=== PATIENT | female | born 1955 | race Caucasian/White ===

== ENCOUNTER → 2017-04-07 | Outpatient (CLI) | payer OTHER ==
[2017-04-07 18:27] LABS: ALT/SGPT 41 U/L (12-78); AST/SGOT 23 U/L (15-37); BLOOD UREA NITROGEN 13 mg/dl (7-18); BUN/CREATININE RATIO 13.1 (10-20); CALCIUM 8.7 mg/dl (8.5-10.1); CARBON DIOXIDE 29 mmol/L (21-32); CHLORIDE 98 mmol/L (98-107); CREATININE 0.99 mg/dl (0.60-1.20); GLUCOSE 192 mg/dl (70-99); POTASSIUM 4.7 mmol/L (3.5-5.1); SODIUM 131 mmol/L (136-145)
[2017-04-07 18:38] LABS: ALKALINE PHOSPHATASE 171 U/L (45-117); CHOLESTEROL 176 mg/dl (0-200); CHOLESTEROL/HDL RATIO 4.3; HDL CHOLESTEROL 41 mg/dl; TRIGLYCERIDES 216 mg/dl (0-150); VERY LOW DENSITY LIPOPROT CALC 43 mg/dl
[2017-04-07 18:44] LABS: RATIO 76.9 mcg/mg (0-30.0)
[2017-04-08 06:47] LABS: ESTIMATED AVERAGE GLUCOSE 203 mg/dl; HA1C FLAG Normal (Normal)
== END | disposition home or self-care (01) ==
LOC: C.LABMFLN 12:18
PROVIDERS: ATTEND Family Medicine
DX: E11.9 Type 2 diabetes mellitus without complications (principal); I10 Essential (primary) hypertension; E78.00 Pure hypercholesterolemia, unspecified; E55.9 Vitamin D deficiency, unspecified

== ENCOUNTER → 2017-06-03 | Outpatient (CLI) | payer OTHER ==
[2017-06-03 13:34] LABS: HEMATOCRIT 38.3 % (37-47); MEAN CELL VOLUME 82.9 fL (80-100); MEAN CORPUSCULAR HEMOGLOBIN 27.1 pg (25-34); MEAN CORPUSCULAR HGB CONC 32.6 g/dl (32-36); PLATELET COUNT 139 K/uL (130-400); RED BLOOD COUNT 4.62 M/uL (4.2-5.4)
== END | disposition home or self-care (01) ==
LOC: C.LABMFLN 09:42
PROVIDERS: ATTEND Orthopaedic Surgery
DX: S32.12 Zone II fracture of sacrum (principal); Z98.890 Other specified postprocedural states; F20.0 Paranoid schizophrenia; Z72.0 Tobacco use; X58.XXXD Exposure to other specified factors, subsequent encounter

== ENCOUNTER → 2017-07-08 | Outpatient (CLI) | payer OTHER ==
[2017-07-08 18:24] LABS: BLOOD UREA NITROGEN 12 mg/dl (7-18); BUN/CREATININE RATIO 14.2 (10-20); CALCIUM 8.9 mg/dl (8.5-10.1); CARBON DIOXIDE 27 mmol/L (21-32); CHLORIDE 104 mmol/L (98-107); CREATININE 0.84 mg/dl (0.60-1.20); GLUCOSE 89 mg/dl (70-99); POTASSIUM 4.2 mmol/L (3.5-5.1); SODIUM 136 mmol/L (136-145)
[2017-07-09 06:36] LABS: ESTIMATED AVERAGE GLUCOSE 180 mg/dl; HA1C FLAG Normal (Normal)
== END | disposition home or self-care (01) ==
LOC: C.LABMFLN 10:59
PROVIDERS: ATTEND Family Medicine
DX: E11.40 Type 2 diabetes mellitus with diabetic neuropathy, unspecified (principal)

== ENCOUNTER → 2017-10-09 | Outpatient (CLI) | payer OTHER ==
[2017-10-09 18:43] LABS: INFLUENZA A PCR Neg for Influ A (NEG); INFLUENZA B PCR Neg for Influ B (NEG)
== END | disposition home or self-care (01) ==
LOC: C.LABMFLN 17:53
PROVIDERS: ATTEND Family Medicine
DX: R68.89 Other general symptoms and signs (principal); R30.0 Dysuria

== ENCOUNTER 2018-12-07 22:40 | Inpatient (IN) ==
[2018-12-07] MEDS ORDERED: methylPREDNISolone 125 MG/2 ML VIAL IV STA (23:41)
[2018-12-07] MEDS ORDERED: ALBUT/IPRATROP 3MG/0.5MG NEB 3 ML VIAL NEB STA (23:41)
[2018-12-08 00:15] LABS: Basophils # (auto) 0.01 K/uL (0-0.2); Basophils % (auto) 0.1 %; Eosinophils # (auto) 0.04 K/uL (0-0.5); Eosinophils % (auto) 0.6 %; Hematocrit (blood only) 21.8 % (37-47); Hemoglobin 7.7 g/dL (12.0-16.0); Immature Granulocytes # (auto) 0.01 K/uL (0.00-0.02); Immature Granulocytes % (auto) 0.1 %; Lymphocytes # (auto) 1.15 K/uL (1.2-3.4); Mean Corpuscular Hgb Conc 35.3 g/dL (32-36); Mean Corpuscular Volume 86.9 fL (80-100); Mean Platelet Volume 7.9 fL (7.4-10.4); Monocytes % (auto) 10.4 %; Neutrophils # (auto) 4.85 K/uL (1.4-6.5); Neutrophils % (auto) 71.8 %; Platelet Count 132 K/uL (130-400); RDW Coefficient of Variation 15.5 % (11.5-14.5); Red Blood Count 2.51 M/uL (4.2-5.4); White Blood Count 6.76 K/uL (4.8-10.8)
[2018-12-08 00:17] LABS: Appearance Urine Cloudy (Clear); Bacteria Urine Automated 2+ (Negative); Bilirubin Urine Negative (Negative); Blood Urine Trace (Negative); Color Urine Yellow; Glucose Urine UA Negative (Negative); Ketones Urine Negative (Negative); Leukocyte Esterase Urine 3+ (Negative); Nitrite Urine Positive (Negative); Protein Urine 3+ (Negative); RBC Urine Automated 0-4 /hpf (0-4); Specific Gravity Urine 1.012 (1.000-1.030); Urobilinogen Urine Negative (Negative); WBC Urine Automated >30 /hpf (0-5); pH Urine 6.5 (4.5-7.5)
[2018-12-08 00:41] LABS: Alanine Aminotransferase 21 U/L (12-78); Albumin Level 2.4 gm/dl (3.4-5.0); Aspartate Aminotransferase 37 U/L (15-37); BUN Creatinine Ratio 17.8 (10-20); Blood Urea Nitrogen 35 mg/dl (7-18); Calcium 7.5 mg/dl (8.5-10.1); Carbon Dioxide 24 mmol/L (21-32); Chloride 95 mmol/L (98-107); Creatinine Clr Calc Pharmacy 28.9 ml/min; Est GFR (African American) 30.6; Est GFR (Non-African American) 26.4; Glucose 68 mg/dl (70-99); Magnesium 1.8 mg/dl (1.8-2.4); Potassium 4.3 mmol/L (3.5-5.1); RBC Morphology Unremarkable; Sodium 125 mmol/L (136-145)
[2018-12-08 00:46] LABS: Albumin Globulin Ratio 0.6 (0.9-2); Alkaline Phosphatase 177 U/L (45-117); Bilirubin,Total 0.5 mg/dl (0.2-1); Creatine Kinase 92 U/L (26-192); Globulin 3.9 gm/dl (2.5-4.0); Total Protein 6.3 gm/dl (6.4-8.2); Troponin I < 0.015 ng/ml (0-0.045)
[2018-12-08] MEDS ORDERED: SODIUM CHLORIDE 0.9% 1000ML 500 ML IV ONE (00:48)
[2018-12-08] MEDS ORDERED: cefTRIAXone SODIUM 1,000 MG/50 ML BAG IV STA (00:48)
[2018-12-08] MEDS ORDERED: LORazepam 1 MG/2 ML VIAL IV STA ×3 (01:10→02:59)
--- NOTE | 2018-12-08 01:37 | Emergency Department Note ---
History of Present Illness General Chief complaint: Hypoglycemia Stated complaint: hypoglycemia History of Present Illness This 63-year-old presents to the ER complaining of seizure-like activity Location: Generalized Quality: Shaking Severity: Moderate Duration: 10 minutes Timing: Just prior to arrival Context: half-way was concerned and sent the patient in Modifying factors: better with nothing; worse with nothing I spoke to the nurse at the care home who states the patient had a possible seizure/shaking episode for about 10 minutes and EMS was summoned. Patient is currently at the care home for rehab for a right hip fracture. She was transferred there from [place]. Patient has a history of COPD, diabetes and behavioral health. Patient complains of abdominal pain, back pain and cough. Patient is unsure what happened tonight. EMS arrived and blood sugar was 50 and patient was found on the ground. They gave her dextrose. Repeat blood sugar was improved. Patient has no history of seizures. Home Medications Home Medications Medication Instructions Recorded Confirmed Type acetaminophen 650 mg PO Q6H PRN MDD 3GM/24HR 12/08/18 12/08/18 History acetaminophen 650 mg PO Q6H PRN MDD 3GM/24HR 12/08/18 12/08/18 History albuterol sulfate 2 puff INHALATION Q4 PRN 12/08/18 12/08/18 History amlodipine 10 mg PO DAILY 12/08/18 12/08/18 History aripiprazole [Abilify] 15 mg PO DAILY 12/08/18 12/08/18 History ascorbic acid (vitamin C) [Vitamin 500 mg PO DAILY 12/08/18 12/08/18 History C] aspirin 81 mg PO DAILY 12/08/18 12/08/18 History atorvastatin [Lipitor] 40 mg PO HS 12/08/18 12/08/18 History bupropion HCl 100 mg PO DAILY 12/08/18 12/08/18 History citalopram [Celexa] 40 mg PO DAILY 12/08/18 12/08/18 History diphenhydramine HCl 25 mg PO Q6H PRN 12/08/18 12/08/18 History fluticasone furoate-vilanterol 1 inh INHALATION DAILY 12/08/18 12/08/18 History [Breo Ellipta] furosemide 40 mg PO BID 12/08/18 12/08/18 History hydralazine 25 mg PO BID 12/08/18 12/08/18 History insulin glargine [Lantus U-100 10 unit SUBCUT BID 12/08/18 12/08/18 History Insulin] insulin lispro [Humalog U-100 1 sliding scale dose SUBCUT 12/08/18 12/08/18 History Insulin] USEASDIRECTD insulin lispro [Humalog U-100 3 unit SUBCUT AC 12/08/18 12/08/18 History Insulin] ipratropium-albuterol [Combivent 1 puff INHALATION QID 12/08/18 12/08/18 History Respimat] liraglutide [Victoza 2-Gary] 1.2 mg SUBCUT DAILY 12/08/18 12/08/18 History melatonin 3 mg PO HS 12/08/18 12/08/18 History metoprolol tartrate 50 mg PO BID 12/08/18 12/08/18 History nicotine [Nicoderm CQ] 1 patch TRANSDERMAL DAILY 12/08/18 12/08/18 History oxycodone 5 mg PO Q8 PRN 12/08/18 12/08/18 History ranitidine HCl 75 mg PO DAILY 12/08/18 12/08/18 History Allergies Allergy/AdvReac Type Severity Reaction Status Date / Time metformin Allergy Unknown Verified 12/08/18 02:11 Past Med/Surg History Medical History COPD (chronic obstructive pulmonary disease) Diabetes Social History Feels Safe at Home: Yes Smoking Status: Unknown if ever smoked Review of Systems All systems reviewed & are unremarkable except as noted in HPI & below Physical Exam Vital Signs Vital Signs - 24 hr 12/07/18 22:49 12/08/18 00:14 12/08/18 01:07 Temperature 36.5 C Temperature Source Oral Sepsis Recent Fever Within 48 Hours No Sepsis New/Unexplained Change in Mental Status No Sepsis Action Taken by Nursing No Action Required Pulse Rate 94 H 78 Pulse Rate [Right Foot] 78 76 Pulse Rhythm Regular Pulse Rhythm [Right Foot] Regular Regular Pulse Strength Normal Pulse Strength [Right Foot] Normal Normal Respiratory Rate 18 20 18 Respiratory Effort / Characteristics Non-Labored Non-Labored Non-Labored Respiratory Depth Normal Normal Normal Respiratory Pattern Regular Regular Regular Blood Pressure 158/81 H Blood Pressure [Right Arm] 116/83 125/86 Blood Pressure Mean 106 Blood Pressure Mean [Right Arm] 94 99 Blood Pressure Position Lying Blood Pressure Position [Right Arm] Lying Lying Pulse Oximetry 98 100 93 Oxygen Delivery Method Room Air Nebulizer Room Air Oxygen Flow Rate 7 VITALS: Vitals are noted on the nurse's note and reviewed by myself. Vital signs stable. GENERAL: White female answering questions appropriately, in no acute distress, nondiaphoretic, well-developed well-nourished. SKIN: Multiple scabs throughout the patient's arms and back that are healing, the rest of the skin was without rashes, erythema, edema, or bruising. There is no tenting of the skin. Capillary reflex less than 2 seconds. HEAD: Normocephalic atraumatic. EARS: External auditory canals clear, tympanic membranes pearly woods without erythema or effusion bilaterally. EYES: Pupils equal round and reactive to light and accommodation. Conjunctivae without injection, sclerae without icterus. Extraocular movements intact. NOSE: Patent, turbinates without inflammation or discharge. No sinus tenderness. MOUTH: Mucous membranes moist. Pharynx without erythema or exudate. Uvula midline. Airway patent. Tongue does not deviate. NECK: Supple without nuchal rigidity. No lymphadenopathy. No thyromegaly. Cervical spine is nontender. No JVD. HEART: Regular rate and rhythm LUNGS: Diffuse inspiratory and expiratory wheezes, without rales or rhonchi. No retractions or accessory muscle use. ABDOMEN: Positive bowel sounds x 4. Normal tympanic percussion. Soft, tender to palpation lower abdomen, without masses or organomegaly. Aviles sign negative. No guarding or rebound tenderness. No CVA tenderness MUSCULOSKELETAL: No muscle atrophy, erythema, or edema noted. Lumbar tenderness with bruising present. No thoracic tenderness. NEURO: Patient was alert and oriented to person place and time. Normal sensation to light and sharp touch. No focal neurological deficits. Course Administered Medications Discontinued Medications Albuterol (Duoneb) 3 ml NEB NOW STA Stop: 12/07/18 23:42 Last Admin: 12/08/18 00:12 Dose: 3 ml Documented by: [id number] Diphenhydramine HCl (Benadryl) 25 mg IV NOW STA Stop: 12/08/18 01:40 Last Admin: 12/08/18 01:44 Dose: 25 mg Documented by: [id number] Haloperidol Lactate (Haldol) 5 mg IM NOW STA Stop: 12/08/18 01:40 Last Admin: 12/08/18 01:44 Dose: 5 mg Documented by: [id number] Haloperidol Lactate (Haldol) 5 mg IM NOW STA Stop: 12/08/18 03:00 Last Admin: 12/08/18 03:13 Dose: 5 mg Documented by: [id number] Sodium Chloride (Nss 1000ml) 500 mls @ 999 mls/hr IV .Q31M ONE Stop: 12/08/18 01:18 Last Admin: 12/08/18 01:30 Dose: 999 mls/hr Documented by: [id number] Ceftriaxone Sodium (Rocephin) 1,000 mg in 50 mls @ 100 mls/hr IV NOW STA Stop: 12/08/18 01:17 Last Infusion: 12/08/18 02:06 Dose: 0 mls/hr Documented by: [id number] Admin: 12/08/18 01:27 Dose: 100 mls/hr Documented by: [id number] Lorazepam (Ativan) 1 mg in 2 mls @ 2 mls/min IV NOW STA Stop: 12/08/18 01:11 Last Admin: 12/08/18 01:30 Dose: 2 mls/min Documented by: [id number] Lorazepam (Ativan) 1 mg in 2 mls @ 2 mls/min IV NOW STA Stop: 12/08/18 01:38 Last Admin: 12/08/18 01:44 Dose: 2 mls/min Documented by: [id number] Lorazepam (Ativan) 1 mg in 2 mls @ 2 mls/min IV NOW STA Stop: 12/08/18 03:00 Last Admin: 12/08/18 03:13 Dose: 2 mls/min Documented by: [id number] Methylprednisolone (Solumedrol) 125 mg IV NOW STA Stop: 12/07/18 23:42 Last Admin: 12/08/18 00:12 Dose: 125 mg Documented by: [id number] Medical Decision Making Medical Records Attestation: I reviewed the patient's medical records. Home Medications Current Medication List: was personally reviewed by me Laboratory Data Attestation: I reviewed the patient's lab results. Result diagrams: 12/08/18 00:03 12/08/18 00:03 Lab Results 12/07/18 12/07/18 12/08/18 Range/Units 22:45 23:37 00:02 WBC (4.8-10.8) K/uL RBC (4.2-5.4) M/uL Hgb (12.0-16.0) g/dL Hct (37-47) % MCV (80-100) fL MCH (25-34) pg MCHC (32-36) g/dL RDW Std Deviation (36.4-46.3) fL RDW Coeff of David (11.5-14.5) % Plt Count (130-400) K/uL MPV (7.4-10.4) fL Immature Gran % (Auto) % Neut % (Auto) % Lymph % (Auto) % [place] % (Auto) % Eos % (Auto) % Baso % (Auto) % Immature Gran # (Auto) (0.00-0.02) K/uL Neut # (Auto) (1.4-6.5) K/uL Lymph # (Auto) (1.2-3.4) K/uL [place] # (Auto) (0.11-0.59) K/uL Eos # (Auto) (0-0.5) K/uL Baso # (Auto) (0-0.2) K/uL RBC Morphology Sodium (136-145) mmol/L Potassium (3.5-5.1) mmol/L Chloride (98-107) mmol/L Carbon Dioxide (21-32) mmol/L Anion Gap (3-11) BUN (7-18) mg/dl Creatinine (0.6-1.2) mg/dl Est Cr Clr Drug Dosing ml/min Est GFR ( Amer) Est GFR (Non-Af Amer) BUN/Creatinine Ratio (10-20) Glucose (70-99) mg/dl POC Glucose 159 H 90 (70-99) Calcium (8.5-10.1) mg/dl Magnesium (1.8-2.4) mg/dl Total Bilirubin (0.2-1) mg/dl AST (15-37) U/L ALT (12-78) U/L Alkaline Phosphatase (45-117) U/L Total Creatine Kinase (26-192) U/L Troponin I (0-0.045) ng/ml Total Protein (6.4-8.2) gm/dl Albumin (3.4-5.0) gm/dl Globulin (2.5-4.0) gm/dl Albumin/Globulin Ratio (0.9-2) Lipase (73-393) U/L Urine Color Yellow Urine Appearance Cloudy H (Clear) Urine pH 6.5 (4.5-7.5) Ur Specific [place] 1.012 (1.000-1.030) Urine Protein 3+ H (Negative) Urine Glucose (UA) Negative (Negative) Urine Ketones Negative (Negative) Urine Blood Trace H (Negative) Urine Nitrite Positive H (Negative) Urine Bilirubin Negative (Negative) Urine Urobilinogen Negative (Negative) Ur Leukocyte Esterase 3+ H (Negative) Urine WBC (Auto) >30 H (0-5) /hpf Urine RBC (Auto) 0-4 (0-4) /hpf U Hyaline Cast (Auto) 1-5 (0-5) /lpf U Epithel Cells (Auto) 5-10 H (0-5) /lpf Urine Bacteria (Auto) 2+ H (Negative) Blood Type Antibody Screen 12/08/18 12/08/18 12/08/18 Range/Units 00:03 00:03 01:03 WBC 6.76 (4.8-10.8) K/uL RBC 2.51 L (4.2-5.4) M/uL Hgb 7.7 L (12.0-16.0) g/dL Hct 21.8 L (37-47) % MCV 86.9 (80-100) fL MCH 30.7 (25-34) pg MCHC 35.3 (32-36) g/dL RDW Std Deviation 49.0 H (36.4-46.3) fL RDW Coeff of David 15.5 H (11.5-14.5) % Plt Count 132 (130-400) K/uL MPV 7.9 (7.4-10.4) fL Immature Gran % (Auto) 0.1 % Neut % (Auto) 71.8 % Lymph % (Auto) 17.0 % [place] % (Auto) 10.4 % Eos % (Auto) 0.6 % Baso % (Auto) 0.1 % Immature Gran # (Auto) 0.01 (0.00-0.02) K/uL Neut # (Auto) 4.85 (1.4-6.5) K/uL Lymph # (Auto) 1.15 L (1.2-3.4) K/uL [place] # (Auto) 0.70 H (0.11-0.59) K/uL Eos # (Auto) 0.04 (0-0.5) K/uL Baso # (Auto) 0.01 (0-0.2) K/uL RBC Morphology Unremarkable Sodium 125 L (136-145) mmol/L Potassium 4.3 (3.5-5.1) mmol/L Chloride 95 L (98-107) mmol/L Carbon Dioxide 24 (21-32) mmol/L Anion Gap 6.0 (3-11) BUN 35 H (7-18) mg/dl Creatinine 1.98 H (0.6-1.2) mg/dl Est Cr Clr Drug Dosing 28.9 ml/min Est GFR ( Amer) 30.6 Est GFR (Non-Af Amer) 26.4 BUN/Creatinine Ratio 17.8 (10-20) Glucose 68 L (70-99) mg/dl POC Glucose (70-99) Calcium 7.5 L (8.5-10.1) mg/dl Magnesium 1.8 (1.8-2.4) mg/dl Total Bilirubin 0.5 (0.2-1) mg/dl AST 37 (15-37) U/L ALT 21 (12-78) U/L Alkaline Phosphatase 177 H (45-117) U/L Total Creatine Kinase 92 (26-192) U/L Troponin I < 0.015 (0-0.045) ng/ml Total Protein 6.3 L (6.4-8.2) gm/dl Albumin 2.4 L (3.4-5.0) gm/dl Globulin 3.9 (2.5-4.0) gm/dl Albumin/Globulin Ratio 0.6 L (0.9-2) Lipase 90 (73-393) U/L Urine Color Urine Appearance (Clear) Urine pH (4.5-7.5) Ur Specific [place] (1.000-1.030) Urine Protein (Negative) Urine Glucose (UA) (Negative) Urine Ketones (Negative) Urine Blood (Negative) Urine Nitrite (Negative) Urine Bilirubin (Negative) Urine Urobilinogen (Negative) Ur Leukocyte Esterase (Negative) Urine WBC (Auto) (0-5) /hpf Urine RBC (Auto) (0-4) /hpf U Hyaline Cast (Auto) (0-5) /lpf U Epithel Cells (Auto) (0-5) /lpf Urine Bacteria (Auto) (Negative) Blood Type A Positive Antibody Screen NEGATIVE Imaging Data Attestation: I personally reviewed and interpreted this imaging study as follows: Blood Pressure Blood Pressure Findings: Normal blood pressure MDM Narrative Prior records/ancillary studies reviewed. Patient placed in seizure precautions immediately upon arrival. Nursing notes reviewed. Additional history obtained from EMS The patient's history was concerning for a possible seizure. Differential diagnosis: Etiologies such as infection, hypoglycemia, electrolyte abnormalities, cardiac sources, intracerebral event, trauma, toxicologic, neurologic, as well as others were entertained. Physical examination: As above. No signs of trauma. ER treatment provided: IV fluids, nebulizer, Solu-Medrol, Ativan, Haldol, Benadryl as patient is coming in for combative Rocephin for UTI I spoke to the nurse at the care home and reviewed the records I obtained the records from [facility] and did review them. Patient was transferred to the care home on 11/11 for a right hip fracture for rehab. On reassessment the patient felt better. Diagnostics interpretation by me: ECG: Normal sinus, poor baseline, no acute ST-T wave changes. Impression normal sinus rhythm interpreted by myself I think arrhythmia is unlikely. EKG shows normal sinus rhythm with no interval abnormalities such as QT prolongation or WPW. There are no findings to suggest Brugada syndrome. Cardiac monitoring in the emergency department reveals no tachycardic or bradycardic dysrhythmia. Hypertrophic cardiomyopathy was considered but there are no clear historical elements pointing toward this. EKG is not suggestive. The QRS voltage is not extremely large and there are no suggestive Q waves. The labs revealed urine concerning for infection sent for culture. Anemia, stable per chart review Elevated creatinine, stable per chart review. Imaging studies: CT HEAD: Negative Radiologist: Bashir Dickinsno MD CT C SPINE: Negative Radiologist: Bashir Dickinson MD CT L SPINE: No acute findings, hardware intact Radiologist: Bashir Dickinson, CT ABDOMEN & PELVIS Without Contrast: No acute findings Radiologist: Bashir Dickinson MD CT CHEST Without Contrast: Enlarged left lobe of the thyroid. Emphysema. Multiple chronic bilateral rib fractures. No acute findings. Radiologist: Bashir Dickinson MD Consultation: A consultation was placed with the hospitalist. The case was discussed and [facility] were reviewed. Patient will be admitted to their service. Exam and history seem consistent with UTI, combative behavior, chronic anemia with COPD exacerbation. Medicine was consulted. Patient will be evaluated for admission. Patient was becoming more combative and was giving sedating medications for her safety and staff safety. The pt informed about the findings as listed above. Case reviewed with my attending The chart was completed utilizing [employer] voice recognition software. Grammatical errors, random word insertions, pronoun errors, and incomplete sentences are an occassional consequence of this system due to software limitations, ambient noise, and hardware issues. Any formal questions or concerns about the content, text, or information contained within the body of this dictation should be directly addressed to the physician cashier assistant for clarification. Impression & Plan Acute UTI, Combative behavior, COPD exacerbation, Anemia Discharge Plan Visit Data Chief Complaint: Hypoglycemia Stated Complaint: hypoglycemia ED Provider: William [facility] ED Midlevel Provider: Monse Johnson Discharge Problem: Acute UTI, Hypoglycemia, Seizure, Anemia, COPD exacerbation, Combative behavior Patient Disposition: Being Evaluated by Hospitalist Condition: Fair Forms Stand Alone Forms: My [facility] Prescriptions Prescriptions: No Action atorvastatin [Lipitor] 40 mg Tablet 40 mg PO HS RF: 0 citalopram [Celexa] 40 mg Tablet 40 mg PO DAILY RF: 0 melatonin 3 mg Tablet 3 mg PO HS RF: 0 bupropion HCl 100 mg Tablet Sustained-Release 12 Hr 100 mg PO DAILY RF: 0 ranitidine HCl 75 mg Tablet 75 mg PO DAILY RF: 0 nicotine [Nicoderm CQ] 21 mg/24 hr Patch 24 Hour 1 patch TRANSDERMAL DAILY RF: 0 furosemide 40 mg Tablet 40 mg PO BID RF: 0 ascorbic acid (vitamin C) [Vitamin C] 500 mg Tablet 500 mg PO DAILY RF: 0 Victoza 2-Gary 0.6 mg/0.1 mL (18 mg/3 mL) pen injector 1.2 mg subcut DAILY RF: 0 acetaminophen 325 mg Tablet 650 mg PO Q6H MDD 3GM/24HR PRN (Reason: MILD PAIN 1-3) RF: 0 acetaminophen 325 mg Tablet 650 mg PO Q6H MDD 3GM/24HR PRN (Reason: TEMP>101) RF: 0 Lantus U-100 Insulin 100 unit/mL Solution 10 unit SUBCUT BID RF: 0 hydralazine 25 mg Tablet 25 mg PO BID RF: 0 diphenhydramine HCl 25 mg Tablet 25 mg PO Q6H PRN (Reason: SEASONAL ALLERGIES) RF: 0 metoprolol tartrate 50 mg Tablet 50 mg PO BID RF: 0 insulin lispro [Humalog U-100 Insulin] 100 unit/mL Solution 3 unit SUBCUT AC RF: 0 Combivent Respimat 20-100 mcg/actuation mist 1 puff inhalation QID RF: 0 oxycodone 5 mg Capsule 5 mg PO Q8 PRN (Reason: PAIN LEVEL 4-10) RF: 0 insulin lispro [Humalog U-100 Insulin] 100 unit/mL Solution 1 sliding scale dose SUBCUT USEASDIRECTD RF: 0 albuterol sulfate 90 mcg/actuation Hfa Aerosol Inhaler 2 puff INHALATION Q4 PRN (Reason: Shortness Of Breath Or Wheezing) RF: 0 aspirin 81 mg Tablet,Delayed Release (Dr/Ec) 81 mg PO DAILY RF: 0 amlodipine 10 mg Tablet 10 mg PO DAILY RF: 0 aripiprazole [Abilify] 15 mg Tablet 15 mg PO DAILY RF: 0 Breo Ellipta 100-25 mcg/dose Blister With Device 1 inh INHALATION DAILY RF: 0 Referrals Referrals: Jaki Owen [Primary Care Provider] -
[2018-12-08] MEDS ORDERED: DiphenhydrAMINE HCL 50 MG/ML VIAL IV STA (01:39)
[2018-12-08] MEDS ORDERED: HALOPERIDOL LACTATE 5 MG/ML 1 ML VIAL IM STA ×2 (01:39→02:59)
[2018-12-08] MEDS ORDERED: D5W AND NSS 1,000 ML IV SCH ×2 (03:00)
[2018-12-08] MEDS ORDERED: ONDANSETRON INJ 2 MG/ML 2 ML VIAL IV PRN (04:04)
[2018-12-08] MEDS ORDERED: NITROGLYCERIN SL 0.4 MG/TAB TAB SL PRN (04:04)
[2018-12-08] MEDS ORDERED: ALBUTEROL HFA 8 GM INHALER INH PRN (04:04)
[2018-12-08] MEDS ORDERED: LORazepam 1 MG/2 ML VIAL IV PRN (04:04)
[2018-12-08 05:04] LABS: Calcium 7.1 mg/dl (8.5-10.1); Creatinine Clr Calc Pharmacy 29.6 ml/min; Est GFR (African American) 31.6; Est GFR (Non-African American) 27.2; Potassium 4.8 mmol/L (3.5-5.1)
--- NOTE | 2018-12-08 05:26 | History and Physical Report ---
DATE OF ADMISSION: 12/08/2018 CHIEF COMPLAINT: Questionable seizures, hypoglycemia, agitation. HISTORY OF PRESENT ILLNESS: This is a 63-year-old female with past medical history significant for diabetic neuropathy, type 2 diabetes, chronic hypercapnic respiratory failure, hyponatremia, history of metabolic acidosis, COPD, obesity hypoventilation syndrome, obstructive sleep apnea, acute systolic congestive heart failure, diastolic heart failure, recent echo showed EF of 60%, hypertension, history of dysphagia, history of chronic kidney disease stage IV, history of MIKEY, history of UTI, history of close compression fracture of thoracic vertebrae, restless legs syndrome, history of delirium, history of anemia of chronic kidney disease, history of herpes simplex 1 infection, history of paranoid schizophrenia, history of schizoaffective disorder, drug abuse, anxiety, depression, ambulatory dysfunction, frequent falls, was recently in [facility] in October for fall and right hip fracture status post surgery. During that time she developed MIKEY and also had UTI, treated with antibiotics and seen by Nephrology and she did okay and she was discharged to [facility] and she was brought in here today of questionable seizures. As per the [facility] nurses she was doing okay, but until morning when she seemed to be confused but later in the day she seemed to have seizure-like episode. EMS was called and they checked her blood sugar, it was 50, dextrose was given and brought into the ER. In the ER, she seemed agitated and thrashing her extremities, trying to pick something in the air. Her labs showed a sodium of 125. Hemoglobin 7.7, which was the same as when discharged from the [facility]. Her kidney function is stable and had creatinine of 1.9. Urine seemed to be again infected. All the imaging studies were unremarkable. The patient given IV Ativan and Haldol and currently drowsy but still occasionally moves her extremities. Hemodynamics are stable, saturating okay on 2 liters. Could not get any other history as patient is currently sedated. ALLERGIES: METFORMIN. PAST MEDICAL HISTORY: As mentioned above. PAST SURGICAL HISTORY: Colonoscopy, resection of the vulvar lesion, EGDs, hysteroscopy with biopsy, and polypectomy and I and D of lumbosacral spine, laser iridectomy, lumbar spine fusion, cholecystectomy, tonsillectomy, adenoidectomy, right ankle surgery, right hip surgery. MEDICATIONS: The patient is on nicotine 121 mg patch daily, Lasix 40 mg p.o. b.i.d., oxycodone 5 mg p.o. q. 6 hours p.r.n., Lantus 10 units b.i.d., Victoza 1.2 mg in the skin daily, Tylenol 650 mg q. 6 hours p.r.n., albuterol 2 puffs by mouth q. 4 hours p.r.n., amlodipine 10 mg p.o. daily, Abilify 15 mg p.o. daily, aspirin 81 mg p.o. daily, Lipitor 40 mg p.o. at bedtime, Wellbutrin-SR 100 mg p.o. daily, Celexa 40 mg p.o. daily, Benadryl 25 mg p.o. q. 6 hours p.r.n., Colace 100 mg p.o. b.i.d., Breo Ellipta 100/25 mcg 1 puff daily, hydralazine 25 mg p.o. b.i.d., NovoLog Flexpen t.i.d., Combivent 1 puff 4 times daily, melatonin 3 mg p.o. at bedtime, Lopressor 150 mg p.o. b.i.d., Zantac 75 mg p.o. daily, vitamin C 500 mg p.o. daily. FAMILY HISTORY: Significant for father had emphysema. Mother has emphysema. SOCIAL HISTORY: Single, currently at [facility]. Smoked 1 pack a day for 43 years, quit on 11/04/2018 and currently on nicotine patch. No alcohol use. No drug use. Formerly used marijuana regularly, cocaine sporadically. REVIEW OF SYMPTOMS: Currently unobtainable. PHYSICAL EXAMINATION: GENERAL: The patient is currently drowsy. HEENT: No pallor, no icterus. Pupils equal, round, reactive to light. NECK: No neck masses, no carotid bruits. CARDIOVASCULAR: S1, S2 heard, regular rate and rhythm, no murmur, no gallop. RESPIRATORY SYSTEM: Normal AP diameter. No accessory muscle use. No wheezing, no crackles. ABDOMEN: Soft, bowel sounds present. No distention. CENTRAL NERVOUS SYSTEM: Drowsy, but moves all extremities. EXTREMITIES: Bilateral lower extremities trace pedal edema present. LABORATORY DATA: WBC 6.7, hemoglobin 7.7, hematocrit 21.8, platelets 132. Sodium 125, potassium 4.3, chloride 95, bicarb 24, BUN 35, creatinine 1.98, serum glucose 68, calcium 7.5, magnesium 1.8, total bilirubin 0.5, AST 37, ALT 21, alkaline phosphatase 177, total creatine kinase 92. Troponin I less than 0.015. Lipase 90. Urinalysis positive for nitrite and leukocyte esterase. Chest CT, CT of the abdomen and pelvis, lumbar spine CT, head CT, cervical spine CT, official readings are pending. Chest x-ray show mild congestion. ASSESSMENT AND PLAN: This is a 63-year-old female who presents with questionable seizures, agitation, hypoglycemia. 1. Possible seizures. The patient seemed to [facility], could not get a clear information. The patient was found to be hypoglycemic on the field, was given dextrose. In the ER, she was agitated. The patient has history of schizoaffective disorder, schizophrenia and also she is having urinary tract infection and she received Haldol and Ativan in the ER and currently sedated, occasionally she moves her extremities. We will keep her on one-on-one. All the imaging studies are unofficially reported as unremarkable. She has some leukocytosis and urinary tract infection, so Rocephin given in the ER we will put the patient on IV cefepime. Because of hypoglycemia, we will place her on D5 normal saline at 75 mL per hour. She also has hyponatremia, could also be causing her altered mental status. She will receive gentle fluids as above. Follow the labs closely. Monitor in the tele floor.Will also Get EEG and Neurology evaluation. 2. Hyponatremia. Sodium of 125. The patient is on Celexa and bupropion. Possible SIADH. But also recently Lasix dose was increased at [facility]. We will give gentle fluids and follow the labs closely. Consult nephrology. Check urine osmolality, urine sodium and serum osmolality. We will correct the sodium very slowly. 3. Hypoglycemia, started D5 normal saline. We will follow the blood sugars. 4. Urinary tract infection. Started on cefepime as above. We will follow the culture. 5. Schizoaffective disorder and paranoid schizophrenia. Continue Celexa, bupropion and also the patient has depression and anxiety. Continue Abilify. We will consult psych for further recommendations. 6. History of diabetes.Had hypoglycemia episode., so we will continue Lantus at half dose.Hold home NovoLog, Victoza and start on insulin sliding scale and closely monitor the blood sugars.Glycemic pharmacy consult. 7. Hypertension. Continue amlodipine, hydralazine, Lopressor, and diuretics and monitor the blood pressure. 8. Chronic kidney disease stage IV, creatinine of 1.98, seems to be baseline. We will follow the labs. Nephrology is consulted. Continue same dose of diuretics Lasix 40 b.i.d. for now. 9. History of chronic obstructive pulmonary disease. Continue Breo Ellipta, Combivent inhalers. 10. History of sleep apnea. CPAP at bedtime. 11. History of congestive heart failure, mostly diastolic. Recent echo showed EF was normal 60%, on Lasix 40 b.i.d. getting gentle fluids. Monitor for volume overload. 12. Recent right hip fracture. Currently at rehabilitation. Plan to PT/OT when stable and plan to discharge back to rehab when stable. 13. Acute blood loss anemia. AOCD, from chronic kidney disease stage IV. Recently at [facility] received 2 units post op hip surgery. Hemoglobin 7.7 cm same as when discharged from [facility]. We will closely monitor. 14. History of tobacco abuse, currently on nicotine patch. 15. Ambulatory dysfunction, frequent falls. PT and OT, rehabilitation placement. 16. Deep venous thrombosis prophylaxis, sequential compression devices for now. 17. Disposition: Close monitoring in the tele floor. Level 1 full code. Social Service to help with discharge planning.Patient coming from [facility]. [facility]
[2018-12-08] MEDS ORDERED: CEFEPIME CONSULT ACTIVE PRN (06:12)
--- NOTE | 2018-12-08 06:17 | CT Scan Report ---
CT head/brain wo con CT DOSE: HISTORY: Trauma. Mental status change. fall TECHNIQUE: Multiaxial CT images of the head were performed without the use of intravenous contrast. A dose lowering technique was utilized adhering to the principles of ALARA. Comparison: None. Findings: The paranasal sinuses and mastoid air cells are clear. The calvarium and skull base are int act. The ventricles and sulci are within normal limits. There is no mass, hematoma, midline shift, or acute infarct. Impression: No acute intracranial abnormality. The above report was generated using voice recognition software. It may contain grammatical, syntax or spelling errors. Electronically signed by: Raulito Saucedo M.D. 12/08/2018 6:16 AM
--- NOTE | 2018-12-08 06:19 | CT Scan Report ---
CT cervical spine wo con CT DOSE: HISTORY: Trauma. Pain. fall TECHNIQUE: Multiaxial CT images of the cervical spine were performed and reformatted in the sagittal and coronal plane without the use of contrast. A dose lowering technique was utilized adhering to th e principles of ALARA. COMPARISON: None. FINDINGS: No fractures. No subluxation. Prevertebral soft tissues and the C1-C2 interval are intact. No pneumothorax. IMPRESSION: No fractures within the cervical spine. Minimal degenerative disc change. The above report was generated using voice recognition software. It may contain grammatical, syntax or spelling errors. Electronically signed by: Raulito Saucedo M.D. 12/08/2018 6:17 AM
--- NOTE | 2018-12-08 06:34 | XRay Report ---
XR chest 1V portable HISTORY: 63 years-old Female Chest Pain acute atypical chest pain COMPARISON: Chest CT of same day TECHNIQUE: Portable AP view of the chest FINDINGS: Cardiac silhouette is upper limits of normal in size. Emphysema with areas of interstitial coarsening which are likely chronic. There is no pneumothorax, pleural effusion or overt pulmonary edema. Multi ple healed remote bilateral rib fractures. Degenerative changes of the shoulders and spine. Calcifica tion of the thoracic aortic arch. IMPRESSION: Emphysema without acute process. The above report was generated using voice recognition software. It may contain grammatical, syntax o r spelling errors. Electronically signed by: Samson Hodges M.D. 12/08/2018 6:33 AM
[2018-12-08] MEDS: CEFEPIME 2,000 MG in SYRINGE 7.5 ML IV SCH (06:36)
[2018-12-08 06:37] LABS: Hematocrit (blood only) 21.1 % (37-47); Hemoglobin 7.5 g/dL (12.0-16.0); Mean Corpuscular Hgb Conc 35.5 g/dL (32-36); Mean Corpuscular Volume 86.5 fL (80-100); Mean Platelet Volume 8.5 fL (7.4-10.4); Platelet Count 125 K/uL (130-400); RDW Coefficient of Variation 15.3 % (11.5-14.5); RDW Standard Deviation 48.7 fL (36.4-46.3); Red Blood Count 2.44 M/uL (4.2-5.4); White Blood Count 3.39 K/uL (4.8-10.8)
--- NOTE | 2018-12-08 06:43 | CT Scan Report ---
CT abd pelvis wo con CT DOSE: HISTORY: Mental status change. Nausea. pain TECHNIQUE: Multiaxial CT images of the abdomen and pelvis were performed without contrast. A dose lo wering technique was utilized adhering to the principles of ALARA. COMPARISON STUDY: None. FINDINGS: Lung bases demonstrate emphysematous and nonspecific interstitial change. Overall configura tion of liver spleen and pancreas are unremarkable. Prior cholecystectomy. Considerable motion artifact throughout. Nonobstructive bowel pattern. Bladder is midline. Findings of mild chronic sigmoid diverticulosis. Postoperative change to the lumbar spine and right hip. Surrounding the right hip demonstrate change. This includes musculature as well as subcutaneous fat laterally. This may simply be postoperative al though that history is not provided. IMPRESSION: 1. Considerable motion artifact highly compromising image quality. 2. Basilar emphysematous and nonspecific interstitial change. 3. Prior cholecystectomy and lumbar/sacral laminectomy/fusion. 4. Mild chronic sigmoid diverticulosis. 5. Edematous change surrounding the right hip post right hip pinning and femoral gerry placement. Corre lation with the patient's surgical history is indicated. This may be simply postoperative if the surg todd was recent. It is more significant if the patient has had distant prior surgery. The above report was generated using voice recognition software. It may contain grammatical, syntax or spelling errors. Electronically signed by: Raulito Saucedo M.D. 12/08/2018 6:42 AM
[2018-12-08 06:47] LABS: Lymphocytes # (auto) 0.31 K/uL (1.2-3.4); Lymphocytes % (auto) 9.1 %; Monocytes # (auto) 0.06 K/uL (0.11-0.59); Monocytes % (auto) 1.8 %; Neutrophils # (auto) 3.02 K/uL (1.4-6.5); Neutrophils % (auto) 89.1 %; RBC Morphology Unremarkable
[2018-12-08 06:57] LABS: BUN Creatinine Ratio 17.8 (10-20); Calcium 7.8 mg/dl (8.5-10.1); Creatinine Clr Calc Pharmacy 28.6 ml/min; Est GFR (African American) 31.2; Est GFR (Non-African American) 26.9; Magnesium 1.9 mg/dl (1.8-2.4); Potassium 4.7 mmol/L (3.5-5.1)
--- NOTE | 2018-12-08 07:20 | CT Scan Report ---
CT chest wo con CLINICAL HISTORY: 63 years-old Female presenting with pain/sob. TECHNIQUE: Multidetector CT imaging of the chest was performed without the use of intravenous contras t. IV contrast: None. One or more dose lowering techniques were used consistent with the principles o f ALARA (as low as reasonably achievable), including automatic exposure control, mA or kV adjustment to individual patient size, and/or use of iterative reconstruction. COMPARISON: None. CT DOSE (mGy.cm): The estimated cumulative dose is 2095.76 mGy.cm. FINDINGS: University L[employer] topogram: Extensive lumbosacral fusion hardware. Intramedullary nail in the right femur. Surgic al clips also noted in the abdomen.. Soft tissues: Multinodular appearance of the thyroid with a relatively enlarged left lobe comparison to the right. Few prominent precarinal lymph nodes, nonspecific. Evaluation of the lizy limited in th e absence of intravenous contrast. Atherosclerosis of the aorta. Mild multichamber enlargement of the heart. Coronary artery calcification. No pericardial or pleural effusion. Upper abdomen normal. Lungs and airways: No pneumothorax. Central airways patent. Pulmonary arteries are not significantly enlarged relative to adjacent bronchi. Extensive centrilobular and paraseptal emphysema with an upper lobe predominance. There are also prominent bulla at the lung bases. Minimal dependent changes likel y atelectasis. Solid 7 mm nodule in the central left upper lobe (series 14 image 125). Respiratory mo tion artifact degrades evaluation of the lung parenchyma limiting evaluation for pulmonary nodules. Musculoskeletal: Degenerative changes of the spine. Multiple bilateral old rib fractures, several of which are nonunited or have significant residual deformity. Severe compression fracture with focal ky phosis of T7. IMPRESSION: 1. Emphysema. No acute intrathoracic pathology. 2. Solid 7 mm left upper lobe nodule. Follow-up per Nisha Society 2017 recommendations below. 3. Severe compression fracture of T7, age indeterminate. Correlate with point tenderness. 4. Mild cardiomegaly. Summary of Fleischner Society 2017 Recommendations (H Partha et al. Guidelines for management of i ncidental pulmonary nodules detected on CT images: From the Fleischner Society 2017. Radiology 2017; 284: 228-243.) SOLID NODULES Single nodule; size < 6 mm * Low risk patients: No routine follow-up * High risk patients: Optional CT at 12 months Single nodule; size 6-8 mm * Low risk patients: CT at 6-12 months, then consider CT at 18-24 months * High risk patients: CT at 6-12 months, then at 18-24 months Single nodule; size > 8 mm * Either low or high risk patients: Considered CT at 3 months, PET/CT, or tissue sampling Multiple nodules; size < 6 mm * Low risk patients: No routine follow up * High risk patients: Optional CT at 12 months Multiple nodules; size 6-8 mm * Low risk patients: CT at 3-6 months, then consider CT at 18-24 months * High risk patients: CT at 3-6 months, then at 18-24 months Multiple nodules; size > 8 mm * Low risk patients: CT at 3-6 months, then consider at 18-24 months * High risk patients: CT at 3-6 months, then at 18-24 months SUBSOLID NODULES Single ground-glass nodule * Nodule size < 6 mm: No routine follow-up * Nodule size > or = 6 mm: CT at 6-12 months to confirm persistence, then CT every 2 years until 5 y ears Single part-solid nodule * Nodule size < 6 mm: No routine follow-up * Nodules size > or = 6 mm: CT at 3-6 months to confirm persistence. If unchanged and solid componen t remains < 6 mm, annual CT should be performed for 5 years Multiple nodules * Nodule size < 6 mm: CT at 3-6 months. If stable, consider CT at 2 and 4 years. * Nodules size > or = 6 mm: CT at 3-6 months. Subsequent management based on the most suspicious nod ule(s) NOTE: 1) These guidelines apply to incidental nodules. These guidelines do NOT apply to patients younger th an 35 years, immunocompromised patients, or patients with cancer. 2) Risk categories: * Low risk patients: Minimal or absent history of smoking and/or other known risk factors * High risk patients: History of smoking, exposure to other carcinogens, emphysema, fibrosis, upper lobe location, family history of lung cancer, etc. 3) If a nodule up to 8 mm is partly solid or is ground glass, further follow-up is required after 24 months to exclude possible slow growing adenocarcinoma. Electronically signed by: oJrge Shah M.D. 12/08/2018 7:18 AM
[2018-12-08] MEDS ORDERED: GLUCOSE 40% GEL 15 GM TUBE PO PRN (07:30)
[2018-12-08] MEDS ORDERED: GLUCAGON FOR INJ 1 MG VIAL IM PRN (07:30)
[2018-12-08] MEDS ORDERED: DEXTROSE 50% 50 ML SYRINGE IV PRN (07:30)
[2018-12-08] MEDS ORDERED: GLUCOSE 10 TABS/TUBE PO PRN (07:30)
[2018-12-08] MEDS ORDERED: CARBOHYDRATES FOR HYPOGLYCEMIA PO PRN (07:30)
--- NOTE | 2018-12-08 07:35 | CT Scan Report ---
CT lumbar spine wo con CLINICAL HISTORY: 63 years-old Female presenting with fall, bruising, foaming at mouth, hypoglycemia. TECHNIQUE: Multidetector CT of the lumbar spine was performed without the use of intravenous contrast . IV contrast: None. One or more dose lowering techniques were used consistent with the principles of ALARA (as low as reasonably achievable), including automatic exposure control, mA or kV adjustment t o individual patient size, and/or use of iterative reconstruction. COMPARISON: None. CT DOSE (mGy.cm): The estimated cumulative dose is 2095.76. FINDINGS: Intramural Director topogram: Lumbosacral fusion hardware. Surgical clips project over the abdomen. Intramedullary nail in the right femur. Posterior bilateral transpedicular screw and gerry fixation of L2 to S1 with bridging screws across the sacroiliac joints. The L4 level is bridged and without transpedicular screws. Interbody spacers note d at L4-5. Laminectomy defect at L4. No hardware breakage. No acute fracture or subluxation. Vertebral body height loss of L4 likely on a chronic basis. Disc osteophyte complex at this level eff aces the ventral spinal canal though there is adequate decompression. Remaining vertebral bodies main tain normal height and alignment. Underlying osteopenia noted. Intervertebral disc height loss at L3- 4 with the remaining levels grossly preserved. Disc bulges suggested at L1-2. Osseous neural foramina l narrowing suggested on the right at every level though greatest at L3-4 and on the left at every le niranjan though greatest at L2-3. Paraspinal soft tissues grossly normal. Surgical clips noted in the abdo men. IMPRESSION: 1. Posterior lumbar fusion of L2-S1 with bridging sacroiliac screws and L4 laminectomy. No hardware breakage. 2. Osteopenia significantly limits evaluation for acute osseous injury. Additionally image quality i s further degraded by orthopedic hardware. Allowing for this, no acute fracture or subluxation. 3. Vertebral body height loss of L4 likely on a chronic basis. 4. Multilevel neural foraminal narrowing. 5. Disc bulge suggested at L1-2, consistent with adjacent level degenerative change. Electronically signed by: Jorge Shah M.D. 12/08/2018 7:34 AM
[2018-12-08] MEDS ORDERED: HALOPERIDOL LACTATE 5 MG/ML 1 ML VIAL IM PRN (08:16)
[2018-12-08] MEDS: ARIPiprazole 15 MG TAB PO SCH (08:36)
[2018-12-08] MEDS: BREO ELLIPTA: ORDER AWAITING ACTION SCH ×3 (08:36→23:26)
[2018-12-08] MEDS: METOPROLOL TARTRATE 50 MG TAB PO SCH ×2 (08:37→20:42)
[2018-12-08] MEDS: IPRATROPIUM BROMIDE/ALBUTEROL respimat INH INH SCH ×4 (08:37→20:42)
[2018-12-08] MEDS: BuPROPion SR 100 MG TABCR PO SCH (08:37)
[2018-12-08] MEDS: ASPIRIN 81 MG ECTAB PO SCH (08:37)
[2018-12-08] MEDS: AMLODIPINE BESYLATE 5 MG TAB PO SCH (08:37)
[2018-12-08] MEDS: CITALOPRAM 40 MG TAB PO SCH (08:37)
[2018-12-08] MEDS: INSULIN GLARGINE SOLOSTAR 100 UNITS/ML 3 ML PEN SQ SCH ×2 (08:39→20:43)
[2018-12-08] MEDS: INSULIN ASPART 100 UNITS/ML 3 ML PEN SC SCH ×3 (08:44→18:06)
[2018-12-08] MEDS: NICOTINE 21 MG/24 HR TDSY TD SCH (08:47)
--- NOTE | 2018-12-08 08:58 | Hospitalist Progress Note ---
Date of Service December 08, 2018 Assessment & Plan (1) Metabolic encephalopathy: from Possible UTI -ff up cultures empiric Cefepime from Hyponatremia - IV fluids Nephro consulted from Hypoglycemia - likely from poor oral intake, with Lantus BID ISS monitor r/o Seizure - EEG Neurology consulted Polypharmacy History of Schizoaffective Disorder - Psych consulted CHF Diastolic Type - patient hypovolemic hold Lasix DM 2 - management as above HTN - continue usual meds CKD 4 - at baseline monibtor COPD - not in exacerbation ABHINAV DVT prophylaxis SCDs Disposition resident of [facility] Subjective ff up for possible seizure, UTI seen sleeping, not in distress was given Ativan earlier due to severe agitation patient was confused, thrashing as per staff no recurrence of seizures noted so far Review of Systems Review of Systems: Unobtainable due to cognitive status Physical Exam Physical Exam: General- sleeping, not in distress Head- atraumatic Face- excoriations noted Eyes- anicteric ENT- dry oral mucosa Neck- supple, no JVD, no adenopathy, no thyromegaly; carotids +2/2, no bruits appreciated Lungs- clear to auscultation bilaterally, no rales/wheezes Heart- normal rate, regular rhythm; no murmur, no gallop, no rub appreciated Abdomen- normal bowel sounds, nondistended, soft, nontender, no masses or hepatosplenomegaly Extremities- no pretibial edema, no calf tenderness; peripheral pulses intact right hip: surgical wounds healing well Neuro- sleeping, cannot do full assessment Skin- warm & dry Results & Data Vital Signs (Past 12 Hours) Vital Signs Temp Pulse Pulse Pulse Resp BP BP 12/08/18 06:57 36.8 C 99 H 17 143/73 H 12/08/18 04:28 88 18 12/08/18 04:04 12/08/18 03:48 36.5 C 83 16 129/69 12/08/18 03:38 80 18 114/82 12/08/18 02:00 86 18 156/89 H 12/08/18 01:07 76 18 125/86 12/08/18 00:14 78 78 20 116/83 12/07/18 22:49 36.5 C 94 H 18 158/81 H Pulse Ox Pulse Ox 12/08/18 06:57 98 12/08/18 04:28 98 12/08/18 04:04 97 12/08/18 03:48 98 12/08/18 03:38 99 12/08/18 02:00 99 12/08/18 01:07 93 12/08/18 00:14 100 12/07/18 22:49 98 Laboratory Results Laboratory Results - last 24 hr 12/07/18 12/07/18 12/08/18 22:45 23:37 00:02 WBC RBC Hgb Hct MCV MCH MCHC RDW Std Deviation RDW Coeff of David Plt Count MPV Immature Gran % (Auto) Neut % (Auto) Lymph % (Auto) [place] % (Auto) Eos % (Auto) Baso % (Auto) Immature Gran # (Auto) Neut # (Auto) Lymph # (Auto) [place] # (Auto) Eos # (Auto) Baso # (Auto) RBC Morphology Sodium Potassium Chloride Carbon Dioxide Anion Gap BUN Creatinine Est Cr Clr Drug Dosing Est GFR ( Amer) Est GFR (Non-Af Amer) BUN/Creatinine Ratio Glucose POC Glucose 159 H 90 Osmolality Calcium Magnesium Total Bilirubin AST ALT Alkaline Phosphatase Total Creatine Kinase Troponin I Total Protein Albumin Globulin Albumin/Globulin Ratio Lipase Specimen Hemolysis Urine Color Yellow Urine Appearance Cloudy H Urine pH 6.5 Ur Specific [place] 1.012 Urine Protein 3+ H Urine Glucose (UA) Negative Urine Ketones Negative Urine Blood Trace H Urine Nitrite Positive H Urine Bilirubin Negative Urine Urobilinogen Negative Ur Leukocyte Esterase 3+ H Urine WBC (Auto) >30 H Urine RBC (Auto) 0-4 U Hyaline Cast (Auto) 1-5 U Epithel Cells (Auto) 5-10 H Urine Bacteria (Auto) 2+ H Nasal Screen MRSA (PCR) Blood Type Antibody Screen 12/08/18 12/08/18 12/08/18 00:03 00:03 01:03 WBC 6.76 RBC 2.51 L Hgb 7.7 L Hct 21.8 L MCV 86.9 MCH 30.7 MCHC 35.3 RDW Std Deviation 49.0 H RDW Coeff of David 15.5 H Plt Count 132 MPV 7.9 Immature Gran % (Auto) 0.1 Neut % (Auto) 71.8 Lymph % (Auto) 17.0 [place] % (Auto) 10.4 Eos % (Auto) 0.6 Baso % (Auto) 0.1 Immature Gran # (Auto) 0.01 Neut # (Auto) 4.85 Lymph # (Auto) 1.15 L [place] # (Auto) 0.70 H Eos # (Auto) 0.04 Baso # (Auto) 0.01 RBC Morphology Unremarkable Sodium 125 L Potassium 4.3 Chloride 95 L Carbon Dioxide 24 Anion Gap 6.0 BUN 35 H Creatinine 1.98 H Est Cr Clr Drug Dosing 28.9 Est GFR ( Amer) 30.6 Est GFR (Non-Af Amer) 26.4 BUN/Creatinine Ratio 17.8 Glucose 68 L POC Glucose Osmolality Calcium 7.5 L Magnesium 1.8 Total Bilirubin 0.5 AST 37 ALT 21 Alkaline Phosphatase 177 H Total Creatine Kinase 92 Troponin I < 0.015 Total Protein 6.3 L Albumin 2.4 L Globulin 3.9 Albumin/Globulin Ratio 0.6 L Lipase 90 Specimen Hemolysis Urine Color Urine Appearance Urine pH Ur Specific [place] Urine Protein Urine Glucose (UA) Urine Ketones Urine Blood Urine Nitrite Urine Bilirubin Urine Urobilinogen Ur Leukocyte Esterase Urine WBC (Auto) Urine RBC (Auto) U Hyaline Cast (Auto) U Epithel Cells (Auto) Urine Bacteria (Auto) Nasal Screen MRSA (PCR) Blood Type A Positive Antibody Screen NEGATIVE 12/08/18 12/08/18 12/08/18 04:12 05:50 05:53 WBC RBC Hgb Hct MCV MCH MCHC RDW Std Deviation RDW Coeff of David Plt Count MPV Immature Gran % (Auto) Neut % (Auto) Lymph % (Auto) [place] % (Auto) Eos % (Auto) Baso % (Auto) Immature Gran # (Auto) Neut # (Auto) Lymph # (Auto) [place] # (Auto) Eos # (Auto) Baso # (Auto) RBC Morphology Sodium 125 L Potassium 4.8 Chloride 97 L Carbon Dioxide 20 L Anion Gap 8.0 BUN 35 H Creatinine 1.93 H Est Cr Clr Drug Dosing 29.6 Est GFR ( Amer) 31.6 Est GFR (Non-Af Amer) 27.2 BUN/Creatinine Ratio 18.0 Glucose 125 H POC Glucose Osmolality 272 L Calcium 7.1 L Magnesium Total Bilirubin AST ALT Alkaline Phosphatase Total Creatine Kinase Troponin I Total Protein Albumin Globulin Albumin/Globulin Ratio Lipase Specimen Hemolysis Urine Color Urine Appearance Urine pH Ur Specific [place] Urine Protein Urine Glucose (UA) Urine Ketones Urine Blood Urine Nitrite Urine Bilirubin Urine Urobilinogen Ur Leukocyte Esterase Urine WBC (Auto) Urine RBC (Auto) U Hyaline Cast (Auto) U Epithel Cells (Auto) Urine Bacteria (Auto) Nasal Screen MRSA (PCR) Negative Blood Type Antibody Screen 12/08/18 12/08/18 12/08/18 05:53 05:53 07:44 WBC 3.39 L RBC 2.44 L Hgb 7.5 L Hct 21.1 L MCV 86.5 MCH 30.7 MCHC 35.5 RDW Std Deviation 48.7 H RDW Coeff of David 15.3 H Plt Count 125 L MPV 8.5 Immature Gran % (Auto) 0.0 Neut % (Auto) 89.1 Lymph % (Auto) 9.1 [place] % (Auto) 1.8 Eos % (Auto) 0.0 Baso % (Auto) 0.0 Immature Gran # (Auto) 0.00 Neut # (Auto) 3.02 Lymph # (Auto) 0.31 L [place] # (Auto) 0.06 L Eos # (Auto) 0.00 Baso # (Auto) 0.00 RBC Morphology Unremarkable Sodium 127 L Potassium 4.7 Chloride 97 L Carbon Dioxide 21 Anion Gap 10.0 BUN 35 H Creatinine 1.95 H Est Cr Clr Drug Dosing 28.6 Est GFR ( Amer) 31.2 Est GFR (Non-Af Amer) 26.9 BUN/Creatinine Ratio 17.8 Glucose 144 H POC Glucose 188 H Osmolality Calcium 7.8 L Magnesium 1.9 Total Bilirubin AST ALT Alkaline Phosphatase Total Creatine Kinase Troponin I Total Protein Albumin Globulin Albumin/Globulin Ratio Lipase Specimen Hemolysis Urine Color Urine Appearance Urine pH Ur Specific [place] Urine Protein Urine Glucose (UA) Urine Ketones Urine Blood Urine Nitrite Urine Bilirubin Urine Urobilinogen Ur Leukocyte Esterase Urine WBC (Auto) Urine RBC (Auto) U Hyaline Cast (Auto) U Epithel Cells (Auto) Urine Bacteria (Auto) Nasal Screen MRSA (PCR) Blood Type Antibody Screen
[2018-12-08] MEDS ORDERED: FUROSEMIDE 40 MG TAB PO SCH (09:00)
[2018-12-08] MEDS: FUROSEMIDE 20 MG in SYRINGE 0 ML IV SCH ×2 (10:00→16:40)
[2018-12-08 10:38] LABS: BUN Creatinine Ratio 18.6 (10-20); Creatinine Clr Calc Pharmacy 28.7 ml/min; Est GFR (African American) 31.4; Est GFR (Non-African American) 27.1; Potassium 5.1 mmol/L (3.5-5.1)
--- NOTE | 2018-12-08 10:46 | Nephrology Consultation ---
Date of Consultation December 08, 2018 Assessment & Plan (1) Hyponatremia with decreased serum osmolality: Patient with hypo-osmolar hyponatremia likely due to hypervolemia. Serum osmolality was 272. Physical exam consistent with volume overload. Given advanced CKD this is likely hypervolemic hyponatremia. Recommendations: Stop D5 water. Use D50 boluses as needed for hypoglycemia. If maintenance fluids desired, would use a lower rate of Ringer's lactate Patient is n.p.o. at the moment but if she starts eating would recommend a fluid restriction of 1200 mL daily. Restart IV Lasix 20 mg twice daily Monitor sodium daily. (2) Anemia: Due to CKD and chronic inflammation. Will check iron levels today. Patient might require iron and PSA (3) CKD stage 4 due to type 2 diabetes mellitus: Patient with the proteinuric CKD due to diabetes. Creatinine is 1.9 today which is close to her baseline. Renally dose medications for current GFR and avoid nephrotoxins unless lifesaving. She will need renal follow-up on discharge. History of Present Illness Reason for Consultation: hyponatremia Requesting Physician: Kim Rocha MD Attending Physician: Jeremy Garcias MD History of Present Illness This is a 63-year-old female with past medical history of type 2 diabetes for over 25 years, CKD stage III-IV with proteinuria, bipolar disorder, COPD, and hypertension who was admitted on 12/07/2018 with altered mental status. She was found to have a sodium of 125. We have been asked to evaluate her for etiology and management of hyponatremia. She has CKD stage III-IV with baseline creatinine of 2. She has had multiple episodes of acute kidney injury recently. She was hospitalized at [facility] on 11/04 with a hip fracture status post femoral nail and discharged to rehab. She was noted to be confused at rehab and blood sugar was 50. She was treated with D50 and continued on a D5 drip. Sodium this morning is 127. Patient unable to give history this morning due to sedation with benzodiazepine. She is on a one-to-one sitter and intermittent aggressive. Allergies Allergy/AdvReac Type Severity Reaction Status Date / Time metformin Allergy Unknown Verified 12/08/18 02:11 Home Medications Home Medications Medication Instructions Recorded Confirmed Type acetaminophen 650 mg PO Q6H PRN MDD 3GM/24HR 12/08/18 12/08/18 History acetaminophen 650 mg PO Q6H PRN MDD 3GM/24HR 12/08/18 12/08/18 History albuterol sulfate 2 puff INHALATION Q4 PRN 12/08/18 12/08/18 History amlodipine 10 mg PO DAILY 12/08/18 12/08/18 History aripiprazole [Abilify] 15 mg PO DAILY 12/08/18 12/08/18 History ascorbic acid (vitamin C) [Vitamin 500 mg PO DAILY 12/08/18 12/08/18 History C] aspirin 81 mg PO DAILY 12/08/18 12/08/18 History atorvastatin [Lipitor] 40 mg PO HS 12/08/18 12/08/18 History bupropion HCl 100 mg PO DAILY 12/08/18 12/08/18 History citalopram [Celexa] 40 mg PO DAILY 12/08/18 12/08/18 History diphenhydramine HCl 25 mg PO Q6H PRN 12/08/18 12/08/18 History fluticasone furoate-vilanterol 1 inh INHALATION DAILY 12/08/18 12/08/18 History [Breo Ellipta] furosemide 40 mg PO BID 12/08/18 12/08/18 History hydralazine 25 mg PO BID 12/08/18 12/08/18 History insulin glargine [Lantus U-100 10 unit SUBCUT BID 12/08/18 12/08/18 History Insulin] insulin lispro [Humalog U-100 1 sliding scale dose SUBCUT 12/08/18 12/08/18 History Insulin] USEASDIRECTD insulin lispro [Humalog U-100 3 unit SUBCUT AC 12/08/18 12/08/18 History Insulin] ipratropium-albuterol [Combivent 1 puff INHALATION QID 12/08/18 12/08/18 History Respimat] liraglutide [Victoza 2-[place]] 1.2 mg SUBCUT DAILY 12/08/18 12/08/18 History melatonin 3 mg PO HS 12/08/18 12/08/18 History metoprolol tartrate 50 mg PO BID 12/08/18 12/08/18 History nicotine [Nicoderm CQ] 1 patch TRANSDERMAL DAILY 12/08/18 12/08/18 History oxycodone 5 mg PO Q8 PRN 12/08/18 12/08/18 History ranitidine HCl 75 mg PO DAILY 12/08/18 12/08/18 History Patient History Medical History COPD (chronic obstructive pulmonary disease) Diabetes Social History Communication Ability: Unable Beliefs That Will Affect Care: None Current Living Situation: Intermediate Current Living Situation Comment: Per records has been at [facility] since 11/11/18 for rehab s/p hip fx. Feels Safe at Home: Yes Smoking Status: Former smoker Tobacco Type: cigarettes Smoking End Date: Nicoderm patch ordered. Tobacco Cessation Education Requested by Patient: No Review of Systems Review of Systems: Unobtainable due to cognitive status Physical Exam Physical Exam: General exam: Patient is sedated, appears comfortable, no acute distress HEENT: Pupils are equal and reactive to light Neck: No JVD, neck is supple trachea is midline Respiratory system: Clear breath sounds bilaterally. Gastrointestinal: Abdomen is soft, non distended, non tender, bowel sounds are present CVS: Regular rate and rhythm. No murmurs, rubs or gallops Musculoskeletal: No joint or muscle tenderness Extremities: Non tender, 1+ edema, peripheral pulses are present Neuro: Sleeping, unable to assess Skin: Bruises on the abdomen and upper limbs Results & Data Vital Signs (Past 12 Hours) Vital Signs Temp Pulse Pulse Pulse Resp BP BP 12/08/18 06:57 36.8 C 99 H 17 143/73 H 12/08/18 04:28 88 18 12/08/18 04:04 12/08/18 03:48 36.5 C 83 16 129/69 12/08/18 03:38 80 18 114/82 12/08/18 02:00 86 18 156/89 H 12/08/18 01:07 76 18 125/86 12/08/18 00:14 78 78 20 116/83 12/07/18 22:49 36.5 C 94 H 18 158/81 H Pulse Ox Pulse Ox 12/08/18 06:57 98 12/08/18 04:28 98 12/08/18 04:04 97 12/08/18 03:48 98 12/08/18 03:38 99 12/08/18 02:00 99 04/24/19 01:07 93 12/08/18 00:14 100 12/07/18 22:49 98 Laboratory Results Laboratory Results - last 24 hr 12/07/18 12/07/18 12/08/18 22:45 23:37 00:02 WBC RBC Hgb Hct MCV MCH MCHC RDW Std Deviation RDW Coeff of David Plt Count MPV Immature Gran % (Auto) Neut % (Auto) Lymph % (Auto) [place] % (Auto) Eos % (Auto) Baso % (Auto) Immature Gran # (Auto) Neut # (Auto) Lymph # (Auto) [place] # (Auto) Eos # (Auto) Baso # (Auto) RBC Morphology Sodium Potassium Chloride Carbon Dioxide Anion Gap BUN Creatinine Est Cr Clr Drug Dosing Est GFR ( Amer) Est GFR (Non-Af Amer) BUN/Creatinine Ratio Glucose POC Glucose 159 H 90 Osmolality Calcium Magnesium Total Bilirubin AST ALT Alkaline Phosphatase Total Creatine Kinase Troponin I Total Protein Albumin Globulin Albumin/Globulin Ratio Lipase Specimen Hemolysis Urine Color Yellow Urine Appearance Cloudy H Urine pH 6.5 Ur Specific [place] 1.012 Urine Protein 3+ H Urine Glucose (UA) Negative Urine Ketones Negative Urine Blood Trace H Urine Nitrite Positive H Urine Bilirubin Negative Urine Urobilinogen Negative Ur Leukocyte Esterase 3+ H Urine WBC (Auto) >30 H Urine RBC (Auto) 0-4 U Hyaline Cast (Auto) 1-5 U Epithel Cells (Auto) 5-10 H Urine Bacteria (Auto) 2+ H Nasal Screen MRSA (PCR) Blood Type Antibody Screen 12/08/18 12/08/18 12/08/18 00:03 00:03 01:03 WBC 6.76 RBC 2.51 L Hgb 7.7 L Hct 21.8 L MCV 86.9 MCH 30.7 MCHC 35.3 RDW Std Deviation 49.0 H RDW Coeff of David 15.5 H Plt Count 132 MPV 7.9 Immature Gran % (Auto) 0.1 Neut % (Auto) 71.8 Lymph % (Auto) 17.0 [place] % (Auto) 10.4 Eos % (Auto) 0.6 Baso % (Auto) 0.1 Immature Gran # (Auto) 0.01 Neut # (Auto) 4.85 Lymph # (Auto) 1.15 L [place] # (Auto) 0.70 H Eos # (Auto) 0.04 Baso # (Auto) 0.01 RBC Morphology Unremarkable Sodium 125 L Potassium 4.3 Chloride 95 L Carbon Dioxide 24 Anion Gap 6.0 BUN 35 H Creatinine 1.98 H Est Cr Clr Drug Dosing 28.9 Est GFR ( Amer) 30.6 Est GFR (Non-Af Amer) 26.4 BUN/Creatinine Ratio 17.8 Glucose 68 L POC Glucose Osmolality Calcium 7.5 L Magnesium 1.8 Total Bilirubin 0.5 AST 37 ALT 21 Alkaline Phosphatase 177 H Total Creatine Kinase 92 Troponin I < 0.015 Total Protein 6.3 L Albumin 2.4 L Globulin 3.9 Albumin/Globulin Ratio 0.6 L Lipase 90 Specimen Hemolysis Urine Color Urine Appearance Urine pH Ur Specific [place] Urine Protein Urine Glucose (UA) Urine Ketones Urine Blood Urine Nitrite Urine Bilirubin Urine Urobilinogen Ur Leukocyte Esterase Urine WBC (Auto) Urine RBC (Auto) U Hyaline Cast (Auto) U Epithel Cells (Auto) Urine Bacteria (Auto) Nasal Screen MRSA (PCR) Blood Type A Positive Antibody Screen NEGATIVE 12/08/18 12/08/18 12/08/18 04:12 05:50 05:53 WBC RBC Hgb Hct MCV MCH MCHC RDW Std Deviation RDW Coeff of David Plt Count MPV Immature Gran % (Auto) Neut % (Auto) Lymph % (Auto) [place] % (Auto) Eos % (Auto) Baso % (Auto) Immature Gran # (Auto) Neut # (Auto) Lymph # (Auto) [place] # (Auto) Eos # (Auto) Baso # (Auto) RBC Morphology Sodium 125 L Potassium 4.8 Chloride 97 L Carbon Dioxide 20 L Anion Gap 8.0 BUN 35 H Creatinine 1.93 H Est Cr Clr Drug Dosing 29.6 Est GFR ( Amer) 31.6 Est GFR (Non-Af Amer) 27.2 BUN/Creatinine Ratio 18.0 Glucose 125 H POC Glucose Osmolality 272 L Calcium 7.1 L Magnesium Total Bilirubin AST ALT Alkaline Phosphatase Total Creatine Kinase Troponin I Total Protein Albumin Globulin Albumin/Globulin Ratio Lipase Specimen Hemolysis Urine Color Urine Appearance Urine pH Ur Specific [place] Urine Protein Urine Glucose (UA) Urine Ketones Urine Blood Urine Nitrite Urine Bilirubin Urine Urobilinogen Ur Leukocyte Esterase Urine WBC (Auto) Urine RBC (Auto) U Hyaline Cast (Auto) U Epithel Cells (Auto) Urine Bacteria (Auto) Nasal Screen MRSA (PCR) Negative Blood Type Antibody Screen 12/08/18 12/08/18 12/08/18 05:53 05:53 07:44 WBC 3.39 L RBC 2.44 L Hgb 7.5 L Hct 21.1 L MCV 86.5 MCH 30.7 MCHC 35.5 RDW Std Deviation 48.7 H RDW Coeff of David 15.3 H Plt Count 125 L MPV 8.5 Immature Gran % (Auto) 0.0 Neut % (Auto) 89.1 Lymph % (Auto) 9.1 [place] % (Auto) 1.8 Eos % (Auto) 0.0 Baso % (Auto) 0.0 Immature Gran # (Auto) 0.00 Neut # (Auto) 3.02 Lymph # (Auto) 0.31 L [place] # (Auto) 0.06 L Eos # (Auto) 0.00 Baso # (Auto) 0.00 RBC Morphology Unremarkable Sodium 127 L Potassium 4.7 Chloride 97 L Carbon Dioxide 21 Anion Gap 10.0 BUN 35 H Creatinine 1.95 H Est Cr Clr Drug Dosing 28.6 Est GFR ( Amer) 31.2 Est GFR (Non-Af Amer) 26.9 BUN/Creatinine Ratio 17.8 Glucose 144 H POC Glucose 188 H Osmolality Calcium 7.8 L Magnesium 1.9 Total Bilirubin AST ALT Alkaline Phosphatase Total Creatine Kinase Troponin I Total Protein Albumin Globulin Albumin/Globulin Ratio Lipase Specimen Hemolysis Urine Color Urine Appearance Urine pH Ur Specific [place] Urine Protein Urine Glucose (UA) Urine Ketones Urine Blood Urine Nitrite Urine Bilirubin Urine Urobilinogen Ur Leukocyte Esterase Urine WBC (Auto) Urine RBC (Auto) U Hyaline Cast (Auto) U Epithel Cells (Auto) Urine Bacteria (Auto) Nasal Screen MRSA (PCR) Blood Type Antibody Screen 12/08/18 10:12 WBC RBC Hgb Hct MCV MCH MCHC RDW Std Deviation RDW Coeff of David Plt Count MPV Immature Gran % (Auto) Neut % (Auto) Lymph % (Auto) [place] % (Auto) Eos % (Auto) Baso % (Auto) Immature Gran # (Auto) Neut # (Auto) Lymph # (Auto) [place] # (Auto) Eos # (Auto) Baso # (Auto) RBC Morphology Sodium 128 L Potassium 5.1 Chloride 99 Carbon Dioxide 21 Anion Gap 8.0 BUN 36 H Creatinine 1.94 H Est Cr Clr Drug Dosing 28.7 Est GFR ( Amer) 31.4 Est GFR (Non-Af Amer) 27.1 BUN/Creatinine Ratio 18.6 Glucose 162 H POC Glucose Osmolality Calcium 8.0 L Magnesium Total Bilirubin AST ALT Alkaline Phosphatase Total Creatine Kinase Troponin I Total Protein Albumin Globulin Albumin/Globulin Ratio Lipase Specimen Hemolysis Urine Color Urine Appearance Urine pH Ur Specific [place] Urine Protein Urine Glucose (UA) Urine Ketones Urine Blood Urine Nitrite Urine Bilirubin Urine Urobilinogen Ur Leukocyte Esterase Urine WBC (Auto) Urine RBC (Auto) U Hyaline Cast (Auto) U Epithel Cells (Auto) Urine Bacteria (Auto) Nasal Screen MRSA (PCR) Blood Type Antibody Screen
[2018-12-08 11:24] LABS: Iron 34 mcg/dl (35-150); Transferrin 158 mg/dl (200-360); Transferrin Percent Saturation 15 % (15-50)
[2018-12-08] MEDS: LACTOBACILLUS ACIDOPHILUS (FLORANEX) TAB PO SCH ×2 (11:42→16:41)
[2018-12-08 14:05] LABS: Influenza A virus by PCR Neg for Influ A (Neg); Influenza B virus by PCR Neg for Influ B (Neg)
--- NOTE | 2018-12-08 14:26 | Neurology Consultation ---
Date of Consultation December 08, 2018 Assessment & Plan (1) Seizure: 1. EEG -preliminary - global slowing-no seizure focus 2. blood glucose at event 50 likely combination of metabolic issues 3. sodium 125 at admission -chronic hyponatremia 132 and lower 4. UTI - treat to culture 5. psychiatry for medication management 6. MRI if patient can tolerate and cooperate 7. will not treat for seizure at this time if another event will reevaluate for treatment no follow up needed with neurology unless further issues occur. will sign off for now Supervising Physician Co-Signing Physician Notes I have seen and discussed above patient with Dr Munir Garcia, neurology I have reviewed the above note, discussed the case with Malinda Skinner PA-C, reviewed the admitting history and physical, imaging studies and laboratory data concerning Mrs. Saavedra is a 63-year-old woman with multiple vascular risk factors, endocrine issues stage IV renal disease, chronic hyponatremia and an underlying psychiatric disorder on multiple medications She presents with a urinary tract infection, hyponatremia which may be stable, and with an event that may or may not have been a seizure that is associated with a normal EEG at this time Her exam is neurologically very limited she is lethargic periodically agitated and apparently received some Ativan this morning which may have yet to clear her system particular in light of her stage IV renal disease there are no focal signs but again examination is less than reliable all I can stated that there is no head or eye deviation, no obvious hemiparesis and no seizure activity seen clinically At this point I am going to the mixed delirium/encephalopathy of multifactorial causation I am disinclined to empirically start her on anticonvulsants in this setting unless of course we see unequivocal evidence for a clinical seizure or subsequent electroencephalographic studies which show clear-cut potentially epileptogenic activity. We will check back tomorrow, attempt to reassess her clinically, hopefully be able to perform a more reasonable neurologic examination and will see how she is done over the next 24 hours Munir Garcia MD History of Present Illness Reason for Consultation: seizure ? Requesting Physician: Jereym Garcias MD Attending Physician: Jeremy Garcias MD History of Present Illness Jaymie is a 63 year old female with PMH- diabetic neuropathy, DM2, chronic hypercapnic respiratory failure, hyponatremia, metabolic acidosis, COPD, obesity hypoventilation syndrome, ABHINAV-on bi pap, acute systolic congestive heart failure, diastolic heart failure, recent echo showed EF of 60%, HTN, dysphagia, CKD IV, and MIKEY, compression fracture of thoracic vertebrae, RLS, delirium, anemia of chronic disease,herpes simplex 1 infection, paranoid schizophrenia, schizoaffective disorder, drug abuse, anxiety, depression, ambulatory dysfunction, frequent falls, was recently in [facility] in October fall and right hip fracture status post surgery. During that time she developed MIKEY and also had UTI, treated with antibiotics and seen by Nephrology and she did okay and she was discharged to [facility]. She was brought to ED for possible seizures. [facility] nurses state she was doing ok but until morning when she seemed to be confused but later in the day she seemed to have seizure-like episode. EMS was called and they checked her blood sugar, it was 50 dextrose was given. In the ER, she seemed agitated and thrashing her extremities, trying to pick something in the air. She had a sodium of 125. Hemoglobin 7.7, which was the same as when discharged from the [facility]. Her kidney function is stable and had creatinine of 1.9. Urine evaluated. Ativan and haldol was given saturating okay on 2 liters. Currently s he is sleeping but awakes with voice command. denies CP, SOB, abdominal pain, one sided weakness, numbness tingling, N, V. She is currently NPO. Allergies Allergy/AdvReac Type Severity Reaction Status Date / Time metformin Allergy Unknown Verified 12/08/18 02:11 Home Medications Home Medications Medication Instructions Recorded Confirmed Type acetaminophen 650 mg PO Q6H PRN MDD 3GM/24HR 12/08/18 12/08/18 History acetaminophen 650 mg PO Q6H PRN MDD 3GM/24HR 12/08/18 12/08/18 History albuterol sulfate 2 puff INHALATION Q4 PRN 12/08/18 12/08/18 History amlodipine 10 mg PO DAILY 12/08/18 12/08/18 History aripiprazole [Abilify] 15 mg PO DAILY 12/08/18 12/08/18 History ascorbic acid (vitamin C) [Vitamin 500 mg PO DAILY 12/08/18 12/08/18 History C] aspirin 81 mg PO DAILY 12/08/18 12/08/18 History atorvastatin [Lipitor] 40 mg PO HS 12/08/18 12/08/18 History bupropion HCl 100 mg PO DAILY 12/08/18 12/08/18 History citalopram [Celexa] 40 mg PO DAILY 12/08/18 12/08/18 History diphenhydramine HCl 25 mg PO Q6H PRN 12/08/18 12/08/18 History fluticasone furoate-vilanterol 1 inh INHALATION DAILY 12/08/18 12/08/18 History [Breo Ellipta] furosemide 40 mg PO BID 12/08/18 12/08/18 History hydralazine 25 mg PO BID 12/08/18 12/08/18 History insulin glargine [Lantus U-100 10 unit SUBCUT BID 12/08/18 12/08/18 History Insulin] insulin lispro [Humalog U-100 1 sliding scale dose SUBCUT 12/08/18 12/08/18 History Insulin] USEASDIRECTD insulin lispro [Humalog U-100 3 unit SUBCUT AC 12/08/18 12/08/18 History Insulin] ipratropium-albuterol [Combivent 1 puff INHALATION QID 12/08/18 12/08/18 History Respimat] liraglutide [Victoza 2-Gary] 1.2 mg SUBCUT DAILY 12/08/18 12/08/18 History melatonin 3 mg PO HS 12/08/18 12/08/18 History metoprolol tartrate 50 mg PO BID 12/08/18 12/08/18 History nicotine [Nicoderm CQ] 1 patch TRANSDERMAL DAILY 12/08/18 12/08/18 History oxycodone 5 mg PO Q8 PRN 12/08/18 12/08/18 History ranitidine HCl 75 mg PO DAILY 12/08/18 12/08/18 History Patient History Medical History COPD (chronic obstructive pulmonary disease) Diabetes Social History Communication Ability: Unable Beliefs That Will Affect Care: None Current Living Situation: [facility] Current Living Situation Comment: Per records has been at [facility] since 11/11/18 for rehab s/p hip fx. Feels Safe at Home: Yes Smoking Status: Former smoker Tobacco Type: cigarettes Smoking End Date: Nicoderm patch ordered. Tobacco Cessation Education Requested by Patient: No Physical Exam Physical Exam: Physical Exam: Constitutional: over appearance nourished, ill appearing Ears, Nose, Mouth and Throat: mucous membranes moist, no injection and skin normal, eyes normal Cardiovascular: normal S-1 and S-2 and regular rate and rhythm Respiratory: course breath sounds Musculoskeletal: moving all ext spontaneously Skin: no stigmata of neurocutaneous disease noted and normal and intact Eyes: opens eye briefly, EOM NEUROLOGIC EXAMINATION: Mental status: Alert and interactive Oriented to person Speech fluent with no evidence of aphasia Cranial Nerves facial symmetry Reflexes: Deep tendon reflexes were symmetrical and graded 2/5. Sensory: moves with stimulation Coordination: no cooperative with exam Gait/Stance: Posture lying in bed Motor: Strength: squeezes bilaterally with hand but becomes combative with further exam, quiets quickly and returns to sleep Results & Data Vital Signs (Past 12 Hours) Vital Signs Temp Pulse Pulse Pulse Resp BP BP 12/08/18 12:01 37.3 C 93 H 21 132/67 12/08/18 06:57 36.8 C 99 H 17 12/08/18 04:28 88 18 12/08/18 04:04 12/08/18 03:48 36.5 C 83 16 12/08/18 03:38 80 18 114/82 BP Pulse Ox Pulse Ox 12/08/18 12:01 95 12/08/18 06:57 143/73 H 98 12/08/18 04:28 98 12/08/18 04:04 97 12/08/18 03:48 129/69 98 12/08/18 03:38 99 Laboratory Results Abnormal lab results 12/07/18 12/08/18 12/08/18 Range/Units 22:45 00:02 00:03 WBC (4.8-10.8) K/uL RBC 2.51 L (4.2-5.4) M/uL Hgb 7.7 L (12.0-16.0) g/dL Hct 21.8 L (37-47) % RDW Std Deviation 49.0 H (36.4-46.3) fL RDW Coeff of David 15.5 H (11.5-14.5) % Plt Count (130-400) K/uL Lymph # (Auto) 1.15 L (1.2-3.4) K/uL Randolph # (Auto) 0.70 H (0.11-0.59) K/uL Sodium (136-145) mmol/L Chloride (98-107) mmol/L Carbon Dioxide (21-32) mmol/L BUN (7-18) mg/dl Creatinine (0.6-1.2) mg/dl Glucose (70-99) mg/dl POC Glucose 159 H (70-99) Osmolality (280-300) mOsm/kg Calcium (8.5-10.1) mg/dl Iron (35-150) mcg/dl Transferrin (200-360) mg/dl Alkaline Phosphatase (45-117) U/L Total Protein (6.4-8.2) gm/dl Albumin (3.4-5.0) gm/dl Albumin/Globulin Ratio (0.9-2) Urine Appearance Cloudy H (Clear) Urine Protein 3+ H (Negative) Urine Blood Trace H (Negative) Urine Nitrite Positive H (Negative) Ur Leukocyte Esterase 3+ H (Negative) Urine WBC (Auto) >30 H (0-5) /hpf U Epithel Cells (Auto) 5-10 H (0-5) /lpf Urine Bacteria (Auto) 2+ H (Negative) 12/08/18 12/08/18 12/08/18 Range/Units 00:03 04:12 05:53 WBC (4.8-10.8) K/uL RBC (4.2-5.4) M/uL Hgb (12.0-16.0) g/dL Hct (37-47) % RDW Std Deviation (36.4-46.3) fL RDW Coeff of David (11.5-14.5) % Plt Count (130-400) K/uL Lymph # (Auto) (1.2-3.4) K/uL Randolph # (Auto) (0.11-0.59) K/uL Sodium 125 L 125 L (136-145) mmol/L Chloride 95 L 97 L (98-107) mmol/L Carbon Dioxide 20 L (21-32) mmol/L BUN 35 H 35 H (7-18) mg/dl Creatinine 1.98 H 1.93 H (0.6-1.2) mg/dl Glucose 68 L 125 H (70-99) mg/dl POC Glucose (70-99) Osmolality 272 L (280-300) mOsm/kg Calcium 7.5 L 7.1 L (8.5-10.1) mg/dl Iron (35-150) mcg/dl Transferrin (200-360) mg/dl Alkaline Phosphatase 177 H (45-117) U/L Total Protein 6.3 L (6.4-8.2) gm/dl Albumin 2.4 L (3.4-5.0) gm/dl Albumin/Globulin Ratio 0.6 L (0.9-2) Urine Appearance (Clear) Urine Protein (Negative) Urine Blood (Negative) Urine Nitrite (Negative) Ur Leukocyte Esterase (Negative) Urine WBC (Auto) (0-5) /hpf U Epithel Cells (Auto) (0-5) /lpf Urine Bacteria (Auto) (Negative) 12/08/18 12/08/18 12/08/18 Range/Units 05:53 05:53 07:44 WBC 3.39 L (4.8-10.8) K/uL RBC 2.44 L (4.2-5.4) M/uL Hgb 7.5 L (12.0-16.0) g/dL Hct 21.1 L (37-47) % RDW Std Deviation 48.7 H (36.4-46.3) fL RDW Coeff of David 15.3 H (11.5-14.5) % Plt Count 125 L (130-400) K/uL Lymph # (Auto) 0.31 L (1.2-3.4) K/uL Randolph # (Auto) 0.06 L (0.11-0.59) K/uL Sodium 127 L (136-145) mmol/L Chloride 97 L (98-107) mmol/L Carbon Dioxide (21-32) mmol/L BUN 35 H (7-18) mg/dl Creatinine 1.95 H (0.6-1.2) mg/dl Glucose 144 H (70-99) mg/dl POC Glucose 188 H (70-99) Osmolality (280-300) mOsm/kg Calcium 7.8 L (8.5-10.1) mg/dl Iron (35-150) mcg/dl Transferrin (200-360) mg/dl Alkaline Phosphatase (45-117) U/L Total Protein (6.4-8.2) gm/dl Albumin (3.4-5.0) gm/dl Albumin/Globulin Ratio (0.9-2) Urine Appearance (Clear) Urine Protein (Negative) Urine Blood (Negative) Urine Nitrite (Negative) Ur Leukocyte Esterase (Negative) Urine WBC (Auto) (0-5) /hpf U Epithel Cells (Auto) (0-5) /lpf Urine Bacteria (Auto) (Negative) 12/08/18 12/08/18 12/08/18 Range/Units 10:12 10:12 11:55 WBC (4.8-10.8) K/uL RBC (4.2-5.4) M/uL Hgb (12.0-16.0) g/dL Hct (37-47) % RDW Std Deviation (36.4-46.3) fL RDW Coeff of David (11.5-14.5) % Plt Count (130-400) K/uL Lymph # (Auto) (1.2-3.4) K/uL Randolph # (Auto) (0.11-0.59) K/uL Sodium 128 L (136-145) mmol/L Chloride (98-107) mmol/L Carbon Dioxide (21-32) mmol/L BUN 36 H (7-18) mg/dl Creatinine 1.94 H (0.6-1.2) mg/dl Glucose 162 H (70-99) mg/dl POC Glucose 175 H (70-99) Osmolality (280-300) mOsm/kg Calcium 8.0 L (8.5-10.1) mg/dl Iron 34 L (35-150) mcg/dl Transferrin 158 L (200-360) mg/dl Alkaline Phosphatase (45-117) U/L Total Protein (6.4-8.2) gm/dl Albumin (3.4-5.0) gm/dl Albumin/Globulin Ratio (0.9-2) Urine Appearance (Clear) Urine Protein (Negative) Urine Blood (Negative) Urine Nitrite (Negative) Ur Leukocyte Esterase (Negative) Urine WBC (Auto) (0-5) /hpf U Epithel Cells (Auto) (0-5) /lpf Urine Bacteria (Auto) (Negative) Diagnostic Findings CT c spine-No fractures within the cervical spine. Minimal degenerative disc change. CXR- Emphysema without acute process. CT head- No acute intracranial abnormality. CT L spine - Posterior lumbar fusion of L2-S1 with bridging sacroiliac screws and L4 laminectomy. No hardware breakage. Osteopenia significantly limits evaluation for acute osseous injury. Additionally image quality is further degraded by orthopedic hardware. Allowing for this, no acute fracture or subluxation. Vertebral body height loss of L4 likely on a chronic basis. Multilevel neural foraminal narrowing. Disc bulge suggested at L1-2, consistent with adjacent level degenerative change. CT abd/pelvis- Considerable motion artifact highly compromising image quality. Basilar emphysematous and nonspecific interstitial change. Prior cholecystectomy and lumbar/sacral laminectomy/fusion. Mild chronic sigmoid diverticulosis. Edematous change surrounding the right hip post right hip pinning and femoral gerry placement. Correlation with the patient's surgical history is indicated. This may be simply postoperative if the surgery was recent. It is more significant if the patient has had distant prior surgery. CT chest- Emphysema. No acute intrathoracic pathology. Solid 7 mm left upper lobe nodule. Follow-up per [employer] 2017 recommendations below. Severe compression fracture of T7, age indeterminate. Correlate with point tenderness. Mild cardiomegaly.
--- NOTE | 2018-12-08 15:16 | Procedure Note ---
EEG Procedure Note Date of Service December 08, 2018 Start / End Times Start Time: 0800 End Time: 0830 Referring Physician Munir Garcia MD History Seizure-like event in setting of metabolic abnormalities, hypoglycemia and urinary tract infection Home Medication List Home Medications Medication Instructions Recorded Confirmed Type acetaminophen 650 mg PO Q6H PRN MDD 3GM/24HR 12/08/18 12/08/18 History acetaminophen 650 mg PO Q6H PRN MDD 3GM/24HR 12/08/18 12/08/18 History albuterol sulfate 2 puff INHALATION Q4 PRN 12/08/18 12/08/18 History amlodipine 10 mg PO DAILY 12/08/18 12/08/18 History aripiprazole [Abilify] 15 mg PO DAILY 12/08/18 12/08/18 History ascorbic acid (vitamin C) [Vitamin 500 mg PO DAILY 12/08/18 12/08/18 History C] aspirin 81 mg PO DAILY 12/08/18 12/08/18 History atorvastatin [Lipitor] 40 mg PO HS 12/08/18 12/08/18 History bupropion HCl 100 mg PO DAILY 12/08/18 12/08/18 History citalopram [Celexa] 40 mg PO DAILY 12/08/18 12/08/18 History diphenhydramine HCl 25 mg PO Q6H PRN 12/08/18 12/08/18 History fluticasone furoate-vilanterol 1 inh INHALATION DAILY 12/08/18 12/08/18 History [Breo Ellipta] furosemide 40 mg PO BID 12/08/18 12/08/18 History hydralazine 25 mg PO BID 12/08/18 12/08/18 History insulin glargine [Lantus U-100 10 unit SUBCUT BID 12/08/18 12/08/18 History Insulin] insulin lispro [Humalog U-100 1 sliding scale dose SUBCUT 12/08/18 12/08/18 History Insulin] USEASDIRECTD insulin lispro [Humalog U-100 3 unit SUBCUT AC 12/08/18 12/08/18 History Insulin] ipratropium-albuterol [Combivent 1 puff INHALATION QID 12/08/18 12/08/18 History Respimat] liraglutide [Victoza 2-Gary] 1.2 mg SUBCUT DAILY 12/08/18 12/08/18 History melatonin 3 mg PO HS 12/08/18 12/08/18 History metoprolol tartrate 50 mg PO BID 12/08/18 12/08/18 History nicotine [Nicoderm CQ] 1 patch TRANSDERMAL DAILY 12/08/18 12/08/18 History oxycodone 5 mg PO Q8 PRN 12/08/18 12/08/18 History ranitidine HCl 75 mg PO DAILY 12/08/18 12/08/18 History Inpatient Medication List Albuterol (Combivent Respimat) 1 puffs INH QID LUIS MIGUEL Stop: 01/07/19 08:59 Last Admin: 12/08/18 12:30 Dose: Not Given Documented by: [id number] Admin: 12/08/18 08:37 Dose: Not Given Documented by: [id number] Amlodipine Besylate (Norvasc) 10 mg PO DAILY [facility] Stop: 01/07/19 08:59 Last Admin: 12/08/18 08:37 Dose: Not Given Documented by: [id number] Aripiprazole (Abilify) 15 mg PO DAILY [facility] Stop: 01/07/19 08:59 Last Admin: 12/08/18 08:36 Dose: Not Given Documented by: [id number] Aspirin (Ecotrin Ectab) 81 mg PO DAILY [facility] Stop: 01/07/19 08:59 Last Admin: 12/08/18 08:37 Dose: Not Given Documented by: [id number] Bupropion HCl (Wellbutrin-Sr) 100 mg PO DAILY [facility] Stop: 01/07/19 08:59 Last Admin: 12/08/18 08:37 Dose: Not Given Documented by: [id number] Citalopram Hydrobromide (Celexa) 40 mg PO DAILY [facility] Stop: 01/07/19 08:59 Last Admin: 12/08/18 08:37 Dose: Not Given Documented by: [id number] Hydralazine HCl (Apresoline) 25 mg PO BID [facility] Stop: 01/07/19 08:59 Last Admin: 12/08/18 08:37 Dose: Not Given Documented by: [id number] Dextrose/Sodium Chloride (D5w And Nss) 1,000 mls @ 75 mls/hr IV .[id number] [facility]IS MIGUEL Stop: 01/07/19 02:59 Last Infusion: 12/08/18 08:49 Dose: 0 mls/hr Documented by: [id number] Admin: 12/08/18 04:33 Dose: 75 mls/hr Documented by: [id number] Lorazepam (Ativan) 1 mg in 2 mls @ 0.5 mls/min IV Q2H PRN PRN Reason: Breakthrough Seizures Stop: 01/07/19 04:03 Last Admin: 12/08/18 07:46 Dose: 0.5 mls/min Documented by: [id number] Cefepime HCl 2,000 mg/ Syringe 20 mls @ 5.5 mls/min IV Q24H [facility]; Protocol Stop: 12/18/18 06:59 Last Admin: 12/08/18 06:36 Dose: 5.5 mls/min Documented by: [id number] Furosemide 20 mg/ Syringe 2 mls @ 4 mls/min IV BIDM [facility] Stop: 01/07/19 09:29 Last Admin: 12/08/18 10:00 Dose: 4 mls/min Documented by: [id number] Insulin Aspart (Novolog Flexpen) 0 units SC Q6 [facility] Stop: 01/07/19 07:29 Last Admin: 12/08/18 12:30 Dose: Not Given Documented by: [id number] Cosigned by: [id number] Admin: 12/08/18 08:44 Dose: Not Given Documented by: [id number] Cosigned by: [id number] Insulin Glargine (Lantus Solostar Pen) 5 units SQ BID [facility] Stop: 01/07/19 08:59 Last Admin: 12/08/18 08:39 Dose: 5 units Documented by: [id number] Cosigned by: [id number] Lactobacillus Acidophilus (Floranex) 4 tab PO TIDM [facility] Stop: 01/07/19 11:59 Last Admin: 12/08/18 11:42 Dose: Not Given Documented by: [id number] Metoprolol Tartrate (Lopressor) 50 mg PO BID [facility] Stop: 01/07/19 08:59 Last Admin: 12/08/18 08:37 Dose: Not Given Documented by: [id number] Miscellaneous (Order Awaiting Action) 1 ea N/A QS [facility] Stop: 01/07/19 07:59 Last Admin: 12/08/18 08:36 Dose: Not Given Documented by: [id number] Nicotine (Nicoderm Cq) 21 mg TD DAILY [facility] MIGUEL Stop: 01/07/19 08:59 Last Admin: 12/08/18 08:47 Dose: 21 mg Documented by: [id number] Ranitidine HCl (Zantac) 75 mg PO DAILY [facility] MIGUEL Stop: 01/07/19 08:59 Last Admin: 12/08/18 08:38 Dose: Not Given Documented by: [id number] Discontinued Medications Albuterol (Duoneb) 3 ml NEB NOW STA Stop: 12/07/18 23:42 Last Admin: 12/08/18 00:12 Dose: 3 ml Documented by: [id number] Diphenhydramine HCl (Benadryl) 25 mg IV NOW STA Stop: 12/08/18 01:40 Last Admin: 12/08/18 01:44 Dose: 25 mg Documented by: [id number] Haloperidol Lactate (Haldol) 5 mg IM NOW STA Stop: 12/08/18 01:40 Last Admin: 12/08/18 01:44 Dose: 5 mg Documented by: [id number] Haloperidol Lactate (Haldol) 5 mg IM NOW STA Stop: 12/08/18 03:00 Last Admin: 12/08/18 03:13 Dose: 5 mg Documented by: [id number] Sodium Chloride (Nss 1000ml) 500 mls @ 999 mls/hr IV .Q31M ONE Stop: 12/08/18 01:18 Last Infusion: 12/08/18 04:26 Dose: 0 mls/hr Documented by: [id number] Admin: 12/08/18 01:30 Dose: 999 mls/hr Documented by: [id number] Ceftriaxone Sodium (Rocephin) 1,000 mg in 50 mls @ 100 mls/hr IV NOW STA Stop: 12/08/18 01:17 Last Infusion: 12/08/18 02:06 Dose: 0 mls/hr Documented by: [id number] Admin: 12/08/18 01:27 Dose: 100 mls/hr Documented by: [id number] Lorazepam (Ativan) 1 mg in 2 mls @ 2 mls/min IV NOW STA Stop: 12/08/18 01:11 Last Admin: 12/08/18 01:30 Dose: 2 mls/min Documented by: [id number] Lorazepam (Ativan) 1 mg in 2 mls @ 2 mls/min IV NOW STA Stop: 12/08/18 01:38 Last Admin: 12/08/18 01:44 Dose: 2 mls/min Documented by: [id number] Dextrose/Sodium Chloride (D5w And Nss) 1,000 mls @ 75 mls/hr IV .[id number] [facility] MIGUEL Stop: 01/07/19 02:59 Last Admin: 12/08/18 04:26 Dose: Not Given Documented by: [id number] Lorazepam (Ativan) 1 mg in 2 mls @ 2 mls/min IV NOW STA Stop: 12/08/18 03:00 Last Admin: 12/08/18 03:13 Dose: 2 mls/min Documented by: [id number] Methylprednisolone (Solumedrol) 125 mg IV NOW STA Stop: 12/07/18 23:42 Last Admin: 12/08/18 00:12 Dose: 125 mg Documented by: [id number] Description This is a 21 electrode EEG with a single channel dedicated to limited EKG. The electrodes were placed in accordance with the International 10-20 system. This EEG was done as a bedside on patient who was somewhat drowsy than awake and a lot of head movement artifact was present. Video analysis of patient behavior was obtained. Photic stimulation was not performed. Fully developed stage of light sleep are not obtained. During what appears to be clinical wakefulness there is evidence for low amplitude background rhythm in the alpha range of up to 10-11 Hz maximum frequency and 20 V of maximal amplitude. This is maximum posterior head regions bilaterally symmetrical. Polymorphic mid frequency moderate voltage theta activity seen over the central regions in a symmetrical fashion. Beta activity is present bifrontally but is difficult at times to distinguish between it and muscle movement artifact. Episodically there is a buildup of slow wave activity without any focality and without any associated sharp waves spikes or spike and slow slow wave activity No time is a clear evidence for potentially epileptogenic activity of a focal or generalized type Interpretation This is an essentially normal EEG during wakefulness and what appears to be episodic drowsiness without evidence for focal or generalized encephalopathy without evidence for potentially epileptogenic activity Clinical Correlation This is essentially normal EEG during wakefulness and drowsiness. There is no evidence for potentially epileptogenic activity or a focal generalized encephalopathy Munir Garcia MD
--- NOTE | 2018-12-08 15:19 | Communication Note ---
Date of Service: December 08, 2018 received consult to evaluate patient's mental health and medications. Unfortunately the patient is not able to participate in conversation (sedated vs. unwilling) and so will proceed to clarify psych meds and treatment and attempt to see her again tomorrow.
[2018-12-08 16:24] LABS: BUN Creatinine Ratio 18.1 (10-20); Calcium 7.8 mg/dl (8.5-10.1); Creatinine Clr Calc Pharmacy 28.9 ml/min; Est GFR (African American) 31.6; Est GFR (Non-African American) 27.2; Potassium 4.6 mmol/L (3.5-5.1)
[2018-12-08] MEDS: ATORVASTATIN 40 MG TAB PO SCH (20:42)
[2018-12-08 23:13] LABS: BUN Creatinine Ratio 19.5 (10-20); Calcium 8.2 mg/dl (8.5-10.1); Est GFR (African American) 31.8; Est GFR (Non-African American) 27.4; Potassium 4.2 mmol/L (3.5-5.1)
[2018-12-09] MEDS: INSULIN ASPART 100 UNITS/ML 3 ML PEN SC SCH ×4 (00:37→17:19)
[2018-12-09] MEDS: BREO ELLIPTA: ORDER AWAITING ACTION SCH ×2 (08:23→20:16)
[2018-12-09] MEDS ORDERED: EPOETIN ALFA 20,000 UNITS/ML VIAL SQ SCH (08:30)
[2018-12-09] MEDS: CEFEPIME 2,000 MG in SYRINGE 7.5 ML IV SCH (08:43)
[2018-12-09] MEDS: FUROSEMIDE 20 MG in SYRINGE 0 ML IV SCH ×2 (08:43→15:49)
[2018-12-09] MEDS: ARIPiprazole 15 MG TAB PO SCH (08:59)
[2018-12-09] MEDS: CITALOPRAM 40 MG TAB PO SCH (09:00)
[2018-12-09] MEDS: AMLODIPINE BESYLATE 5 MG TAB PO SCH (09:00)
[2018-12-09] MEDS: ASPIRIN 81 MG ECTAB PO SCH (09:01)
[2018-12-09] MEDS: LACTOBACILLUS ACIDOPHILUS (FLORANEX) TAB PO SCH ×3 (09:01→15:48)
[2018-12-09] MEDS: METOPROLOL TARTRATE 50 MG TAB PO SCH ×2 (09:01→20:55)
[2018-12-09] MEDS: BuPROPion SR 100 MG TABCR PO SCH (09:01)
[2018-12-09] MEDS: IPRATROPIUM BROMIDE/ALBUTEROL respimat INH INH SCH (09:05)
[2018-12-09] MEDS: OXYCODONE HCL IR 5 MG TAB (IMMEDIATE RELEASE) PO PRN ×2 (09:14→21:05)
[2018-12-09] MEDS: INSULIN GLARGINE SOLOSTAR 100 UNITS/ML 3 ML PEN SQ SCH ×2 (09:24→20:55)
[2018-12-09] MEDS: NICOTINE 21 MG/24 HR TDSY TD SCH (09:25)
--- NOTE | 2018-12-09 10:07 | Nephrology Progress Note ---
Date of Service December 09, 2018 Assessment & Plan (1) Hyponatremia with decreased serum osmolality: Patient with hypo-osmolar hyponatremia likely due to hypervolemia. Serum osmolality was 272. Physical exam consistent with volume overload. Given advanced CKD this is likely hypervolemic hyponatremia. Sodium is improving at 133 this morning. Recommendations: Patient can be allowed to eat now that she is more awake. Liberalize salt in her diet Continue fluid restriction of 1200 mL daily. Continue IV Lasix 20 mg twice daily Monitor sodium daily. (2) Anemia: Due to CKD and chronic inflammation. She has transferrin saturation of 15%. We will give Venofer 300 mg today and Epogen 20,000 units subcu once (3) CKD stage 4 due to type 2 diabetes mellitus: Patient with the proteinuric CKD due to diabetes. Creatinine is 1.9 today which is close to her baseline. Renally dose medications for current GFR and avoid nephrotoxins unless lifesaving. She will need renal follow-up on discharge. Subjective Patient seen in follow-up for CKD complicated by hyponatremia and altered mental status. She received Ativan yesterday and intermittently drowsy this morning. She is more awake and able to give history. She feels better denying any shortness of breath or pain. She reports to be hungry and wants to eat breakfast. Sodium is improving at 133 today. Review of Systems Review of Systems: All systems reviewed & are unremarkable except as noted in HPI & below Physical Exam Physical Exam: General exam: Appears comfortable, no acute distress HEENT: Pupils are equal and reactive to light Neck: No JVD, neck is supple trachea is midline Respiratory system: Clear breath sounds bilaterally. Gastrointestinal: Abdomen is soft, non distended, non tender, bowel sounds are present CVS: Regular rate and rhythm. No murmurs, rubs or gallops Musculoskeletal: No joint or muscle tenderness Extremities: Non tender, no edema, peripheral pulses are present Neuro: Oriented, no tremors, no focal neurological deficits Skin: No rashes, Results & Data Vital Signs (Past 12 Hours) Vital Signs Temp Pulse Pulse Resp BP Pulse Ox 12/09/18 07:38 81 12/09/18 06:57 36.0 C L 83 16 139/73 91 12/09/18 04:00 36.3 C L 80 18 158/56 H 98 12/09/18 01:02 76 18 96 12/09/18 00:51 81 12/08/18 22:46 36.9 C 79 18 140/69 100 12/08/18 22:11 85 14 98 Laboratory Results Laboratory Results - last 24 hr 12/08/18 12/08/18 12/08/18 10:12 10:12 11:55 Sodium 128 L Potassium 5.1 Chloride 99 Carbon Dioxide 21 Anion Gap 8.0 BUN 36 H Creatinine 1.94 H Est Cr Clr Drug Dosing 28.7 Est GFR ( Amer) 31.4 Est GFR (Non-Af Amer) 27.1 BUN/Creatinine Ratio 18.6 Glucose 162 H POC Glucose 175 H Calcium 8.0 L Iron 34 L Transferrin 158 L Transferrin % Sat 15 Urine Osmolality Ur Random Sodium Influenza Type A (PCR) Influenza Type B (PCR) 12/08/18 12/08/18 12/08/18 13:13 15:31 17:30 Sodium 130 L Potassium 4.6 Chloride 101 Carbon Dioxide 20 L Anion Gap 9.0 BUN 35 H Creatinine 1.93 H Est Cr Clr Drug Dosing 28.9 Est GFR ( Amer) 31.6 Est GFR (Non-Af Amer) 27.2 BUN/Creatinine Ratio 18.1 Glucose 113 H POC Glucose 115 H Calcium 7.8 L Iron Transferrin Transferrin % Sat Urine Osmolality Ur Random Sodium Influenza Type A (PCR) Neg for Influ A Influenza Type B (PCR) Neg for Influ B 12/08/18 12/08/18 12/08/18 18:51 18:51 22:18 Sodium 133 L Potassium 4.2 Chloride 103 Carbon Dioxide 23 Anion Gap 8.0 BUN 38 H Creatinine 1.92 H Est Cr Clr Drug Dosing 29.0 Est GFR ( Amer) 31.8 Est GFR (Non-Af Amer) 27.4 BUN/Creatinine Ratio 19.5 Glucose 87 POC Glucose Calcium 8.2 L Iron Transferrin Transferrin % Sat Urine Osmolality 209 L Ur Random Sodium 55 Influenza Type A (PCR) Influenza Type B (PCR) 12/08/18 12/09/18 23:49 06:05 Sodium Potassium Chloride Carbon Dioxide Anion Gap BUN Creatinine Est Cr Clr Drug Dosing Est GFR ( Amer) Est GFR (Non-Af Amer) BUN/Creatinine Ratio Glucose POC Glucose 92 92 Calcium Iron Transferrin Transferrin % Sat Urine Osmolality Ur Random Sodium Influenza Type A (PCR) Influenza Type B (PCR)
--- NOTE | 2018-12-09 10:28 | Hospitalist Progress Note ---
Date of Service delayed entry date of service noted below December 09, 2018 Assessment & Plan (1) Metabolic encephalopathy: from Possible UTI - afebrile - mental status improving -ff up cultures empiric Cefepime from Hyponatremia - secondary to Hypervolemia - Na improved to 136 - lasix 20mg IV BID Nephro consulted from Hypoglycemia - likely from poor oral intake, with Lantus BID ISS monitor r/o Seizure - EEG Neurology consulted Polypharmacy History of Schizoaffective Disorder - Psych consulted awaiting recommendations CHF Diastolic Type - patient hypervolemic Lasix 20mg IV BID DM 2 - management as above HTN - continue usual meds CKD 4 - at baseline monitor COPD - (+) possible mild exacerbation - nebs ABHINAV DVT prophylaxis SCDs Disposition resident of [facility] Subjective ff up for encephalopathy seen resting in bed comfortable awake, oriented to place , cannot remember where she lives, events leading to admission states she feels ok overall denies abdominal pain, nausea, dysuria denies chest pain, dyspnea, palpitations reports (+) dry cough no other symptoms Review of Systems Review of Systems: All systems reviewed & are unremarkable except as noted in HPI & below Physical Exam Physical Exam: General- oriented x 2, not in distress, speaks in sentences with no effort or accessory muscle use Face- (+) excoriations Eyes- anicteric Neck- no JVD Lungs- clear breath sounds bilaterally, no rales/wheezes Heart- normal rate, regular rhythm; no murmurs Abdomen- normal bowel sounds, nondistended, soft, nontender Extremities- trace pretibial edema, no calf tenderness Neuro- alert, oriented x 1; no gross focal neurologic deficits Skin- warm & dry Results & Data Vital Signs (Past 12 Hours) Vital Signs Temp Pulse Pulse Resp BP Pulse Ox 12/09/18 07:38 81 12/09/18 06:57 36.0 C L 83 16 139/73 91 12/09/18 04:00 36.3 C L 80 18 158/56 H 98 12/09/18 01:02 76 18 96 12/09/18 00:51 81 12/08/18 22:46 36.9 C 79 18 140/69 100
[2018-12-09] MEDS ORDERED: IRON SUCROSE 300 MG in SODIUM CHLORIDE 0.9% 250 ML IV SCH (10:45)
[2018-12-09] MEDS ORDERED: XOPENEX/ATROVENT 1.25mg/0.5MG NEB COMBO NEB SCH (11:00)
[2018-12-09 11:39] LABS: BUN Creatinine Ratio 18.5 (10-20); Calcium 8.2 mg/dl (8.5-10.1); Creatinine Clr Calc Pharmacy 28.5 ml/min; Est GFR (African American) 31.8; Est GFR (Non-African American) 27.4; Potassium 3.7 mmol/L (3.5-5.1)
[2018-12-09 11:40] LABS: Basophils # (auto) 0.01 K/uL (0-0.2); Basophils % (auto) 0.1 %; Eosinophils # (auto) 0.02 K/uL (0-0.5); Eosinophils % (auto) 0.3 %; Hematocrit (blood only) 22.4 % (37-47); Hemoglobin 7.8 g/dL (12.0-16.0); Immature Granulocytes # (auto) 0.01 K/uL (0.00-0.02); Immature Granulocytes % (auto) 0.1 %; Lymphocytes # (auto) 1.14 K/uL (1.2-3.4); Lymphocytes % (auto) 15.7 %; Mean Corpuscular Hgb Conc 34.8 g/dL (32-36); Mean Corpuscular Volume 88.2 fL (80-100); Mean Platelet Volume 8.5 fL (7.4-10.4); Monocytes # (auto) 0.65 K/uL (0.11-0.59); Neutrophils # (auto) 5.41 K/uL (1.4-6.5); Neutrophils % (auto) 74.8 %; Platelet Count 149 K/uL (130-400); RDW Coefficient of Variation 15.9 % (11.5-14.5); RDW Standard Deviation 51.6 fL (36.4-46.3); Red Blood Count 2.54 M/uL (4.2-5.4); White Blood Count 7.24 K/uL (4.8-10.8)
[2018-12-09] MEDS: IPRATROPIUM BROMIDE NEB SOLN 0.02% 2.5 ML VIAL INH SCH ×3 (11:45→18:51)
[2018-12-09] MEDS: LEVALBUTEROL 1.25MG/0.5ML NEB INH SCH ×3 (11:45→18:52)
--- NOTE | 2018-12-09 11:45 | XRay Report ---
XR chest 1V portable CLINICAL HISTORY: Shortness of breath COMPARISON STUDY: 12/08/2018 FINDINGS: The heart remains enlarged. There are multiple old rib fractures. There is diffuse intersti tial thickening, similar to the preceding study. Multiple bulla are visualized.[ IMPRESSION: 1. Bullous emphysema 2. Interstitial thickening similar to the prior study 3. Mild cardiomegaly Electronically signed by: Delonte Clark M.D. 12/09/2018 11:43 AM
[2018-12-09 12:02] LABS: RBC Morphology Unremarkable
--- NOTE | 2018-12-09 12:20 | Psychiatric Consultation ---
Date of Consultation December 09, 2018 Impression / Recommendations Impression Brief consult with the patient who is reporting no psychiatric problems at present, and we are told that she is possibly back to baseline. Her medications are appropriate and I recommend continuing them. AMS likely from encephalopathy in the setting of UTI and other medical conditions which are now being treated. Neurology is consulted and they have no acute intervention as symptoms were likely multifactorial. She is on Wellbutrin which can precipitate seizures especially on initiation and dosage changes. If further seizure like activity would consider changing agents. Risk Factors Assessment Male: No : Yes Do You Have Access To A Gun?: No Health Problems: Yes Mental Health Diagnoses: Yes Substance Use Disorders: No Protective Factors Assessment : No Responsible for Young Children: No Employed: No CPT Code 58146 Psych History Identifying Data [address] [facility], admitted medically with AMS, hyponatremia, hypoglycemia, possible seizures and UTI. We are consulted to evaluate agitation and schizoaffective disorder. Chief Complaint "OK". History of Present Illness The patient is a 63 yo with multiple chronic medical conditions listed below, who presented to the ED after having what looked to be seizure like activity while at [facility]. In the ED she was found to be hyponatremic, hypoglycemic and with UTI and was admitted medically. We were consulted as she was agitated at some point and has schizoaffective disorder. We attempted to see her yesterday, but she was not able to participate in a conversation so our liaison nurse spoke with [facility] to obtain accurate psych medication list. Today the patient is more responsive. Although she falls to sleep readily she is easily aroused. She agrees that she has schizoaffective disorder and has been on 3 meds including Abilify. She says that her mood has been "pretty good" in recent weeks and denies aud/vis hallucinations. She denies SI/HI. She indicates that she is feeling better since being admitted to the hospital, but is having significant pain in her legs today. She is currently being given a blood transfusion. Beyond this she has no complaints, likes her psych meds and feels that she is getting good care at [facility]. Social service notes reviewed. They have spoken with a textile designs sales representative from [facility] who confirms that her current behavior sounds like baseline for this patient. Past Psychiatric History Current Psychiatric Diagnosis: Schizoaffective disorder Do You Have Access To A Gun?: No Allergies Allergy/AdvReac Type Severity Reaction Status Date / Time metformin Allergy Unknown Verified 12/08/18 02:11 Home Medications Home Medications Medication Instructions Recorded Confirmed Type acetaminophen 650 mg PO Q6H PRN MDD 3GM/24HR 12/08/18 12/08/18 History acetaminophen 650 mg PO Q6H PRN MDD 3GM/24HR 12/08/18 12/08/18 History albuterol sulfate 2 puff INHALATION Q4 PRN 12/08/18 12/08/18 History amlodipine 10 mg PO DAILY 12/08/18 12/08/18 History aripiprazole [Abilify] 15 mg PO DAILY 12/08/18 12/08/18 History ascorbic acid (vitamin C) [Vitamin 500 mg PO DAILY 12/08/18 12/08/18 History C] aspirin 81 mg PO DAILY 12/08/18 12/08/18 History atorvastatin [Lipitor] 40 mg PO HS 12/08/18 12/08/18 History bupropion HCl 100 mg PO DAILY 12/08/18 12/08/18 History citalopram [Celexa] 40 mg PO DAILY 12/08/18 12/08/18 History diphenhydramine HCl 25 mg PO Q6H PRN 12/08/18 12/08/18 History fluticasone furoate-vilanterol 1 inh INHALATION DAILY 12/08/18 12/08/18 History [Breo Ellipta] furosemide 40 mg PO BID 12/08/18 12/08/18 History hydralazine 25 mg PO BID 12/08/18 12/08/18 History insulin glargine [Lantus U-100 10 unit SUBCUT BID 12/08/18 12/08/18 History Insulin] insulin lispro [Humalog U-100 1 sliding scale dose SUBCUT 12/08/18 12/08/18 History Insulin] USEASDIRECTD insulin lispro [Humalog U-100 3 unit SUBCUT AC 12/08/18 12/08/18 History Insulin] ipratropium-albuterol [Combivent 1 puff INHALATION QID 12/08/18 12/08/18 History Respimat] liraglutide [Victoza 2-Gary] 1.2 mg SUBCUT DAILY 12/08/18 12/08/18 History melatonin 3 mg PO HS 12/08/18 12/08/18 History metoprolol tartrate 50 mg PO BID 12/08/18 12/08/18 History nicotine [Nicoderm CQ] 1 patch TRANSDERMAL DAILY 12/08/18 12/08/18 History oxycodone 5 mg PO Q8 PRN 12/08/18 12/08/18 History ranitidine HCl 75 mg PO DAILY 12/08/18 12/08/18 History Personal History Living Arrangements: Long-Term Beliefs That Will Affect Care: None Patient History Medical History COPD (chronic obstructive pulmonary disease) Diabetes Social History Communication Ability: Unable Beliefs That Will Affect Care: None marital status: Single Current Living Situation: Long-Term Current Living Situation Comment: Per records has been at [facility] since 11/11/18 for rehab s/p hip fx. Feels Safe at Home: Yes Smoking Status: Former smoker Tobacco Type: cigarettes Smoking End Date: Nicoderm patch ordered. Tobacco Cessation Education Requested by Patient: No Physical Exam Psychiatric: Orientation: cooperative Apperance: + disheveled (malodorous) Eye Contact: + poor eye contact painful repositioning Speech: normal rate/rhythm/volume of speech Affect: + flat affect (tired) Mood: no depressed mood and no anxious mood "pretty good" Thought Process: goal directed thought process Thought Content: reality based without delusions Suicidal Thoughts: denies suicidal thoughts Homicidal Thoughts: denies homicidal thoughts Hallucinations: no auditory hallucinations and no visual hallucinations Cognition: attention grossly intact and language grossly intact Estimated Intelligence: consistent with education level Insight: + limited insight Judgement: + limited judgement Vital Signs (Past 24 Hours): Last Vital Signs Temp 36.8 C 12/09/18 11:53 Pulse 71 12/09/18 11:53 Resp 20 12/09/18 11:53 BP 126/70 12/09/18 11:53 Pulse Ox 97 12/09/18 11:53 Results & Data Medications Administered Amlodipine Besylate (Norvasc) 10 mg PO DAILY LUIS MIGUEL Stop: 01/07/19 08:59 Last Admin: 12/09/18 09:00 Dose: 10 mg Documented by: [id number] Admin: 12/08/18 08:37 Dose: Not Given Documented by: [id number] Aripiprazole (Abilify) 15 mg PO DAILY LUIS MIGUEL Stop: 01/07/19 08:59 Last Admin: 12/09/18 08:59 Dose: 15 mg Documented by: [id number] Admin: 12/08/18 08:36 Dose: Not Given Documented by: [id number] Aspirin (Ecotrin Ectab) 81 mg PO DAILY LUIS MIGUEL Stop: 01/07/19 08:59 Last Admin: 12/09/18 09:01 Dose: 81 mg Documented by: [id number] Admin: 12/08/18 08:37 Dose: Not Given Documented by: [id number] Atorvastatin Calcium (Lipitor) 40 mg PO HS LUIS MIGUEL Stop: 01/07/19 20:59 Last Admin: 12/08/18 20:42 Dose: Not Given Documented by: [id number] Bupropion HCl (Wellbutrin-Sr) 100 mg PO DAILY LUIS MIGUEL Stop: 01/07/19 08:59 Last Admin: 12/09/18 09:01 Dose: 100 mg Documented by: [id number] Admin: 12/08/18 08:37 Dose: Not Given Documented by: [id number] Citalopram Hydrobromide (Celexa) 40 mg PO DAILY LUIS MIGUEL Stop: 01/07/19 08:59 Last Admin: 12/09/18 09:00 Dose: 40 mg Documented by: [id number] Admin: 12/08/18 08:37 Dose: Not Given Documented by: [id number] Hydralazine HCl (Apresoline) 25 mg PO BID LUIS MIGUEL Stop: 01/07/19 08:59 Last Admin: 12/09/18 09:01 Dose: 25 mg Documented by: [id number] Admin: 12/08/18 20:42 Dose: Not Given Documented by: [id number] Admin: 12/08/18 08:37 Dose: Not Given Documented by: [id number] Dextrose/Sodium Chloride (D5w And Nss) 1,000 mls @ 75 mls/hr IV .[id number] LUIS MIGUEL Stop: 01/07/19 02:59 Last Infusion: 12/08/18 08:49 Dose: 0 mls/hr Documented by: [id number] Admin: 12/08/18 04:33 Dose: 75 mls/hr Documented by: [id number] Lorazepam (Ativan) 1 mg in 2 mls @ 0.5 mls/min IV Q2H PRN PRN Reason: Breakthrough Seizures Stop: 01/07/19 04:03 Last Admin: 12/08/18 07:46 Dose: 0.5 mls/min Documented by: [id number] Cefepime HCl 2,000 mg/ Syringe 20 mls @ 5.5 mls/min IV Q24H [facility]; Protocol Stop: 12/18/18 06:59 Last Admin: 12/09/18 08:43 Dose: 5.5 mls/min Documented by: [id number] Admin: 12/08/18 06:36 Dose: 5.5 mls/min Documented by: [id number] Furosemide 20 mg/ Syringe 2 mls @ 4 mls/min IV BIDM LUIS MIGUEL Stop: 01/07/19 09:29 Last Admin: 12/09/18 08:43 Dose: 4 mls/min Documented by: [id number] Admin: 12/08/18 16:40 Dose: 4 mls/min Documented by: [id number] Admin: 12/08/18 10:00 Dose: 4 mls/min Documented by: [id number] Iron Sucrose 300 mg/ Sodium (Chloride) 265 mls @ 177 mls/hr IV TODAY [facility] Stop: 12/09/18 12:15 Last Admin: 12/09/18 10:47 Dose: 177 mls/hr Documented by: [id number] Insulin Aspart (Novolog Flexpen) 0 units SC Q6 LUIS MIGUEL Stop: 01/07/19 07:29 Last Admin: 12/09/18 06:09 Dose: Not Given Documented by: [id number] Cosigned by: [id number] Admin: 12/09/18 00:37 Dose: Not Given Documented by: [id number] Cosigned by: [id number] Admin: 12/08/18 18:06 Dose: Not Given Documented by: [id number] Cosigned by: [id number] Admin: 12/08/18 12:30 Dose: Not Given Documented by: [id number] Cosigned by: [id number] Admin: 12/08/18 08:44 Dose: Not Given Documented by: [id number] Cosigned by: [id number] Insulin Glargine (Lantus Solostar Pen) 5 units SQ BID [facility] Stop: 01/07/19 08:59 Last Admin: 12/09/18 09:24 Dose: 5 units Documented by: [id number] Cosigned by: [id number] Admin: 12/08/18 20:43 Dose: 5 units Documented by: [id number] Cosigned by: [id number] Admin: 12/08/18 08:39 Dose: 5 units Documented by: [id number] Cosigned by: [id number] Ipratropium Mina (Atrovent 0.02% 0.5mg/2.5ml) 0.5 mg INH Q6R [facility] Stop: 01/08/19 10:44 Last Admin: 12/09/18 11:45 Dose: 0.5 mg Documented by: [id number] Lactobacillus Acidophilus (Floranex) 4 tab PO TIDM [facility] Stop: 01/07/19 11:59 Last Admin: 12/09/18 09:01 Dose: 4 tab Documented by: [id number] Admin: 12/08/18 16:41 Dose: Not Given Documented by: [id number] Admin: 12/08/18 11:42 Dose: Not Given Documented by: [id number] Levalbuterol HCl (Xopenex 1.25mg/0.5ml Neb) 1.25 mg INH Q6R [facility] Stop: 01/08/19 10:44 Last Admin: 12/09/18 11:45 Dose: 1.25 mg Documented by: [id number] Metoprolol Tartrate (Lopressor) 50 mg PO BID [facility] Stop: 01/07/19 08:59 Last Admin: 12/09/18 09:01 Dose: 50 mg Documented by: [id number] Admin: 12/08/18 20:42 Dose: Not Given Documented by: [id number] Admin: 12/08/18 08:37 Dose: Not Given Documented by: [id number] Miscellaneous (Remove Nicoderm Patch) 1 ea N/A HS [facility] Stop: 01/07/19 20:59 Last Admin: 12/08/18 20:49 Dose: 1 ea Documented by: [id number] Miscellaneous (Order Awaiting Action) 1 ea N/A QS [facility] Stop: 01/07/19 07:59 Last Admin: 12/09/18 08:23 Dose: Not Given Documented by: [id number] Admin: 12/08/18 23:26 Dose: Not Given Documented by: [id number] Admin: 12/08/18 16:40 Dose: Not Given Documented by: [id number] Admin: 12/08/18 08:36 Dose: Not Given Documented by: [id number] Nicotine (Nicoderm Cq) 21 mg TD DAILY [facility] Stop: 01/07/19 08:59 Last Admin: 12/09/18 09:25 Dose: 21 mg Documented by: [id number] Admin: 12/08/18 08:47 Dose: 21 mg Documented by: [id number] Oxycodone HCl (Roxicodone Immediate Rel) 5 mg PO Q8 PRN PRN Reason: PAIN LEVEL 4-10 Last Admin: 12/09/18 09:14 Dose: 5 mg Documented by: [id number] Ranitidine HCl (Zantac) 75 mg PO DAILY [facility] Stop: 01/07/19 08:59 Last Admin: 12/09/18 09:05 Dose: 75 mg Documented by: [id number] Admin: 12/08/18 08:38 Dose: Not Given Documented by: [id number]
[2018-12-09] MEDS: ACETAMINOPHEN 325 MG TAB PO PRN (13:58)
--- NOTE | 2018-12-09 14:22 | Neurology Progress Note ---
Date of Service December 09, 2018 Assessment & Plan (1) Seizure: 1. EEG -normal -no seizure focus 2. blood glucose at event 50 likely combination of metabolic issues 3. sodium 125 at admission -chronic hyponatremia 132 and lower 4. UTI - treat to culture 5. psychiatry for medication management 6. MRI if patient can tolerate and cooperate 7. will not treat for seizure at this time if another event will reevaluate for treatment 8. patient is back to baseline 9. PT/OT for any discharge needs no follow up needed with neurology unless further issues occur. will sign off for now Supervising Physician Co-Signing Physician Notes I have seen and discussed above patient with Dr Munir Garcia, neurology No seen Zoë is today reviewed the above note, examined the patient and agree with issues much different than yesterday when she was encephalopathic, relatively sedated but then easily agitated with any stimulus. She apparently had some confusion and then a seizure-like episode while at [facility] studies here have shown no evidence for potentially epileptogenic activity or abnormal imaging of the brain and she was slightly hypoglycemic when the civil litigation attorney arrived at [facility], had a sodium 125 which for her may be chronic and has evidence that suggests possible urinary tract infection versus colonization. At this point I remain reluctant to initiate treatment with anticonvulsants as the description of the seizure-like activity is vague and could simply reflect an emerging delirium due to hypoglycemia or any 1 of a number of other toxic/metabolic issues which in her case are multiple. Neurology is going to sign off the case at this time but would be happy to reassess her should she have breakthrough seizure-like activity at which point we will probably do a prolonged 72-hour monitoring study and might consider placing her on some Keppra but her stage IV renal disease would clearly limit the dose of this agent to I believe the maximum of 500 mg twice a day For now however hopefully this will remain in academic point and no further seizure-like activity will occur Munir Cronin Jaymie is a 63 year old female with PMH- diabetic neuropathy, DM2, chronic hypercapnic respiratory failure, hyponatremia, metabolic acidosis, COPD, obesity hypoventilation syndrome, ABHINAV-on bi pap, acute systolic congestive heart failure, diastolic heart failure, recent echo showed EF of 60%, HTN, dysphagia, CKD IV, and MIKEY, compression fracture of thoracic vertebrae, RLS, delirium, anemia of chronic disease,herpes simplex 1 infection, paranoid schizophrenia, schizoaffective disorder, drug abuse, anxiety, depression, ambulatory dysfunction, frequent falls, was recently in [facility] in October fall and right hip fracture status post surgery. During that time she developed MIKEY and also had UTI, treated with antibiotics and seen by Nephrology and she did okay and she was discharged to [facility]. She was brought to ED for possible seizures. [facility] nurses state she was doing ok but until morning when she seemed to be confused but later in the day she seemed to have seizure-like episode. EMS was called and they checked her blood sugar, it was 50 dextrose was given. In the ER, she seemed agitated and thrashing her extremities, trying to pick something in the air. She had a sodium of 125. Hemoglobin 7.7, which was the same as when discharged from the [facility]. Her kidney function is stable and had creatinine of 1.9. Urine evaluated. Ativan and haldol was given saturating okay on 2 liters. Today she is awake an alert answering questions and following commands. denies CP, SOB, abdominal pain, one sided weakness, numbness tingling, N, V. 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 patellar/plantar flex ext 5/5 bilaterally no pronator drift finger to nose no bipass neuro: knows she is in hospital but can't remember name, November, knows where she lives, knows she recently fell and had hip fracture Results & Data Vital Signs (Past 12 Hours) Vital Signs Temp Pulse Pulse Pulse Resp BP Pulse Ox 12/09/18 11:53 36.8 C 71 20 126/70 97 12/09/18 11:46 73 22 94 12/09/18 07:38 81 12/09/18 06:57 36.0 C L 83 16 139/73 91 12/09/18 04:00 36.3 C L 80 18 158/56 H 98 Laboratory Results Abnormal lab results 12/08/18 12/08/18 12/08/18 Range/Units 15:31 17:30 18:51 RBC (4.2-5.4) M/uL Hgb (12.0-16.0) g/dL Hct (37-47) % RDW Std Deviation (36.4-46.3) fL RDW Coeff of David (11.5-14.5) % Lymph # (Auto) (1.2-3.4) K/uL Green # (Auto) (0.11-0.59) K/uL Sodium 130 L (136-145) mmol/L Carbon Dioxide 20 L (21-32) mmol/L BUN 35 H (7-18) mg/dl Creatinine 1.93 H (0.6-1.2) mg/dl Glucose 113 H (70-99) mg/dl POC Glucose 115 H (70-99) Calcium 7.8 L (8.5-10.1) mg/dl Urine Osmolality 209 L (500-800) mOsm/kg 12/08/18 12/09/18 12/09/18 Range/Units 22:18 10:28 10:28 RBC 2.54 L (4.2-5.4) M/uL Hgb 7.8 L (12.0-16.0) g/dL Hct 22.4 L (37-47) % RDW Std Deviation 51.6 H (36.4-46.3) fL RDW Coeff of David 15.9 H (11.5-14.5) % Lymph # (Auto) 1.14 L (1.2-3.4) K/uL Green # (Auto) 0.65 H (0.11-0.59) K/uL Sodium 133 L (136-145) mmol/L Carbon Dioxide (21-32) mmol/L BUN 38 H 36 H (7-18) mg/dl Creatinine 1.92 H 1.92 H (0.6-1.2) mg/dl Glucose 123 H (70-99) mg/dl POC Glucose (70-99) Calcium 8.2 L 8.2 L (8.5-10.1) mg/dl Urine Osmolality (500-800) mOsm/kg 12/09/18 Range/Units 11:43 RBC (4.2-5.4) M/uL Hgb (12.0-16.0) g/dL Hct (37-47) % RDW Std Deviation (36.4-46.3) fL RDW Coeff of David (11.5-14.5) % Lymph # (Auto) (1.2-3.4) K/uL Green # (Auto) (0.11-0.59) K/uL Sodium (136-145) mmol/L Carbon Dioxide (21-32) mmol/L BUN (7-18) mg/dl Creatinine (0.6-1.2) mg/dl Glucose (70-99) mg/dl POC Glucose 192 H (70-99) Calcium (8.5-10.1) mg/dl Urine Osmolality (500-800) mOsm/kg Diagnostic Findings CXR-Bullous emphysema Interstitial thickening similar to the prior study Mild cardiomegaly EEG-This is essentially normal EEG during wakefulness and drowsiness. There is no evidence for potentially epileptogenic activity or a focal generalized encephalopathy J
[2018-12-09 18:16] LABS: Cdiff Antigen Positive; Cdiff Toxin A+B Negative Cdiff Toxin (Negative)
[2018-12-09] MEDS: ATORVASTATIN 40 MG TAB PO SCH (20:54)
[2018-12-10] MEDS: BREO ELLIPTA: ORDER AWAITING ACTION SCH ×3 (00:36→15:09)
[2018-12-10] MEDS: INSULIN ASPART 100 UNITS/ML 3 ML PEN SC SCH ×4 (00:50→17:47)
[2018-12-10] MEDS: LEVALBUTEROL 1.25MG/0.5ML NEB INH SCH ×4 (01:44→19:18)
[2018-12-10] MEDS: IPRATROPIUM BROMIDE NEB SOLN 0.02% 2.5 ML VIAL INH SCH ×4 (01:44→19:18)
[2018-12-10 06:04] LABS: BUN Creatinine Ratio 20.2 (10-20); Calcium 8.1 mg/dl (8.5-10.1); Est GFR (African American) 28.7; Est GFR (Non-African American) 24.7; Potassium 4.4 mmol/L (3.5-5.1)
[2018-12-10] MEDS: LACTOBACILLUS ACIDOPHILUS (FLORANEX) TAB PO SCH ×3 (07:55→20:25)
[2018-12-10] MEDS: AMLODIPINE BESYLATE 5 MG TAB PO SCH (08:00)
[2018-12-10] MEDS: BuPROPion SR 100 MG TABCR PO SCH (08:00)
[2018-12-10] MEDS: ASPIRIN 81 MG ECTAB PO SCH (08:00)
[2018-12-10] MEDS: ARIPiprazole 15 MG TAB PO SCH (08:00)
[2018-12-10] MEDS: CITALOPRAM 40 MG TAB PO SCH (08:00)
[2018-12-10] MEDS: INSULIN GLARGINE SOLOSTAR 100 UNITS/ML 3 ML PEN SQ SCH ×2 (08:01→20:28)
[2018-12-10] MEDS: METOPROLOL TARTRATE 50 MG TAB PO SCH ×2 (08:03→20:27)
[2018-12-10] MEDS: CEFEPIME 2,000 MG in SYRINGE 7.5 ML IV SCH (09:24)
[2018-12-10] MEDS: FUROSEMIDE 20 MG in SYRINGE 0 ML IV SCH (09:24)
--- NOTE | 2018-12-10 09:41 | Nephrology Progress Note ---
Date of Service December 10, 2018 Assessment & Plan (1) Hyponatremia with decreased serum osmolality: Patient with hypo-osmolar hyponatremia likely due to hypervolemia. Serum osmolality was 272. Physical exam consistent with volume overload. Given advanced CKD this is likely hypervolemic hyponatremia. Sodium is improving at 136 this morning. Recommendations: Liberalize salt in her diet Increase fluid restriction to 1500 mL daily. Continue IV Lasix 20 mg twice daily Monitor sodium daily. (2) Anemia: Due to CKD and chronic inflammation. She has transferrin saturation of 15%. She received Venofer 300 mg and Epogen 20,000 units subcu once. H emoglobin of 7.8 today. (3) CKD stage 4 due to type 2 diabetes mellitus: Patient with proteinuric CKD due to diabetes. Creatinine is 2 today which is close to her baseline. Renally dose medications for current GFR and avoid nephrotoxins unless lifesaving. She will need renal follow-up on discharge. Subjective Patient seen in follow-up for hyponatremia and CKD. Altered mental status has resolved. Patient is complaining of weakness and intermittent sleepy. No vomiting. She is eating well. She continues to scratch herself and has multiple bleeding sites on the hands Review of Systems Review of Systems: All systems reviewed & are unremarkable except as noted in HPI & below Physical Exam Physical Exam: General exam: Appears comfortable, no acute distress HEENT: Pupils are equal and reactive to light Neck: No JVD, neck is supple trachea is midline Respiratory system: Wheezing bilaterally. Gastrointestinal: Abdomen is soft, non distended, non tender, bowel sounds are present CVS: Regular rate and rhythm. No murmurs, rubs or gallops Musculoskeletal: No joint or muscle tenderness Extremities: Non tender, no edema, peripheral pulses are present Neuro: Oriented, intermittently drowsy, no tremors, no focal neurological deficits Skin: Scratch areas, bleeding area around the left cubital fossa, multiple scabs on the upper chest Results & Data Vital Signs (Past 12 Hours) Vital Signs Temp Pulse Pulse Pulse Resp BP Pulse Ox 12/10/18 07:17 37.1 C 77 19 162/72 H 97 12/10/18 07:09 77 18 93 12/10/18 04:44 37.1 C 73 23 134/66 95 12/10/18 01:48 71 16 93 12/10/18 00:40 36.7 C 71 20 135/64 95 12/10/18 00:00 75 Laboratory Results Laboratory Results - last 24 hr 12/09/18 12/09/18 12/09/18 10:28 10:28 11:43 WBC 7.24 RBC 2.54 L Hgb 7.8 L Hct 22.4 L MCV 88.2 MCH 30.7 MCHC 34.8 RDW Std Deviation 51.6 H RDW Coeff of David 15.9 H Plt Count 149 MPV 8.5 Immature Gran % (Auto) 0.1 Neut % (Auto) 74.8 Lymph % (Auto) 15.7 Wheeler % (Auto) 9.0 Eos % (Auto) 0.3 Baso % (Auto) 0.1 Immature Gran # (Auto) 0.01 Neut # (Auto) 5.41 Lymph # (Auto) 1.14 L Wheeler # (Auto) 0.65 H Eos # (Auto) 0.02 Baso # (Auto) 0.01 RBC Morphology Unremarkable Sodium 136 Potassium 3.7 Chloride 105 Carbon Dioxide 23 Anion Gap 8.0 BUN 36 H Creatinine 1.92 H Est Cr Clr Drug Dosing 28.5 Est GFR ( Amer) 31.8 Est GFR (Non-Af Amer) 27.4 BUN/Creatinine Ratio 18.5 Glucose 123 H POC Glucose 192 H Calcium 8.2 L Stl C. diff Tox B Gene Stl C.difficile Tox A&B 12/09/18 12/09/18 12/10/18 16:05 Unknown 00:34 WBC RBC Hgb Hct MCV MCH MCHC RDW Std Deviation RDW Coeff of David Plt Count MPV Immature Gran % (Auto) Neut % (Auto) Lymph % (Auto) Wheeler % (Auto) Eos % (Auto) Baso % (Auto) Immature Gran # (Auto) Neut # (Auto) Lymph # (Auto) Wheeler # (Auto) Eos # (Auto) Baso # (Auto) RBC Morphology Sodium Potassium Chloride Carbon Dioxide Anion Gap BUN Creatinine Est Cr Clr Drug Dosing Est GFR ( Amer) Est GFR (Non-Af Amer) BUN/Creatinine Ratio Glucose POC Glucose 132 H 97 Calcium Stl C. diff Tox B Gene Positive Cdiff Gene A Stl C.difficile Tox A&B Negative Cdiff Toxin 12/10/18 12/10/18 12/10/18 05:20 06:26 07:15 WBC RBC Hgb Hct MCV MCH MCHC RDW Std Deviation RDW Coeff of David Plt Count MPV Immature Gran % (Auto) Neut % (Auto) Lymph % (Auto) Wheeler % (Auto) Eos % (Auto) Baso % (Auto) Immature Gran # (Auto) Neut # (Auto) Lymph # (Auto) Wheeler # (Auto) Eos # (Auto) Baso # (Auto) RBC Morphology Sodium 136 Potassium 4.4 D Chloride 106 Carbon Dioxide 24 Anion Gap 6.0 BUN 42 H Creatinine 2.09 H Est Cr Clr Drug Dosing 26.0 Est GFR ( Amer) 28.7 Est GFR (Non-Af Amer) 24.7 BUN/Creatinine Ratio 20.2 H Glucose 70 POC Glucose 84 111 H Calcium 8.1 L Stl C. diff Tox B Gene Stl C.difficile Tox A&B
[2018-12-10] MEDS: NICOTINE 21 MG/24 HR TDSY TD SCH (10:40)
[2018-12-10] MEDS: cefTRIAXone SODIUM 1,000 MG in DEXTROSE 5% 50 ML IV SCH (10:56)
[2018-12-10] MEDS: FUROSEMIDE 40 MG TAB PO SCH ×2 (11:01→18:32)
[2018-12-10] MEDS: OXYCODONE HCL IR 5 MG TAB (IMMEDIATE RELEASE) PO PRN (13:36)
[2018-12-10] MEDS: RASPBERRY SYRUP 5 ML UDP PO SCH ×2 (14:33→18:33)
[2018-12-10] MEDS: VANCOMYCIN HCL 125 MG/2.5ML SOLN PO SCH ×2 (14:33→17:56)
--- NOTE | 2018-12-10 16:46 | Hospitalist Progress Note ---
Date of Service December 10, 2018 Assessment & Plan (1) Metabolic encephalopathy: from E. coli UTI - afebrile - mental status continues to improve -Urine culture: Positive for E. coli Blood cultures: Pending empiric Cefepime changed to ceftriaxone IV daily from Hyponatremia - secondary to Hypervolemia - Na improved to 136 - lasix 20mg IV BID changed to Lasix 40 mg p.o. twice daily Fluid restriction Nephro consulted from Hypoglycemia - likely from poor oral intake, with Lantus BID ISS monitor r/o Seizure - EEG unrevealing Neurology consulted, does not recommend starting antiseizure medicines at this time Polypharmacy History of Schizoaffective Disorder - Psych consulted Recommend to continue usual psych medications with close monitoring C. difficile colitis Recurrence Start vancomycin p.o. 4 times daily x10 days CHF Diastolic Type - patient hypervolemic Usual Lasix 40 mg p.o. twice daily resumed DM 2 - management as above HTN - continue usual meds CKD 4 - at baseline monitor COPD - (+) possible mild exacerbation - nebs Wheezing resolved ABHINAV DVT prophylaxis SCDs Disposition resident of [facility] Subjective Follow-up for encephalopathy Seen resting in bed, comfortable, awake and alert, oriented x2 States she feels improving overall Denies headache, dizziness, neurologic deficits Denies chest pain, no shortness of breath and cough improving Denies abdominal pain Positive diarrhea yesterday up to 5 times, loose No other symptoms Review of Systems Review of Systems: All systems reviewed & are unremarkable except as noted in HPI & below Physical Exam Physical Exam: General- oriented x 2, not in distress, speaks in sentences with no effort or accessory muscle use Eyes- anicteric Neck- no JVD Lungs- clear breath sounds bilaterally, no rales/wheezes Heart- normal rate, regular rhythm; no murmurs Abdomen- normal bowel sounds, nondistended, soft, nontender Extremities-mild lower leg edema, no calf tenderness Neuro- alert, oriented x 2; no gross focal neurologic deficits Skin- warm & dry Results & Data Vital Signs (Past 12 Hours) Vital Signs Temp Pulse Pulse Pulse Resp BP Pulse Ox 12/10/18 15:20 37.2 C 76 16 130/65 90 12/10/18 14:20 78 12/10/18 13:10 72 18 92 12/10/18 11:13 36.9 C 79 22 130/66 90 12/10/18 07:17 37.1 C 77 19 162/72 H 97 12/10/18 07:09 77 18 93 12/10/18 06:19 74 Laboratory Results Laboratory Results - last 24 hr 12/09/18 12/10/18 12/10/18 Unknown 00:34 05:20 Sodium 136 Potassium 4.4 D Chloride 106 Carbon Dioxide 24 Anion Gap 6.0 BUN 42 H Creatinine 2.09 H Est Cr Clr Drug Dosing 26.0 Est GFR ( Amer) 28.7 Est GFR (Non-Af Amer) 24.7 BUN/Creatinine Ratio 20.2 H Glucose 70 POC Glucose 97 Calcium 8.1 L Stl C. diff Tox B Gene Positive Cdiff Gene A Stl C.difficile Tox A&B Negative Cdiff Toxin 12/10/18 12/10/18 12/10/18 06:26 07:15 11:11 Sodium Potassium Chloride Carbon Dioxide Anion Gap BUN Creatinine Est Cr Clr Drug Dosing Est GFR ( Amer) Est GFR (Non-Af Amer) BUN/Creatinine Ratio Glucose POC Glucose 84 111 H 174 H Calcium Stl C. diff Tox B Gene Stl C.difficile Tox A&B 12/10/18 16:25 Sodium Potassium Chloride Carbon Dioxide Anion Gap BUN Creatinine Est Cr Clr Drug Dosing Est GFR ( Amer) Est GFR (Non-Af Amer) BUN/Creatinine Ratio Glucose POC Glucose 223 H Calcium Stl C. diff Tox B Gene Stl C.difficile Tox A&B
[2018-12-10] MEDS: ATORVASTATIN 40 MG TAB PO SCH (20:26)
[2018-12-11] MEDS: BREO ELLIPTA: ORDER AWAITING ACTION SCH ×4 (00:33→23:01)
[2018-12-11] MEDS: VANCOMYCIN HCL 125 MG/2.5ML SOLN PO SCH ×4 (00:36→18:05)
[2018-12-11] MEDS: RASPBERRY SYRUP 5 ML UDP PO SCH ×4 (00:36→18:05)
[2018-12-11] MEDS: INSULIN ASPART 100 UNITS/ML 3 ML PEN SC SCH ×5 (00:39→21:46)
[2018-12-11] MEDS: OXYCODONE HCL IR 5 MG TAB (IMMEDIATE RELEASE) PO PRN ×3 (00:45→17:12)
[2018-12-11] MEDS: LEVALBUTEROL 1.25MG/0.5ML NEB INH SCH ×4 (01:54→19:05)
[2018-12-11] MEDS: IPRATROPIUM BROMIDE NEB SOLN 0.02% 2.5 ML VIAL INH SCH ×4 (01:55→19:05)
[2018-12-11] MEDS: ACETAMINOPHEN 325 MG TAB PO PRN ×2 (03:37→14:22)
[2018-12-11 07:10] LABS: BUN Creatinine Ratio 20.2 (10-20); Calcium 7.7 mg/dl (8.5-10.1); Creatinine Clr Calc Pharmacy 28.1 ml/min; Est GFR (African American) 29.9; Est GFR (Non-African American) 25.8; Potassium 4.3 mmol/L (3.5-5.1)
[2018-12-11] MEDS: NICOTINE 21 MG/24 HR TDSY TD SCH (08:58)
[2018-12-11] MEDS: ASPIRIN 81 MG ECTAB PO SCH (08:58)
[2018-12-11] MEDS: CITALOPRAM 40 MG TAB PO SCH (08:59)
[2018-12-11] MEDS: BuPROPion SR 100 MG TABCR PO SCH (08:59)
[2018-12-11] MEDS: ARIPiprazole 15 MG TAB PO SCH (08:59)
[2018-12-11] MEDS: METOPROLOL TARTRATE 50 MG TAB PO SCH ×2 (09:00→22:06)
[2018-12-11] MEDS: AMLODIPINE BESYLATE 5 MG TAB PO SCH (09:00)
[2018-12-11] MEDS: FUROSEMIDE 40 MG TAB PO SCH ×2 (09:00→17:07)
[2018-12-11] MEDS: LACTOBACILLUS ACIDOPHILUS (FLORANEX) TAB PO SCH ×3 (09:00→17:06)
[2018-12-11] MEDS: INSULIN GLARGINE SOLOSTAR 100 UNITS/ML 3 ML PEN SQ SCH ×2 (09:04→21:45)
[2018-12-11] MEDS: cefTRIAXone SODIUM 1,000 MG in DEXTROSE 5% 50 ML IV SCH (09:12)
--- NOTE | 2018-12-11 16:11 | Hospitalist Progress Note ---
Date of Service December 11, 2018 Assessment & Plan (1) Metabolic encephalopathy: from E. coli UTI -Remains afebrile - mental status improving -Urine culture: Positive for E. coli Blood cultures: Negative empiric Cefepime changed to ceftriaxone IV daily from Hyponatremia - secondary to Hypervolemia - Na 133 - lasix 20mg IV BID changed to usual Lasix 40 mg p.o. twice daily Fluid restriction Nephro consulted from Hypoglycemia - likely from poor oral intake, with Lantus BID ISS monitor r/o Seizure - EEG unrevealing Neurology consulted, does not recommend starting antiseizure medicines at this time Polypharmacy History of Schizoaffective Disorder - Psych consulted Recommend to continue usual psych medications with close monitoring C. difficile colitis Recurrence Continue vancomycin p.o. 4 times daily x10 days CHF Diastolic Type -Patient Usual Lasix 40 mg p.o. twice daily resumed DM 2 - management as above HTN - continue usual meds CKD 4 - at baseline monitor COPD - (+) possible mild exacerbation - nebs Wheezing resolved ABHINAV DVT prophylaxis SCDs Disposition resident of [facility] Subjective Follow-up for cephalopathy Seen resting in bed, comfortable, nondistressed Oriented x2 States she feels improved compared to previous days Forgetful about some things answers most questions appropriately Denies pain No abdominal pain, nausea denies other symptoms Review of Systems Review of Systems: All systems reviewed & are unremarkable except as noted in HPI & below Physical Exam Physical Exam: General- oriented x 2, not in distress, speaks in sentences with no effort or accessory muscle use Eyes- anicteric Neck- no JVD Lungs- clear BS bilaterally, no rales wheezes Heart- normal rate, regular rhythm; no murmurs Abdomen- normal bowel sounds, nondistended, soft, nontender Extremities- no pretibial edema, no calf tenderness Neuro- alert, oriented x 2; no gross focal neurologic deficits Skin- warm & dry Results & Data Vital Signs (Past 12 Hours) Vital Signs Temp Pulse Pulse Resp BP Pulse Ox 12/11/18 16:00 80 12/11/18 15:04 37.1 C 74 20 148/73 H 91 12/11/18 14:43 22 94 12/11/18 14:42 78 20 94 12/11/18 11:39 37.2 C 75 22 139/63 94 12/11/18 09:00 94 12/11/18 08:17 36.7 C 84 22 138/67 84 L 12/11/18 08:00 83 12/11/18 07:08 81 18 94 Laboratory Results Laboratory Results - last 24 hr 12/10/18 12/10/18 12/10/18 04:50 16:25 20:10 Sodium Potassium Chloride Carbon Dioxide Anion Gap BUN Creatinine Est Cr Clr Drug Dosing Est GFR ( Amer) Est GFR (Non-Af Amer) BUN/Creatinine Ratio Glucose POC Glucose 223 H 232 H Calcium Stool Occult Bld Scrn Negative 12/11/18 12/11/18 12/11/18 00:28 05:50 05:59 Sodium 133 L Potassium 4.3 Chloride 104 Carbon Dioxide 24 Anion Gap 5.0 BUN 41 H Creatinine 2.02 H Est Cr Clr Drug Dosing 28.1 Est GFR ( Amer) 29.9 Est GFR (Non-Af Amer) 25.8 BUN/Creatinine Ratio 20.2 H Glucose 130 H POC Glucose 188 H 148 H Calcium 7.7 L Stool Occult Bld Scrn 12/11/18 11:07 Sodium Potassium Chloride Carbon Dioxide Anion Gap BUN Creatinine Est Cr Clr Drug Dosing Est GFR ( Amer) Est GFR (Non-Af Amer) BUN/Creatinine Ratio Glucose POC Glucose 228 H Calcium Stool Occult Bld Scrn
--- NOTE | 2018-12-11 16:15 | Nephrology Progress Note ---
Date of Service December 11, 2018 Assessment & Plan (1) Hyponatremia with decreased serum osmolality: Patient with hypo-osmolar hyponatremia likely due to hypervolemia. Serum osmolality was 272. Physical exam consistent with volume overload. Given advanced CKD this is likely hypervolemic hyponatremia. Sodium at 133 this morning. Recommendations: Liberalize salt in her diet Increase fluid restriction to 1500 mL daily. Continue IV Lasix 20 mg twice daily Monitor sodium daily. (2) Anemia: Due to CKD and chronic inflammation. She has transferrin saturation of 15%. She received Venofer 300 mg and Epogen 20,000 units subcu once. Hemoglobin of 7.8 yesterday. (3) CKD stage 4 due to type 2 diabetes mellitus: Patient with proteinuric CKD due to diabetes. Creatinine is 2 today which is close to her baseline. Renally dose medications for current GFR and avoid nephrotoxins unless lifesaving. She will need renal follow-up on discharge. Subjective Patient seen in f/u for CKD and hyponatremia. She feels better today. She had dreams about last night and is worried about it. Na at 133 today. No SOB, cr stable at 2. She continues to pick at herself. No vomiting or diarrhoea Review of Systems Review of Systems: All systems reviewed & are unremarkable except as noted in HPI & below Physical Exam Physical Exam: General exam: Appears comfortable, no acute distress HEENT: Pupils are equal and reactive to light Neck: No JVD, neck is supple trachea is midline Respiratory system: Clear breath sounds bilaterally. Gastrointestinal: Abdomen is soft, non distended, non tender, bowel sounds are present CVS: Regular rate and rhythm. No murmurs, rubs or gallops Musculoskeletal: No joint or muscle tenderness Extremities: Non tender, no edema, peripheral pulses are present Neuro: Oriented, no tremors, no focal neurological deficits Skin: open areas on chest and arms from scratching Results & Data Vital Signs (Past 12 Hours) Vital Signs Temp Pulse Pulse Resp BP Pulse Ox 12/11/18 16:00 80 12/11/18 15:04 37.1 C 74 20 148/73 H 91 12/11/18 14:43 22 94 12/11/18 14:42 78 20 94 12/11/18 11:39 37.2 C 75 22 139/63 94 12/11/18 09:00 94 12/11/18 08:17 36.7 C 84 22 138/67 84 L 12/11/18 08:00 83 12/11/18 07:08 81 18 94 Laboratory Results Laboratory Results - last 24 hr 12/10/18 12/10/18 12/10/18 04:50 16:25 20:10 Sodium Potassium Chloride Carbon Dioxide Anion Gap BUN Creatinine Est Cr Clr Drug Dosing Est GFR ( Amer) Est GFR (Non-Af Amer) BUN/Creatinine Ratio Glucose POC Glucose 223 H 232 H Calcium Stool Occult Bld Scrn Negative 12/11/18 12/11/18 12/11/18 00:28 05:50 05:59 Sodium 133 L Potassium 4.3 Chloride 104 Carbon Dioxide 24 Anion Gap 5.0 BUN 41 H Creatinine 2.02 H Est Cr Clr Drug Dosing 28.1 Est GFR ( Amer) 29.9 Est GFR (Non-Af Amer) 25.8 BUN/Creatinine Ratio 20.2 H Glucose 130 H POC Glucose 188 H 148 H Calcium 7.7 L Stool Occult Bld Scrn 12/11/18 11:07 Sodium Potassium Chloride Carbon Dioxide Anion Gap BUN Creatinine Est Cr Clr Drug Dosing Est GFR ( Amer) Est GFR (Non-Af Amer) BUN/Creatinine Ratio Glucose POC Glucose 228 H Calcium Stool Occult Bld Scrn
[2018-12-11 17:15] LABS: Partial Thromboplastin Ratio 0.9; Partial Thromboplastin Time 23.2 Seconds (21.0-31.0); Prothrombin Time 9.9 Seconds (9.0-12.0)
[2018-12-11] MEDS: HEPARIN SOD 5,000 UNIT/0.5 ML VIAL SQ SCH (21:47)
[2018-12-11] MEDS: ATORVASTATIN 40 MG TAB PO SCH (22:08)
[2018-12-12] MEDS: RASPBERRY SYRUP 5 ML UDP PO SCH ×4 (00:04→17:17)
[2018-12-12] MEDS: VANCOMYCIN HCL 125 MG/2.5ML SOLN PO SCH ×4 (00:04→17:17)
[2018-12-12] MEDS: IPRATROPIUM BROMIDE NEB SOLN 0.02% 2.5 ML VIAL INH SCH ×4 (02:17→20:00)
[2018-12-12] MEDS: LEVALBUTEROL 1.25MG/0.5ML NEB INH SCH ×4 (02:17→20:00)
[2018-12-12] MEDS: HEPARIN SOD 5,000 UNIT/0.5 ML VIAL SQ SCH ×4 (06:09→21:40)
[2018-12-12 07:36] LABS: BUN Creatinine Ratio 21.2 (10-20); Calcium 8.2 mg/dl (8.5-10.1); Est GFR (African American) 29.7; Est GFR (Non-African American) 25.6; Potassium 4.8 mmol/L (3.5-5.1)
[2018-12-12] MEDS: BREO ELLIPTA: ORDER AWAITING ACTION SCH ×2 (07:37→17:12)
[2018-12-12] MEDS ORDERED: XOPENEX/ATROVENT 1.25mg/0.5MG NEB COMBO NEB STA (08:17)
[2018-12-12] MEDS ORDERED: IPRATROPIUM BROMIDE NEB SOLN 0.02% 2.5 ML VIAL INH STA (08:24)
[2018-12-12] MEDS ORDERED: XOPENEX/ATROVENT 1.25mg/0.5MG NEB COMBO NEB PRN (08:25)
[2018-12-12] MEDS ORDERED: LEVALBUTEROL 1.25MG/0.5ML NEB INH STA (08:25)
[2018-12-12] MEDS ORDERED: IPRATROPIUM BROMIDE NEB SOLN 0.02% 2.5 ML VIAL INH PRN (08:30)
[2018-12-12] MEDS ORDERED: FUROSEMIDE 40 MG/4 ML VIAL IV STA (08:30)
--- NOTE | 2018-12-12 08:32 | Hospitalist Progress Note ---
Date of Service December 12, 2018 Assessment & Plan (1) Metabolic encephalopathy: from E. coli UTI -Remains afebrile - mental status improving -Urine culture: Positive for E. coli Blood cultures: Negative Continue IV ceftriaxone from Hyponatremia - secondary to Hypervolemia - Na 133 -lasix management as noted below Fluid restriction Nephro consulted from Hypoglycemia - likely from poor oral intake, with Lantus BID ISS monitor r/o Seizure - EEG unrevealing Neurology consulted, does not recommend starting antiseizure medicines at this time Polypharmacy History of Schizoaffective Disorder - Psych consulted Recommend to continue usual psych medications with close monitoring Acute hypoxic respiratory failure Likely acute on chronic diastolic congestive heart failure Positive wheezing and worsening hypoxia noted on December 12, 2018 Chest x-ray pulmonary edema Change Lasix to 40 mg IV twice daily Monitor diuresis, kidney function Solu-Medrol also added, continue nebs C. difficile colitis Recurrence Continue vancomycin p.o. 4 times daily x10 days Recent right hip surgery Surgical site appears to be healing well DM 2 - management as above HTN - continue usual meds CKD 4 - at baseline monitor COPD exacerbation From acute on chronic diastolic heart failure - (+)exacerbation - nebs, Solu-Medrol ABHINAV DVT prophylaxis Heparin Disposition resident of [facility] Evaluation management of above medical conditions Anticipate return to [facility] when medically stable Anticipate return to medical history Subjective Follow-up for hyponatremia, UTI By RN that patient is hypoxic and tachypneic Sitting up in bed, not in distress but is tachypneic States she has shortness of breath and coughing. Nonproductive Denies chest pain Denies any other pain in her body no Diarrhea, no other symptoms Review of Systems Review of Systems: All systems reviewed & are unremarkable except as noted in HPI & below Physical Exam Physical Exam: General- oriented x 2, not in distress, speaks in sentences with no effort or accessory muscle use Eyes- anicteric Neck-positive JVD Lungs-positive wheezing bilaterally, positive rales bilaterally mild at the bases Heart- normal rate, regular rhythm; no murmurs Abdomen- normal bowel sounds, nondistended, soft, nontender Extremities-mild pretibial edema, no calf tenderness Neuro- alert, oriented x 23; no gross focal neurologic deficits Skin- warm & dry Results & Data Vital Signs (Past 12 Hours) Vital Signs Temp Pulse Pulse Resp BP Pulse Ox 12/12/18 07:10 92 H 32 H 55 L 12/12/18 07:00 37.1 C 90 22 171/76 H 92 12/12/18 02:17 84 20 90 12/11/18 22:30 36.6 C 77 18 117/67 94 12/11/18 22:19 77 16 94 12/11/18 21:44 79 133/70 Laboratory Results Laboratory Results - last 24 hr 12/11/18 12/11/18 12/11/18 16:06 16:37 21:18 WBC RBC Hgb Hct MCV MCH MCHC RDW Std Deviation RDW Coeff of David Plt Count MPV Immature Gran % (Auto) Neut % (Auto) Lymph % (Auto) Hettinger % (Auto) Eos % (Auto) Baso % (Auto) Immature Gran # (Auto) Neut # (Auto) Lymph # (Auto) Hettinger # (Auto) Eos # (Auto) Baso # (Auto) RBC Morphology PT 9.9 INR 1.0 APTT 23.2 PTT Ratio 0.9 ABG pH ABG pCO2 ABG pO2 ABG HCO3 ABG O2 Saturation ABG Base Excess Rober Test Barometric Pressure Oxygen Given Sodium Potassium Chloride Carbon Dioxide Anion Gap BUN Creatinine Est Cr Clr Drug Dosing Est GFR ( Amer) Est GFR (Non-Af Amer) BUN/Creatinine Ratio Glucose POC Glucose 176 H 246 H Calcium 12/12/18 12/12/18 12/12/18 06:50 08:25 08:47 WBC 9.54 RBC 2.55 L Hgb 7.7 L Hct 22.6 L MCV 88.6 MCH 30.2 MCHC 34.1 RDW Std Deviation 50.2 H RDW Coeff of David 15.6 H Plt Count 154 MPV 8.5 Immature Gran % (Auto) 0.2 Neut % (Auto) 78.9 Lymph % (Auto) 14.2 [place]er % (Auto) 6.2 Eos % (Auto) 0.5 Baso % (Auto) 0.0 Immature Gran # (Auto) 0.02 Neut # (Auto) 7.53 H Lymph # (Auto) 1.35 Hettinger # (Auto) 0.59 Eos # (Auto) 0.05 Baso # (Auto) 0.00 RBC Morphology Unremarkable PT INR APTT PTT Ratio ABG pH 7.39 ABG pCO2 36 ABG pO2 81 ABG HCO3 21 ABG O2 Saturation 93.8 ABG Base Excess -3.4 Rober Test Pos Barometric Pressure 729.2 Oxygen Given 6 L Sodium 133 L Potassium 4.8 Chloride 105 Carbon Dioxide 23 Anion Gap 5.0 BUN 43 H Creatinine 2.03 H Est Cr Clr Drug Dosing 28.0 Est GFR ( Amer) 29.7 Est GFR (Non-Af Amer) 25.6 BUN/Creatinine Ratio 21.2 H Glucose 177 H POC Glucose Calcium 8.2 L 12/12/18 12/12/18 08:52 11:51 WBC RBC Hgb Hct MCV MCH MCHC RDW Std Deviation RDW Coeff of David Plt Count MPV Immature Gran % (Auto) Neut % (Auto) Lymph % (Auto) Hettinger % (Auto) Eos % (Auto) Baso % (Auto) Immature Gran # (Auto) Neut # (Auto) Lymph # (Auto) [place]tinger # (Auto) Eos # (Auto) Baso # (Auto) RBC Morphology PT INR APTT PTT Ratio ABG pH ABG pCO2 ABG pO2 ABG HCO3 ABG O2 Saturation ABG Base Excess Rober Test Barometric Pressure Oxygen Given Sodium Potassium Chloride Carbon Dioxide Anion Gap BUN Creatinine Est Cr Clr Drug Dosing Est GFR ( Amer) Est GFR (Non-Af Amer) BUN/Creatinine Ratio Glucose POC Glucose 228 H 239 H Calcium
[2018-12-12 08:41] LABS: HCO3 ABG 21 mmol/L (19-24); Oxygen Saturation ABG 93.8 % (90-95); PCO2 ABG 36 mmHg (35-46); PO2 ABG 81 mm/Hg (80-95); pH ABG 7.39 (7.35-7.45)
[2018-12-12 08:42] LABS: Allen Test Pos (Pos)
[2018-12-12] MEDS ORDERED: methylPREDNISolone 80 MG in SYRINGE 0 ML IV ONE (08:45)
[2018-12-12] MEDS ORDERED: FUROSEMIDE 40 MG in SYRINGE 0 ML IV SCH (08:45)
[2018-12-12] MEDS: cefTRIAXone SODIUM 1,000 MG in DEXTROSE 5% 50 ML IV SCH (08:53)
[2018-12-12] MEDS: NICOTINE 21 MG/24 HR TDSY TD SCH (08:54)
[2018-12-12] MEDS: BuPROPion SR 100 MG TABCR PO SCH (08:55)
[2018-12-12] MEDS: LACTOBACILLUS ACIDOPHILUS (FLORANEX) TAB PO SCH ×3 (08:55→17:16)
[2018-12-12] MEDS: CITALOPRAM 40 MG TAB PO SCH (08:55)
[2018-12-12] MEDS: ARIPiprazole 15 MG TAB PO SCH (08:56)
[2018-12-12] MEDS: AMLODIPINE BESYLATE 5 MG TAB PO SCH (08:56)
[2018-12-12] MEDS: ASPIRIN 81 MG ECTAB PO SCH (08:56)
[2018-12-12] MEDS: METOPROLOL TARTRATE 50 MG TAB PO SCH ×2 (08:56→21:27)
[2018-12-12] MEDS: INSULIN GLARGINE SOLOSTAR 100 UNITS/ML 3 ML PEN SQ SCH (08:56)
[2018-12-12] MEDS: INSULIN ASPART 100 UNITS/ML 3 ML PEN SC SCH ×4 (08:57→21:29)
--- NOTE | 2018-12-12 09:06 | XRay Report ---
XR chest 1V portable HISTORY: 63 years-old Female hypoxia acute shortness of breath COMPARISON: Chest radiograph and CT chest 12/08/2018 TECHNIQUE: Portable AP view of the chest FINDINGS: Cardiac silhouette is mildly enlarged, unchanged. Severe emphysema with chronic interstitial coarseni ng. There are progressive interstitial opacities noted about the mid lung distributions bilaterally. Calcifications are noted about the thoracic aortic arch. Degenerative changes of the shoulders and sp ine. Healed remote bilateral rib fractures. IMPRESSION: 1. Emphysema with chronic interstitial coarsening. 2. Progressive interstitial opacities about the mid lung distributions and left upper lobe suggest pu lmonary edema or pneumonitis. Correlate clinically. 3. Mild cardiomegaly. The above report was generated using voice recognition software. It may contain grammatical, syntax o r spelling errors. Electronically signed by: Samson Hodges M.D. 12/12/2018 9:05 AM
[2018-12-12 10:10] LABS: Eosinophils # (auto) 0.05 K/uL (0-0.5); Eosinophils % (auto) 0.5 %; Hematocrit (blood only) 22.6 % (37-47); Hemoglobin 7.7 g/dL (12.0-16.0); Immature Granulocytes # (auto) 0.02 K/uL (0.00-0.02); Immature Granulocytes % (auto) 0.2 %; Lymphocytes # (auto) 1.35 K/uL (1.2-3.4); Lymphocytes % (auto) 14.2 %; Mean Corpuscular Hgb Conc 34.1 g/dL (32-36); Mean Corpuscular Volume 88.6 fL (80-100); Mean Platelet Volume 8.5 fL (7.4-10.4); Monocytes # (auto) 0.59 K/uL (0.11-0.59); Monocytes % (auto) 6.2 %; Neutrophils # (auto) 7.53 K/uL (1.4-6.5); Neutrophils % (auto) 78.9 %; Platelet Count 154 K/uL (130-400); RDW Coefficient of Variation 15.6 % (11.5-14.5); RDW Standard Deviation 50.2 fL (36.4-46.3); Red Blood Count 2.55 M/uL (4.2-5.4); White Blood Count 9.54 K/uL (4.8-10.8)
[2018-12-12 10:54] LABS: RBC Morphology Unremarkable
[2018-12-12] MEDS: OXYCODONE HCL IR 5 MG TAB (IMMEDIATE RELEASE) PO PRN ×2 (12:45→21:24)
[2018-12-12] MEDS ORDERED: PHARMACY GLYCEMIC MGMT CONSULT PRN (17:48)
--- NOTE | 2018-12-12 19:29 | Nephrology Progress Note ---
Date of Service December 12, 2018 Assessment & Plan (1) Hyponatremia with decreased serum osmolality: Patient with hypo-osmolar hyponatremia likely due to hypervolemia. Serum osmolality was 272. Physical exam consistent with volume overload. Given advanced CKD this is likely hypervolemic hyponatremia. Sodium at 133 this morning. Recommendations: Liberalize salt in her diet Continue fluid restriction to 1500 mL daily. Continue IV Lasix 20 mg twice daily Monitor sodium daily. (2) Anemia: Due to CKD and chronic inflammation. She has transferrin saturation of 15%. She received Venofer 300 mg and Epogen 20,000 units subcu once. Hemoglobin of 7.7 today. (3) CKD stage 4 due to type 2 diabetes mellitus: Patient with proteinuric CKD due to diabetes. Creatinine is 2 today which is close to her baseline. Renally dose medications for current GFR and avoid nephrotoxins unless lifesaving. She will need renal follow-up on discharge. Subjective Patient seen in f/u for CKD and hyponatremia. She is more SOB this morning. She was eating breakfast. She conitnues to respond well to lasix and was net negative 1.4 litres. Na at 133 today. Review of Systems Review of Systems: All systems reviewed & are unremarkable except as noted in HPI & below Physical Exam Physical Exam: General exam: Mild respiratory distress HEENT: Pupils are equal and reactive to light Neck: No JVD, neck is supple trachea is midline Respiratory system: Wheezing bilaterally. Gastrointestinal: Abdomen is soft, non distended, non tender, bowel sounds are present CVS: Regular rate and rhythm. No murmurs, rubs or gallops Musculoskeletal: No joint or muscle tenderness Extremities: Non tender, no edema, peripheral pulses are present Neuro: Oriented, no tremors, no focal neurological deficits Skin: No rashes Results & Data Vital Signs (Past 12 Hours) Vital Signs Temp Pulse Pulse Resp BP Pulse Ox 12/12/18 16:00 78 12/12/18 14:38 37.0 C 78 20 153/65 H 96 12/12/18 13:40 90 26 H 72 L 12/12/18 11:42 37.3 C 79 22 156/78 H 90 12/12/18 10:45 37.2 C 82 22 164/76 H 89 L Laboratory Results Laboratory Results - last 24 hr 12/11/18 12/12/18 12/12/18 21:18 06:50 08:25 WBC RBC Hgb Hct MCV MCH MCHC RDW Std Deviation RDW Coeff of David Plt Count MPV Immature Gran % (Auto) Neut % (Auto) Lymph % (Auto) [place] % (Auto) Eos % (Auto) Baso % (Auto) Immature Gran # (Auto) Neut # (Auto) Lymph # (Auto) [place] # (Auto) Eos # (Auto) Baso # (Auto) RBC Morphology ABG pH 7.39 ABG pCO2 36 ABG pO2 81 ABG HCO3 21 ABG O2 Saturation 93.8 ABG Base Excess -3.4 Rober Test Pos Barometric Pressure 729.2 Oxygen Given 6 L Sodium 133 L Potassium 4.8 Chloride 105 Carbon Dioxide 23 Anion Gap 5.0 BUN 43 H Creatinine 2.03 H Est Cr Clr Drug Dosing 28.0 Est GFR ( Amer) 29.7 Est GFR (Non-Af Amer) 25.6 BUN/Creatinine Ratio 21.2 H Glucose 177 H POC Glucose 246 H Calcium 8.2 L 12/12/18 12/12/18 12/12/18 08:47 08:52 11:51 WBC 9.54 RBC 2.55 L Hgb 7.7 L Hct 22.6 L MCV 88.6 MCH 30.2 MCHC 34.1 RDW Std Deviation 50.2 H RDW Coeff of David 15.6 H Plt Count 154 MPV 8.5 Immature Gran % (Auto) 0.2 Neut % (Auto) 78.9 Lymph % (Auto) 14.2 [place] % (Auto) 6.2 Eos % (Auto) 0.5 Baso % (Auto) 0.0 Immature Gran # (Auto) 0.02 Neut # (Auto) 7.53 H Lymph # (Auto) 1.35 [place] # (Auto) 0.59 Eos # (Auto) 0.05 Baso # (Auto) 0.00 RBC Morphology Unremarkable ABG pH ABG pCO2 ABG pO2 ABG HCO3 ABG O2 Saturation ABG Base Excess Rober Test Barometric Pressure Oxygen Given Sodium Potassium Chloride Carbon Dioxide Anion Gap BUN Creatinine Est Cr Clr Drug Dosing Est GFR ( Amer) Est GFR (Non-Af Amer) BUN/Creatinine Ratio Glucose POC Glucose 228 H 239 H Calcium 12/12/18 12/12/18 16:24 16:25 WBC RBC Hgb Hct MCV MCH MCHC RDW Std Deviation RDW Coeff of David Plt Count MPV Immature Gran % (Auto) Neut % (Auto) Lymph % (Auto) [place] % (Auto) Eos % (Auto) Baso % (Auto) Immature Gran # (Auto) Neut # (Auto) Lymph # (Auto) [place] # (Auto) Eos # (Auto) Baso # (Auto) RBC Morphology ABG pH ABG pCO2 ABG pO2 ABG HCO3 ABG O2 Saturation ABG Base Excess Rober Test Barometric Pressure Oxygen Given Sodium Potassium Chloride Carbon Dioxide Anion Gap BUN Creatinine Est Cr Clr Drug Dosing Est GFR ( Amer) Est GFR (Non-Af Amer) BUN/Creatinine Ratio Glucose POC Glucose 385 H* 398 H* Calcium
[2018-12-12] MEDS ORDERED: INSULIN GLARGINE SOLOSTAR 100 UNITS/ML 3 ML PEN SQ ONE (19:30)
--- NOTE | 2018-12-12 20:01 | Pharmacy Report ---
Pharmacy Glycemic Short Note 2 - Date of Service December 12, 2018 - Glycemic Short BSG Results (Last 24 hours): 12/11/18 12/12/18 12/12/18 21:18 06:50 08:52 Glucose 177 H POC Glucose 246 H 228 H 12/12/18 12/12/18 12/12/18 11:51 16:24 16:25 Glucose POC Glucose 239 H 385 H* 398 H* OUTPATIENT ANTIDIABETIC REGIMEN: * Lantus 10 UNITS SQ bid * HUMALOG 3 UNITS SQ ac + ssi * Victoza 1.2mg sq daily ASSESSMENT: * Pt was ADM with hypoglycemia and seizures * Received Solumedrol 125mg IV x 1 12/07/18 * Glycemic service consulted when pt started IV steroids this evening * Ordered A1c for 12/13 AM PLAN FOR INPATIENT GLYCEMIC CONTROL: * Basal insulin * D/C Lantus 5 units sq q12h (on this dose since ADM) * Give Lantus 20 units SQ x 1 this evening, glycemic service to reeval 12/13 AM * Bolus insulin * NovoLog per scale ACHS & "added" BSGs @ 0000/0400 * Goal Range: Low 140 mg/dL - High 180 mg/dL...continue this goal range with recent hypoglycemia/seizures * "Tightened" Correction Factor: 20 mg/dL/unit * "Added" Nutritional / Prandial insulin per carb ratio of 1 unit per 8 grams CHO consumed * Please note that the plan above was derived based on current level of insulin resistance and hospital stress. These recommendations are appropriate for inpatient admission only. Plan of care upon discharge will need to be reassessed to avoid potential outpatient hypo/hyperglycemia.
[2018-12-12] MEDS: methylPREDNISolone 40 MG in SYRINGE 0 ML IV SCH (20:15)
[2018-12-12] MEDS: ACETAMINOPHEN 325 MG TAB PO PRN (20:18)
[2018-12-12] MEDS ORDERED: INSULIN HUMAN REGULAR PER UNIT 5 UNITS in SYRINGE 4.95 ML IV ONE (21:00)
[2018-12-12] MEDS: FUROSEMIDE 40 MG in SYRINGE 0 ML IV SCH (21:28)
[2018-12-12] MEDS: ATORVASTATIN 40 MG TAB PO SCH (21:28)
[2018-12-13] MEDS ORDERED: INSULIN HUMAN REGULAR PER UNIT 5 UNITS in SYRINGE 4.95 ML IV ONE ×2 (01:00→05:00)
[2018-12-13] MEDS: RASPBERRY SYRUP 5 ML UDP PO SCH ×4 (01:24→17:19)
[2018-12-13] MEDS: VANCOMYCIN HCL 125 MG/2.5ML SOLN PO SCH ×5 (01:24→17:19)
[2018-12-13] MEDS: INSULIN ASPART 100 UNITS/ML 3 ML PEN SC SCH ×6 (01:25→21:11)
[2018-12-13] MEDS: methylPREDNISolone 40 MG in SYRINGE 0 ML IV SCH ×2 (01:26→08:06)
[2018-12-13] MEDS: BREO ELLIPTA: ORDER AWAITING ACTION SCH ×3 (01:26→17:15)
[2018-12-13] MEDS: IPRATROPIUM BROMIDE NEB SOLN 0.02% 2.5 ML VIAL INH SCH ×4 (01:50→18:59)
[2018-12-13] MEDS: LEVALBUTEROL 1.25MG/0.5ML NEB INH SCH ×4 (01:50→19:00)
[2018-12-13] MEDS: HEPARIN SOD 5,000 UNIT/0.5 ML VIAL SQ SCH ×3 (06:19→21:07)
[2018-12-13 07:11] LABS: Estimated Average Glucose 91 mg/dl; Hemoglobin A1C 4.8 % (4.5-5.6)
[2018-12-13 07:27] LABS: BUN Creatinine Ratio 22.8 (10-20); Calcium 8.8 mg/dl (8.5-10.1); Creatinine Clr Calc Pharmacy 26.6 ml/min; Est GFR (African American) 27.9; Potassium 4.5 mmol/L (3.5-5.1)
--- NOTE | 2018-12-13 07:31 | XRay Report ---
XR chest 1V portable CLINICAL HISTORY: Hypoxia. COMPARISON STUDY: Chest CT December 08, 2018. Chest radiograph December 12, 2018. FINDINGS: There are numerous old bilateral rib fractures. There is no pneumothorax or pleural effusio n. There is emphysema. Interstitial thickening and bilateral opacities have slightly progressed. Card iomediastinal silhouette is stable. IMPRESSION: 1. Slight progression of interstitial thickening and bilateral opacities which may reflect pneumonia or pulmonary edema. 2. Emphysema. Electronically signed by: Jonnie Gomez M.D. 12/13/2018 7:30 AM
[2018-12-13] MEDS: FUROSEMIDE 40 MG in SYRINGE 0 ML IV SCH ×2 (08:05→17:19)
[2018-12-13] MEDS: cefTRIAXone SODIUM 1,000 MG in DEXTROSE 5% 50 ML IV SCH (08:06)
[2018-12-13] MEDS: ARIPiprazole 15 MG TAB PO SCH (08:07)
[2018-12-13] MEDS: ASPIRIN 81 MG ECTAB PO SCH (08:07)
[2018-12-13] MEDS: NICOTINE 21 MG/24 HR TDSY TD SCH (08:07)
[2018-12-13] MEDS: METOPROLOL TARTRATE 50 MG TAB PO SCH ×2 (08:08→21:07)
[2018-12-13] MEDS: BuPROPion SR 100 MG TABCR PO SCH (08:09)
[2018-12-13] MEDS: LACTOBACILLUS ACIDOPHILUS (FLORANEX) TAB PO SCH ×3 (08:09→17:19)
[2018-12-13] MEDS: CITALOPRAM 40 MG TAB PO SCH (08:09)
[2018-12-13] MEDS: AMLODIPINE BESYLATE 5 MG TAB PO SCH (08:09)
[2018-12-13] MEDS: OXYCODONE HCL IR 5 MG TAB (IMMEDIATE RELEASE) PO PRN ×2 (08:20→17:28)
--- NOTE | 2018-12-13 08:32 | Pharmacy Report ---
Pharmacy Glycemic Short Note 2 - Date of Service December 13, 2018 - Glycemic Short BSG Results (Last 24 hours): 12/12/18 12/12/18 12/12/18 08:52 11:51 16:24 Glucose POC Glucose 228 H 239 H 385 H* 12/12/18 12/12/18 12/12/18 16:25 20:14 20:15 Glucose POC Glucose 398 H* 419 H* 408 H* 12/13/18 12/13/18 12/13/18 00:42 00:44 04:36 Glucose POC Glucose 404 H* 387 H* 312 H* 12/13/18 12/13/18 04:37 06:33 Glucose 164 H POC Glucose 313 H* OUTPATIENT ANTIDIABETIC REGIMEN: * Lantus 10 UNITS SQ BID * HUMALOG 3 UNITS SQ ac + ssi * Victoza 1.2mg sq daily * A1c 4.8% on 12/13/18 ASSESSMENT: 12/13 * Jaymie received 64 units of insulin yesterday (25 of this being basal); and 5 units IV bolus x 3 overnight for BSG > 300 mg/dL * BSG significantly improved this AM (164 mg/dL) with increased basal dose on board. Will plan to split the 20 units of basal BID (which is equivalent to a stress level of 2 with patient's weight using the insulin calculator estim ates). She may eventually need more but hesitant to increase too much in light of recent hypoglycemia [employer]. In addition, will be more aggressive with prandial coverage in light of steroids on board. 12/12 * Pt was ADM with hypoglycemia and seizures * Received Solumedrol 125mg IV x 1 12/07/18 * Glycemic service consulted when pt started IV steroids this evening * Ordered A1c for 12/13 AM PLAN FOR INPATIENT GLYCEMIC CONTROL: * Basal insulin - scaled dose with max of 30 units if BSG increases above 200 mg/dL * Lantus BID per the following scale: * 10 units for BSG < 200 * 15 units for BSG 200 or above * Bolus insulin - no change * NovoLog per scale ACHS * Goal Range: Low 140 mg/dL - High 180 mg/dL...continue this goal range with recent hypoglycemia/seizures * "Tightened" Correction Factor: 20 mg/dL/unit * "Added" Nutritional / Prandial insulin per carb ratio of 1 unit per 8 grams CHO consumed Discharge Recommendations: * Patient admitted with severe hypoglycemia and seizures which was thought to be due to decreased po intake; however, A1c would indicate otherwise. Would recommend adjustment to glycemic regimen on discharge to prevent further hypoglycemia. * With the Victoza on board, patient could most likely stop her mealtime insulin. In addition, would recommend decreasing Lantus to 10 units ONCE daily. * Close f/u with outpatient provider is warranted
[2018-12-13] MEDS ORDERED: INSULIN GLARGINE SOLOSTAR 100 UNITS/ML 3 ML PEN SQ SCH (09:00)
--- NOTE | 2018-12-13 09:25 | Nephrology Progress Note ---
Date of Service December 13, 2018 Assessment & Plan (1) Hyponatremia with decreased serum osmolality: Patient with hypo-osmolar hyponatremia likely due to hypervolemia. Serum osmolality was 272. Physical exam consistent with volume overload. Given advanced CKD this is likely hypervolemic hyponatremia. Sodium stable at 133 this morning. Patient is also intermittently hyperglycemic Recommendations: Liberalize salt in her diet Continue fluid restriction to 1500 mL daily. Continue IV Lasix 20 mg twice daily Monitor sodium daily. (2) Anemia: Due to CKD and chronic inflammation. She has transferrin saturation of 15%. Will give Venofer 300 mg and Epogen 20,000 units subcu once today. Hemoglobin of 7.7 yesterday. (3) CKD stage 4 due to type 2 diabetes mellitus: Patient with proteinuric CKD due to diabetes. Creatinine is 2.1 today which is close to her baseline. Renally dose medications for current GFR and avoid nephrotoxins unless lifesaving. She will need renal follow-up on discharge. Subjective Patient seen for hyponatremia and CKD. She feels better this morning denies any shortness of breath. No vomiting or diarrhea. She is eating well. Sodium is better at 123 today. She was net -823 mL. Review of Systems Review of Systems: All systems reviewed & are unremarkable except as noted in HPI & below Physical Exam Physical Exam: General exam: Appears comfortable, no acute distress HEENT: Pupils are equal and reactive to light Neck: No JVD, neck is supple trachea is midline Respiratory system: Clear breath sounds bilaterally. Gastrointestinal: Abdomen is soft, non distended, non tender, bowel sounds are present CVS: Regular rate and rhythm. No murmurs, rubs or gallops Musculoskeletal: No joint or muscle tenderness Extremities: Non tender, no edema, peripheral pulses are present Neuro: Oriented, no tremors, no focal neurological deficits Skin: Open areas on the trunk and arms due to scratching Results & Data Vital Signs (Past 12 Hours) Vital Signs Temp Pulse Pulse Pulse Resp BP Pulse Ox 12/13/18 07:08 77 22 94 12/13/18 06:58 36.6 C 79 18 155/66 H 96 12/13/18 04:03 36.7 C 74 18 139/75 94 12/13/18 01:50 82 18 96 12/12/18 23:24 36.9 C 82 20 129/82 99 12/12/18 22:20 83 Laboratory Results Laboratory Results - last 24 hr 12/12/18 12/12/18 12/12/18 08:47 11:51 16:24 WBC 9.54 RBC 2.55 L Hgb 7.7 L Hct 22.6 L MCV 88.6 MCH 30.2 MCHC 34.1 RDW Std Deviation 50.2 H RDW Coeff of David 15.6 H Plt Count 154 MPV 8.5 Immature Gran % (Auto) 0.2 Neut % (Auto) 78.9 Lymph % (Auto) 14.2 [place] % (Auto) 6.2 Eos % (Auto) 0.5 Baso % (Auto) 0.0 Immature Gran # (Auto) 0.02 Neut # (Auto) 7.53 H Lymph # (Auto) 1.35 [place] # (Auto) 0.59 Eos # (Auto) 0.05 Baso # (Auto) 0.00 RBC Morphology Unremarkable Sodium Potassium Chloride Carbon Dioxide Anion Gap BUN Creatinine Est Cr Clr Drug Dosing Est GFR ( Amer) Est GFR (Non-Af Amer) BUN/Creatinine Ratio Glucose POC Glucose 239 H 385 H* Estimat Average Glucose Hemoglobin A1c Calcium 12/12/18 12/12/18 12/12/18 16:25 20:14 20:15 WBC RBC Hgb Hct MCV MCH MCHC RDW Std Deviation RDW Coeff of David Plt Count MPV Immature Gran % (Auto) Neut % (Auto) Lymph % (Auto) [place] % (Auto) Eos % (Auto) Baso % (Auto) Immature Gran # (Auto) Neut # (Auto) Lymph # (Auto) [place] # (Auto) Eos # (Auto) Baso # (Auto) RBC Morphology Sodium Potassium Chloride Carbon Dioxide Anion Gap BUN Creatinine Est Cr Clr Drug Dosing Est GFR ( Amer) Est GFR (Non-Af Amer) BUN/Creatinine Ratio Glucose POC Glucose 398 H* 419 H* 408 H* Estimat Average Glucose Hemoglobin A1c Calcium 12/13/18 12/13/18 12/13/18 00:42 00:44 04:36 WBC RBC Hgb Hct MCV MCH MCHC RDW Std Deviation RDW Coeff of David Plt Count MPV Immature Gran % (Auto) Neut % (Auto) Lymph % (Auto) [place] % (Auto) Eos % (Auto) Baso % (Auto) Immature Gran # (Auto) Neut # (Auto) Lymph # (Auto) [place] # (Auto) Eos # (Auto) Baso # (Auto) RBC Morphology Sodium Potassium Chloride Carbon Dioxide Anion Gap BUN Creatinine Est Cr Clr Drug Dosing Est GFR ( Amer) Est GFR (Non-Af Amer) BUN/Creatinine Ratio Glucose POC Glucose 404 H* 387 H* 312 H* Estimat Average Glucose Hemoglobin A1c Calcium 12/13/18 12/13/18 12/13/18 04:37 06:33 06:33 WBC RBC Hgb Hct MCV MCH MCHC RDW Std Deviation RDW Coeff of David Plt Count MPV Immature Gran % (Auto) Neut % (Auto) Lymph % (Auto) [place] % (Auto) Eos % (Auto) Baso % (Auto) Immature Gran # (Auto) Neut # (Auto) Lymph # (Auto) [place] # (Auto) Eos # (Auto) Baso # (Auto) RBC Morphology Sodium 133 L Potassium 4.5 Chloride 101 Carbon Dioxide 21 Anion Gap 11.0 BUN 49 H Creatinine 2.14 H Est Cr Clr Drug Dosing 26.6 Est GFR ( Amer) 27.9 Est GFR (Non-Af Amer) 24.0 BUN/Creatinine Ratio 22.8 H Glucose 164 H POC Glucose 313 H* Estimat Average Glucose 91 Hemoglobin A1c 4.8 Calcium 8.8
[2018-12-13] MEDS ORDERED: EPOETIN ALFA 20,000 UNITS/ML VIAL SQ SCH (09:30)
[2018-12-13] MEDS ORDERED: INSULIN GLARGINE SOLOSTAR 100 UNITS/ML 3 ML PEN SQ ONE (12:00)
--- NOTE | 2018-12-13 14:56 | Hospitalist Progress Note ---
Date of Service December 13, 2018 Assessment & Plan (1) Metabolic encephalopathy: Multifactorial-secondary to E. coli UTI and may be complicated by hypoglycemia, possible seizure and MIKEY on CKD Urine culture: Positive for E. coli Blood cultures: Negative Has been on IV ceftriaxone Clinically better today Continue current antibiotic for UTI Hyponatremia Secondary to Hypervolemia Sodium level is improved to 133 from 125 on admission IV Lasix for volume overload Fluid restriction Nephro consulted-appreciate input and recommendations Hypoglycemia on admission-blood sugar was not below 80 in medical records Likely from poor oral intake, with Lantus BID Pharmacy consulted for glycemic control ISS Seizure disorder Possible seizure on admission EEG unrevealing Neurology consulted, does not recommend starting antiseizure medicines at this time Polypharmacy History of Schizoaffective Disorder Psych consulted Recommend to continue usual psych medications with close monitoring Acute hypoxic respiratory failure Likely acute on chronic diastolic congestive heart failure complicated by COPD exacerbation Positive wheezing and worsening hypoxia noted on December 12, 2018 Chest x-ray pulmonary edema Change Lasix to 40 mg IV twice daily Monitor diuresis, kidney function Solu-Medrol also added, continue nebs This patient's symptoms are much better We will change Solu-Medrol to oral prednisone C. difficile colitis Recurrence Continue vancomycin p.o. 4 times daily x10 days Recent right hip surgery Surgical site appears to be healing well DM 2 - management as above HTN - continue usual meds COPD exacerbation From acute on chronic diastolic heart failure - (+)exacerbation - nebs, Solu-Medrol -We will change Solu-Medrol to oral prednisone ABHINAV DVT prophylaxis Heparin Disposition resident of [facility] Evaluation management of above medical conditions Anticipate return to [facility] when medically stable Subjective 12/13 Patient is seen and examined in medical telemetry unit She is 63-year-old female with significant complicated past medical history as mentioned in H&P was admitted with questionable seizure disorder from [facility]. Remains generally weak but denies any other significant symptoms Has been out of bed on a chair with any acute distress Review of Systems Review of Systems: All systems reviewed and are unremarkable except as noted Constitutional: + malaise and + weakness Neurologic: + generalized weakness Physical Exam Physical Exam: Sitting on a chair without any acute distress Constitutional: + ill appearing Eyes: PERRL, conjunctivae normal, anicteric sclerae ENMT: external ear and nose normal, oropharynx normal Neck: trachea midline, no thyromegaly Respiratory: normal respiratory effort Auscultation: + diminished lung sounds and + crackles (At the base) Cardiovascular: Rate/Rhythm: regular rate and regular rhythm Heart Sounds: normal S1, normal S2 and + murmur (2/6 ESM at the aortic area) Extremities: no edema Gastrointestinal (Abdomen): Inspection/Auscultation: abdomen normal to inspection and normal bowel sounds Percussion/Palpation: abdomen soft; abdomen nontender Musculoskeletal: No acute arthritis in any of the joints Neurologic: Generally weak otherwise alert , awake and oriented Results & Data Vital Signs (Past 12 Hours) Vital Signs Temp Pulse Pulse Resp BP Pulse Ox 12/13/18 14:11 76 20 94 12/13/18 11:29 36.6 C 78 18 149/66 H 94 12/13/18 07:08 77 22 94 12/13/18 06:58 36.6 C 79 18 155/66 H 96 12/13/18 04:03 36.7 C 74 18 139/75 94 Laboratory Results BMP 12/13/18 06:33 Sodium 133 L Potassium 4.5 Chloride 101 Carbon Dioxide 21 BUN 49 H Creatinine 2.14 H Glucose 164 H Calcium 8.8 Medications Administered Current Inpatient Medications Acetaminophen (Tylenol) 650 mg PO Q4H PRN PRN Reason: Pain or Fever Stop: 01/07/19 04:03 Last Admin: 12/12/18 20:18 Dose: 650 mg Documented by: Albuterol (Ventolin Hfa) 2 puffs INH Q4 PRN PRN Reason: Shortness Of Breath Or Wheezin Stop: 01/07/19 04:03 Amlodipine Besylate (Norvasc) 10 mg PO DAILY LUIS MIGUEL Stop: 01/07/19 08:59 Last Admin: 12/13/18 08:09 Dose: 10 mg Documented by: Aripiprazole (Abilify) 15 mg PO DAILY LUIS MIGUEL Stop: 01/07/19 08:59 Last Admin: 12/13/18 08:07 Dose: 15 mg Documented by: Aspirin (Ecotrin Ectab) 81 mg PO DAILY LUIS MIGUEL Stop: 01/07/19 08:59 Last Admin: 12/13/18 08:07 Dose: 81 mg Documented by: Atorvastatin Calcium (Lipitor) 40 mg PO HS [facility] Stop: 01/07/19 20:59 Last Admin: 12/12/18 21:28 Dose: 40 mg Documented by: Bupropion HCl (Wellbutrin-Sr) 100 mg PO DAILY LUIS MIGUEL Stop: 01/07/19 08:59 Last Admin: 12/13/18 08:09 Dose: 100 mg Documented by: Citalopram Hydrobromide (Celexa) 40 mg PO DAILY LUIS MIGUEL Stop: 01/07/19 08:59 Last Admin: 12/13/18 08:09 Dose: 40 mg Documented by: Dextrose (Dextrose 50%) 25 - 50 ml IV UD PRN; Protocol PRN Reason: Hypoglycemia Protocol Stop: 01/07/19 07:29 Diphenhydramine HCl (Benadryl Capsule) 25 mg PO Q6H PRN PRN Reason: SEASONAL ALLERGIES Stop: 01/07/19 04:29 Glucagon (Glucagen) 1 mg IM UD PRN; Protocol PRN Reason: Hypoglycemia Protocol Stop: 01/07/19 07:29 Glucose (Glucose 40%) 15 - 30 gm PO UD PRN; Protocol PRN Reason: Hypoglycemia Protocol Stop: 01/07/19 07:29 Glucose (Dex4 Glucose) 4 - 8 tabs PO UD PRN; Protocol PRN Reason: Hypoglycemia Protocol Stop: 01/07/19 07:29 Haloperidol Lactate (Haldol) 2.5 mg IM Q6H PRN PRN Reason: Agitation Stop: 01/07/19 08:15 Heparin Sodium (Porcine) (Heparin Sodium (Porcine)) 5,000 units SQ Q8 LUISM IGUEL Stop: 01/10/19 21:59 Last Admin: 12/13/18 12:46 Dose: 5,000 units Documented by: Hydralazine HCl (Apresoline) 25 mg PO BID LUIS MIGUEL Stop: 01/07/19 08:59 Last Admin: 12/13/18 08:08 Dose: 25 mg Documented by: Lorazepam (Ativan) 1 mg in 2 mls @ 0.5 mls/min IV Q2H PRN PRN Reason: Breakthrough Seizures Stop: 01/07/19 04:03 Last Admin: 12/08/18 07:46 Dose: 0.5 mls/min Documented by: Ceftriaxone Sodium 1,000 mg/ (Dextrose) 60 mls @ 100 mls/hr IV DAILY LUIS MIGUEL Stop: 12/20/18 08:59 Last Infusion: 12/13/18 08:46 Dose: Infused Documented by: Furosemide 40 mg/ Syringe 4 mls @ 4 mls/min IV Q12H [facility] Stop: 01/11/19 20:59 Last Admin: 12/13/18 08:05 Dose: 4 mls/min Documented by: Methylprednisolone 40 mg/ (Syringe) 0.64 mls @ 1.5 mls/min IV Q8H [facility] Stop: 01/11/19 17:59 Last Admin: 12/13/18 08:06 Dose: 1.5 mls/min Documented by: Insulin Aspart (Novolog Flexpen) 0 units SC ACHS [facility]; Protocol Stop: 01/10/19 11:29 Last Admin: 12/13/18 12:44 Dose: 10 units Documented by: Insulin Glargine (Lantus Solostar Pen) 0 units SQ BID [facility]; Protocol Stop: 01/12/19 20:59 Ipratropium [place] (Atrovent 0.02% 0.5mg/2.5ml) 0.5 mg INH Q6R [facility] Stop: 01/08/19 10:44 Last Admin: 12/13/18 14:09 Dose: 0.5 mg Documented by: Ipratropium [place] (Atrovent 0.02% 0.5mg/2.5ml) 0.5 mg INH Q4H PRN PRN Reason: SOB OR WHEEZING Stop: 01/11/19 08:29 Lactobacillus Acidophilus (Floranex) 4 tab PO TIDM [facility] Stop: 01/07/19 11:59 Last Admin: 12/13/18 12:45 Dose: 4 tab Documented by: Levalbuterol HCl (Xopenex 1.25mg/0.5ml Neb) 1.25 mg INH Q6R [facility] Stop: 01/08/19 10:44 Last Admin: 12/13/18 14:07 Dose: 1.25 mg Documented by: Levalbuterol HCl (Xopenex 1.25mg/0.5ml Neb) 1.25 mg INH Q4H PRN PRN Reason: SOB OR WHEEZING Stop: 01/11/19 08:29 Metoprolol Tartrate (Lopressor) 50 mg PO BID [facility] Stop: 01/07/19 08:59 Last Admin: 12/13/18 08:08 Dose: 50 mg Documented by: Miscellaneous (Remove Nicoderm Patch) 1 ea N/A HS [facility] Stop: 01/07/19 20:59 Last Admin: 12/12/18 21:26 Dose: 1 ea Documented by: Miscellaneous (Order Awaiting Action) 1 ea N/A QS LUIS MIGUEL Stop: 01/07/19 07:59 Last Admin: 12/13/18 08:07 Dose: Not Given Documented by: Miscellaneous (Carbohydrates For Hypoglycemia) 15 - 30 gm PO UD PRN PRN Reason: Hypoglycemia Treatment Stop: 01/07/19 07:29 Miscellaneous Information (Consult Glycemic Management Pharmacy) 1 ea N/A UD PRN PRN Reason: Consult Stop: 01/11/19 17:47 Nicotine (Nicoderm Cq) 21 mg TD DAILY LUIS MIGUEL Stop: 01/07/19 08:59 Last Admin: 12/13/18 08:07 Dose: 21 mg Documented by: Nitroglycerin (Nitrostat) 0.4 mg SL UD PRN PRN Reason: Chest Pain Stop: 01/07/19 04:03 Ondansetron HCl (Zofran) 4 mg IV Q6H PRN PRN Reason: Nausea Stop: 01/07/19 04:03 Oxycodone HCl (Roxicodone Immediate Rel) 5 mg PO Q8 PRN PRN Reason: PAIN LEVEL 4-10 Last Admin: 12/13/18 08:20 Dose: 5 mg Documented by: Ranitidine HCl (Zantac) 75 mg PO DAILY [facility] Stop: 01/07/19 08:59 Last Admin: 12/13/18 08:10 Dose: 75 mg Documented by: Raspberry (Raspberry) 5 ml PO Q6 [facility] Stop: 12/24/18 13:59 Last Admin: 12/13/18 12:44 Dose: 5 ml Documented by: Vancomycin HCl (Vancomycin Hcl) 125 mg PO Q6 [facility] Stop: 12/20/18 13:59 Last Admin: 12/13/18 13:15 Dose: 125 mg Documented by:
[2018-12-13] MEDS ORDERED: Nursing to Pharmacy Communication ONE (16:17)
[2018-12-13] MEDS: LEVALBUTEROL 1.25MG/0.5ML NEB INH PRN (18:59)
--- OUTSIDE RECORDS SUMMARY | 2018-12-13 19:18 | External Medical Summary | Continuity of Care Document ---
:1955 Author Name Kennedy Don, Provider Address Unavailable Unavailable , Care Team Providers Name Role Phone Bashir Powell [email or web address] Thanh [email or web address], [email or web address] GREG Don, BASHIR Burch Unavailable Unavailable Unavailable Unavailable Problems Low back pain (724.2) (M54.5) Hypercholesterolemia (272.0) (E78.00) Vitamin D deficiency (268.9) (E55.9) Osteopenia (733.90) (M85.80) Impetigo (684) (L01.00) Type 1 diabetes mellitus with hypoglycemia (250.81) (E10.649 ) Clostridium difficile colitis (008.45) (A04.72) Hypoglycemic unawareness associated with type 1 diabetes mellitus (250.81) (E10.649) Nausea (787.02) (R11.0) Lumbar compression fracture (805.4) (S32.000A) Diabetes mellitus type 2, uncontrolled (250.02) (E11.65) 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 ) Pneumonia (486) (J18.9) Diastolic heart failure (428.30) (I50.30) Anemia (285.9) (D64.9) Abnormal gait (781.2) (R26.9) Sign Poster's nodules (782.2) (R22.9) Diarrhea, unspecified type (787.91) (R19.7) COPD, moderate (496) (J44.9) Paranoid schizophrenia (295.30) (F20.0) Heart failure (428.9) (I50.9) Current smoker (305.1) (F17.200) Contusion, chest wall (922.1) (S20.219A) Dysuria (788.1) (R30.0) Flu-like symptoms (780.99) (R68.89) COPD exacerbation (491.21) (J44.1) Reaction, depressive, manic (296.80) (F31.9) Diabetic neuropathy (250.60) (E11.40) Muscular deconditioning (781.99) (R29.898) Need for immunization against influenza (V04.81) (Z23) Pulpitis (522.0) (K04.01) Obstructive sleep apnea (327.23) (G47.33) Anxiety (300.00) (F41.9) C. difficile diarrhea (008.45) (A04.72) Venous insufficiency (459.81) (I87.2) Sprain of ankle, left (845.00) (S93.402A) Type 2 diabetes mellitus (250.00) (E11.9) GERD without esophagitis (530.81) (K21.9) Benign essential hypertension (401.1) (I10) Nonketotic hyperglycinemia, type I (270.7) (E72.51) Visit for screening mammogram (V76.12) (Z12.31) Allergies and Adverse Reactions Clindamycin (Allergy) metFORMIN HCl TABS (Allergy) Reaction: D izziness Sulfa Drugs (Allergy) Medications Dexcom G6 Sensor; TEST BEFORE EACH MEAL - 3X/DAY Dx E10.649 Arian Powell Start: 01-Sep-2018 Quantity: 15 Refills: 3 Dexcom G6 Looping Machine Operator Device; TEST SUGARS 3 TIMES DAILY OR DIRECTED Dx E10.649 Arian Powell Start: 01-Sep-2018 Quantity: 1 Refills: 5 diazePAM 2 MG Oral Tablet; 1 EVERY MORNING. Start: 25-Aug-2018 Refills: 0 Lantus SoloStar 100 UNIT/ML Subcutaneous Solution Pen-injector; INJECT 20 UNIT Twice daily Arian Powell 5 x 3 ML Pen Refills: 5 HYDROcodone-Acetaminophen 5-325 MG Oral Tablet; 1 PO T ID as needed for pain Arian Powell Start: 25-Aug-2018 Quantity: 90 Refills: 0 Aspirin 81 MG Oral Tablet Delayed Release; TAKE 1 TABLET RACHNA LY. Refills: 0 Breo Ellipta 100-25 MCG/INH Inhalation A erosol Powder Breath Activated; INHALE 1 PUFFS Daily 28 Inhaler Pack Refills: 5 Benadryl 25 MG TABS; TAKE 1 TABLET EVERY 6 HOURS NEEDED. Refills: 0 Furosemide 40 MG Oral Tablet; Take 1 tablet daily Mana Powell Quantity: 90 Refills: 0 Melatonin 3 MG Oral Capsule; TAKE 1 CAPSULE AT BEDTIME NE EDED. Refills: 0 Tylenol 325 MG Oral Tablet; TAKE 1 TO 2 TABLETS EVERY 6 HOUR S NEEDED. Refills: 0 Vitamin C 500 MG Oral Tablet; TAKE 1 TABLET DAILY. Refills: 0 BD Pen Needle Short U/F 31G X 8 MM; Use daily Arian Powell Start: 03-Jul-2015 Quantity: 1 100 Unit Box Refills: 3 OneTouch Ultra Mini w/Device Kit; CHECK BLOOD SUGARS T WICE DAILY Arian Powell Start: 08-Jul-2017 Quantity: 1 Refills: 0 OneTouch Ultra Blue In Vitro Strip; USE DIRECTED TO CHECK BLOOD SUGAR 2 TIMES A DAY Arian Powell Start: 08-Jul-2017 Quantity: 100 Refills: 3 OneTouch UltraSoft Lancets; Used BID Dx 250.02 Arian Powell Start: 08-Jul-2017 Quantity: 100 Refills: 5 Victoza 18 MG/3ML Subcutaneous Solution Pen-injector; inject 1.8mg subcutaneously every day Arian Powell 2 x 3 ML Pen Quantity: 1 Refills: 3 raNITIdine HCl - 75 MG Oral Tablet; TAKE 1 TABLET DAILY. Arian Longo Quantity: 90 Refills: 1 Unifine Pentips 31G X 8 MM; USE DIRECTED Arian Powell Start: 20-May-2017 Quantity: 1 100 Unit Box Refills: 5 Combivent Respimat 20-100 MCG/ACT Inhala tion Aerosol Solution; INHALE 1 PUFF 4 TIMES DAILY (MAXIMUM OF 6 PUFFS IN 24 HOURS) Arian Powell Start: 17-Sep-2015 Quantity: 1 4 GM Inhaler Refills: 5 Atorvastatin Calcium 40 MG Oral Tablet; TAKE 1 TABLET AT BEDTIME. Arian Powell Start: 07-Apr-2017 Quantity: 90 Refills: 1 ARIPiprazole 15 MG Oral Tablet; TAKE 1 TABLET DAILY. Arian Powell Start: 08-Jul-2017 Refills: 0 ProAir HFA 108 (90 Base) MCG/ACT Inhalat ion Aerosol Solution; INHALE 2 PUFFS EVERY 4 HOURS NEEDED Start: 12-Oct-2018 Quantity: 1 8.5 GM Inhaler Refills: 5 Albuterol Sulfate (2.5 MG/3ML) 0.083% In halation Nebulization Solution; USE 1 UNIT DOSE IN NEBULIZER 4 TIMES DAILY Start: 9 Refills: 1 traMADol HCl - 50 MG Oral Tablet; TAKE 0.5 TABLET Every 4 ho urs PRN Refills: 0 predniSONE 20 MG Oral Tablet; TAKE 2 TABLET Daily for 5 days Refills: 0 oxyCODONE HCl - 5 MG Oral Tablet; TAKE 1 TABLET Every 4 hour s PRN Refills: 0 hydrALAZINE HCl - 25 MG Oral Tablet; TAKE 1 TABLET TWICE RACHNA LY. Refills: 0 Docusate Sodium 100 MG Oral Capsule; TAKE ONE CAPSULE 2 TIME S A DAY FOR 5 DAYS Refills: 0 Azithromycin 500 MG Oral Tablet; TAKE 1 TABLET DAILY FOR 5 D AYS 30 Tablet Bottle Refills: 0 Mupirocin 2 % External Ointment; apply BID until healed Arian Garcia Start: 31-Aug-2018 Quantity: 2 22 GM Tube Refills: 2 Vancomycin HCl - 125 MG Oral Capsule; TAKE 1 CAPSULE 4 times daily FOR 10 DAYS DALLIN Law Start: 27-Aug-2018 Quantity: 40 Refills: 0 NovoLOG FlexPen 100 UNIT/ML Subcutaneous Solution Pen-injector; inject subq per sliding scale 151-200 (4u); 201-250 (7u); 251-350 (10u); more than 351 (13u); over 401 CALL DOCTOR Arian Powell Start: 03-Jul-2015 Quantity: 1 5 x 3 ML Pen Refills: 5 Citalopram Hydrobromide 40 MG Oral Tablet; TAKE 1 TABL ET DAILY. Arian Powell Start: 29-Jun-2015 Quantity: 30 Refills: 5 buPROPion HCl ER (SR) 100 MG Oral Tablet Extended Release 12 Hour; TAKE 1 TABLET DAILY. Quantity: 30 Refills: 2 Metoprolol Tartrate 100 MG Oral Tablet; TAKE 0.5 TABLE T Twice daily DALLIN Law Start: 02-Sep-2018 Refills: 0 amLODIPine Besylate 10 MG Oral Tablet; TAKE 1 TABLET Arian Rodriguez Start: 13-Aug-2018 Quantity: 90 Refills: 0 Procedures History of Tonsillectomy Status: Complet ed History of Cholecystectomy Laparoscopic Status: Completed History of lumbar discectomy Status: Com pleted Immunizations Pneumococcal polysaccharide vaccine, 23 valent On: Hepatitis B On: 29-Jan-2015 Hepatitis B On: 27-Feb-2015 Tdap (Adacel) On: 20-Apr-2015 Influenza On: 24-Apr-2015 Hepatitis B On: 01-Aug-2015 11:33 Lot #: [id number], [employer] Influenza On: 29-May-2016 10:38 Lot #: [id number], [employer] Fluzone Quadrivalent 0.5 ML Intramuscular Suspension On: May-2017 11:33 Lot #: [id number], [employer] Pneumococcal polysaccharide vaccine, 23 valent On: 08-Jul-20 10:55 Lot #: [id number], [employer] Flublok Quadrivalent 0.5 ML Intramuscular Solution Pre filled Syringe On: 25-Aug-2018 15:11 Lot #: [id number], [employer] Family History Father Family history of hypertension (V17.49) (Z82.49) Status: Act deja Social History - Smoking Status Smoker. current status unknown Plan of Treatment Planned Observations Planned Goals not documented Results No Known Results Results not documented Encounters Appointment; Fiona Law PA-C 19-Oct-2018 13:30 Encounter Diagnosis: Problem not documented Appointment; Bashir Powell M.D. 24-Sep-2018 9:00 Encounter Diagnosis: Problem not documented Appointment; Family, Nurse 01-Sep-2018 16:15 Encounter Diagnosis: Problem not documented Appointment; Bashir Powell M.D. 31-Aug-2018 10:15 Encounter Diagnosis: Problem not documented Appointment; Bashir Powell M.D. 25-Aug-2018 13:00 Encounter Diagnosis: Problem not documented Appointment; Fiona Law PA-C 13-Aug-2018 14:30 Encounter Diagnosis: Problem not documented Appointment; Bashir Powell M.D. 06-May-2018 15:00 Encounter Diagnosis: Problem not documented Appointment; Bashir Powell M.D. 12-Feb-2018 9:45 Encounter Diagnosis: Problem not documented Appointment; Bashir Powell M.D. 25-Jan-2018 10:30 Encounter Diagnosis: Problem not documented Appointment; Bashir Powell M.D. 19-Jan-2018 8:45 Encounter Diagnosis: Problem not documented Appointment; Bashir Powell M.D. 02-Dec-2017 14:00 Encounter Diagnosis: Problem not documented Appointment; Bashir Powell M.D. 12-Nov-2017 10:00 Encounter Diagnosis: Problem not documented Appointment; Obdulio Medina M.D. 09-Oct-2017 13:00 Encounter Diagnosis: Problem not documented Appointment; Fiona Law PA-C 07-Oct-2017 9:00 Encounter Diagnosis: Problem not documented Appointment; Bashir Powell M.D. 12-Aug-2017 10:15 Encounter Diagnosis: Problem not documented Appointment; Bashir Powell M.D. 24-Jul-2017 14:00 Encounter Diagnosis: Problem not documented Appointment; Bashir Powell M.D. 08-Jul-2017 10:00 Encounter Diagnosis: Problem not documented Appointment; Bashir Powell M.D. 02-Jun-2017 10:30 Encounter Diagnosis: Problem not documented Appointment; Bashir Powell M.D. 19-May-2017 15:00 Encounter Diagnosis: Problem not documented Appointment; Bashir Powell M.D. 07-Apr-2017 11:00 Encounter Diagnosis: Problem not documented Appointment; Bashir Powell M.D. 11-Mar-2017 14:45 Encounter Diagnosis: Problem not documented Appointment; Bashir Powell M.D. 28-Jan-2017 9:30 Encounter Diagnosis: Problem not documented Appointment; Bashir Powell M.D. 14-Jan-2017 9:15 Encounter Diagnosis: Problem not documented Appointment; Fiona Law PA-C 18-Dec-2016 11:15 Encounter Diagnosis: Problem not documented
[2018-12-13] MEDS: ATORVASTATIN 40 MG TAB PO SCH (21:08)
[2018-12-13] MEDS: INSULIN GLARGINE SOLOSTAR 100 UNITS/ML 3 ML PEN SQ SCH (21:10)
[2018-12-13] MEDS ORDERED: INSULIN HUMAN REGULAR PER UNIT 8 UNITS in SYRINGE 7.92 ML IV SCH (21:45)
[2018-12-14] MEDS: INSULIN ASPART 100 UNITS/ML 3 ML PEN SC SCH ×6 (00:13→20:59)
[2018-12-14] MEDS: RASPBERRY SYRUP 5 ML UDP PO SCH ×5 (00:16→23:49)
[2018-12-14] MEDS: VANCOMYCIN HCL 125 MG/2.5ML SOLN PO SCH ×5 (00:16→23:48)
[2018-12-14] MEDS: BREO ELLIPTA: ORDER AWAITING ACTION SCH ×4 (00:16→23:50)
[2018-12-14] MEDS: IPRATROPIUM BROMIDE NEB SOLN 0.02% 2.5 ML VIAL INH SCH ×6 (01:49→23:10)
[2018-12-14] MEDS: LEVALBUTEROL 1.25MG/0.5ML NEB INH SCH ×2 (01:51→07:30)
[2018-12-14] MEDS: FUROSEMIDE 40 MG in SYRINGE 0 ML IV SCH (04:28)
[2018-12-14] MEDS: HEPARIN SOD 5,000 UNIT/0.5 ML VIAL SQ SCH ×3 (06:39→20:57)
[2018-12-14 07:05] LABS: BUN Creatinine Ratio 23.7 (10-20); Creatinine Clr Calc Pharmacy 21.2 ml/min; Est GFR (African American) 21.1; Est GFR (Non-African American) 18.2; Potassium 4.6 mmol/L (3.5-5.1)
[2018-12-14] MEDS: CITALOPRAM 40 MG TAB PO SCH (07:28)
[2018-12-14] MEDS: LACTOBACILLUS ACIDOPHILUS (FLORANEX) TAB PO SCH ×3 (07:28→16:36)
[2018-12-14] MEDS: BuPROPion SR 100 MG TABCR PO SCH (07:28)
[2018-12-14] MEDS: ARIPiprazole 15 MG TAB PO SCH (07:29)
[2018-12-14] MEDS: ASPIRIN 81 MG ECTAB PO SCH (07:29)
[2018-12-14] MEDS: METOPROLOL TARTRATE 50 MG TAB PO SCH ×2 (07:30→21:02)
[2018-12-14] MEDS: NICOTINE 21 MG/24 HR TDSY TD SCH (07:30)
[2018-12-14] MEDS: AMLODIPINE BESYLATE 5 MG TAB PO SCH (07:30)
[2018-12-14] MEDS: predniSONE 20 MG TAB PO SCH (07:30)
[2018-12-14 07:31] LABS: Hematocrit (blood only) 22.5 % (37-47); Hemoglobin 7.8 g/dL (12.0-16.0); Mean Corpuscular Hgb Conc 34.7 g/dL (32-36); Mean Corpuscular Volume 87.5 fL (80-100); Mean Platelet Volume 8.5 fL (7.4-10.4); Platelet Count 243 K/uL (130-400); RDW Coefficient of Variation 15.8 % (11.5-14.5); RDW Standard Deviation 50.4 fL (36.4-46.3); Red Blood Count 2.57 M/uL (4.2-5.4); White Blood Count 10.86 K/uL (4.8-10.8)
[2018-12-14 07:32] LABS: Basophils # (auto) 0.02 K/uL (0-0.2); Basophils % (auto) 0.2 %; Immature Granulocytes # (auto) 0.05 K/uL (0.00-0.02); Immature Granulocytes % (auto) 0.5 %; Lymphocytes # (auto) 0.97 K/uL (1.2-3.4); Lymphocytes % (auto) 8.9 %; Monocytes # (auto) 0.99 K/uL (0.11-0.59); Monocytes % (auto) 9.1 %; Neutrophils # (auto) 8.83 K/uL (1.4-6.5); Neutrophils % (auto) 81.3 %; RBC Morphology Unremarkable
[2018-12-14] MEDS: cefTRIAXone SODIUM 1,000 MG in DEXTROSE 5% 50 ML IV SCH (07:37)
[2018-12-14] MEDS: INSULIN GLARGINE SOLOSTAR 100 UNITS/ML 3 ML PEN SQ SCH ×2 (07:45→21:00)
[2018-12-14] MEDS ORDERED: NovoLIN-N (NPH) PER UNIT CHARGE SQ SCH (08:00)
[2018-12-14] MEDS: OXYCODONE HCL IR 5 MG TAB (IMMEDIATE RELEASE) PO PRN (08:16)
--- NOTE | 2018-12-14 09:07 | Pharmacy Report ---
Pharmacy Glycemic Short Note 2 - Date of Service December 14, 2018 - Glycemic Short BSG Results (Last 24 hours): 12/13/18 12/13/18 12/13/18 07:41 11:35 16:40 Glucose POC Glucose 200 H 287 H 236 H 12/13/18 12/13/18 12/14/18 20:27 20:28 00:10 Glucose POC Glucose 342 H* 336 H* 247 H 12/14/18 12/14/18 12/14/18 04:19 06:33 07:22 Glucose 176 H POC Glucose 228 H 191 H OUTPATIENT ANTIDIABETIC REGIMEN: * Lantus 10 UNITS SQ BID * HUMALOG 3 UNITS SQ ac + ssi * Victoza 1.2mg sq daily * A1c 4.8% on 12/13/18 - this is not in line with outpatient BSGs ASSESSMENT: 12/14 * Ms. Saavedra received 77 units of insulin yesterday (30 of this being basal); an extra 8 units of IV insulin was given last night for BSG > 300 mg/dL * She has been tapered from Solu-medrol 40 mg q8h (last dose in the AM) -> prednisone 40 mg qAM * I anticipated BSGs to improve as the Solu-medrol wore off last night; however, she spiked up to 342 mg/dL last night. She seems to be VERY sensitive to colt roids. * Now that she has been changed to once daily prednisone, will add once daily NPH (0.4 units/kg) to cover the prednisone * Will continue the Lantus + Novolog to cover baseline needs (but slightly more aggressive with steroids on board). I'm anticipating 20 units of basal and ~15 units with meals. 12/13 * Jaymie received 64 units of insulin yesterday (25 of this being basal); and 5 units IV bolus x 3 overnight for BSG > 300 mg/dL * BSG significantly improved this AM (164 mg/dL) with increased basal dose on board. Will plan to split the 20 units of basal BID (which is equivalent to a stress level of 2 with patient's weight using the insulin calculator estimates). She may eventually need more but hesitant to increase too much in light of recent hypoglycemia [employer]. In addition, will be more aggressive with prandial coverage in light of steroids on board. 12/12 * Pt was ADM with hypoglycemia and seizures * Received Solumedrol 125mg IV x 1 12/07/18 * Glycemic service consulted when pt started IV steroids this evening * Ordered A1c for 12/13 AM PLAN FOR INPATIENT GLYCEMIC CONTROL: * Steroid coverage * NPH 30 units qAM (0.4 units/kg) * Basal insulin - scaled dose with max of 20 units * Lantus BID per the following scale: * 5 units for BSG < 140 * 10 units for BSG 140 or above * Bolus insulin -loosen CF/CR * NovoLog per scale ACHS * Goal Range: Low 140 mg/dL - High 180 mg/dL...continue this goal range with recent hypoglycemia/seizures * "Tightened" Correction Factor: 20 mg/dL/unit * "Added" Nutritional / Prandial insulin per carb ratio of 1 unit per 8 grams CHO consumed Discharge Recommendations: * Patient admitted with severe hypoglycemia/seizures in which the hypoglycemia was thought to be due to decreased po intake. A1c would indicate otherwise; however, it is not in line with recent month's worth of BSG data from [facility]. * Based on improved po intake and BSGs from the last month (lowest was 73 mg/dL x 1), would recommend to continue same outpatient regimen on discharge, with adjustment as needed at the senior living.
--- NOTE | 2018-12-14 10:30 | Nephrology Progress Note ---
Date of Service December 14, 2018 Assessment & Plan (1) Hyponatremia with decreased serum osmolality: Patient with hypo-osmolar hyponatremia likely due to hypervolemia. Serum osmolality was 272. Physical exam consistent with volume overload. Given advanced CKD this is likely hypervolemic hyponatremia. Sodium stable at 133 this morning. Patient is also intermittently hyperglycemic Recommendations: Liberalize salt in her diet Continue fluid restriction to 1500 mL daily. Reduce Lasix to 20 mg twice daily Monitor sodium daily. Discussed with Dr. Esparza (2) Anemia: Due to CKD and chronic inflammation. She has transferrin saturation of 15%. She is getting Epogen and Venofer weekly. Hemoglobin of 7.8 today. (3) CKD stage 4 due to type 2 diabetes mellitus: Patient with proteinuric CKD due to diabetes. Creatinine is up to 2.69 today from a baseline of 2. Recent change in renal function likely hemodynamically mediated in setting of diuresis. Her shortness of breath is likely due to COPD and less likely pulmonary edema. Will reduce Lasix to 20 mg IV twice daily. Renally dose medications for current GFR and avoid nephrotoxins unless lifesaving. Subjective Patient seen in follow-up for hyponatremia and volume overload. She is complaining of shortness of breath this morning. Creatinine slightly up to 2.69 today. She was net -340 mL yesterday Review of Systems Review of Systems: All systems reviewed & are unremarkable except as noted in HPI & below Physical Exam Physical Exam: General exam: Appears comfortable, no acute distress HEENT: Pupils are equal and reactive to light Neck: No JVD, neck is supple trachea is midline Respiratory system: Wheezing bilaterally. Gastrointestinal: Abdomen is soft, non distended, non tender, bowel sounds are present CVS: Regular rate and rhythm. No murmurs, rubs or gallops Musculoskeletal: No joint or muscle tenderness Extremities: Non tender, no edema, peripheral pulses are present Neuro: Oriented, no tremors, no focal neurological deficits Skin: Open areas on the trunk and arms Results & Data Vital Signs (Past 12 Hours) Vital Signs Temp Pulse Resp BP Pulse Ox 12/14/18 07:39 86 18 97 12/14/18 07:02 36.7 C 81 18 156/86 H 94 12/14/18 04:25 36.4 C L 83 20 142/83 H 96 12/14/18 01:51 82 18 79 L 04/29/19 23:21 36.6 C 72 16 129/62 95 Laboratory Results Laboratory Results - last 24 hr 12/13/18 12/13/18 12/13/18 07:41 11:35 16:40 WBC RBC Hgb Hct MCV MCH MCHC RDW Std Deviation RDW Coeff of David Plt Count MPV Immature Gran % (Auto) Neut % (Auto) Lymph % (Auto) Fannin % (Auto) Eos % (Auto) Baso % (Auto) Immature Gran # (Auto) Neut # (Auto) Lymph # (Auto) Fannin # (Auto) Eos # (Auto) Baso # (Auto) RBC Morphology Sodium Potassium Chloride Carbon Dioxide Anion Gap BUN Creatinine Est Cr Clr Drug Dosing Est GFR ( Amer) Est GFR (Non-Af Amer) BUN/Creatinine Ratio Glucose POC Glucose 200 H 287 H 236 H Calcium 12/13/18 12/13/18 12/14/18 20:27 20:28 00:10 WBC RBC Hgb Hct MCV MCH MCHC RDW Std Deviation RDW Coeff of David Plt Count MPV Immature Gran % (Auto) Neut % (Auto) Lymph % (Auto) Fannin % (Auto) Eos % (Auto) Baso % (Auto) Immature Gran # (Auto) Neut # (Auto) Lymph # (Auto) Fannin # (Auto) Eos # (Auto) Baso # (Auto) RBC Morphology Sodium Potassium Chloride Carbon Dioxide Anion Gap BUN Creatinine Est Cr Clr Drug Dosing Est GFR ( Amer) Est GFR (Non-Af Amer) BUN/Creatinine Ratio Glucose POC Glucose 342 H* 336 H* 247 H Calcium 12/14/18 12/14/18 12/14/18 04:19 06:33 06:33 WBC 10.86 H RBC 2.57 L Hgb 7.8 L Hct 22.5 L MCV 87.5 MCH 30.4 MCHC 34.7 RDW Std Deviation 50.4 H RDW Coeff of David 15.8 H Plt Count 243 D MPV 8.5 Immature Gran % (Auto) 0.5 Neut % (Auto) 81.3 Lymph % (Auto) 8.9 Fannin % (Auto) 9.1 Eos % (Auto) 0.0 Baso % (Auto) 0.2 Immature Gran # (Auto) 0.05 H Neut # (Auto) 8.83 H Lymph # (Auto) 0.97 L Fannin # (Auto) 0.99 H Eos # (Auto) 0.00 Baso # (Auto) 0.02 RBC Morphology Unremarkable Sodium 133 L Potassium 4.6 Chloride 103 Carbon Dioxide 20 L Anion Gap 10.0 BUN 64 H Creatinine 2.69 H D Est Cr Clr Drug Dosing 21.2 Est GFR ( Amer) 21.1 Est GFR (Non-Af Amer) 18.2 BUN/Creatinine Ratio 23.7 H Glucose 176 H POC Glucose 228 H Calcium 8.0 L 12/14/18 07:22 WBC RBC Hgb Hct MCV MCH MCHC RDW Std Deviation RDW Coeff of David Plt Count MPV Immature Gran % (Auto) Neut % (Auto) Lymph % (Auto) Fannin % (Auto) Eos % (Auto) Baso % (Auto) Immature Gran # (Auto) Neut # (Auto) Lymph # (Auto) Fannin # (Auto) Eos # (Auto) Baso # (Auto) RBC Morphology Sodium Potassium Chloride Carbon Dioxide Anion Gap BUN Creatinine Est Cr Clr Drug Dosing Est GFR ( Amer) Est GFR (Non-Af Amer) BUN/Creatinine Ratio Glucose POC Glucose 191 H Calcium
[2018-12-14] MEDS: LEVALBUTEROL 1.25MG/0.5ML NEB INH PRN (11:54)
[2018-12-14] MEDS: BUDESONIDE/FORMOTEROL FUMARATE 160/4.5 60 PUFFS/INHALER INH SCH ×2 (12:42→20:58)
[2018-12-14] MEDS: LEVALBUTEROL 1.25MG/0.5ML NEB NEB SCH ×3 (15:21→23:10)
--- NOTE | 2018-12-14 16:09 | Hospitalist Progress Note ---
Date of Service December 14, 2018 Assessment & Plan (1) Metabolic encephalopathy: Multifactorial-secondary to E. coli UTI and may be complicated by hypoglycemia, possible seizure and MIKEY on CKD Urine culture: Positive for E. coli Blood cultures: Negative Has been on IV ceftriaxone Clinically better today Continue current antibiotic for UTI No more UTI symptoms Hyponatremia Secondary to Hypervolemia Sodium level is improved to 133 from 125 on admission IV Lasix for volume overload Fluid restriction Nephro consulted-appreciate input and recommendations Sodium level is 133 on 12/14 Hypoglycemia on admission-blood sugar was not below 80 in medical records Likely from poor oral intake, with Lantus BID Pharmacy consulted for glycemic control ISS Blood sugar seems to be improving Seizure disorder Possible seizure on admission EEG unrevealing Neurology consulted, does not recommend starting antiseizure medicines at this time Polypharmacy History of Schizoaffective Disorder Psych consulted Recommend to continue usual psych medications with close monitoring Acute hypoxic respiratory failure Likely acute on chronic diastolic congestive heart failure complicated by COPD exacerbation Positive wheezing and worsening hypoxia noted on December 12, 2018 Chest x-ray pulmonary edema Change Lasix to 40 mg IV twice daily Monitor diuresis, kidney function Solu-Medrol also added, continue nebs This patient's symptoms are much better We will change Solu-Medrol to oral prednisone Nebulized bronchodilators has been increased to frequency Symbicort added C. difficile colitis Recurrence Continue vancomycin p.o. 4 times daily x10 days Recent right hip surgery Surgical site appears to be healing well Will continue with physical therapy DM 2 - management as above HTN - continue usual meds COPD exacerbation From acute on chronic diastolic heart failure - (+)exacerbation - nebs, Solu-Medrol -We will change Solu-Medrol to oral prednisone ABHINAV DVT prophylaxis Heparin Disposition resident of [facility] Evaluation management of above medical conditions Anticipate return to [facility] when medically stable Not requiring to be discharged Subjective 12/13 Patient is seen and examined in medical telemetry unit She is 63-year-old female with significant complicated past medical history as mentioned in H&P was admitted with questionable seizure disorder from [facility]. Remains generally weak but denies any other significant symptoms Has been out of bed on a chair with any acute distress 12/14 Patient seen and examined in medical telemetry unit She has been complaining of a lot of right hip pain Also has wheezing and shortness of breath on minimal exertion Denies any nausea or vomiting with any fever and chills Review of Systems Review of Systems: All systems reviewed and unremarkable except as noted below Constitutional: + malaise Respiratory: + cough, + dyspnea, + dyspnea on exertion and + wheezing Musculoskeletal: + joint pain (Right hip pain on every movement) Physical Exam Constitutional: + ill appearing Eyes: PERRL, conjunctivae normal, anicteric sclerae ENMT: external ear and nose normal, oropharynx normal Neck: trachea midline, no thyromegaly Respiratory: normal respiratory effort Auscultation: + diminished lung sounds and + crackles (At the base) Cardiovascular: Rate/Rhythm: regular rate and regular rhythm Heart Sounds: normal S1, normal S2 and + murmur (2/6 ESM at the aortic area) Extremities: no edema Gastrointestinal (Abdomen): Inspection/Auscultation: abdomen normal to inspection and normal bowel sounds Percussion/Palpation: abdomen soft; abdomen nontender Musculoskeletal: Hip: + limited ROM of hip (Right hip with increasing pain) Results & Data Vital Signs (Past 12 Hours) Vital Signs Temp Pulse Resp BP BP Pulse Ox 12/14/18 15:23 77 17 95 12/14/18 14:46 36.8 C 73 22 137/75 95 12/14/18 11:57 76 22 96 12/14/18 11:52 36.4 C L 73 20 156/66 H 93 12/14/18 07:39 86 18 97 12/14/18 07:02 36.7 C 81 18 156/86 H 94 12/14/18 04:25 36.4 C L 83 20 142/83 H 96 Laboratory Results Short CBC 12/14/18 Range/Units 06:33 WBC 10.86 H (4.8-10.8) K/uL Hgb 7.8 L (12.0-16.0) g/dL Hct 22.5 L (37-47) % Plt Count 243 D (130-400) K/uL BMP 12/14/18 06:33 Sodium 133 L Potassium 4.6 Chloride 103 Carbon Dioxide 20 L BUN 64 H Creatinine 2.69 H D Glucose 176 H Calcium 8.0 L Medications Administered Current Inpatient Medications Acetaminophen (Tylenol) 650 mg PO Q4H PRN PRN Reason: Pain or Fever Stop: 01/07/19 04:03 Last Admin: 12/12/18 20:18 Dose: 650 mg Documented by: Albuterol (Ventolin Hfa) 2 puffs INH Q4 PRN PRN Reason: Shortness Of Breath Or Wheezin Stop: 01/07/19 04:03 Amlodipine Besylate (Norvasc) 10 mg PO DAILY LUIS MIGUEL Stop: 01/07/19 08:59 Last Admin: 12/14/18 07:30 Dose: 10 mg Documented by: Aripiprazole (Abilify) 15 mg PO DAILY LUIS MIGUEL Stop: 01/07/19 08:59 Last Admin: 12/14/18 07:29 Dose: 15 mg Documented by: Aspirin (Ecotrin Ectab) 81 mg PO DAILY LUIS MIGUEL Stop: 01/07/19 08:59 Last Admin: 12/14/18 07:29 Dose: 81 mg Documented by: Atorvastatin Calcium (Lipitor) 40 mg PO HS LUIS MIGUEL Stop: 01/07/19 20:59 Last Admin: 12/13/18 21:08 Dose: 40 mg Documented by: Budesonide/Formoterol Fumarate (Symbicort 160mcg/4.5mcg) 2 puffs INH BID LUIS MIGUEL Stop: 01/13/19 10:29 Last Admin: 12/14/18 12:42 Dose: 2 puffs Documented by: Bupropion HCl (Wellbutrin-Sr) 100 mg PO DAILY LUIS MIGUEL Stop: 01/07/19 08:59 Last Admin: 12/14/18 07:28 Dose: 100 mg Documented by: Citalopram Hydrobromide (Celexa) 40 mg PO DAILY LUIS MIGUEL Stop: 01/07/19 08:59 Last Admin: 12/14/18 07:28 Dose: 40 mg Documented by: Dextrose (Dextrose 50%) 25 - 50 ml IV UD PRN; Protocol PRN Reason: Hypoglycemia Protocol Stop: 01/07/19 07:29 Diphenhydramine HCl (Benadryl Capsule) 25 mg PO Q6H PRN PRN Reason: SEASONAL ALLERGIES Stop: 01/07/19 04:29 Glucagon (Glucagen) 1 mg IM UD PRN; Protocol PRN Reason: Hypoglycemia Protocol Stop: 01/07/19 07:29 Glucose (Glucose 40%) 15 - 30 gm PO UD PRN; Protocol PRN Reason: Hypoglycemia Protocol Stop: 01/07/19 07:29 Glucose (Dex4 Glucose) 4 - 8 tabs PO UD PRN; Protocol PRN Reason: Hypoglycemia Protocol Stop: 01/07/19 07:29 Haloperidol Lactate (Haldol) 2.5 mg IM Q6H PRN PRN Reason: Agitation Stop: 01/07/19 08:15 Heparin Sodium (Porcine) (Heparin Sodium (Porcine)) 5,000 units SQ Q8 LUIS MIGUEL Stop: 01/10/19 21:59 Last Admin: 12/14/18 12:40 Dose: 5,000 units Documented by: Hydralazine HCl (Apresoline) 25 mg PO BID LUIS MIGUEL Stop: 01/07/19 08:59 Last Admin: 12/14/18 07:29 Dose: 25 mg Documented by: Lorazepam (Ativan) 1 mg in 2 mls @ 0.5 mls/min IV Q2H PRN PRN Reason: Breakthrough Seizures Stop: 01/07/19 04:03 Last Admin: 12/08/18 07:46 Dose: 0.5 mls/min Documented by: Ceftriaxone Sodium 1,000 mg/ (Dextrose) 60 mls @ 100 mls/hr IV DAILY LUIS MIGUEL Stop: 12/20/18 08:59 Last Infusion: 12/14/18 08:13 Dose: Infused Documented by: Furosemide 20 mg/ Syringe 2 mls @ 4 mls/min IV BID17 LUIS MIGUEL Stop: 01/13/19 16:59 Insulin Aspart (Novolog Flexpen) 0 units SC ACHS [facility]; Protocol Stop: 01/10/19 11:29 Last Admin: 12/14/18 12:39 Dose: 5 units Documented by: Insulin Glargine (Lantus Solostar Pen) 0 units SQ BID [facility]; Protocol Stop: 01/12/19 20:59 Last Admin: 12/14/18 07:45 Dose: 10 units Documented by: Ipratropium Tell (Atrovent 0.02% 0.5mg/2.5ml) 0.5 mg INH Q4H PRN PRN Reason: SOB OR WHEEZING Stop: 01/11/19 08:29 Ipratropium Tell (Atrovent 0.02% 0.5mg/2.5ml) 0.5 mg INH Q4R LUIS MIGUEL Stop: 01/13/19 11:59 Last Admin: 12/14/18 15:22 Dose: 0.5 mg Documented by: Lactobacillus Acidophilus (Floranex) 4 tab PO TIDM [facility] Stop: 01/07/19 11:59 Last Admin: 12/14/18 12:43 Dose: 4 tab Documented by: Levalbuterol HCl (Xopenex 1.25mg/0.5ml Neb) 1.25 mg INH Q4H PRN PRN Reason: SOB OR WHEEZING Stop: 01/11/19 08:29 Last Admin: 12/14/18 11:54 Dose: 1.25 mg Documented by: Levalbuterol HCl (Xopenex 1.25mg/0.5ml Neb) 1.25 mg NEB Q4R LUIS MIGUEL Stop: 01/13/19 15:59 Last Admin: 12/14/18 15:21 Dose: 1.25 mg Documented by: Metoprolol Tartrate (Lopressor) 50 mg PO BID LUIS MIGUEL Stop: 01/07/19 08:59 Last Admin: 12/14/18 07:30 Dose: 50 mg Documented by: Miscellaneous (Remove Nicoderm Patch) 1 ea N/A HS [facility] Stop: 01/07/19 20:59 Last Admin: 12/13/18 21:07 Dose: 1 ea Documented by: Miscellaneous (Order Awaiting Action) 1 ea N/A QS [facility] Stop: 01/07/19 07:59 Last Admin: 12/14/18 15:27 Dose: Not Given Documented by: Miscellaneous (Carbohydrates For Hypoglycemia) 15 - 30 gm PO UD PRN PRN Reason: Hypoglycemia Treatment Stop: 01/07/19 07:29 Miscellaneous Information (Consult Glycemic Management Pharmacy) 1 ea N/A UD PRN PRN Reason: Consult Stop: 01/11/19 17:47 Nicotine (Nicoderm Cq) 21 mg TD DAILY LUIS MIGUEL Stop: 01/07/19 08:59 Last Admin: 12/14/18 07:30 Dose: 21 mg Documented by: Nitroglycerin (Nitrostat) 0.4 mg SL UD PRN PRN Reason: Chest Pain Stop: 01/07/19 04:03 Ondansetron HCl (Zofran) 4 mg IV Q6H PRN PRN Reason: Nausea Stop: 01/07/19 04:03 Oxycodone HCl (Roxicodone Immediate Rel) 5 mg PO Q8 PRN PRN Reason: PAIN LEVEL 4-10 Last Admin: 12/14/18 08:16 Dose: 5 mg Documented by: Prednisone (Prednisone) 40 mg PO DAILY [facility] Stop: 01/13/19 08:59 Last Admin: 12/14/18 07:30 Dose: 40 mg Documented by: Ranitidine HCl (Zantac) 75 mg PO DAILY [facility] Stop: 01/07/19 08:59 Last Admin: 12/14/18 07:29 Dose: 75 mg Documented by: Raspberry (Raspberry) 5 ml PO Q6 [facility] Stop: 12/24/18 13:59 Last Admin: 12/14/18 12:43 Dose: 5 ml Documented by: Vancomycin HCl (Vancomycin Hcl) 125 mg PO Q6 [facility] Stop: 12/20/18 13:59 Last Admin: 12/14/18 12:43 Dose: 125 mg Documented by:
[2018-12-14] MEDS: FUROSEMIDE 20 MG in SYRINGE 0 ML IV SCH (16:38)
--- NOTE | 2018-12-14 18:46 | XRay Report ---
XR hip RT min 2V CLINICAL HISTORY: S/P Surgery,Decrease ROM pain COMPARISON: None. DISCUSSION: Operative changes consistent with a right hip nailing procedure. There is a longstem intr amedullary gerry within the femur. No evidence for embolus in the lesser trochanter and a prior set int ertrochanteric fracture of the right hip. No evidence for acetabular protrusion. There is no evidence for soft tissue swelling. IMPRESSION: No acute process post right hip nailing procedure. The above report was generated using voice recognition software. It may contain grammatical, syntax or spelling errors. Electronically signed by: Raulito Saucedo M.D. 12/14/2018 6:44 PM
[2018-12-14] MEDS: ATORVASTATIN 40 MG TAB PO SCH (20:57)
[2018-12-15] MEDS: LEVALBUTEROL 1.25MG/0.5ML NEB NEB SCH ×6 (03:21→23:06)
[2018-12-15] MEDS: IPRATROPIUM BROMIDE NEB SOLN 0.02% 2.5 ML VIAL INH SCH ×6 (03:21→23:05)
[2018-12-15] MEDS: RASPBERRY SYRUP 5 ML UDP PO SCH ×3 (05:39→17:48)
[2018-12-15] MEDS: VANCOMYCIN HCL 125 MG/2.5ML SOLN PO SCH ×3 (05:39→17:48)
[2018-12-15] MEDS: HEPARIN SOD 5,000 UNIT/0.5 ML VIAL SQ SCH ×5 (05:42→21:31)
[2018-12-15] MEDS: OXYCODONE HCL IR 5 MG TAB (IMMEDIATE RELEASE) PO PRN (07:08)
[2018-12-15] MEDS: ASPIRIN 81 MG ECTAB PO SCH (07:08)
[2018-12-15] MEDS: AMLODIPINE BESYLATE 5 MG TAB PO SCH (07:08)
[2018-12-15] MEDS: CITALOPRAM 40 MG TAB PO SCH (07:09)
[2018-12-15] MEDS: predniSONE 20 MG TAB PO SCH (07:09)
[2018-12-15] MEDS: LACTOBACILLUS ACIDOPHILUS (FLORANEX) TAB PO SCH ×3 (07:09→17:48)
[2018-12-15] MEDS: BuPROPion SR 100 MG TABCR PO SCH (07:09)
[2018-12-15] MEDS: BREO ELLIPTA: ORDER AWAITING ACTION SCH ×2 (07:10→15:00)
[2018-12-15] MEDS: METOPROLOL TARTRATE 50 MG TAB PO SCH ×2 (07:10→20:34)
[2018-12-15] MEDS: NICOTINE 21 MG/24 HR TDSY TD SCH (07:10)
[2018-12-15] MEDS: ARIPiprazole 15 MG TAB PO SCH (07:10)
[2018-12-15] MEDS: BUDESONIDE/FORMOTEROL FUMARATE 160/4.5 60 PUFFS/INHALER INH SCH ×2 (07:11→20:33)
[2018-12-15] MEDS: INSULIN ASPART 100 UNITS/ML 3 ML PEN SC SCH ×5 (07:54→20:33)
[2018-12-15] MEDS: INSULIN GLARGINE SOLOSTAR 100 UNITS/ML 3 ML PEN SQ SCH ×2 (07:55→20:32)
[2018-12-15] MEDS ORDERED: NovoLIN-N (NPH) PER UNIT CHARGE SQ ONE (08:00)
[2018-12-15 08:09] LABS: BUN Creatinine Ratio 28.7 (10-20); Calcium 8.1 mg/dl (8.5-10.1); Creatinine Clr Calc Pharmacy 22.7 ml/min; Est GFR (African American) 21.8; Est GFR (Non-African American) 18.8; Potassium 4.4 mmol/L (3.5-5.1)
--- NOTE | 2018-12-15 08:21 | Pharmacy Report ---
Pharmacy Glycemic Short Note 2 - Date of Service December 15, 2018 - Glycemic Short BSG Results (Last 24 hours): 12/14/18 12/14/18 12/14/18 07:22 11:37 16:30 Glucose POC Glucose 191 H 186 H 199 H 12/14/18 12/15/18 12/15/18 20:02 00:13 07:04 Glucose 136 H POC Glucose 214 H 231 H OUTPATIENT ANTIDIABETIC REGIMEN: * Lantus 10 UNITS SQ BID * HUMALOG 3 UNITS SQ ac + ssi * Victoza 1.2mg sq daily * A1c 4.8% on 12/13/18 - this is not in line with outpatient BSGs ASSESSMENT: 12/15 * Jaymie received 78 units of insulin yesterday (20 of this as Lantus, 30 of this as NPH to cover the steroids) * BSGs were improved yesterday but still elevated so will increase NPH dose to cover more of the steroids. She received an extra 2 units of correctional with each Novolog dose so will add this to the NPH dose for today. -> patient was hypoglycemic at lunch today (50 mg/dL) so I instructed nurse to not give any Novolog with the NPH on board. Recheck at 1400 was 93 mg/dL so this indicates that BSG is not decreasing. Regardless, will remove carb ratio altogether. * Fasting BSG improved so will continue current regimen for now 12/14 * Ms. Saavedra received 77 units of insulin yesterday (30 of this being basal); an extra 8 units of IV insulin was given last night for BSG > 300 mg/dL * She has been tapered from Solu-medrol 40 mg q8h (last dose in the AM) -> prednisone 40 mg qAM * I anticipated BSGs to improve as the Solu-medrol wore off last night; however, she spiked up to 342 mg/dL last night. She seems to be VERY sensitive to steroids. * Now that she has been changed to once daily prednisone, will add once daily NPH (0.4 units/kg) to cover the prednisone * Will continue the Lantus + Novolog to cover baseline needs (but slightly more aggressive with steroids on board). I'm anticipating 20 units of basal and ~15 units with meals. 12/13 * Jaymie received 64 units of insulin yesterday (25 of this being basal); and 5 units IV bolus x 3 overnight for BSG > 300 mg/dL * BSG significantly improved this AM (164 mg/dL) with increased basal dose on board. Will plan to split the 20 units of basal BID (which is equivalent to a stress level of 2 with patient's weight using the insulin calculator estimates). She may eventually need more but hesitant to increase too much in light of recent hypoglycemia [employer]. In addition, will be more aggressive with prandial coverage in light of steroids on board. 12/12 * Pt was ADM with hypoglycemia and seizures * Received Solumedrol 125mg IV x 1 12/07/18 * Glycemic service consulted when pt started IV steroids this evening * Ordered A1c for 12/13 AM PLAN FOR INPATIENT GLYCEMIC CONTROL: * Steroid coverage - increase * NPH 38 units qAM * Basal insulin - same dose * Lantus BID per the following scale: * 5 units for BSG < 140 * 10 units for BSG 140 or above * Bolus insulin - tighten goal range slightly to allow for more coverage once above 170 mg/dL; REMOVE carb ratio with higher dose of NPH on board * NovoLog per scale ACHS * Goal Range: Low 130 mg/dL - High 170 mg/dL...d/t recent hypoglycemia/seizures [employer] * "Tightened" Correction Factor: 20 mg/dL/unit * Remove the carb ratio Discharge Recommendations: * Patient admitted with severe hypoglycemia/seizures in which the hypoglycemia was thought to be due to decreased po intake. A1c would indicate otherwise; however, it is not in line with recent month's worth of BSG data from [facility]. * Based on improved po intake and BSGs from the last month (lowest was 73 mg/dL x 1), would recommend to continue same outpatient regimen on discharge, with adjustment as needed at the shelter.
[2018-12-15] MEDS: FUROSEMIDE 20 MG in SYRINGE 0 ML IV SCH ×2 (08:24→17:48)
[2018-12-15] MEDS: cefTRIAXone SODIUM 1,000 MG in DEXTROSE 5% 50 ML IV SCH (08:24)
--- NOTE | 2018-12-15 12:02 | Hospitalist Progress Note ---
Date of Service December 15, 2018 Assessment & Plan (1) Metabolic encephalopathy: Multifactorial-secondary to E. coli UTI and may be complicated by hypoglycemia, possible seizure and MIKEY on CKD Urine culture: Positive for E. coli Blood cultures: Negative Has been on IV ceftriaxone Continue current antibiotic for UTI No more UTI symptoms Hyponatremia Secondary to Hypervolemia Sodium level is improved to 133 from 125 on admission IV Lasix for volume overload Fluid restriction Nephro consulted-appreciate input and recommendations Sodium level is 133 on 12/14 and 12/15 Hypoglycemia on admission-blood sugar was not below 80 in medical records Likely from poor oral intake, with Lantus BID Pharmacy consulted for glycemic control On ISS Blood sugar remains around 210s Seizure disorder Possible seizure on admission EEG unrevealing Neurology consulted, does not recommend starting antiseizure medicines at this time Polypharmacy History of Schizoaffective Disorder Psych consulted Recommend to continue usual psych medications with close monitoring Acute hypoxic respiratory failure Likely acute on chronic diastolic congestive heart failure complicated by COPD exacerbation Positive wheezing and worsening hypoxia noted on December 12, 2018 Chest x-ray pulmonary edema Change Lasix to 40 mg IV twice daily Monitor diuresis, kidney function Solu-Medrol also added, continue nebs This patient's symptoms are much better We will change Solu-Medrol to oral prednisone Nebulized bronchodilators has been increased to frequency Symbicort added Breathing is improved but not yet normalized C. difficile colitis Recurrence Continue vancomycin p.o. 4 times daily x10 days Diabetes controlled Recent right hip surgery Surgical site appears to be healing well Will continue with physical therapy X-ray of the hip did not show any significant findings DM 2 - management as above HTN - continue usual meds COPD exacerbation From acute on chronic diastolic heart failure - (+)exacerbation - nebs, Solu-Medrol -We will change Solu-Medrol to oral prednisone ABHINAV DVT prophylaxis Heparin Disposition resident of [facility] Evaluation management of above medical conditions Anticipate return to [facility] when medically stable Not requiring to be discharged (2) CKD stage 4 due to type 2 diabetes mellitus: Has been under care of nephrology Creatinine seems to be improving gradually Diuretics have been decreased to 20 mg IV twice daily Subjective 12/15 The patient was seen and examined in the medical telemetry unit She has been complaining of more shortness of breath today She has more wheezing noted today as well She is generally weak and lethargic Review of Systems Review of Systems: All systems reviewed and are unremarkable except as noted below Respiratory: + cough, + dyspnea, + dyspnea on exertion and + wheezing Gastrointestinal: + nausea; no vomiting Musculoskeletal: + problem reported (Generally very weak and lethargic but no acute arthritis in the joints) Neurologic: Alert, awake and oriented x3. Physical Exam Physical Exam: Sitting on a chair with moderate shortness of breath and wheezing Constitutional: + ill appearing Eyes: PERRL, conjunctivae normal, anicteric sclerae ENMT: external ear and nose normal, oropharynx normal Neck: trachea midline, no thyromegaly Respiratory: + respiratory distress, + uses accessory muscles and + tachypneic Auscultation: + diminished lung sounds and + crackles (At the base) Cardiovascular: Rate/Rhythm: regular rate and regular rhythm Heart Sounds: normal S1, normal S2 and + murmur (2/6 ESM at the aortic area) Extremities: no edema Gastrointestinal (Abdomen): Inspection/Auscultation: abdomen normal to inspection and normal bowel sounds Percussion/Palpation: abdomen soft; abdomen nontender Musculoskeletal: Hip: + limited ROM of hip (Right hip with increasing pain) Lymphatic: no cervical or axillary lymphadenopathy Results & Data Vital Signs (Past 12 Hours) Vital Signs Temp Pulse Resp BP BP Pulse Ox 12/15/18 11:35 36.5 C 73 20 158/67 H 98 12/15/18 11:06 76 18 91 12/15/18 07:01 82 16 93 12/15/18 07:00 36.7 C 83 20 169/83 H 94 12/15/18 04:00 36.7 C 84 22 162/77 H 92 12/15/18 03:21 78 20 95 Laboratory Results [facility] 12/15/18 07:04 Sodium 133 L Potassium 4.4 Chloride 104 Carbon Dioxide 21 BUN 75 H Creatinine 2.62 H Glucose 136 H Calcium 8.1 L Medications Administered Current Inpatient Medications Acetaminophen (Tylenol) 650 mg PO Q4H PRN PRN Reason: Pain or Fever Stop: 01/07/19 04:03 Last Admin: 12/12/18 20:18 Dose: 650 mg Documented by: Albuterol (Ventolin Hfa) 2 puffs INH Q4 PRN PRN Reason: Shortness Of Breath Or Wheezin Stop: 01/07/19 04:03 Amlodipine Besylate (Norvasc) 10 mg PO DAILY [facility] Stop: 01/07/19 08:59 Last Admin: 12/15/18 07:08 Dose: 10 mg Documented by: Aripiprazole (Abilify) 15 mg PO DAILY [facility] Stop: 01/07/19 08:59 Last Admin: 12/15/18 07:10 Dose: 15 mg Documented by: Aspirin (Ecotrin Ectab) 81 mg PO DAILY [facility]IG[facility] Stop: 01/07/19 08:59 Last Admin: 12/15/18 07:08 Dose: 81 mg Documented by: Atorvastatin Calcium (Lipitor) 40 mg PO HS [facility]IGU[facility] Stop: 01/07/19 20:59 Last Admin: 12/14/18 20:57 Dose: 40 mg Documented by: Budesonide/Formoterol Fumarate (Symbicort 160mcg/4.5mcg) 2 puffs INH BID [facility]IG[facility] Stop: 01/13/19 10:29 Last Admin: 12/15/18 07:11 Dose: 2 puffs Documented by: Bupropion HCl (Wellbutrin-Sr) 100 mg PO DAILY [facility] Stop: 01/07/19 08:59 Last Admin: 12/15/18 07:09 Dose: 100 mg Documented by: Citalopram Hydrobromide (Celexa) 40 mg PO DAILY [facility] Stop: 01/07/19 08:59 Last Admin: 12/15/18 07:09 Dose: 40 mg Documented by: Dextrose (Dextrose 50%) 25 - 50 ml IV UD PRN; Protocol PRN Reason: Hypoglycemia Protocol Stop: 01/07/19 07:29 Diphenhydramine HCl (Benadryl Capsule) 25 mg PO Q6H PRN PRN Reason: SEASONAL ALLERGIES Stop: 01/07/19 04:29 Glucagon (Glucagen) 1 mg IM UD PRN; Protocol PRN Reason: Hypoglycemia Protocol Stop: 01/07/19 07:29 Glucose (Glucose 40%) 15 - 30 gm PO UD PRN; Protocol PRN Reason: Hypoglycemia Protocol Stop: 01/07/19 07:29 Glucose (Dex4 Glucose) 4 - 8 tabs PO UD PRN; Protocol PRN Reason: Hypoglycemia Protocol Stop: 01/07/19 07:29 Haloperidol Lactate (Haldol) 2.5 mg IM Q6H PRN PRN Reason: Agitation Stop: 01/07/19 08:15 Heparin Sodium (Porcine) (Heparin Sodium (Porcine)) 5,000 units SQ Q8 [facility] Stop: 01/10/19 21:59 Last Admin: 12/15/18 05:57 Dose: Not Given Documented by: Hydralazine HCl (Apresoline) 25 mg PO BID [facility] Stop: 01/07/19 08:59 Last Admin: 12/15/18 07:10 Dose: 25 mg Documented by: Lorazepam (Ativan) 1 mg in 2 mls @ 0.5 mls/min IV Q2H PRN PRN Reason: Breakthrough Seizures Stop: 01/07/19 04:03 Last Admin: 12/08/18 07:46 Dose: 0.5 mls/min Documented by: Ceftriaxone Sodium 1,000 mg/ (Dextrose) 60 mls @ 100 mls/hr IV DAILY [facility] Stop: 12/20/18 08:59 Last Infusion: 12/15/18 09:19 Dose: Infused Documented by: Furosemide 20 mg/ Syringe 2 mls @ 4 mls/min IV BID17 [facility] Stop: 01/13/19 16:59 Last Admin: 12/15/18 08:24 Dose: 4 mls/min Documented by: Insulin Aspart (Novolog Flexpen) 0 units SC ACHS [facility]; Protocol Stop: 01/10/19 11:29 Last Admin: 12/15/18 07:54 Dose: 4 units Documented by: Insulin Glargine (Lantus Solostar Pen) 0 units SQ BID [facility]; Protocol Stop: 01/12/19 20:59 Last Admin: 12/15/18 07:55 Dose: 10 units Documented by: Ipratropium Lignite (Atrovent 0.02% 0.5mg/2.5ml) 0.5 mg INH Q4H PRN PRN Reason: SOB OR WHEEZING Stop: 01/11/19 08:29 Ipratropium Lignite (Atrovent 0.02% 0.5mg/2.5ml) 0.5 mg INH Q4R [facility] Stop: 01/13/19 11:59 Last Admin: 12/15/18 11:06 Dose: 0.5 mg Documented by: Lactobacillus Acidophilus (Floranex) 4 tab PO TIDM [facility] Stop: 01/07/19 11:59 Last Admin: 12/15/18 07:09 Dose: 4 tab Documented by: Levalbuterol HCl (Xopenex 1.25mg/0.5ml Neb) 1.25 mg INH Q4H PRN PRN Reason: SOB OR WHEEZING Stop: 01/11/19 08:29 Last Admin: 12/14/18 11:54 Dose: 1.25 mg Documented by: Levalbuterol HCl (Xopenex 1.25mg/0.5ml Neb) 1.25 mg NEB Q4R [facility] Stop: 01/13/19 15:59 Last Admin: 12/15/18 11:06 Dose: 1.25 mg Documented by: Metoprolol Tartrate (Lopressor) 50 mg PO BID [facility] Stop: 01/07/19 08:59 Last Admin: 12/15/18 07:10 Dose: 50 mg Documented by: Miscellaneous (Remove Nicoderm Patch) 1 ea N/A HS [facility] Stop: 01/07/19 20:59 Last Admin: 12/14/18 20:58 Dose: 1 ea Documented by: Miscellaneous (Order Awaiting Action) 1 ea N/A QS [facility] Stop: 01/07/19 07:59 Last Admin: 12/15/18 07:10 Dose: Not Given Documented by: Miscellaneous (Carbohydrates For Hypoglycemia) 15 - 30 gm PO UD PRN PRN Reason: Hypoglycemia Treatment Stop: 01/07/19 07:29 Last Admin: 12/15/18 11:52 Dose: 15 gm Documented by: Miscellaneous Information (Consult Glycemic Management Pharmacy) 1 ea N/A UD PRN PRN Reason: Consult Stop: 01/11/19 17:47 Nicotine (Nicoderm Cq) 21 mg TD DAILY [facility] Stop: 01/07/19 08:59 Last Admin: 12/15/18 07:10 Dose: 21 mg Documented by: Nitroglycerin (Nitrostat) 0.4 mg SL UD PRN PRN Reason: Chest Pain Stop: 01/07/19 04:03 Ondansetron HCl (Zofran) 4 mg IV Q6H PRN PRN Reason: Nausea Stop: 01/07/19 04:03 Oxycodone HCl (Roxicodone Immediate Rel) 5 mg PO Q8 PRN PRN Reason: PAIN LEVEL 4-10 Last Admin: 12/15/18 07:08 Dose: 5 mg Documented by: Prednisone (Prednisone) 40 mg PO DAILY [facility] Stop: 01/13/19 08:59 Last Admin: 12/15/18 07:09 Dose: 40 mg Documented by: Ranitidine HCl (Zantac) 75 mg PO DAILY [facility] Stop: 01/07/19 08:59 Last Admin: 12/15/18 07:09 Dose: 75 mg Documented by: Raspberry (Raspberry) 5 ml PO Q6 [facility] Stop: 12/24/18 13:59 Last Admin: 12/15/18 05:39 Dose: 5 ml Documented by: Vancomycin HCl (Vancomycin Hcl) 125 mg PO Q6 [facility] Stop: 12/20/18 13:59 Last Admin: 12/15/18 05:39 Dose: 125 mg Documented by:
--- NOTE | 2018-12-15 19:56 | Nephrology Progress Note ---
Date of Service December 15, 2018 Assessment & Plan (1) Hyponatremia with decreased serum osmolality: Patient with hypo-osmolar hyponatremia likely due to hypervolemia. Serum osmolality was 272. Physical exam consistent with volume overload. Given advanced CKD this is likely hypervolemic hyponatremia. Sodium stable at 133 this morning. Recommendations: Liberalize salt in her diet Continue fluid restriction to 1500 mL daily. Lasix 20 mg twice daily Monitor sodium daily. (2) Anemia: Due to CKD and chronic inflammation. She has transferrin saturation of 15%. She is getting Epogen and Venofer weekly. (3) CKD stage 4 due to type 2 diabetes mellitus: Patient with proteinuric CKD due to diabetes. Creatinine is at 2.5 today from 2.69 yesterday and a baseline of 2. Recent change in renal function likely hemodynamically mediated in setting of diuresis. Her shortness of breath is likely due to COPD and less likely pulmonary edema. Renally dose medications for current GFR and avoid nephrotoxins unless lifesaving. Subjective Seen this morning in rounds. Na is stable at 133. SOB is better today. She is sitting up in chair Review of Systems Review of Systems: All systems reviewed & are unremarkable except as noted in HPI & below Physical Exam Physical Exam: General exam: Appears comfortable, no acute distress HEENT: Pupils are equal and reactive to light Neck: No JVD, neck is supple trachea is midline Respiratory system: Clear breath sounds bilaterally. Gastrointestinal: Abdomen is soft, non distended, non tender, bowel sounds are present CVS: Regular rate and rhythm. No murmurs, rubs or gallops Musculoskeletal: No joint or muscle tenderness Extremities: Non tender, no edema, peripheral pulses are present Neuro: Oriented, no tremors, no focal neurological deficits Skin: Open areas due to scratching Results & Data Vital Signs (Past 12 Hours) Vital Signs Temp Pulse Pulse Resp BP BP Pulse Ox 12/15/18 19:30 82 20 96 12/15/18 15:47 88 L 12/15/18 15:41 82 12/15/18 15:26 36.4 C L 80 20 133/67 98 12/15/18 15:12 18 92 12/15/18 11:35 36.5 C 73 20 158/67 H 98 12/15/18 11:06 76 18 91 12/15/18 08:00 85 Laboratory Results Laboratory Results - last 24 hr 12/14/18 12/15/1812/15/19 20:02 00:13 07:04 Sodium 133 L Potassium 4.4 Chloride 104 Carbon Dioxide 21 Anion Gap 8.0 BUN 75 H Creatinine 2.62 H Est Cr Clr Drug Dosing 22.7 Est GFR ( Amer) 21.8 Est GFR (Non-Af Amer) 18.8 BUN/Creatinine Ratio 28.7 H Glucose 136 H POC Glucose 214 H 231 H Calcium 8.1 L 12/15/18 12/15/18 12/15/18 07:38 11:47 11:48 Sodium Potassium Chloride Carbon Dioxide Anion Gap BUN Creatinine Est Cr Clr Drug Dosing Est GFR ( Amer) Est GFR (Non-Af Amer) BUN/Creatinine Ratio Glucose POC Glucose 152 H 48 L* 50 L* Calcium 12/15/18 12/15/18 12/15/18 12:01 12:02 12:03 Sodium Potassium Chloride Carbon Dioxide Anion Gap BUN Creatinine Est Cr Clr Drug Dosing Est GFR ( Amer) Est GFR (Non-Af Amer) BUN/Creatinine Ratio Glucose POC Glucose 67 L* 195 H 67 L* Calcium 12/15/18 12/15/18 12/15/18 12:04 13:09 16:31 Sodium Potassium Chloride Carbon Dioxide Anion Gap BUN Creatinine Est Cr Clr Drug Dosing Est GFR ( Amer) Est GFR (Non-Af Amer) BUN/Creatinine Ratio Glucose POC Glucose 83 93 77 Calcium
[2018-12-15] MEDS: ATORVASTATIN 40 MG TAB PO SCH (20:34)
[2018-12-16] MEDS: RASPBERRY SYRUP 5 ML UDP PO SCH ×3 (00:01→12:53)
[2018-12-16] MEDS: VANCOMYCIN HCL 125 MG/2.5ML SOLN PO SCH ×3 (00:01→13:00)
[2018-12-16] MEDS: BREO ELLIPTA: ORDER AWAITING ACTION SCH ×2 (00:34→09:38)
[2018-12-16] MEDS: IPRATROPIUM BROMIDE NEB SOLN 0.02% 2.5 ML VIAL INH SCH ×4 (03:04→15:52)
[2018-12-16] MEDS: LEVALBUTEROL 1.25MG/0.5ML NEB NEB SCH ×4 (03:04→15:52)
[2018-12-16] MEDS: HEPARIN SOD 5,000 UNIT/0.5 ML VIAL SQ SCH ×2 (04:59→14:40)
[2018-12-16 07:46] LABS: BUN Creatinine Ratio 33.7 (10-20); Creatinine Clr Calc Pharmacy 23.6 ml/min; Est GFR (African American) 23.7; Est GFR (Non-African American) 20.4; Potassium 4.1 mmol/L (3.5-5.1)
--- NOTE | 2018-12-16 07:56 | Pharmacy Report ---
Pharmacy Glycemic Short Note 2 - Date of Service December 16, 2018 - Glycemic Short BSG Results (Last 24 hours): 12/15/18 12/15/18 12/15/18 07:04 07:38 11:47 Glucose 136 H POC Glucose 152 H 48 L* 12/15/18 12/15/18 12/15/18 11:48 12:01 12:02 Glucose POC Glucose 50 L* 67 L* 195 H 12/15/18 12/15/18 12/15/18 12:03 12:04 13:09 Glucose POC Glucose 67 L* 83 93 12/15/18 12/15/18 12/16/18 16:31 20:26 04:17 Glucose POC Glucose 77 162 H 176 H OUTPATIENT ANTIDIABETIC REGIMEN: * Lantus 10 UNITS SQ BID * HUMALOG 3 UNITS SQ ac + ssi * Victoza 1.2mg sq daily * A1c 4.8% on 12/13/18 - this is not in line with outpatient BSGs ASSESSMENT: 12/16 * Patient received total of 62 units of insulin yesterday, of which 20 units were Lantus and 38 units were NPH to cover steroids * Patient did become hypoglycemic at lunchtime yesterday, therefore CR was removed - BSG trended up to 162 last evening * BSG at 0400 this am trending up to 176 mg/dL at 0400, no coverage given then on recheck was 119 mg/dL 2 hours later - will continue same Lantus parameters for this morning * Patient still receiving prednisone 40 mg daily - received NPH 38 units yesterday; typically utilize 0.4 units/kg dosing for prednisone 40 mg, will use about 0.3 units/kg and then titrate up as needed * Fasting BSG this am 119 mg/dL - will continue likely same Lantus for this evening * Lunchtime BSG trending up - had wanted to wait to add CR back due to severe hypogycemia yesterday. Therefore will now add back CR at this time since trending up now for lunch 12/15 * Jaymie received 78 units of insulin yesterday (20 of this as Lantus, 30 of this as NPH to cover the steroids) * BSGs were improved yesterday but still elevated so will increase NPH dose to cover more of the steroids. She received an extra 2 units of correctional with each Novolog dose so will add this to the NPH dose for today. -> patient was hypoglycemic at lunch today (50 mg/dL) so I instructed nurse to not give any Novolog with the NPH on board. Recheck at 1400 was 93 mg/dL so this indicates that BSG is not decreasing. Regardless, will remove carb ratio altogether. * Fasting BSG improved so will continue current regimen for now 12/14 * Ms. Saavedra received 77 units of insulin yesterday (30 of this being basal); an extra 8 units of IV insulin was given last night for BSG > 300 mg/dL * She has been tapered from Solu-medrol 40 mg q8h (last dose in the AM) -> prednisone 40 mg qAM * I anticipated BSGs to improve as the Solu-medrol wore off last night; however, she spiked up to 342 mg/dL last night. She seems to be VERY sensitive to steroids. * Now that she has been changed to once daily prednisone, will add once daily NPH (0.4 units/kg) to cover the prednisone * Will continue the Lantus + Novolog to cover baseline needs (but slightly more aggressive with steroids on board). I'm anticipating 20 units of basal and ~15 units with meals. 12/13 * Jaymie received 64 units of insulin yesterday (25 of this being basal); and 5 units IV bolus x 3 overnight for BSG > 300 mg/dL * BSG significantly improved this AM (164 mg/dL) with increased basal dose on board. Will plan to split the 20 units of basal BID (which is equivalent to a stress level of 2 with patient's weight using the insulin calculator estimates). She may eventually need more but hesitant to increase too much in light of recent hypoglycemia [employer]MER. In addition, will be more aggressive with prandial coverage in light of steroids on board. 12/12 * Pt was ADM with hypoglycemia and seizures * Received Solumedrol 125mg IV x 1 12/07/18 * Glycemic service consulted when pt started IV steroids this evening * Ordered A1c for 12/13 AM PLAN FOR INPATIENT GLYCEMIC CONTROL: * Steroid coverage - decrease * NPH 20 units qAM * Basal insulin - same dose * Lantus BID per the following scale: * 5 units for BSG < 140 * 10 units for BSG 140 or above * Bolus insulin - add CR back for lunchtime * NovoLog per scale ACHS * Goal Range: Low 130 mg/dL - High 170 mg/dL...d/t recent hypoglycemia/seizures WET TRIMMER * "Tightened" Correction Factor: 20 mg/dL/unit * "Added" Nutritional / Prandial insulin per carb ratio of 1 unit per 8 grams CHO consumed Discharge Recommendations: * Patient admitted with severe hypoglycemia/seizures in which the hypoglycemia was thought to be due to decreased po intake. A1c would indicate otherwise; however, it is not in line with recent month's worth of BSG data from [facility]. * Based on improved po intake and BSGs from the last month (lowest was 73 mg/dL x 1), would recommend to continue same outpatient regimen on discharge, with adjustment as needed at the long term.
[2018-12-16] MEDS ORDERED: NovoLIN-N (NPH) PER UNIT CHARGE SQ SCH (08:00)
[2018-12-16] MEDS: METOPROLOL TARTRATE 50 MG TAB PO SCH (08:03)
[2018-12-16] MEDS: predniSONE 20 MG TAB PO SCH (08:04)
[2018-12-16] MEDS: LACTOBACILLUS ACIDOPHILUS (FLORANEX) TAB PO SCH ×2 (08:04→12:53)
[2018-12-16] MEDS: BuPROPion SR 100 MG TABCR PO SCH (08:04)
[2018-12-16] MEDS: ASPIRIN 81 MG ECTAB PO SCH (08:06)
[2018-12-16] MEDS: CITALOPRAM 40 MG TAB PO SCH (08:07)
[2018-12-16] MEDS: AMLODIPINE BESYLATE 5 MG TAB PO SCH (08:07)
[2018-12-16] MEDS: ARIPiprazole 15 MG TAB PO SCH (08:07)
[2018-12-16] MEDS: NICOTINE 21 MG/24 HR TDSY TD SCH (08:07)
[2018-12-16] MEDS: BUDESONIDE/FORMOTEROL FUMARATE 160/4.5 60 PUFFS/INHALER INH SCH (08:10)
[2018-12-16] MEDS: INSULIN GLARGINE SOLOSTAR 100 UNITS/ML 3 ML PEN SQ SCH (08:11)
[2018-12-16] MEDS: INSULIN ASPART 100 UNITS/ML 3 ML PEN SC SCH ×2 (08:12→12:55)
[2018-12-16] MEDS: FUROSEMIDE 20 MG in SYRINGE 0 ML IV SCH (08:25)
[2018-12-16] MEDS: cefTRIAXone SODIUM 1,000 MG in DEXTROSE 5% 50 ML IV SCH (08:25)
[2018-12-16 11:58] VITALS: TEMP 97.9; O2SAT 92
--- NOTE | 2018-12-16 12:15 | Nephrology Progress Note ---
Date of Service December 16, 2018 Assessment & Plan (1) Hyponatremia with decreased serum osmolality: Patient with hypo-osmolar hyponatremia likely due to hypervolemia. Serum osmolality was 272 on admission. Physical exam consistent with volume overload. Given advanced CKD this is likely hypervolemic hyponatremia. Sodium at 136 this morning. Recommendations: Liberalize salt in her diet Continue fluid restriction to 1500 mL daily. Lasix 20 mg twice daily Monitor sodium daily. (2) Anemia: Due to CKD and chronic inflammation. She has transferrin saturation of 15%. She is getting Epogen and Venofer weekly. Hb in AM (3) CKD stage 4 due to type 2 diabetes mellitus: Patient with proteinuric CKD due to diabetes. Creatinine is at 2.45 today from a baseline of 2. Recent change in renal function likely hemodynamically mediated in setting of diuresis. BUN is high due to sterroids. Her shortness of breath is likely due to COPD and less likely pulmonary edema. Renally dose medications for current GFR and avoid nephrotoxins unless lifesaving. Subjective Patient seen in f/u during rounds. She feels better. She is less SOB. She was seated in chair this morning. Leg edema has resolved. Still limited mobility due to leg pain. Na better. She is eating better. No vomiting or diarrhoea Review of Systems Review of Systems: All systems reviewed & are unremarkable except as noted in HPI & below Physical Exam Physical Exam: General exam: Appears comfortable, no acute distress HEENT: Pupils are equal and reactive to light Neck: No JVD, neck is supple trachea is midline Respiratory system: wheezing bilaterally. Gastrointestinal: Abdomen is soft, non distended, non tender, bowel sounds are present CVS: Regular rate and rhythm. No murmurs, rubs or gallops Musculoskeletal: No joint or muscle tenderness Extremities: Non tender, no edema, peripheral pulses are present Neuro: Oriented, no tremors, no focal neurological deficits Skin: No rashes Results & Data Vital Signs (Past 12 Hours) Vital Signs Temp Pulse Pulse Pulse Resp BP BP 12/16/18 11:57 36.6 C 78 20 164/68 H 12/16/18 11:41 84 18 12/16/18 07:29 67 22 12/16/18 07:27 89 12/16/18 07:21 36.3 C L 88 20 171/81 H 12/16/18 04:00 36.6 C 87 24 177/98 H 12/16/18 03:04 84 20 Pulse Ox 12/16/18 11:57 92 12/16/18 11:41 97 12/16/18 07:29 94 12/16/18 07:27 12/16/18 07:21 94 12/16/18 04:00 91 12/16/18 03:04 95 Laboratory Results Laboratory Results - last 24 hr 12/15/18 12/15/18 12/15/18 13:09 16:31 20:26 Sodium Potassium Chloride Carbon Dioxide Anion Gap BUN Creatinine Est Cr Clr Drug Dosing Est GFR ( Amer) Est GFR (Non-Af Amer) BUN/Creatinine Ratio Glucose POC Glucose 93 77 162 H Calcium 12/16/18 12/16/18 12/16/18 04:17 06:48 07:39 Sodium 136 Potassium 4.1 Chloride 106 Carbon Dioxide 22 Anion Gap 8.0 BUN 83 H Creatinine 2.45 H Est Cr Clr Drug Dosing 23.6 Est GFR ( Amer) 23.7 Est GFR (Non-Af Amer) 20.4 BUN/Creatinine Ratio 33.7 H Glucose 119 H POC Glucose 176 H 124 H Calcium 8.0 L 12/16/18 11:41 Sodium Potassium Chloride Carbon Dioxide Anion Gap BUN Creatinine Est Cr Clr Drug Dosing Est GFR ( Amer) Est GFR (Non-Af Amer) BUN/Creatinine Ratio Glucose POC Glucose 247 H Calcium
--- NOTE | 2018-12-16 14:32 | Hospitalist Progress Note ---
Date of Service December 16, 2018 Assessment & Plan (1) Metabolic encephalopathy: Multifactorial-secondary to E. coli UTI and may be complicated by hypoglycemia, possible seizure and MIKEY on CKD Urine culture: Positive for E. coli Blood cultures: Negative Has been on IV ceftriaxone Continue current antibiotic for UTI No more UTI symptoms Antibiotic course is finished Hyponatremia Secondary to Hypervolemia Sodium level is improved to 133 from 125 on admission IV Lasix for volume overload Fluid restriction Nephro consulted-appreciate input and recommendations Sodium level is 133 on 12/14 and 12/15 Sodium level has been normalized to 136 on 12/16 Hypoglycemia on admission-blood sugar was not below 80 in medical records Likely from poor oral intake, with Lantus BID Pharmacy consulted for glycemic control On ISS Blood sugar remains around 210s Seizure disorder Possible seizure on admission EEG unrevealing Neurology consulted, does not recommend starting antiseizure medicines at this time No more seizure episodes Polypharmacy History of Schizoaffective Disorder Psych consulted Recommend to continue usual psych medications with close monitoring Acute hypoxic respiratory failure Likely acute on chronic diastolic congestive heart failure complicated by COPD exacerbation Positive wheezing and worsening hypoxia noted on December 12, 2018 Chest x-ray pulmonary edema Change Lasix to 40 mg IV twice daily Monitor diuresis, kidney function Solu-Medrol also added, continue nebs This patient's symptoms are much better We will change Solu-Medrol to oral prednisone Nebulized bronchodilators has been increased to frequency Symbicort added Denies any more shortness of breath at rest C. difficile colitis Recurrence Continue vancomycin p.o. 4 times daily x10 days Diabetes controlled Recent right hip surgery Surgical site appears to be healing well Will continue with physical therapy X-ray of the hip did not show any significant findings DM 2 - management as above HTN - continue usual meds COPD exacerbation From acute on chronic diastolic heart failure - (+)exacerbation - nebs, Solu-Medrol -We will change Solu-Medrol to oral prednisone ABHINAV DVT prophylaxis Heparin Disposition resident of [facility] Evaluation management of above medical conditions Anticipate return to [facility] when medically stable She will be discharged today (2) CKD stage 4 due to type 2 diabetes mellitus: Has been under care of nephrology Creatinine seems to be improving gradually Diuretics have been decreased to 20 mg PO twice daily Subjective 12/15 The patient was seen and examined in the medical telemetry unit She has been complaining of more shortness of breath today She has more wheezing noted today as well She is generally weak and lethargic / Patient was seen and examined the medical telemetry She feels a lot better today Has been out of bed on the chair without any significant shortness of breath Review of Systems Constitutional: + malaise Respiratory: + cough, + dyspnea, + dyspnea on exertion and + wheezing Gastrointestinal: + nausea; no vomiting Musculoskeletal: + problem reported (Generally very weak and lethargic but no acute arthritis in the joints) Neurologic: + generalized weakness Physical Exam Physical Exam: No apparent distress at rest Constitutional: + ill appearing Eyes: PERRL, conjunctivae normal, anicteric sclerae ENMT: external ear and nose normal, oropharynx normal Neck: trachea midline, no thyromegaly Respiratory: + respiratory distress, + uses accessory muscles and + tachypneic Auscultation: + diminished lung sounds and + crackles (At the base) Cardiovascular: Rate/Rhythm: regular rate and regular rhythm Heart Sounds: normal S1, normal S2 and + murmur (2/6 ESM at the aortic area) Extremities: no edema Gastrointestinal (Abdomen): Inspection/Auscultation: abdomen normal to inspection and normal bowel sounds Percussion/Palpation: abdomen soft; abdomen nontender Musculoskeletal: Hip: + limited ROM of hip (Right hip with increasing pain) Lymphatic: no cervical or axillary lymphadenopathy Results & Data Vital Signs (Past 12 Hours) Vital Signs Temp Pulse Pulse Pulse Resp BP BP 12/16/18 11:57 36.6 C 78 20 164/68 H 12/16/18 11:41 84 18 12/16/18 07:29 67 22 12/16/18 07:27 89 12/16/18 07:21 36.3 C L 88 20 171/81 H 12/16/18 04:00 36.6 C 87 24 177/98 H 12/16/18 03:04 84 20 Pulse Ox 12/16/18 11:57 92 12/16/18 11:41 97 12/16/18 07:29 94 12/16/18 07:27 12/16/18 07:21 94 12/16/18 04:00 91 12/16/18 03:04 95 Laboratory Results BMP 12/16/18 06:48 Sodium 136 Potassium 4.1 Chloride 106 Carbon Dioxide 22 BUN 83 H Creatinine 2.45 H Glucose 119 H Calcium 8.0 L Medications Administered Current Inpatient Medications Acetaminophen (Tylenol) 650 mg PO Q4H PRN PRN Reason: Pain or Fever Stop: 01/07/19 04:03 Last Admin: 12/12/18 20:18 Dose: 650 mg Documented by: Albuterol (Ventolin Hfa) 2 puffs INH Q4 PRN PRN Reason: Shortness Of Breath Or Wheezin Stop: 01/07/19 04:03 Amlodipine Besylate (Norvasc) 10 mg PO DAILY LUIS MIGUEL Stop: 01/07/19 08:59 Last Admin: 12/16/18 08:07 Dose: 10 mg Documented by: Aripiprazole (Abilify) 15 mg PO DAILY LUIS MIGUEL Stop: 01/07/19 08:59 Last Admin: 12/16/18 08:07 Dose: 15 mg Documented by: Aspirin (Ecotrin Ectab) 81 mg PO DAILY [facility] Stop: 01/07/19 08:59 Last Admin: 12/16/18 08:06 Dose: 81 mg Documented by: Atorvastatin Calcium (Lipitor) 40 mg PO HS [facility] Stop: 01/07/19 20:59 Last Admin: 12/15/18 20:34 Dose: 40 mg Documented by: Budesonide/Formoterol Fumarate (Symbicort 160mcg/4.5mcg) 2 puffs INH BID [facility] Stop: 01/13/19 10:29 Last Admin: 12/16/18 08:10 Dose: 2 puffs Documented by: Bupropion HCl (Wellbutrin-Sr) 100 mg PO DAILY LUIS MIGUEL Stop: 01/07/19 08:59 Last Admin: 12/16/18 08:04 Dose: 100 mg Documented by: Citalopram Hydrobromide (Celexa) 40 mg PO DAILY LUIS MIGUEL Stop: 01/07/19 08:59 Last Admin: 12/16/18 08:07 Dose: 40 mg Documented by: Dextrose (Dextrose 50%) 25 - 50 ml IV UD PRN; Protocol PRN Reason: Hypoglycemia Protocol Stop: 01/07/19 07:29 Diphenhydramine HCl (Benadryl Capsule) 25 mg PO Q6H PRN PRN Reason: SEASONAL ALLERGIES Stop: 01/07/19 04:29 Glucagon (Glucagen) 1 mg IM UD PRN; Protocol PRN Reason: Hypoglycemia Protocol Stop: 01/07/19 07:29 Glucose (Glucose 40%) 15 - 30 gm PO UD PRN; Protocol PRN Reason: Hypoglycemia Protocol Stop: 01/07/19 07:29 Glucose (Dex4 Glucose) 4 - 8 tabs PO UD PRN; Protocol PRN Reason: Hypoglycemia Protocol Stop: 01/07/19 07:29 Haloperidol Lactate (Haldol) 2.5 mg IM Q6H PRN PRN Reason: Agitation Stop: 01/07/19 08:15 Heparin Sodium (Porcine) (Heparin Sodium (Porcine)) 5,000 units SQ Q8 LUIS MIGUEL Stop: 01/10/19 21:59 Last Admin: 12/16/18 04:59 Dose: Not Given Documented by: Hydralazine HCl (Apresoline) 25 mg PO BID [facility] Stop: 01/07/19 08:59 Last Admin: 12/16/18 08:03 Dose: 25 mg Documented by: Lorazepam (Ativan) 1 mg in 2 mls @ 0.5 mls/min IV Q2H PRN PRN Reason: Breakthrough Seizures Stop: 01/07/19 04:03 Last Admin: 12/08/18 07:46 Dose: 0.5 mls/min Documented by: Ceftriaxone Sodium 1,000 mg/ (Dextrose) 60 mls @ 100 mls/hr IV DAILY [facility] Stop: 12/20/18 08:59 Last Infusion: 12/16/18 09:01 Dose: Infused Documented by: Furosemide 20 mg/ Syringe 2 mls @ 4 mls/min IV BID17 [facility] Stop: 01/13/19 16:59 Last Admin: 12/16/18 08:25 Dose: 4 mls/min Documented by: Insulin Aspart (Novolog Flexpen) 0 units SC ACHS [facility]; Protocol Stop: 01/10/19 11:29 Last Admin: 12/16/18 12:55 Dose: 8 units Documented by: Insulin Aspart (Novolog Flexpen) 0 units SC 0000 [facility]; Protocol Stop: 12/17/18 00:01 Insulin Glargine (Lantus Solostar Pen) 0 units SQ BID [facility]; Protocol Stop: 01/12/19 20:59 Last Admin: 12/16/18 08:11 Dose: 5 units Documented by: Ipratropium [place] (Atrovent 0.02% 0.5mg/2.5ml) 0.5 mg INH Q4H PRN PRN Reason: SOB OR WHEEZING Stop: 01/11/19 08:29 Ipratropium [place] (Atrovent 0.02% 0.5mg/2.5ml) 0.5 mg INH Q4R [facility]IS MIGUEL Stop: 01/13/19 11:59 Last Admin: 12/16/18 11:39 Dose: 0.5 mg Documented by: Lactobacillus Acidophilus (Floranex) 4 tab PO TIDM [facility] MIGUEL Stop: 01/07/19 11:59 Last Admin: 12/16/18 12:53 Dose: 4 tab Documented by: Levalbuterol HCl (Xopenex 1.25mg/0.5ml Neb) 1.25 mg INH Q4H PRN PRN Reason: SOB OR WHEEZING Stop: 01/11/19 08:29 Last Admin: 12/14/18 11:54 Dose: 1.25 mg Documented by: Levalbuterol HCl (Xopenex 1.25mg/0.5ml Neb) 1.25 mg NEB Q4R [facility] MIGUEL Stop: 01/13/19 15:59 Last Admin: 12/16/18 11:39 Dose: 1.25 mg Documented by: Metoprolol Tartrate (Lopressor) 50 mg PO BID [facility]IG[facility] Stop: 01/07/19 08:59 Last Admin: 12/16/18 08:03 Dose: 50 mg Documented by: Miscellaneous (Remove Nicoderm Patch) 1 ea N/A HS [facility] Stop: 01/07/19 20:59 Last Admin: 12/15/18 20:33 Dose: 1 ea Documented by: Miscellaneous (Order Awaiting Action) 1 ea N/A QS [facility] Stop: 01/07/19 07:59 Last Admin: 12/16/18 09:38 Dose: Not Given Documented by: Miscellaneous (Carbohydrates For Hypoglycemia) 15 - 30 gm PO UD PRN PRN Reason: Hypoglycemia Treatment Stop: 01/07/19 07:29 Last Admin: 12/15/18 11:52 Dose: 15 gm Documented by: Miscellaneous Information (Consult Glycemic Management Pharmacy) 1 ea N/A UD PRN PRN Reason: Consult Stop: 01/11/19 17:47 Nicotine (Nicoderm Cq) 21 mg TD DAILY LUIS MIGUEL Stop: 01/07/19 08:59 Last Admin: 12/16/18 08:07 Dose: 21 mg Documented by: Nitroglycerin (Nitrostat) 0.4 mg SL UD PRN PRN Reason: Chest Pain Stop: 01/07/19 04:03 Ondansetron HCl (Zofran) 4 mg IV Q6H PRN PRN Reason: Nausea Stop: 01/07/19 04:03 Oxycodone HCl (Roxicodone Immediate Rel) 5 mg PO Q8 PRN PRN Reason: PAIN LEVEL 4-10 Last Admin: 12/15/18 07:08 Dose: 5 mg Documented by: Prednisone (Prednisone) 40 mg PO DAILY [facility] Stop: 01/13/19 08:59 Last Admin: 12/16/18 08:04 Dose: 40 mg Documented by: Ranitidine HCl (Zantac) 75 mg PO DAILY [facility] Stop: 01/07/19 08:59 Last Admin: 12/16/18 08:05 Dose: 75 mg Documented by: Raspberry (Raspberry) 5 ml PO Q6 [facility] Stop: 12/24/18 13:59 Last Admin: 12/16/18 12:53 Dose: 5 ml Documented by: Vancomycin HCl (Vancomycin Hcl) 125 mg PO Q6 [facility] Stop: 12/20/18 13:59 Last Admin: 12/16/18 13:00 Dose: 125 mg Documented by:
[2018-12-16 14:45] VITALS: BP 177/98; PULSE 76
[2018-12-17] MEDS ORDERED: INSULIN ASPART 100 UNITS/ML 3 ML PEN SC SCH
--- NOTE | 2018-12-17 09:16 | Discharge Summary ---
Date of Service December 17, 2018 Admission HPI Per Admitting Provider The patient is a 63 yo with multiple chronic medical conditions listed below, who presented to the ED after having what looked to be seizure like activity while at [facility]. In the ED she was found to be hyponatremic, hypoglycemic and with UTI and was admitted medically. We were consulted as she was agitated at some point and has schizoaffective disorder. We attempted to see her yesterday, but she was not able to participate in a conversation so our liaison nurse spoke with [facility] to obtain accurate psych medication list. Today the patient is more responsive. Although she falls to sleep readily she is easily aroused. She agrees that she has schizoaffective disorder and has been on 3 meds including Abilify. She says that her mood has been "pretty good" in recent weeks and denies aud/vis hallucinations. She denies SI/HI. She indicates that she is feeling better since being admitted to the hospital, but is having significant pain in her legs today. She is currently being given a blood transfusion. Beyond this she has no complaints, likes her psych meds and feels that she is getting good care at [facility]. Social service notes reviewed. They have spoken with a automotive sales representative from [facility] who confirms that her current behavior sounds like baseline for this patient. Admission Exam Per Admitting Provider GENERAL: The patient is currently drowsy. HEENT: No pallor, no icterus. Pupils equal, round, reactive to light. NECK: No neck masses, no carotid bruits. CARDIOVASCULAR: S1, S2 heard, regular rate and rhythm, no murmur, no gallop. RESPIRATORY SYSTEM: Normal AP diameter. No accessory muscle use. No wheezing, no crackles. ABDOMEN: Soft, bowel sounds present. No distention. CENTRAL NERVOUS SYSTEM: Drowsy, but moves all extremities. EXTREMITIES: Bilateral lower extremities trace pedal edema present. Principal Diagnosis Metabolic encephalopathy-improved, UTI, hyponatremia, seizure disorder, C. difficile colitis, acute hypoxic respiratory failure secondary to severe COPD Discharge Exam Constitutional + ill appearing Eyes PERRL, conjunctivae normal, anicteric sclerae ENMT external ear and nose normal, oropharynx normal Neck trachea midline, no thyromegaly Respiratory + respiratory distress, + uses accessory muscles and + tachypneic Auscultation: + diminished lung sounds and + crackles (At the base) Cardiovascular Rate/Rhythm: regular rate and regular rhythm Heart Sounds: normal S1, normal S2 and + murmur (2/6 ESM at the aortic area) Extremities: no edema Gastrointestinal (Abdomen) Inspection/Auscultation: abdomen normal to inspection and normal bowel sounds Percussion/Palpation: abdomen soft; abdomen nontender Musculoskeletal Hip: + limited ROM of hip (Right hip with increasing pain) Lymphatic no cervical or axillary lymphadenopathy Discharge Data Allergies Allergy/AdvReac Type Severity Reaction Status Date / Time metformin Allergy Unknown Verified 12/08/18 02:11 Consultations 12/08/18 01:50 ED Decision to Admit Stat 12/08/18 04:04 Consult Case Management - Discharge Planning Routine 12/08/18 08:00 Consult Nephrology Routine Consult Neurology Routine Consult Psychiatry Routine Ordered Studies 12/07/18 23:41 CT cervical spine wo con Urgent CT head/brain wo con Urgent CT lumbar spine wo con Urgent 12/08/18 00:43 CT abd pelvis wo con Urgent CT chest wo con Urgent Hospital Course (1) Metabolic encephalopathy: Multifactorial-secondary to E. coli UTI and may be complicated by hypoglycemia, possible seizure and MIKEY on CKD Urine culture: Positive for E. coli Blood cultures: Negative Has been on IV ceftriaxone Continue current antibiotic for UTI No more UTI symptoms Antibiotic course is finished Hyponatremia Secondary to Hypervolemia Sodium level is improved to 133 from 125 on admission IV Lasix for volume overload Fluid restriction Nephro consulted-appreciate input and recommendations Sodium level is 133 on 12/14 and 12/15 Sodium level has been normalized to 136 on 12/16 Hypoglycemia on admission-blood sugar was not below 80 in medical records Likely from poor oral intake, with Lantus BID Pharmacy consulted for glycemic control On ISS Blood sugar remains around 210s Seizure disorder Possible seizure on admission EEG unrevealing Neurology consulted, does not recommend starting antiseizure medicines at this time No more seizure episodes Polypharmacy History of Schizoaffective Disorder Psych consulted Recommend to continue usual psych medications with close monitoring Acute hypoxic respiratory failure Likely acute on chronic diastolic congestive heart failure complicated by COPD exacerbation Positive wheezing and worsening hypoxia noted on December 12, 2018 Chest x-ray pulmonary edema Change Lasix to 40 mg IV twice daily Monitor diuresis, kidney function Solu-Medrol also added, continue nebs This patient's symptoms are much better We will change Solu-Medrol to oral prednisone Nebulized bronchodilators has been increased to frequency Symbicort added Denies any more shortness of breath at rest C. difficile colitis Recurrence Continue vancomycin p.o. 4 times daily x10 days Diabetes controlled Recent right hip surgery Surgical site appears to be healing well Will continue with physical therapy X-ray of the hip did not show any significant findings DM 2 - management as above HTN - continue usual meds COPD exacerbation From acute on chronic diastolic heart failure - (+)exacerbation - nebs, Solu-Medrol -We will change Solu-Medrol to oral prednisone ABHINAV DVT prophylaxis Heparin Disposition resident of [facility] Evaluation management of above medical conditions Anticipate return to [facility] when medically stable She will be discharged today (2) CKD stage 4 due to type 2 diabetes mellitus: Has been under care of nephrology Creatinine seems to be improving gradually Diuretics have been decreased to 20 mg PO twice daily Total Time Total Time Spent Total Time Spent (In Minutes): 35 minutes Total Time Includes: Examination of the Patient, Discharge Planning, Medication Reconciliation and Communication With Other Providers Discharge Plan Discharge Items Patient Disposition: Transfer Custodial Fac Reason For Visit: HYPOGLYCEMIA, SEIZURE Discharge Diagnosis: Metabolic encephalopathy-improved, UTI, hyponatremia, seizure disorder, C. difficile colitis, acute hypoxic respiratory failure secondary to severe COPD Condition: Fair Discharge Goals: Decrease discomfort and Improve function Activity: Resume your previous activity Non-emergency contact: Primary Care Provider Call non-emergency contact if: you have any medication questions and your symptoms worsen Follow-up/Referrals: Jaki Owen [Primary Care Provider] - (Please check PRP regularly to monitor serum sodium and kidney function) Diet: Carb Consistent or DM2 Fluids: 1500ml (6 cups) Diet Comment: Can have extra salt in diet Addtl Provider Instructions: Please take precaution to avoid for. Try to be avoided factors which can increase your shortness of breath as discussed Prescriptions: New vancomycin 1,000 mg Recon Soln 125 mg PO Q6 3 Days Qty: 18 RF: 0 oxycodone 5 mg Tablet 5 mg PO Q8 PRN (Reason: pain) 5 Days Qty: 15 RF: 0 Lactobacillus acidoph-L.bulgar [Floranex] 1 million cell Tablet 4 tab PO BID 7 Days Qty: 56 RF: 0 ipratropium-albuterol 0.5 mg-3 mg(2.5 mg base)/3 mL solution for nebulization 3 ml INH Q6H PRN (Reason: wheezing) Qty: 90 RF: 0 prednisone 10 mg tablet 10 mg PO UD Qty: 18 RF: 0 Continued atorvastatin [Lipitor] 40 mg Tablet 40 mg PO HS RF: 0 citalopram [Celexa] 40 mg Tablet 40 mg PO DAILY RF: 0 melatonin 3 mg Tablet 3 mg PO HS RF: 0 bupropion HCl 100 mg Tablet Sustained-Release 12 Hr 100 mg PO DAILY RF: 0 ranitidine HCl 75 mg Tablet 75 mg PO DAILY RF: 0 nicotine [Nicoderm CQ] 21 mg/24 hr Patch 24 Hour 1 patch TRANSDERMAL DAILY RF: 0 ascorbic acid (vitamin C) [Vitamin C] 500 mg Tablet 500 mg PO DAILY RF: 0 Victoza 2-Gary 0.6 mg/0.1 mL (18 mg/3 mL) pen injector 1.2 mg subcut DAILY RF: 0 acetaminophen 325 mg Tablet 650 mg PO Q6H MDD 3GM/24HR PRN (Reason: MILD PAIN 1-3) RF: 0 acetaminophen 325 mg Tablet 650 mg PO Q6H MDD 3GM/24HR PRN (Reason: TEMP>101) RF: 0 Lantus U-100 Insulin 100 unit/mL Solution 10 unit SUBCUT BID RF: 0 hydralazine 25 mg Tablet 25 mg PO BID RF: 0 diphenhydramine HCl 25 mg Tablet 25 mg PO Q6H PRN (Reason: SEASONAL ALLERGIES) RF: 0 metoprolol tartrate 50 mg Tablet 50 mg PO BID RF: 0 insulin lispro [Humalog U-100 Insulin] 100 unit/mL Solution 3 unit SUBCUT AC RF: 0 Combivent Respimat 20-100 mcg/actuation mist 1 puff inhalation QID RF: 0 oxycodone 5 mg Capsule 5 mg PO Q8 PRN (Reason: PAIN LEVEL 4-10) RF: 0 insulin lispro [Humalog U-100 Insulin] 100 unit/mL Solution 1 sliding scale dose SUBCUT USEASDIRECTD RF: 0 albuterol sulfate 90 mcg/actuation Hfa Aerosol Inhaler 2 puff INHALATION Q4 PRN (Reason: Shortness Of Breath Or Wheezing) RF: 0 aspirin 81 mg Tablet,Delayed Release (Dr/Ec) 81 mg PO DAILY RF: 0 amlodipine 10 mg Tablet 10 mg PO DAILY RF: 0 aripiprazole [Abilify] 15 mg Tablet 15 mg PO DAILY RF: 0 Breo Ellipta 100-25 mcg/dose Blister With Device 1 inh INHALATION DAILY RF: 0 Changed furosemide 40 mg Tablet 20 mg PO BID Qty: 0 RF: 0 Stand-Alone Forms: [facility] Discharge Orders: Discharge Order (Routine); Ordered 12/16/18 Ordered By: Celeste Esparza Skilled Items Patient informed of condition?: Yes DNR: No Discharge Level of Care: Skilled Communicable Disease: No Discharge Prognosis: Stable Admission Data Admit Date/Time: 12/08/18 03:01 Attending Provider: Celeste Esparza Admit Provider: Aj Alvarez Primary Care Provider: Jaki Owen Other Providers: Aj Alvarez ; Anastasia Ryan ; Adelso Bullard ; Chao West I ; Susan Miguel ; Whitney Anne ; Temo Dunbar ; Malinda Skinner ; Munir Garcia ; Malinda Pierson ; Kenneth Hsu ; Jorge Saavedra ; Andressa Talavera ; Jeremy Garcias Service: Telemetry Medical Other Interventions: Discharge Summary Assessment (RN) Last Done: 12/16/18 14:42 DC Date/Time DO NOT enter until pt leaves facility: 12/16/18 16:42
== END 2018-12-16 16:42 | DRG 689 ==
LOC: ED 22:40 → SUATTDRO 12-08 03:01 → 2S 12-08 03:01 → 4W 12-11 17:39 → 2W 12-12 10:32

== ENCOUNTER 2019-01-26 14:27 | Inpatient (IN) ==
[2019-01-26] MEDS ORDERED: SODIUM CHLORIDE 0.9% 500 ML IV SCH (14:45)
[2019-01-26 15:10] LABS: Appearance Urine Clear (Clear); Bacteria Urine Automated 2+ (Negative); Bilirubin Urine Negative (Negative); Blood Urine Trace (Negative); Color Urine Yellow; Epithelial Cell Urine Auto 0-5 /lpf (0-5); Glucose Urine UA Negative (Negative); Ketones Urine Negative (Negative); Leukocyte Esterase Urine 2+ (Negative); Nitrite Urine Negative (Negative); Protein Urine 2+ (Negative); RBC Urine Automated 0-4 /hpf (0-4); Urobilinogen Urine Negative (Negative); WBC Urine Automated >30 /hpf (0-5); pH Urine 6.5 (4.5-7.5)
--- NOTE | 2019-01-26 15:16 | XRay Report ---
XR chest 1V portable HISTORY: 63 years-old Female Dyspnea acute shortness of breath COMPARISON: Chest radiograph 12/13/2018, chest CT 12/08/2018 TECHNIQUE: Portable AP view of the chest. FINDINGS: Cardiac silhouette is enlarged. Calcification of the thoracic aortic arch. Severe emphysema with cdl b driver vincent interstitial coarsening. No pneumothorax. Mild blunting of the costophrenic angles. Progressive b ilateral mixed interstitial and alveolar opacities within a mid lung zone and bibasilar predominant d istribution. Degenerative changes of the shoulders and spine. Remote right-sided rib fractures. IMPRESSION: 1. Cardiomegaly with bilateral mixed interstitial and alveolar opacities suggestive of probable pulmo nary edema or multifocal pneumonia. 2. Suggestion of trace pleural effusions. 3. Severe emphysema with chronic fibrotic changes. The above report was generated using voice recognition software. It may contain grammatical, syntax o r spelling errors. Electronically signed by: Samson Hodges M.D. 01/26/2019 3:15 PM
[2019-01-26 15:30] LABS: Cast Urine Automated 0 /lpf (0-5)
[2019-01-26 15:52] LABS: Mean Corpuscular Hemoglobin 28.9 pg (25-34); Mean Corpuscular Hgb Conc 33.3 g/dL (32-36); Mean Corpuscular Volume 86.8 fL (80-100); Mean Platelet Volume 7.5 fL (7.4-10.4); Platelet Count 138 K/uL (130-400); RDW Standard Deviation 47.4 fL (36.4-46.3); Red Blood Count 2.42 M/uL (4.2-5.4)
[2019-01-26 15:58] LABS: Partial Thromboplastin Ratio 0.9; Partial Thromboplastin Time 24.5 Seconds (21.0-31.0); Prothrombin Time 10.5 Seconds (9.0-12.0)
[2019-01-26 16:01] LABS: Base Excess ABG -3.5 mEq/L (-9-1.8); HCO3 ABG 21 mmol/L (19-24); Oxygen Saturation ABG 90.6 % (90-95); PCO2 ABG 37 mmHg (35-46); PO2 ABG 68 mm/Hg (80-95); pH ABG 7.38 (7.35-7.45)
[2019-01-26 16:03] LABS: Allen Test POS (Pos)
[2019-01-26 16:04] LABS: Eosinophils # (auto) 0.06 K/uL (0-0.5); Eosinophils % (auto) 1.1 %; Immature Granulocytes # (auto) 0.01 K/uL (0.00-0.02); Immature Granulocytes % (auto) 0.2 %; Lymphocytes # (auto) 1.06 K/uL (1.2-3.4); Lymphocytes % (auto) 19.6 %; Monocytes # (auto) 0.77 K/uL (0.11-0.59); Monocytes % (auto) 14.3 %; Neutrophils % (auto) 64.8 %; RBC Morphology Unremarkable
[2019-01-26] MEDS ORDERED: cefTRIAXone SODIUM 1,000 MG/50 ML BAG IV STA (16:04)
[2019-01-26 16:07] LABS: Alanine Aminotransferase 18 U/L (12-78); Albumin Level 2.4 gm/dl (3.4-5.0); Aspartate Aminotransferase 16 U/L (15-37); BUN Creatinine Ratio 15.4 (10-20); Blood Urea Nitrogen 35 mg/dl (7-18); Calcium 7.8 mg/dl (8.5-10.1); Carbon Dioxide 23 mmol/L (21-32); Chloride 106 mmol/L (98-107); Creatinine Clr Calc Pharmacy 26.4 ml/min; Est GFR (African American) 25.8; Est GFR (Non-African American) 22.3; Glucose 114 mg/dl (70-99); Magnesium 2.1 mg/dl (1.8-2.4); Potassium 5.1 mmol/L (3.5-5.1); Sodium 135 mmol/L (136-145)
[2019-01-26 16:12] LABS: Albumin Globulin Ratio 0.6 (0.9-2); Alkaline Phosphatase 122 U/L (45-117); Bilirubin,Total 0.4 mg/dl (0.2-1); Globulin 3.7 gm/dl (2.5-4.0); Total Protein 6.1 gm/dl (6.4-8.2); Troponin I < 0.015 ng/ml (0-0.045)
--- NOTE | 2019-01-26 17:26 | Emergency Department Note ---
Entered by Dominga Franklin acting as a scribe for Jordan Cordoba DO History of Present Illness General Chief complaint: Shortness of Breath/Dyspnea Time Seen by Provider: 01/26/19 14:28 Source: patient and EMS Mode of arrival: EMS Limitations: no limitations History of Present Illness Provider complaint: Shortness of Breath Onset (ago): day(s) 3 Location: chest Pain Consistency: + intermittent Associated symptoms: + denies other symptoms (-black or bloody stools) and + other (+trouble with ambulation, +abdominal pain, +decreased urination) The patient is a 63 year old female who presents to the Emergency Room with c omplaints of shortness of breath that began 3 days prior to arrival. The patient states that her shortness of breath is intermittent. The patient states that she has been having trouble ambulating, abdominal pain, and decreased urination. The patient denies any black or bloody stools. The patient states that she has been drinking and eating normally. The patient states she recently had her Lasix m edication. The patient denies ever being on dialysis. The patient states that she currently lives at [facility] and states that she has been living there for 2 months. The patient states that she quit smoking tobacco several weeks ago. Per EMS, the patient was on 88% on 4L of oxygen prior to arrival. Home Medications Home Medications Medication Instructions Recorded Confirmed Type Breo Ellipta 1 inh INHALATION DAILY 12/08/18 01/26/19 History Combivent Respimat 1 puff INHALATION QID 12/08/18 01/26/19 History Lantus U-100 Insulin 10 unit SUBCUT BID 12/08/18 01/26/19 History Victoza 2-Gary 1.2 mg SUBCUT DAILY 12/08/18 01/26/19 History acetaminophen 650 mg PO Q6H PRN MDD 3GM/24HR 12/08/18 01/26/19 History acetaminophen 650 mg PO Q6H PRN MDD 3GM/24HR 12/08/18 01/26/19 History albuterol sulfate 2 puff INHALATION Q4 PRN 12/08/18 01/26/19 History amlodipine 10 mg PO DAILY 12/08/18 01/26/19 History aripiprazole [Abilify] 15 mg PO DAILY 12/08/18 01/26/19 History ascorbic acid (vitamin C) [Vitamin 500 mg PO DAILY 12/08/18 01/26/19 History C] aspirin 81 mg PO DAILY 12/08/18 01/26/19 History atorvastatin [Lipitor] 40 mg PO HS 12/08/18 01/26/19 History bupropion HCl 100 mg PO DAILY 12/08/18 01/26/19 History citalopram [Celexa] 40 mg PO DAILY 12/08/18 01/26/19 History diphenhydramine HCl 25 mg PO Q6H PRN 12/08/18 01/26/19 History hydralazine 25 mg PO BID 12/08/18 01/26/19 History insulin lispro [Humalog U-100 1 sliding scale dose SUBCUT 12/08/18 01/26/19 History Insulin] USEASDIRECTD insulin lispro [Humalog U-100 3 unit SUBCUT AC 12/08/18 01/26/19 History Insulin] melatonin 3 mg PO HS 12/08/18 01/26/19 History metoprolol tartrate 50 mg PO BID 12/08/18 01/26/19 History nicotine [Nicoderm CQ] 1 patch TRANSDERMAL DAILY 12/08/18 01/26/19 History oxycodone 5 mg PO Q8 PRN 12/08/18 01/26/19 History ranitidine HCl 75 mg PO DAILY 12/08/18 01/26/19 History furosemide 20 mg PO BID #0 tab 12/16/18 01/26/19 Rx ipratropium-albuterol 3 ml INH Q6H PRN #90 ml 12/16/18 01/26/19 Rx prednisone 10 mg PO UD #18 tab 12/16/18 01/26/19 Rx Allergies Allergy/AdvReac Type Severity Reaction Status Date / Time metformin Allergy Unknown Verified 01/26/19 15:09 Past Med/Surg History Medical History Anemia CKD stage 4 due to type 2 diabetes mellitus Hypoglycemia Metabolic encephalopathy COPD (chronic obstructive pulmonary disease) Diabetes Social History Preferred Language: Pry[place]in[place] Communication Ability: Unable Cash Poster Required: No Beliefs That Will Affect Care: None marital status: Single Current Living Situation: [facility] Current Living Situation Comment: [facility] since 11/11/18 Other Information That Helps Us Care for You: No Feels Safe at Home: Yes Safety Concerns: Feels Safe At This Time Smoking Status: Former smoker Tobacco Type: cigarettes Do You Dip or Chew Tobacco: No Hx Alcohol Use: No Hx Substance Use: No Review of Systems See HPI for pertinent positives & negatives. and A total of 10 systems reviewed and were otherwise negative Physical Exam Vital Signs Vital Signs - 24 hr 01/26/19 14:37 01/26/19 14:43 01/26/19 16:27 Temperature 36.7 C Temperature Source Oral Sepsis Recent Fever Within 48 Hours No Sepsis New/Unexplained Change in Mental Status No Sepsis Action Taken by Nursing No Action Required Pulse Rate 78 Pulse Rate [Left Finger] Respiratory Rate 24 Respiratory Effort / Characteristics Short of Breath SOB on Exertion Respiratory Depth Deep Respiratory Pattern Irregular Blood Pressure 128/67 Blood Pressure [Right Arm] Blood Pressure Mean 87 Blood Pressure Mean [Right Arm] Pulse Oximetry 68 L 92 Oxygen Delivery Method Nasal Cannula Nasal Cannula Nasal Cannula Oxygen Flow Rate 0 4 4 01/26/19 16:30 Temperature Temperature Source Sepsis Recent Fever Within 48 Hours Sepsis New/Unexplained Change in Mental Status Sepsis Action Taken by Nursing Pulse Rate Pulse Rate [Left Finger] 80 Respiratory Rate 18 Respiratory Effort / Characteristics Respiratory Depth Respiratory Pattern Blood Pressure Blood Pressure [Right Arm] 156/84 H Blood Pressure Mean Blood Pressure Mean [Right Arm] 108 Pulse Oximetry 90 Oxygen Delivery Method Nasal Cannula Oxygen Flow Rate 4 GENERAL: Patient is awake, alert, and in no acute distress. EYES: The conjunctivae are clear. The pupils are round and reactive. EARS, NOSE, MOUTH AND THROAT: The nose is without any evidence of any deformity. Mucous membranes are dry.Tongue is midline NECK: The neck is nontender and supple. RESPIRATORY: Diminished breath sounds throughout. There is evidence of rales in the left lower hicks to auscultation. CARDIOVASCULAR: Regular rate and rhythm noted. There no murmurs rubs or gallops normal S1 normal S2. GASTROINTESTINAL: The abdomen is mildly distended. Bowel sounds are present in all quadrants. Abdomen is nontender. Suberpubic area appreciated. MUSCULOSKELETAL/EXTREMITIES: There is no evidence of gross deformity. Full range of motion is noted in the hips and shoulders. SKIN: The skin is warm and dry. Pedal edema bilaterally. Multiple areas over skin with exudation. NEUROLOGIC: Patient is awake alert and oriented x3. Course 1430: The patient was evaluated in room B11B, and a complete history and physical examination were performed. 1545: I checked on the patient and updated her on her results 1630: I discussed the patient's case with Gisela [facility]ist who will admit the patient to Dr. Frances [facility]. Consultations [facility] will [facility] the patient to Dr. Ramírez Stallings [facility] Time: 16:30 Administered Medications Albuterol (Combivent Respimat) 1 puffs INH QID LUIS MIGUEL Stop: 02/25/19 20:59 Last Admin: 01/26/19 20:09 Dose: 1 puffs Documented by: [id number] Albuterol (Duoneb) 3 ml INH Q6H PRN PRN Reason: wheezing Stop: 02/25/19 18:58 Last Admin: 01/26/19 19:28 Dose: 3 ml Documented by: [id number] Amlodipine Besylate (Norvasc) 10 mg PO DAILY LUIS MIGUEL Stop: 02/25/19 18:58 Last Admin: 01/26/19 20:45 Dose: 10 mg Documented by: [id number] Aripiprazole (Abilify) 15 mg PO DAILY LUIS MIGUEL Stop: 02/25/19 18:58 Last Admin: 01/26/19 20:47 Dose: 15 mg Documented by: [id number] Atorvastatin Calcium (Lipitor) 40 mg PO HS LUIS MIGUEL Stop: 02/25/19 20:59 Last Admin: 01/26/19 20:49 Dose: 40 mg Documented by: [id number] Heparin Sodium (Porcine) (Heparin Sodium (Porcine)) 5,000 units SQ Q12 LUIS MIGUEL Stop: 02/25/19 20:59 Last Admin: 01/26/19 20:48 Dose: Not Given Documented by: [id number] Hydralazine HCl (Apresoline) 25 mg PO BID LUIS MIGUEL Stop: 02/25/19 20:59 Last Admin: 01/26/19 20:48 Dose: 25 mg Documented by: [id number] Insulin Aspart (Novolog Flexpen) 0 units SC ACHS LUIS MIGUEL Stop: 02/25/19 20:59 Last Admin: 01/26/19 20:52 Dose: 4 units Documented by: [id number] Cosigned by: [id number] Insulin Glargine (Lantus Solostar Pen) 10 units SQ BID LUIS MIGUEL Stop: 02/25/19 20:59 Last Admin: 01/26/19 20:49 Dose: 10 units Documented by: [id number] Cosigned by: [id number] Metoprolol Tartrate (Lopressor) 50 mg PO BID LUIS MIGUEL Stop: 02/25/19 20:59 Last Admin: 01/26/19 20:49 Dose: 50 mg Documented by: [id number] Nicotine (Nicoderm Cq) 21 mg TD DAILY LUIS MIGUEL Stop: 02/25/19 18:58 Last Admin: 01/26/19 20:47 Dose: 21 mg Documented by: [id number] Ranitidine HCl (Zantac) 75 mg PO DAILY LUIS MIGUEL Stop: 02/25/19 18:58 Last Admin: 01/26/19 20:46 Dose: 75 mg Documented by: [id number] Vitamin D (Vitamin D3) 1,000 units PO QAM LUIS MIGUEL Stop: 02/25/19 17:44 Last Admin: 01/26/19 19:25 Dose: 1,000 units Documented by: [id number] Discontinued Medications Furosemide (Lasix) Confirm Administered Dose 40 mg IV .STK-MED ONE Stop: 01/26/19 18:26 Last Admin: 01/26/19 18:27 Dose: 20 mg Documented by: [id number] Sodium Chloride (Nss) 500 mls @ 999 mls/hr IV .Q31M LUIS MIGUEL Stop: 01/26/19 15:15 Last Infusion: 01/26/19 17:25 Dose: 0 mls/hr Documented by: [id number] Admin: 01/26/19 16:26 Dose: 999 mls/hr Documented by: [id number] Ceftriaxone Sodium (Rocephin) 1,000 mg in 50 mls @ 100 mls/hr IV NOW STA Stop: 01/26/19 16:33 Last Infusion: 01/26/19 16:59 Dose: 0 mls/hr Documented by: [id number] Admin: 01/26/19 16:27 Dose: 100 mls/hr Documented by: [id number] Sodium Chloride (Nss 1000ml) 1,000 mls @ 80 mls/hr IV .[id number] LUIS MIGUEL Stop: 01/27/19 18:29 Last Infusion: 01/26/19 19:01 Dose: 0 mls/hr Documented by: [id number] Admin: 01/26/19 18:28 Dose: 80 mls/hr Documented by: [id number] Furosemide 20 mg/ Syringe 2 mls @ 4 mls/min IV ONE ONE Stop: 01/26/19 17:42 Last Admin: 01/26/19 20:41 Dose: Not Given Documented by: [id number] Medical Decision Making Differential Diagnosis Differential diagnoses includes but is not limited to pneumonia, bronchitis, COPD/Asthma exacerbation, pneumothorax, pulmonary embolism, congestive heart failure, acute coronary syndrome. Medical Records Attestation: I reviewed the patient's medical records. Home Medications Current Medication List: was personally reviewed by me Laboratory Data Attestation: I reviewed the patient's lab results. Result diagrams: 01/26/19 15:31 01/26/19 15:31 Lab Results 01/26/19 01/26/19 01/26/19 Range/Units 15:00 15:31 15:31 WBC 5.40 (4.8-10.8) K/uL RBC 2.42 L (4.2-5.4) M/uL Hgb 7.0 L (12.0-16.0) g/dL Hct 21.0 L (37-47) % MCV 86.8 (80-100) fL MCH 28.9 (25-34) pg MCHC 33.3 (32-36) g/dL RDW Std Deviation 47.4 H (36.4-46.3) fL RDW Coeff of David 15.0 H (11.5-14.5) % Plt Count 138 (130-400) K/uL MPV 7.5 (7.4-10.4) fL Immature Gran % (Auto) 0.2 % Neut % (Auto) 64.8 % Lymph % (Auto) 19.6 % Riley % (Auto) 14.3 % Eos % (Auto) 1.1 % Baso % (Auto) 0.0 % Immature Gran # (Auto) 0.01 (0.00-0.02) K/uL Neut # (Auto) 3.50 (1.4-6.5) K/uL Lymph # (Auto) 1.06 L (1.2-3.4) K/uL Riley # (Auto) 0.77 H (0.11-0.59) K/uL Eos # (Auto) 0.06 (0-0.5) K/uL Baso # (Auto) 0.00 (0-0.2) K/uL RBC Morphology Unremarkable PT 10.5 (9.0-12.0) Seconds INR 1.0 (0.9-1.1) APTT 24.5 (21.0-31.0) Seconds PTT Ratio 0.9 ABG pH (7.35-7.45) ABG pCO2 (35-46) mmHg ABG pO2 (80-95) mm/Hg ABG HCO3 (19-24) mmol/L ABG O2 Saturation (90-95) % ABG Base Excess (-9-1.8) mEq/L Rober Test (Pos) VBG pH VBG pCO2 VBG pO2 VBG HCO3 VBG O2 Saturation VBG Base Excess Barometric Pressure Oxygen Given Sodium (136-145) mmol/L Potassium (3.5-5.1) mmol/L Chloride (98-107) mmol/L Carbon Dioxide (21-32) mmol/L Anion Gap (3-11) BUN (7-18) mg/dl Creatinine (0.6-1.2) mg/dl Est Cr Clr Drug Dosing ml/min Est GFR ( Amer) Est GFR (Non-Af Amer) BUN/Creatinine Ratio (10-20) Glucose (70-99) mg/dl Calcium (8.5-10.1) mg/dl Magnesium (1.8-2.4) mg/dl Total Bilirubin (0.2-1) mg/dl AST (15-37) U/L ALT (12-78) U/L Alkaline Phosphatase (45-117) U/L Troponin I (0-0.045) ng/ml Total Protein (6.4-8.2) gm/dl Albumin (3.4-5.0) gm/dl Globulin (2.5-4.0) gm/dl Albumin/Globulin Ratio (0.9-2) Urine Color Yellow Urine Appearance Clear (Clear) Urine pH 6.5 (4.5-7.5) Ur Specific [place] 1.010 (1.000-1.030) Urine Protein 2+ H (Negative) Urine Glucose (UA) Negative (Negative) Urine Ketones Negative (Negative) Urine Blood Trace H (Negative) Urine Nitrite Negative (Negative) Urine Bilirubin Negative (Negative) Urine Urobilinogen Negative (Negative) Ur Leukocyte Esterase 2+ H (Negative) Urine WBC (Auto) >30 H (0-5) /hpf Urine RBC (Auto) 0-4 (0-4) /hpf U Hyaline Cast (Auto) 0 (0-5) /lpf U Epithel Cells (Auto) 0-5 (0-5) /lpf Urine Bacteria (Auto) 2+ H (Negative) Hepatitis C Ab Screen (Neg) Blood Type Antibody Screen Crossmatch 01/26/19 01/26/19 01/26/19 Range/Units 15:31 15:31 15:31 WBC (4.8-10.8) K/uL RBC (4.2-5.4) M/uL Hgb (12.0-16.0) g/dL Hct (37-47) % MCV (80-100) fL MCH (25-34) pg MCHC (32-36) g/dL RDW Std Deviation (36.4-46.3) fL RDW Coeff of Dvaid (11.5-14.5) % Plt Count (130-400) K/uL MPV (7.4-10.4) fL Immature Gran % (Auto) % Neut % (Auto) % Lymph % (Auto) % Riley % (Auto) % Eos % (Auto) % Baso % (Auto) % Immature Gran # (Auto) (0.00-0.02) K/uL Neut # (Auto) (1.4-6.5) K/uL Lymph # (Auto) (1.2-3.4) K/uL Riley # (Auto) (0.11-0.59) K/uL Eos # (Auto) (0-0.5) K/uL Baso # (Auto) (0-0.2) K/uL RBC Morphology PT (9.0-12.0) Seconds INR (0.9-1.1) APTT (21.0-31.0) Seconds PTT Ratio ABG pH (7.35-7.45) ABG pCO2 (35-46) mmHg ABG pO2 (80-95) mm/Hg ABG HCO3 (19-24) mmol/L ABG O2 Saturation (90-95) % ABG Base Excess (-9-1.8) mEq/L Rober Test (Pos) VBG pH Cancelled VBG pCO2 Cancelled VBG pO2 Cancelled VBG HCO3 Cancelled VBG O2 Saturation Cancelled VBG Base Excess Cancelled Barometric Pressure Cancelled Oxygen Given Sodium 135 L (136-145) mmol/L Potassium 5.1 (3.5-5.1) mmol/L Chloride 106 (98-107) mmol/L Carbon Dioxide 23 (21-32) mmol/L Anion Gap 6.0 (3-11) BUN 35 H (7-18) mg/dl Creatinine 2.28 H (0.6-1.2) mg/dl Est Cr Clr Drug Dosing 26.4 ml/min Est GFR ( Amer) 25.8 Est GFR (Non-Af Amer) 22.3 BUN/Creatinine Ratio 15.4 (10-20) Glucose 114 H (70-99) mg/dl Calcium 7.8 L (8.5-10.1) mg/dl Magnesium 2.1 (1.8-2.4) mg/dl Total Bilirubin 0.4 (0.2-1) mg/dl AST 16 (15-37) U/L ALT 18 (12-78) U/L Alkaline Phosphatase 122 H (45-117) U/L Troponin I < 0.015 (0-0.045) ng/ml Total Protein 6.1 L (6.4-8.2) gm/dl Albumin 2.4 L (3.4-5.0) gm/dl Globulin 3.7 (2.5-4.0) gm/dl Albumin/Globulin Ratio 0.6 L (0.9-2) Urine Color Urine Appearance (Clear) Urine pH (4.5-7.5) Ur Specific [place] (1.000-1.030) Urine Protein (Negative) Urine Glucose (UA) (Negative) Urine Ketones (Negative) Urine Blood (Negative) Urine Nitrite (Negative) Urine Bilirubin (Negative) Urine Urobilinogen (Negative) Ur Leukocyte Esterase (Negative) Urine WBC (Auto) (0-5) /hpf Urine RBC (Auto) (0-4) /hpf U Hyaline Cast (Auto) (0-5) /lpf U Epithel Cells (Auto) (0-5) /lpf Urine Bacteria (Auto) (Negative) Hepatitis C Ab Screen (Neg) Blood Type A Positive Antibody Screen NEGATIVE Crossmatch See Detail 01/26/19 01/26/19 Range/Units 15:31 15:33 WBC (4.8-10.8) K/uL RBC (4.2-5.4) M/uL Hgb (12.0-16.0) g/dL Hct (37-47) % MCV (80-100) fL MCH (25-34) pg MCHC (32-36) g/dL RDW Std Deviation (36.4-46.3) fL RDW Coeff of David (11.5-14.5) % Plt Count (130-400) K/uL MPV (7.4-10.4) fL Immature Gran % (Auto) % Neut % (Auto) % Lymph % (Auto) % Riley % (Auto) % Eos % (Auto) % Baso % (Auto) % Immature Gran # (Auto) (0.00-0.02) K/uL Neut # (Auto) (1.4-6.5) K/uL Lymph # (Auto) (1.2-3.4) K/uL Riley # (Auto) (0.11-0.59) K/uL Eos # (Auto) (0-0.5) K/uL Baso # (Auto) (0-0.2) K/uL RBC Morphology PT (9.0-12.0) Seconds INR (0.9-1.1) APTT (21.0-31.0) Seconds PTT Ratio ABG pH 7.38 (7.35-7.45) ABG pCO2 37 (35-46) mmHg ABG pO2 68 L (80-95) mm/Hg ABG HCO3 21 (19-24) mmol/L ABG O2 Saturation 90.6 (90-95) % ABG Base Excess -3.5 (-9-1.8) mEq/L Rober Test POS (Pos) VBG pH VBG pCO2 VBG pO2 VBG HCO3 VBG O2 Saturation VBG Base Excess Barometric Pressure 733.3 Oxygen Given 4L O2 Sodium (136-145) mmol/L Potassium (3.5-5.1) mmol/L Chloride (98-107) mmol/L Carbon Dioxide (21-32) mmol/L Anion Gap (3-11) BUN (7-18) mg/dl Creatinine (0.6-1.2) mg/dl Est Cr Clr Drug Dosing ml/min Est GFR ( Amer) Est GFR (Non-Af Amer) BUN/Creatinine Ratio (10-20) Glucose (70-99) mg/dl Calcium (8.5-10.1) mg/dl Magnesium (1.8-2.4) mg/dl Total Bilirubin (0.2-1) mg/dl AST (15-37) U/L ALT (12-78) U/L Alkaline Phosphatase (45-117) U/L Troponin I (0-0.045) ng/ml Total Protein (6.4-8.2) gm/dl Albumin (3.4-5.0) gm/dl Globulin (2.5-4.0) gm/dl Albumin/Globulin Ratio (0.9-2) Urine Color Urine Appearance (Clear) Urine pH (4.5-7.5) Ur Specific [place] (1.000-1.030) Urine Protein (Negative) Urine Glucose (UA) (Negative) Urine Ketones (Negative) Urine Blood (Negative) Urine Nitrite (Negative) Urine Bilirubin (Negative) Urine Urobilinogen (Negative) Ur Leukocyte Esterase (Negative) Urine WBC (Auto) (0-5) /hpf Urine RBC (Auto) (0-4) /hpf U Hyaline Cast (Auto) (0-5) /lpf U Epithel Cells (Auto) (0-5) /lpf Urine Bacteria (Auto) (Negative) Hepatitis C Ab Screen Pos A (Neg) Blood Type Antibody Screen Crossmatch Imaging Data Radiologist's Impression: Radiology results as stated below per my review and the radiologist's interpretation: XR chest 1V portable HISTORY: 63 years-old Female Dyspnea acute shortness of breath COMPARISON: Chest radiograph 12/13/2018, chest CT 12/08/2018 TECHNIQUE: Portable AP view of the chest. FINDINGS: Cardiac silhouette is enlarged. Calcification of the thoracic aortic arch. Severe emphysema with chronic interstitial coarsening. No pneumothorax. Mild blunting of the costophrenic angles. Progressive bilateral mixed interstitial and alveolar opacities within a mid lung zone and bibasilar predominant distribution. Degenerative changes of the shoulders and spine. Remote right- sided rib fractures. IMPRESSION: 1. Cardiomegaly with bilateral mixed interstitial and alveolar opacities suggest deja of probable pulmonary edema or multifocal pneumonia. 2. Suggestion of trace pleural effusions. 3. Severe emphysema with chronic fibrotic changes. The above report was generated using voice recognition software. It may contain grammatical, syntax or spelling errors. Electronically signed by: Samson Hodges M.D. 01/26/2019 3:15 PM ECG Data Attestation: I personally reviewed and interpreted this ECG as follows: Indication: SOB/dyspnea Rate (beats per minute): 79 Rhythm: sinus rhythm Findings: + other (+low voltage noted throughout); no acute ischemic change and no ectopy Comparison ECG Date: from (12/08/18) Change: no significant change Blood Pressure Blood Pressure Findings: Elevated blood pressure Blood Pressure Disposition: elevated BP felt to be situational MDM Narrative The patient is a 63-year-old female who presented to the emergency department from [facility] for an evaluation of shortness of breath. The patient has been noticing shortness of breath with exertion as well as orthopnea. She was found to have anemia as well as renal insufficiency by outpatient laboratory studies. She was sent to the emergency department for further evaluation. I discussed the patient's laboratory and radiographic studies with her. She was treated with IV fluids as well as a dose of IV antibiotics for presumed urinary tract infection. The patient was found to have approximately 500 mL's of urine in her bladder. This was sent for culture. A Nolen catheter was placed. She was also anemic. A type and screen was sent and I consented the patient for blood if she requires transfusion. Because of her comorbidities I discussed her case with the on-call [facility] hospitalist group. They have agreed to evaluate the patient in the emergency department for further management and disposition. Impression & Plan Anemia, Acute UTI, Shortness of breath, Hypoxia, Acute kidney injury Discharge Plan Visit Data *Final* Discharge Date/Time: 01/26/19 18:33 Chief Complaint: Shortness of Breath/Dyspnea ED Provider: Jordan Cordoba Discharge Problem: Anemia, Acute UTI, Shortness of breath, Hypoxia, Acute kidney injury Patient Disposition: Admitted As Inpatient Discharge Instructions Interventions: ED Discharge Assessment Last Done: 01/26/19 18:33 Discharge Problem: Anemia Qualifiers: Anemia type: unspecified type Qualified Code(s): D64.9 - Anemia, unspecified The scribe's documentation has been prepared under my direction and personally reviewed by me in its entirety. I confirm that the note above accurately reflects all work, treatment, procedures, and medical decision making performed by me.
[2019-01-26] MEDS ORDERED: SODIUM CHLORIDE 0.9% 1000ML 1,000 ML IV SCH (17:30)
[2019-01-26] MEDS ORDERED: SODIUM CHLORIDE 0.9% 250 ML IV PRN (17:36)
--- NOTE | 2019-01-26 17:36 | History & Physical Report ---
Date of Service January 26, 2019 Assessment & Plan (1) Acute UTI: She has history of UTI in the last month UA examination shows possible infection Urine is sent for culture and she was started with intravenous ceftriaxone (2) Pneumonia: Noted to have acute hypoxemia with 68% of saturation before coming to the hospital Chest x-ray did show possible bibasilar infiltration/fluid overload Will cover with intravenous doxycycline Received a small amount of IV fluid in the ER secondary to acute on chronic kidney impairment We will continue with intravenous ceftriaxone and doxycycline for now (3) COPD exacerbation: COPD exacerbation secondary to pneumonia Continue her usual inhalers and nebulized bronchodilator Will not start any intravenous Solu-Medrol Has been on oxygen at home continuously We will titrate oxygen level to keep the saturation above 90% (4) Anemia: Has chronic anemia likely secondary to chronic kidney disease Hemoglobin is around 7 Will give 1 unit of blood transfusion (5) CKD stage 4 due to type 2 diabetes mellitus: Has CKD stage IV Creatinine today is 2.28-this is at her baseline We will advised to continue oral fluid intake No additional IV fluid We will hold Lasix for now (6) Seizure: History of seizure disorder No recent seizure Will observe Low vitamin D level with high parathormone level Continue oral vitamin D supplement History of Present Illness Chief Complaint: Weakness and shortness of breath for the last 2 to 3 days Primary Care Provider: Jaki Duartezelda She is a 63-year-old female with significant past medical history including diabetic neuropathy, chronic hypercarbic respiratory failure, chronic hyponatremia, COPD, obesity hypoventilation syndrome, ABHINAV, chronic diastolic h eart failure, hypertension, chronic kidney disease stage IV, history of seizure disorder apparently was noted to have very hypoxic at [facility] today. She has been complaining of more weakness and shortness of breath for the last 1 week or so, she feels chills but denies to have any documented temperature. She does have cough with phlegm, she also complained to have profound weakness last night while she was going to use the bathroom. She denies any chest pain and/or palpitation, no abdominal pain, nausea and/or vomiting. Denies any problem with her urine and her bowel habit. She does not have any acute weakness involving any particular side of the body. No history of recent seizure but has history of fall with minor injury. She was noted to have very hypoxic initially with 60% saturation in the ER she was saturating more than 90% on 4 L nasal cannula showed possible UTI and she was started with intravenous ceftriaxone. Her chest x-ray did show possible bibasilar infiltration/fluid overload. She was started with intravenous doxycycline and ceftriaxone and was admitted to medical floor for continuation of care. Allergies Allergy/AdvReac Type Severity Reaction Status Date / Time metformin Allergy Unknown Verified 01/26/19 15:09 Home Medications Home Medications Medication Instructions Recorded Confirmed Type Breo Ellipta 1 inh INHALATION DAILY 12/08/18 01/26/19 History Combivent Respimat 1 puff INHALATION QID 12/08/18 01/26/19 History Lantus U-100 Insulin 10 unit SUBCUT BID 12/08/18 01/26/19 History Victoza 2-Gary 1.2 mg SUBCUT DAILY 12/08/18 01/26/19 History acetaminophen 650 mg PO Q6H PRN MDD 3GM/24HR 12/08/18 01/26/19 History acetaminophen 650 mg PO Q6H PRN MDD 3GM/24HR 12/08/18 01/26/19 History albuterol sulfate 2 puff INHALATION Q4 PRN 12/08/18 01/26/19 History amlodipine 10 mg PO DAILY 12/08/18 01/26/19 History aripiprazole [Abilify] 15 mg PO DAILY 12/08/18 01/26/19 History ascorbic acid (vitamin C) [Vitamin 500 mg PO DAILY 12/08/18 01/26/19 History C] aspirin 81 mg PO DAILY 12/08/18 01/26/19 History atorvastatin [Lipitor] 40 mg PO HS 12/08/18 01/26/19 History bupropion HCl 100 mg PO DAILY 12/08/18 01/26/19 History citalopram [Celexa] 40 mg PO DAILY 12/08/18 01/26/19 History diphenhydramine HCl 25 mg PO Q6H PRN 12/08/18 01/26/19 History hydralazine 25 mg PO BID 12/08/18 01/26/19 History insulin lispro [Humalog U-100 1 sliding scale dose SUBCUT 12/08/18 01/26/19 History Insulin] USEASDIRECTD insulin lispro [Humalog U-100 3 unit SUBCUT AC 12/08/18 01/26/19 History Insulin] melatonin 3 mg PO HS 12/08/18 01/26/19 History metoprolol tartrate 50 mg PO BID 12/08/18 01/26/19 History nicotine [Nicoderm CQ] 1 patch TRANSDERMAL DAILY 12/08/18 01/26/19 History oxycodone 5 mg PO Q8 PRN 12/08/18 01/26/19 History ranitidine HCl 75 mg PO DAILY 12/08/18 01/26/19 History furosemide 20 mg PO BID #0 tab 12/16/18 01/26/19 Rx ipratropium-albuterol 3 ml INH Q6H PRN #90 ml 12/16/18 01/26/19 Rx prednisone 10 mg PO UD #18 tab 12/16/18 01/26/19 Rx Past Med/Surg History Medical History Anemia CKD stage 4 due to type 2 diabetes mellitus Hypoglycemia Metabolic encephalopathy COPD (chronic obstructive pulmonary disease) Diabetes Social History Preferred Language: Azeri Communication Ability: Unable Correspondence Representative Required: No Beliefs That Will Affect Care: None marital status: Single Current Living Situation: Senior Living Current Living Situation Comment: [facility] since 11/11/18 Other Information That Helps Us Care for You: No Feels Safe at Home: Yes Safety Concerns: Feels Safe At This Time Smoking Status: Former smoker Tobacco Type: cigarettes Do You Dip or Chew Tobacco: No Hx Alcohol Use: No Hx Substance Use: No Review of Systems Review of Systems: All systems reviewed & are unremarkable except as noted in HPI & below Physical Exam Physical Exam: Moderate shortness of breath at rest Constitutional: + acute distress (Weakness and shortness of breath) and + ill appearing Eyes: PERRL, conjunctivae normal, anicteric sclerae ENMT: external ear and nose normal, oropharynx normal Neck: trachea midline, no thyromegaly Respiratory: + respiratory distress, + labored breathing and + uses accessory muscles Auscultation: + diminished lung sounds and + crackles (At the bases) Cardiovascular: Rate/Rhythm: regular rate and regular rhythm Heart Sounds: no murmur Gastrointestinal (Abdomen): Inspection/Auscultation: abdomen normal to inspe ction and normal bowel sounds Percussion/Palpation: abdomen soft; abdomen nontender Musculoskeletal: No acute arthritis Skin: Has generalized bruising and minor injuries involving the face the left side and upper extremity Neurologic: moves all extremities; no focal motor deficits Psychiatric: A+Ox3, euthymic affect Lymphatic: no cervical or axillary lymphadenopathy Results & Data Vital Signs (Past 12 Hours) Vital Signs Temp Pulse Pulse Resp BP BP Pulse Ox 01/26/19 16:30 80 18 156/84 H 90 01/26/19 14:43 92 01/26/19 14:37 36.7 C 78 24 128/67 68 L Laboratory Results Short CBC 01/26/19 Range/Units 15:31 WBC 5.40 (4.8-10.8) K/uL Hgb 7.0 L (12.0-16.0) g/dL Hct 21.0 L (37-47) % Plt Count 138 (130-400) K/uL BMP 01/26/19 15:31 Sodium 135 L Potassium 5.1 Chloride 106 Carbon Dioxide 23 BUN 35 H Creatinine 2.28 H Glucose 114 H Calcium 7.8 L Cardiac Enzymes 01/26/19 Range/Units 15:31 Troponin I < 0.015 (0-0.045) ng/ml Liver Function 01/26/19 Range/Units 15:31 Total Bilirubin 0.4 (0.2-1) mg/dl AST 16 (15-37) U/L ALT 18 (12-78) U/L Alkaline Phosphatase 122 H (45-117) U/L Albumin 2.4 L (3.4-5.0) gm/dl Urine 01/26/19 Range/Units 15:00 Urine Color Yellow Urine Appearance Clear (Clear) Urine pH 6.5 (4.5-7.5) Ur Specific [place] 1.010 (1.000-1.030) Urine Protein 2+ H (Negative) Urine Glucose (UA) Negative (Negative) Medications Administered Current Inpatient Medications Heparin Sodium (Porcine) (Heparin Sodium (Porcine)) 5,000 units SQ Q12 LUIS MIGUEL Stop: 02/25/19 20:59 Doxycycline Hyclate 100 mg/ (Dextrose) 110 mls @ 50 mls/hr IV BID LUIS MIGUEL Stop: 02/02/19 20:59 Ceftriaxone Sodium 1,000 mg/ (Dextrose) 60 mls @ 100 mls/hr IV DAILY LUIS MIGUEL; Protocol Stop: 02/01/19 08:59 Sodium Chloride (Nss 1000ml) 1,000 mls @ 80 mls/hr IV .[id number] LUIS MIGUEL Stop: 01/27/19 18:29
[2019-01-26] MEDS ORDERED: FUROSEMIDE 20 MG in SYRINGE 0 ML IV ONE (17:41)
[2019-01-26] MEDS ORDERED: FUROSEMIDE 40 MG/4 ML VIAL IV ONE (18:25)
[2019-01-26] MEDS ORDERED: ACETAMINOPHEN 325 MG TAB PO PRN ×2 (18:59)
[2019-01-26] MEDS ORDERED: ALBUTEROL HFA 8 GM INHALER INH PRN (18:59)
[2019-01-26] MEDS ORDERED: ALBUT/IPRATROP 3MG/0.5MG NEB 3 ML VIAL INH PRN (18:59)
[2019-01-26] MEDS: CHOLECALCIFEROL 1,000 UNITS TAB PO SCH (19:25)
[2019-01-26] MEDS ORDERED: GLUCAGON FOR INJ 1 MG VIAL IM PRN (19:30)
[2019-01-26] MEDS ORDERED: GLUCOSE 10 TABS/TUBE PO PRN (19:30)
[2019-01-26] MEDS ORDERED: DEXTROSE 50% 50 ML SYRINGE IV PRN (19:30)
[2019-01-26] MEDS ORDERED: CARBOHYDRATES FOR HYPOGLYCEMIA PO PRN (19:30)
[2019-01-26] MEDS ORDERED: GLUCOSE 40% GEL 15 GM TUBE PO PRN (19:30)
[2019-01-26] MEDS ORDERED: methylPREDNISolone 125 MG/2 ML VIAL IV STA (20:39)
[2019-01-26] MEDS ORDERED: methylPREDNISolone 60 MG in SYRINGE 0 ML IV ONE (20:45)
[2019-01-26] MEDS: AMLODIPINE BESYLATE 5 MG TAB PO SCH (20:45)
[2019-01-26] MEDS: ARIPiprazole 15 MG TAB PO SCH (20:47)
[2019-01-26] MEDS: NICOTINE 21 MG/24 HR TDSY TD SCH (20:47)
[2019-01-26] MEDS: HEPARIN SOD 5,000 UNIT/0.5 ML VIAL SQ SCH (20:48)
[2019-01-26] MEDS: METOPROLOL TARTRATE 50 MG TAB PO SCH (20:49)
[2019-01-26] MEDS: ATORVASTATIN 40 MG TAB PO SCH (20:49)
[2019-01-26] MEDS: INSULIN GLARGINE SOLOSTAR 100 UNITS/ML 3 ML PEN SQ SCH (20:49)
[2019-01-26] MEDS: INSULIN ASPART 100 UNITS/ML 3 ML PEN SC SCH (20:52)
[2019-01-26] MEDS ORDERED: FUROSEMIDE 40 MG in SYRINGE 0 ML IV ONE (21:00)
[2019-01-26] MEDS ORDERED: IPRATROPIUM BROMIDE/ALBUTEROL respimat INH INH SCH (21:00)
[2019-01-26] MEDS: DOXYCYCLINE HYCLATE 100 MG in DEXTROSE 5% 100 ML IV SCH (21:32)
[2019-01-26] MEDS: VICTOZA - ORDER AWAITING ACTION SCH (23:45)
[2019-01-26] MEDS: ALBUT/IPRATROP 3MG/0.5MG NEB 3 ML VIAL NEB SCH (23:47)
[2019-01-27] MEDS ORDERED: FUROSEMIDE 20 MG in SYRINGE 0 ML IV ONE (01:45)
[2019-01-27] MEDS ORDERED: MoRPHine SULFATE 2 MG/ML CARP IV STA (02:47)
[2019-01-27 07:11] LABS: Hematocrit (blood only) 25.9 % (37-47); Hemoglobin 8.5 g/dL (12.0-16.0); Immature Granulocytes # (auto) 0.01 K/uL (0.00-0.02); Immature Granulocytes % (auto) 0.4 %; Lymphocytes % (auto) 10.9 %; Mean Corpuscular Hemoglobin 28.6 pg (25-34); Mean Corpuscular Hgb Conc 32.8 g/dL (32-36); Mean Corpuscular Volume 87.2 fL (80-100); Monocytes # (auto) 0.03 K/uL (0.11-0.59); Monocytes % (auto) 1.1 %; Neutrophils # (auto) 2.42 K/uL (1.4-6.5); Neutrophils % (auto) 87.6 %; Platelet Count 164 K/uL (130-400); Red Blood Count 2.97 M/uL (4.2-5.4); White Blood Count 2.76 K/uL (4.8-10.8)
[2019-01-27] MEDS: ALBUT/IPRATROP 3MG/0.5MG NEB 3 ML VIAL NEB SCH ×4 (07:19→19:39)
[2019-01-27 07:33] LABS: BUN Creatinine Ratio 16.1 (10-20); Calcium 8.4 mg/dl (8.5-10.1); Creatinine Clr Calc Pharmacy 25.3 ml/min; Est GFR (African American) 24.8; Est GFR (Non-African American) 21.4; Magnesium 1.9 mg/dl (1.8-2.4); Potassium 5.6 mmol/L (3.5-5.1)
[2019-01-27 07:35] LABS: Phosphorus 4.9 mg/dl (2.5-4.9)
[2019-01-27] MEDS ORDERED: SODIUM POLYSTYRENE SULFONATE 15G/60ML SUSP PO STA (07:58)
[2019-01-27] MEDS: INSULIN ASPART 100 UNITS/ML 3 ML PEN SC SCH ×4 (08:27→20:31)
[2019-01-27] MEDS: INSULIN GLARGINE SOLOSTAR 100 UNITS/ML 3 ML PEN SQ SCH ×2 (08:27→20:30)
[2019-01-27] MEDS: HEPARIN SOD 5,000 UNIT/0.5 ML VIAL SQ SCH ×2 (08:28→20:30)
[2019-01-27] MEDS: OXYCODONE HCL IR 5 MG TAB (IMMEDIATE RELEASE) PO PRN (08:34)
[2019-01-27] MEDS: VICTOZA - ORDER AWAITING ACTION SCH ×3 (08:35→23:51)
[2019-01-27] MEDS: ARIPiprazole 15 MG TAB PO SCH (08:35)
[2019-01-27] MEDS: CITALOPRAM 40 MG TAB PO SCH (08:36)
[2019-01-27] MEDS: NICOTINE 21 MG/24 HR TDSY TD SCH (08:37)
[2019-01-27] MEDS: METOPROLOL TARTRATE 50 MG TAB PO SCH ×2 (08:37→20:19)
[2019-01-27] MEDS: ASPIRIN 81 MG ECTAB PO SCH (08:37)
[2019-01-27] MEDS: AMLODIPINE BESYLATE 5 MG TAB PO SCH (08:38)
[2019-01-27] MEDS: ASCORBIC ACID 500 MG TAB PO SCH (08:38)
[2019-01-27] MEDS: CHOLECALCIFEROL 1,000 UNITS TAB PO SCH (08:39)
[2019-01-27] MEDS: BuPROPion SR 100 MG TABCR PO SCH (08:39)
[2019-01-27] MEDS: cefTRIAXone SODIUM 1,000 MG in DEXTROSE 5% 50 ML IV SCH (08:40)
[2019-01-27] MEDS: DOXYCYCLINE HYCLATE 100 MG in DEXTROSE 5% 100 ML IV SCH ×2 (10:48→20:24)
[2019-01-27] MEDS: BUDESONIDE/FORMOTEROL FUMARATE 160/4.5 60 PUFFS/INHALER INH SCH ×2 (13:31→20:17)
[2019-01-27] MEDS: methylPREDNISolone 40 MG in SYRINGE 0 ML IV SCH ×2 (13:32→20:16)
--- NOTE | 2019-01-27 15:42 | Hospitalist Progress Note ---
Date of Service January 27, 2019 Assessment & Plan (1) Acute UTI: She has history of UTI in the last month UA examination shows possible infection Urine is sent for culture and she was started with intravenous ceftriaxone Urine culture is growing gram-negative bacilli-sensitivity pending Clinically stable and will continue current intravenous antibiotic (2) Pneumonia: Noted to have acute hypoxemia with 68% of saturation before coming to the hospital Chest x-ray did show possible bibasilar infiltration/fluid overload Will cover with intravenous doxycycline Received a small amount of IV fluid in the ER secondary to acute on chronic kidney impairment We will continue with intravenous ceftriaxone and doxycycline for now Blood culture have been negative We will change doxycycline to oral (3) COPD exacerbation: COPD exacerbation secondary to pneumonia Continue her usual inhalers and nebulized bronchodilator Will not start any intravenous Solu-Medrol Has been on oxygen at home continuously We will titrate oxygen level to keep the saturation above 90% Likely to need Solu-Medrol and nebulized bronchodilator Symbicort added (4) Anemia: Has chronic anemia likely secondary to chronic kidney disease Hemoglobin is around 7 Will give 1 unit of blood transfusion Hemoglobin weight went up to 8.5 today (5) CKD stage 4 due to type 2 diabetes mellitus: Has CKD stage IV Creatinine today is 2.28-this is at her baseline We will advised to continue oral fluid intake No additional IV fluid We will hold Lasix for now Function has improved-advised to drink more orally (6) Seizure: History of seizure disorder No recent seizure Will observe Low vitamin D level with high parathormone level Continue oral vitamin D supplement Subjective 01/27 The patient was seen and examined in medical telemetry unit She has been feeling a lot better since admission Still has some shortness of breath, denies any chest pain and/or palpitation No fever and/or chills Review of Systems Review of Systems: All systems reviewed and are unremarkable except as noted below Constitutional: + fatigue and + weakness; no fever and no chills Respiratory: + cough and + dyspnea (Minimal shortness of breath at rest) Neurologic: + generalized weakness Physical Exam Physical Exam: Minimal distress at rest due to shortness of breath Constitutional: + acute distress (Weakness and shortness of breath) and + ill appearing Eyes: PERRL, conjunctivae normal, anicteric sclerae ENMT: external ear and nose normal, oropharynx normal Neck: trachea midline, no thyromegaly Respiratory: + respiratory distress, + labored breathing and + uses accessory muscles Auscultation: + diminished lung sounds, + crackles (At the bases) and + wheezes (Minimal wheezing bilaterally) Cardiovascular: Rate/Rhythm: regular rate and regular rhythm Heart Sounds: no murmur Gastrointestinal (Abdomen): Inspection/Auscultation: abdomen normal to inspection and normal bowel sounds Percussion/Palpation: abdomen soft; abdomen nontender Musculoskeletal: No acute arthritis involving any of the joints Neurologic: moves all extremities; no focal motor deficits Psychiatric: A+Ox3, euthymic affect Lymphatic: no cervical or axillary lymphadenopathy Results & Data Vital Signs (Past 12 Hours) Vital Signs Temp Pulse Pulse Resp BP Pulse Ox 01/27/19 15:12 90 16 94 01/27/19 14:00 37.3 C 95 H 20 156/74 H 90 01/27/19 11:42 101 H 01/27/19 11:18 93 H 22 89 L 01/27/19 07:19 91 H 18 92 01/27/19 07:00 36.8 C 89 20 149/83 H 92 Laboratory Results Short CBC 01/26/19 01/27/19 Range/Units 15:31 06:44 WBC 5.40 2.76 L (4.8-10.8) K/uL Hgb 7.0 L 8.5 L (12.0-16.0) g/dL Hct 21.0 L 25.9 L (37-47) % Plt Count 138 164 (130-400) K/uL BMP 01/26/19 01/27/19 15:31 06:44 Sodium 135 L 135 L Potassium 5.1 5.6 H Chloride 106 105 Carbon Dioxide 23 21 BUN 35 H 38 H Creatinine 2.28 H 2.36 H Glucose 114 H 188 H Calcium 7.8 L 8.4 L Cardiac Enzymes 01/26/19 Range/Units 15:31 Troponin I < 0.015 (0-0.045) ng/ml Liver Function 01/26/19 Range/Units 15:31 Total Bilirubin 0.4 (0.2-1) mg/dl AST 16 (15-37) U/L ALT 18 (12-78) U/L Alkaline Phosphatase 122 H (45-117) U/L Albumin 2.4 L (3.4-5.0) gm/dl Medications Administered Current Inpatient Medications Acetaminophen (Tylenol) 650 mg PO Q6H PRN PRN Reason: MILD PAIN 1-3 Stop: 02/25/19 18:58 Acetaminophen (Tylenol) 650 mg PO Q6H PRN PRN Reason: TEMP>101 Stop: 02/25/19 18:58 Albuterol (Combivent Respimat) 1 puffs INH QID LUIS MIGUEL Stop: 02/25/19 20:59 Last Admin: 01/26/19 20:09 Dose: 1 puffs Documented by: Albuterol (Ventolin Hfa) 2 puffs INH Q4 PRN PRN Reason: Shortness Of Breath Or Wheezing Stop: 02/25/19 18:58 Albuterol (Duoneb) 3 ml INH Q6H PRN PRN Reason: wheezing Stop: 02/25/19 18:58 Last Admin: 01/26/19 19:28 Dose: 3 ml Documented by: Albuterol (Duoneb) 3 ml NEB QIDR LUIS MIGUEL Stop: 02/26/19 07:59 Last Admin: 01/27/19 15:12 Dose: 3 ml Documented by: Amlodipine Besylate (Norvasc) 10 mg PO DAILY [facility] Stop: 02/25/19 18:58 Last Admin: 01/27/19 08:38 Dose: 10 mg Documented by: Aripiprazole (Abilify) 15 mg PO DAILY [facility] Stop: 02/25/19 18:58 Last Admin: 01/27/19 08:35 Dose: 15 mg Documented by: Ascorbic Acid (Vitamin C) 500 mg PO DAILY [facility] Stop: 02/26/19 08:59 Last Admin: 01/27/19 08:38 Dose: 500 mg Documented by: Aspirin (Ecotrin Ectab) 81 mg PO DAILY [facility] Stop: 02/26/19 08:59 Last Admin: 01/27/19 08:37 Dose: 81 mg Documented by: Atorvastatin Calcium (Lipitor) 40 mg PO HS [facility] Stop: 02/25/19 20:59 Last Admin: 01/26/19 20:49 Dose: 40 mg Documented by: Budesonide/Formoterol Fumarate (Symbicort 160mcg/4.5mcg) 2 puffs INH BID [facility] Stop: 02/26/19 12:14 Last Admin: 01/27/19 13:31 Dose: 2 puffs Documented by: Bupropion HCl (Wellbutrin-Sr) 100 mg PO DAILY LUIS MIGUEL Stop: 02/26/19 08:59 Last Admin: 01/27/19 08:39 Dose: 100 mg Documented by: Citalopram Hydrobromide (Celexa) 40 mg PO DAILY [facility]IS MIGUEL Stop: 02/26/19 08:59 Last Admin: 01/27/19 08:36 Dose: 40 mg Documented by: Dextrose (Dextrose 50%) 25 - 50 ml IV UD PRN; Protocol PRN Reason: Hypoglycemia Protocol Stop: 02/25/19 19:29 Diphenhydramine HCl (Benadryl Capsule) 25 mg PO Q6H PRN PRN Reason: SEASONAL ALLERGIES Stop: 02/25/19 18:58 Last Admin: 01/27/19 04:48 Dose: 25 mg Documented by: Glucagon (Glucagen) 1 mg IM UD PRN; Protocol PRN Reason: Hypoglycemia Protocol Stop: 02/25/19 19:29 Glucose (Glucose 40%) 15 - 30 gm PO UD PRN; Protocol PRN Reason: Hypoglycemia Protocol Stop: 02/25/19 19:29 Glucose (Dex4 Glucose) 4 - 8 tabs PO UD PRN; Protocol PRN Reason: Hypoglycemia Protocol Stop: 02/25/19 19:29 Heparin Sodium (Porcine) (Heparin Sodium (Porcine)) 5,000 units SQ Q12 [facility]IS MIGUEL Stop: 02/25/19 20:59 Last Admin: 01/27/19 08:28 Dose: Not Given Documented by: Hydralazine HCl (Apresoline) 25 mg PO BID [facility]IS MIGUEL Stop: 02/25/19 20:59 Last Admin: 01/27/19 08:36 Dose: 25 mg Documented by: Doxycycline Hyclate 100 mg/ (Dextrose) 110 mls @ 50 mls/hr IV BID [facility] MIGUEL Stop: 02/02/19 20:59 Last Infusion: 01/27/19 13:00 Dose: Infused Documented by: Ceftriaxone Sodium 1,000 mg/ (Dextrose) 60 mls @ 100 mls/hr IV DAILY [facility]; Protocol Stop: 02/01/19 08:59 Last Infusion: 01/27/19 09:30 Dose: Infused Documented by: Sodium Chloride (Nss) 250 mls @ 15 mls/hr IV .[id number] PRN PRN Reason: For Transfusion Stop: 02/25/19 17:35 Methylprednisolone 40 mg/ (Syringe) 0.64 mls @ 1.5 mls/min IV Q8H [facility] Stop: 02/26/19 11:59 Last Admin: 01/27/19 13:32 Dose: 1.5 mls/min Documented by: Insulin Aspart (Novolog Flexpen) 0 units SC ACHS [facility] Stop: 02/25/19 20:59 Last Admin: 01/27/19 13:31 Dose: 8 units Documented by: Insulin Glargine (Lantus Solostar Pen) 10 units SQ BID [facility] MIGUEL Stop: 02/25/19 20:59 Last Admin: 01/27/19 08:27 Dose: 10 units Documented by: Metoprolol Tartrate (Lopressor) 50 mg PO BID [facility] Stop: 02/25/19 20:59 Last Admin: 01/27/19 08:37 Dose: 50 mg Documented by: Miscellaneous (Order Awaiting Action) 1 ea N/A QS [facility] Stop: 02/26/19 00:00 Last Admin: 01/27/19 08:35 Dose: Not Given Documented by: Miscellaneous (Order Awaiting Action) 1 ea N/A QS [facility] Stop: 02/26/19 00:00 Last Admin: 01/27/19 08:35 Dose: Not Given Documented by: Miscellaneous (Remove Nicoderm Patch) 1 ea N/A HS [facility] Stop: 02/26/19 20:59 Miscellaneous (Carbohydrates For Hypoglycemia) 15 - 30 gm PO UD PRN PRN Reason: Hypoglycemia Treatment Stop: 02/25/19 19:29 Nicotine (Nicoderm Cq) 21 mg TD DAILY [facility] Stop: 02/25/19 18:58 Last Admin: 01/27/19 08:37 Dose: Not Given Documented by: Oxycodone HCl (Roxicodone Immediate Rel) 5 mg PO Q8 PRN PRN Reason: PAIN LEVEL 4-10 Stop: 02/25/19 18:58 Last Admin: 01/27/19 08:34 Dose: 5 mg Documented by: Ranitidine HCl (Zantac) 75 mg PO DAILY [facility] Stop: 02/25/19 18:58 Last Admin: 01/27/19 08:39 Dose: 75 mg Documented by: Vitamin D (Vitamin D3) 1,000 units PO QAM [facility] Stop: 02/25/19 17:44 Last Admin: 01/27/19 08:39 Dose: 1,000 units Documented by:
[2019-01-27] MEDS: ATORVASTATIN 40 MG TAB PO SCH (20:16)
[2019-01-28] MEDS: methylPREDNISolone 40 MG in SYRINGE 0 ML IV SCH ×3 (04:07→20:14)
[2019-01-28] MEDS: ALBUT/IPRATROP 3MG/0.5MG NEB 3 ML VIAL NEB SCH ×4 (07:00→19:35)
[2019-01-28 07:14] LABS: Calcium 7.9 mg/dl (8.5-10.1); Creatinine Clr Calc Pharmacy 23.5 ml/min; Est GFR (African American) 22.7; Est GFR (Non-African American) 19.5
[2019-01-28] MEDS: CHOLECALCIFEROL 1,000 UNITS TAB PO SCH (08:01)
[2019-01-28] MEDS: VICTOZA - ORDER AWAITING ACTION SCH ×2 (08:01→16:03)
[2019-01-28] MEDS: BuPROPion SR 100 MG TABCR PO SCH (08:01)
[2019-01-28] MEDS: METOPROLOL TARTRATE 50 MG TAB PO SCH ×2 (08:02→20:15)
[2019-01-28] MEDS: ASPIRIN 81 MG ECTAB PO SCH (08:03)
[2019-01-28] MEDS: CITALOPRAM 40 MG TAB PO SCH (08:03)
[2019-01-28] MEDS: ASCORBIC ACID 500 MG TAB PO SCH (08:03)
[2019-01-28] MEDS: AMLODIPINE BESYLATE 5 MG TAB PO SCH (08:03)
[2019-01-28] MEDS: cefTRIAXone SODIUM 1,000 MG in DEXTROSE 5% 50 ML IV SCH (08:04)
[2019-01-28] MEDS: NICOTINE 21 MG/24 HR TDSY TD SCH (08:04)
[2019-01-28] MEDS: ARIPiprazole 15 MG TAB PO SCH (08:04)
[2019-01-28] MEDS: BUDESONIDE/FORMOTEROL FUMARATE 160/4.5 60 PUFFS/INHALER INH SCH ×2 (08:05→20:18)
[2019-01-28] MEDS: HEPARIN SOD 5,000 UNIT/0.5 ML VIAL SQ SCH ×2 (08:07→20:19)
[2019-01-28] MEDS: INSULIN GLARGINE SOLOSTAR 100 UNITS/ML 3 ML PEN SQ SCH ×2 (08:08→20:19)
[2019-01-28] MEDS: INSULIN ASPART 100 UNITS/ML 3 ML PEN SC SCH ×4 (08:11→20:20)
[2019-01-28 08:42] LABS: Anisocytosis Present; Hematocrit (blood only) 26.1 % (37-47); Hemoglobin 8.6 g/dL (12.0-16.0); Immature Granulocytes # (auto) 0.01 K/uL (0.00-0.02); Immature Granulocytes % (auto) 0.2 %; Lymphocytes # (auto) 0.41 K/uL (1.2-3.4); Lymphocytes % (auto) 9.6 %; Mean Corpuscular Hemoglobin 28.9 pg (25-34); Mean Corpuscular Volume 87.6 fL (80-100); Mean Platelet Volume 8.4 fL (7.4-10.4); Monocytes % (auto) 2.3 %; Neutrophils # (auto) 3.76 K/uL (1.4-6.5); Neutrophils % (auto) 87.9 %; Platelet Count 187 K/uL (130-400); Poikilocytosis Present; RDW Coefficient of Variation 14.9 % (11.5-14.5); RDW Standard Deviation 46.5 fL (36.4-46.3); Red Blood Count 2.98 M/uL (4.2-5.4); White Blood Count 4.28 K/uL (4.8-10.8)
[2019-01-28] MEDS: DOXYCYCLINE HYCLATE 100 MG in DEXTROSE 5% 100 ML IV SCH ×2 (08:46→21:30)
--- NOTE | 2019-01-28 15:08 | Hospitalist Progress Note ---
Date of Service January 28, 2019 Assessment & Plan (1) Acute UTI: She has history of UTI in the last month UA examination shows possible infection Urine is sent for culture and she was started with intravenous ceftriaxone Urine culture is growing gram-negative bacilli-sensitive to most of the a ntibiotics except quinolones Clinically stable and will continue current intravenous antibiotic Continue with IV ceftriaxone for now Diabetes Blood sugar has been running high secondary to use of steroid We will cover with sliding scale insulin while in the hospital (2) Pneumonia: Noted to have acute hypoxemia with 68% of saturation before coming to the hospital Chest x-ray did show possible bibasilar infiltration/fluid overload Will cover with intravenous doxycycline Received a small amount of IV fluid in the ER secondary to acute on chronic kidney impairment We will continue with intravenous ceftriaxone and doxycycline for now Blood culture have been negative We will change doxycycline to oral Clinical (3) COPD exacerbation: COPD exacerbation secondary to pneumonia Continue her usual inhalers and nebulized bronchodilator Will not start any intravenous Solu-Medrol Has been on oxygen at home continuously We will titrate oxygen level to keep the saturation above 90% Likely to need Solu-Medrol and nebulized bronchodilator Symbicort added Clinically improved (4) Anemia: Has chronic anemia likely secondary to chronic kidney disease Hemoglobin is around 7 Will give 1 unit of blood transfusion Hemoglobin weight went up to 8.5 today (5) CKD stage 4 due to type 2 diabetes mellitus: Has CKD stage IV Creatinine today is 2.28-this is at her baseline We will advised to continue oral fluid intake No additional IV fluid We will hold Lasix for now Function has improved-advised to drink more orally Creatinine has been improving (6) Seizure: History of seizure disorder No recent seizure Will observe Low vitamin D level with high parathormone level Continue oral vitamin D supplement Subjective 01/27 The patient was seen and examined in medical telemetry unit She has been feeling a lot better since admission Still has some shortness of breath, denies any chest pain and/or palpitation No fever and/or chills 01/28 The patient was seen and examined in medical telemetry unit She feels a lot better today Her blood sugar noted to be high likely secondary to use of Solu-Medrol We will get PT and OT evaluation Review of Systems Review of Systems: All systems reviewed and are unremarkable except as noted below Constitutional: + fatigue and + weakness; no fever and no chills Respiratory: + cough and + dyspnea (Minimal shortness of breath at rest) Neurologic: + generalized weakness Physical Exam Physical Exam: No apparent distress at rest Constitutional: + ill appearing; no acute distress Eyes: PERRL, conjunctivae normal, anicteric sclerae ENMT: external ear and nose normal, oropharynx normal Neck: trachea midline, no thyromegaly Respiratory: + respiratory distress, + labored breathing and + uses accessory muscles Auscultation: + diminished lung sounds, + crackles (At the bases) and + wheezes (Minimal wheezing bilaterally) Cardiovascular: Rate/Rhythm: regular rate and regular rhythm Heart Sounds: no murmur Gastrointestinal (Abdomen): Inspection/Auscultation: abdomen normal to inspection and normal bowel sounds Percussion/Palpation: abdomen soft; abdomen nontender Musculoskeletal: No acute arthritis in any joints Neurologic: moves all extremities; no focal motor deficits Psychiatric: A+Ox3, euthymic affect Lymphatic: no cervical or axillary lymphadenopathy Results & Data Vital Signs (Past 12 Hours) Vital Signs Temp Pulse Resp BP Pulse Ox 01/28/19 11:03 82 18 98 01/28/19 07:00 36.7 C 89 21 139/63 93
[2019-01-28] MEDS: OXYCODONE HCL IR 5 MG TAB (IMMEDIATE RELEASE) PO PRN (16:02)
[2019-01-28] MEDS: ATORVASTATIN 40 MG TAB PO SCH (20:14)
[2019-01-29] MEDS: VICTOZA - ORDER AWAITING ACTION SCH ×4 (00:45→23:48)
[2019-01-29 01:17] LABS: Hemoglobin 8.2 g/dL (12.0-16.0); Immature Granulocytes # (auto) 0.01 K/uL (0.00-0.02); Immature Granulocytes % (auto) 0.2 %; Lymphocytes # (auto) 0.27 K/uL (1.2-3.4); Lymphocytes % (auto) 5.4 %; Mean Corpuscular Hemoglobin 28.9 pg (25-34); Mean Corpuscular Hgb Conc 32.8 g/dL (32-36); Mean Platelet Volume 8.2 fL (7.4-10.4); Monocytes # (auto) 0.17 K/uL (0.11-0.59); Monocytes % (auto) 3.4 %; Neutrophils # (auto) 4.51 K/uL (1.4-6.5); Platelet Count 174 K/uL (130-400); RDW Coefficient of Variation 15.3 % (11.5-14.5); RDW Standard Deviation 48.3 fL (36.4-46.3); Red Blood Count 2.84 M/uL (4.2-5.4); White Blood Count 4.96 K/uL (4.8-10.8)
[2019-01-29 01:46] LABS: Calcium 7.7 mg/dl (8.5-10.1); Creatinine Clr Calc Pharmacy 20.8 ml/min; Est GFR (African American) 19.5; Est GFR (Non-African American) 16.9
[2019-01-29] MEDS ORDERED: INSULIN HUMAN REGULAR PER UNIT 5 UNITS in SYRINGE 4.95 ML IV ONE (01:52)
[2019-01-29 02:00] LABS: Beta-Hydroxybutyrate 3.09 mg/dl (0.2-2.81)
[2019-01-29] MEDS: methylPREDNISolone 40 MG in SYRINGE 0 ML IV SCH (03:54)
[2019-01-29] MEDS: ALBUT/IPRATROP 3MG/0.5MG NEB 3 ML VIAL NEB SCH ×4 (07:14→19:06)
[2019-01-29] MEDS: INSULIN ASPART 100 UNITS/ML 3 ML PEN SC SCH ×4 (08:32→21:01)
[2019-01-29] MEDS: ARIPiprazole 15 MG TAB PO SCH (08:33)
[2019-01-29] MEDS: ASPIRIN 81 MG ECTAB PO SCH (08:37)
[2019-01-29] MEDS: CITALOPRAM 40 MG TAB PO SCH (08:37)
[2019-01-29] MEDS: INSULIN GLARGINE SOLOSTAR 100 UNITS/ML 3 ML PEN SQ SCH ×2 (08:38→21:02)
[2019-01-29] MEDS: HEPARIN SOD 5,000 UNIT/0.5 ML VIAL SQ SCH ×2 (08:38→19:59)
[2019-01-29] MEDS: cefUROXime axetil 250 MG TABLET PO SCH (09:22)
[2019-01-29] MEDS: METOPROLOL TARTRATE 50 MG TAB PO SCH ×2 (09:23→19:58)
[2019-01-29] MEDS: NICOTINE 21 MG/24 HR TDSY TD SCH (09:24)
[2019-01-29] MEDS: AMLODIPINE BESYLATE 5 MG TAB PO SCH (09:25)
[2019-01-29] MEDS: BUDESONIDE/FORMOTEROL FUMARATE 160/4.5 60 PUFFS/INHALER INH SCH ×2 (09:25→19:59)
[2019-01-29] MEDS: DOXYCYCLINE HYCLATE 100 MG CAP PO SCH ×2 (09:26→19:59)
[2019-01-29] MEDS: ASCORBIC ACID 500 MG TAB PO SCH (09:26)
[2019-01-29] MEDS: BuPROPion SR 100 MG TABCR PO SCH (09:27)
[2019-01-29] MEDS: CHOLECALCIFEROL 1,000 UNITS TAB PO SCH (09:27)
--- NOTE | 2019-01-29 12:46 | Hospitalist Progress Note ---
Date of Service January 29, 2019 Assessment & Plan (1) Acute UTI: She has history of UTI in the last month UA examination shows possible infection Urine is sent for culture and she was started with intravenous ceftriaxone Urine culture is growing gram-negative bacilli-sensitive to most of the a ntibiotics except quinolones Clinically stable and will continue current intravenous antibiotic Continue with IV ceftriaxone for now Antibiotic has changed to oral Ceftin Diabetes Blood sugar has been running high secondary to use of steroid We will cover with sliding scale insulin while in the hospital We will change IV Solu-Medrol to oral prednisone from tomorrow (2) Pneumonia: Noted to have acute hypoxemia with 68% of saturation before coming to the hospital Chest x-ray did show possible bibasilar infiltration/fluid overload Will cover with intravenous doxycycline Received a small amount of IV fluid in the ER secondary to acute on chronic kidney impairment We will continue with intravenous ceftriaxone and doxycycline for now Blood culture have been negative We will change doxycycline to oral Clinically a lot better (3) COPD exacerbation: COPD exacerbation secondary to pneumonia Continue her usual inhalers and nebulized bronchodilator Will not start any intravenous Solu-Medrol Has been on oxygen at home continuously We will titrate oxygen level to keep the saturation above 90% Likely to need Solu-Medrol and nebulized bronchodilator Symbicort added We will give short course of oral prednisone (4) Anemia: Has chronic anemia likely secondary to chronic kidney disease Hemoglobin is around 7 Will give 1 unit of blood transfusion Hemoglobin remains stable (5) CKD stage 4 due to type 2 diabetes mellitus: Has CKD stage IV Creatinine today is 2.28-this is at her baseline We will advised to continue oral fluid intake No additional IV fluid We will hold Lasix for now Function has improved-advised to drink more orally Creatinine has been improving (6) Seizure: History of seizure disorder No recent seizure Will observe Low vitamin D level with high parathormone level Continue oral vitamin D supplement PT and OT evaluation Possible discharge on Thursday Subjective 01/27 The patient was seen and examined in medical telemetry unit She has been feeling a lot better since admission Still has some shortness of breath, denies any chest pain and/or palpitation No fever and/or chills 01/28 The patient was seen and examined in medical telemetry unit She feels a lot better today Her blood sugar noted to be high likely secondary to use of Solu-Medrol We will get PT and OT evaluation 01/29 The patient was seen and examined in medical telemetry unit She has been feeling a lot better Waiting for physical therapy evaluation Denies any significant symptoms Review of Systems Review of Systems: All systems reviewed and are unremarkable except as noted below Constitutional: + fatigue and + weakness; no fever and no chills Respiratory: + cough and + dyspnea (Minimal shortness of breath at rest) Neurologic: + generalized weakness Physical Exam Physical Exam: No apparent distress at rest Constitutional: no acute distress Eyes: PERRL, conjunctivae normal, anicteric sclerae ENMT: external ear and nose normal, oropharynx normal Neck: trachea midline, no thyromegaly Respiratory: + respiratory distress (Minimal distress at rest) and + uses accessory muscles Auscultation: + diminished lung sounds, + crackles (At the bases) and + wheezes (Minimal wheezing bilaterally) Cardiovascular: Rate/Rhythm: regular rate and regular rhythm Heart Sounds: no murmur Gastrointestinal (Abdomen): Inspection/Auscultation: abdomen normal to inspection and normal bowel sounds Percussion/Palpation: abdomen soft; abdomen nontender Musculoskeletal: No acute arthritis in any of the joint Neurologic: moves all extremities; no focal motor deficits Psychiatric: A+Ox3, euthymic affect Lymphatic: no cervical or axillary lymphadenopathy Results & Data Vital Signs (Past 12 Hours) Vital Signs Temp Pulse Resp BP Pulse Ox 01/29/19 11:22 82 16 95 01/29/19 07:15 72 16 94 01/29/19 07:06 36.7 C 92 H 20 149/65 H 91 Laboratory Results Short CBC 01/29/19 Range/Units 01:04 WBC 4.96 (4.8-10.8) K/uL Hgb 8.2 L (12.0-16.0) g/dL Hct 25.0 L (37-47) % Plt Count 174 (130-400) K/uL BMP 01/29/19 01:04 Sodium 136 Potassium 4.0 D Chloride 105 Carbon Dioxide 22 BUN 63 H Creatinine 2.87 H D Glucose 319 H* Calcium 7.7 L Medications Administered Current Inpatient Medications Acetaminophen (Tylenol) 650 mg PO Q6H PRN PRN Reason: MILD PAIN 1-3 Stop: 02/25/19 18:58 Acetaminophen (Tylenol) 650 mg PO Q6H PRN PRN Reason: TEMP>101 Stop: 02/25/19 18:58 Last Admin: 01/28/19 19:33 Dose: 650 mg Documented by: Albuterol (Combivent Respimat) 1 puffs INH QID [facility] Stop: 02/25/19 20:59 Last Admin: 01/26/19 20:09 Dose: 1 puffs Documented by: Albuterol (Ventolin Hfa) 2 puffs INH Q4 PRN PRN Reason: Shortness Of Breath Or Wheezing Stop: 02/25/19 18:58 Albuterol (Duoneb) 3 ml INH Q6H PRN PRN Reason: wheezing Stop: 02/25/19 18:58 Last Admin: 01/26/19 19:28 Dose: 3 ml Documented by: Albuterol (Duoneb) 3 ml NEB QIDR [facility] Stop: 02/26/19 07:59 Last Admin: 01/29/19 11:20 Dose: 3 ml Documented by: Amlodipine Besylate (Norvasc) 10 mg PO DAILY [facility] Stop: 02/25/19 18:58 Last Admin: 01/29/19 09:25 Dose: 10 mg Documented by: Aripiprazole (Abilify) 15 mg PO DAILY [facility] Stop: 02/25/19 18:58 Last Admin: 01/29/19 08:33 Dose: 15 mg Documented by: Ascorbic Acid (Vitamin C) 500 mg PO DAILY [facility] Stop: 02/26/19 08:59 Last Admin: 01/29/19 09:26 Dose: 500 mg Documented by: Aspirin (Ecotrin Ectab) 81 mg PO DAILY [facility] Stop: 02/26/19 08:59 Last Admin: 01/29/19 08:37 Dose: 81 mg Documented by: Atorvastatin Calcium (Lipitor) 40 mg PO HS [facility] Stop: 02/25/19 20:59 Last Admin: 01/28/19 20:14 Dose: 40 mg Documented by: Budesonide/Formoterol Fumarate (Symbicort 160mcg/4.5mcg) 2 puffs INH BID [facility] Stop: 02/26/19 12:14 Last Admin: 01/29/19 09:25 Dose: 2 puffs Documented by: Bupropion HCl (Wellbutrin-Sr) 100 mg PO DAILY [facility] Stop: 02/26/19 08:59 Last Admin: 01/29/19 09:27 Dose: 100 mg Documented by: Cefuroxime Axetil (Ceftin) 250 mg PO QAM [facility]; Protocol Stop: 02/03/19 08:59 Last Admin: 01/29/19 09:22 Dose: 250 mg Documented by: Citalopram Hydrobromide (Celexa) 40 mg PO DAILY [facility] Stop: 02/26/19 08:59 Last Admin: 01/29/19 08:37 Dose: 40 mg Documented by: Dextrose (Dextrose 50%) 25 - 50 ml IV UD PRN; Protocol PRN Reason: Hypoglycemia Protocol Stop: 02/25/19 19:29 Diphenhydramine HCl (Benadryl Capsule) 25 mg PO Q6H PRN PRN Reason: SEASONAL ALLERGIES Stop: 02/25/19 18:58 Last Admin: 01/27/19 04:48 Dose: 25 mg Documented by: Doxycycline Hyclate (Vibramycin) 100 mg PO BID [facility] Stop: 02/05/19 08:59 Last Admin: 01/29/19 09:26 Dose: 100 mg Documented by: Glucagon (Glucagen) 1 mg IM UD PRN; Protocol PRN Reason: Hypoglycemia Protocol Stop: 02/25/19 19:29 Glucose (Glucose 40%) 15 - 30 gm PO UD PRN; Protocol PRN Reason: Hypoglycemia Protocol Stop: 02/25/19 19:29 Glucose (Dex4 Glucose) 4 - 8 tabs PO UD PRN; Protocol PRN Reason: Hypoglycemia Protocol Stop: 02/25/19 19:29 Heparin Sodium (Porcine) (Heparin Sodium (Porcine)) 5,000 units SQ Q12 [facility] Stop: 02/25/19 20:59 Last Admin: 01/29/19 08:38 Dose: 5,000 units Documented by: Hydralazine HCl (Apresoline) 25 mg PO BID [facility] Stop: 02/25/19 20:59 Last Admin: 01/29/19 08:34 Dose: 25 mg Documented by: Sodium Chloride (Nss) 250 mls @ 15 mls/hr IV .[id number] PRN PRN Reason: For Transfusion Stop: 02/25/19 17:35 Methylprednisolone 40 mg/ (Syringe) 0.64 mls @ 1.5 mls/min IV Q12H [facility] Stop: 02/28/19 15:59 Insulin Aspart (Novolog Flexpen) 0 units SC ACHS [facility] Stop: 02/25/19 20:59 Last Admin: 01/29/19 08:32 Dose: 12 units Documented by: Insulin Glargine (Lantus Solostar Pen) 15 units SQ BID [facility] Stop: 02/27/19 20:59 Last Admin: 01/29/19 08:38 Dose: 15 units Documented by: Metoprolol Tartrate (Lopressor) 50 mg PO BID [facility] Stop: 02/25/19 20:59 Last Admin: 01/29/19 09:23 Dose: 50 mg Documented by: Miscellaneous (Order Awaiting Action) 1 ea N/A QS [facility] Stop: 02/26/19 00:00 Last Admin: 01/29/19 08:33 Dose: Not Given Documented by: Miscellaneous (Order Awaiting Action) 1 ea N/A QS [facility] Stop: 02/26/19 00:00 Last Admin: 01/29/19 08:33 Dose: Not Given Documented by: Miscellaneous (Remove Nicoderm Patch) 1 ea N/A HS [facility] Stop: 02/26/19 20:59 Last Admin: 01/28/19 20:17 Dose: Not Given Documented by: Miscellaneous (Carbohydrates For Hypoglycemia) 15 - 30 gm PO UD PRN PRN Reason: Hypoglycemia Treatment Stop: 02/25/19 19:29 Nicotine (Nicoderm Cq) 21 mg TD DAILY [facility] Stop: 02/25/19 18:58 Last Admin: 01/29/19 09:24 Dose: 21 mg Documented by: Oxycodone HCl (Roxicodone Immediate Rel) 5 mg PO Q8 PRN PRN Reason: PAIN LEVEL 4-10 Stop: 02/25/19 18:58 Last Admin: 01/28/19 16:02 Dose: 5 mg Documented by: Ranitidine HCl (Zantac) 75 mg PO DAILY [facility] Stop: 02/25/19 18:58 Last Admin: 01/29/19 09:27 Dose: 75 mg Documented by: Vitamin D (Vitamin D3) 1,000 units PO QAM [facility] Stop: 02/25/19 17:44 Last Admin: 01/29/19 09:27 Dose: 1,000 units Documented by:
[2019-01-29] MEDS ORDERED: methylPREDNISolone 40 MG in SYRINGE 0 ML IV SCH (16:00)
[2019-01-29] MEDS: OXYCODONE HCL IR 5 MG TAB (IMMEDIATE RELEASE) PO PRN (19:56)
[2019-01-29] MEDS: ATORVASTATIN 40 MG TAB PO SCH (19:57)
[2019-01-29] MEDS ORDERED: INSULIN HUMAN REGULAR PER UNIT 4 UNITS in SYRINGE 3.96 ML IV STA (20:30)
[2019-01-30 06:50] LABS: BUN Creatinine Ratio 32.1 (10-20); Calcium 8.3 mg/dl (8.5-10.1); Creatinine Clr Calc Pharmacy 22.8 ml/min; Est GFR (African American) 21.8; Est GFR (Non-African American) 18.8; Potassium 4.1 mmol/L (3.5-5.1)
[2019-01-30] MEDS: VICTOZA - ORDER AWAITING ACTION SCH ×3 (07:07→22:55)
[2019-01-30 07:09] LABS: Hematocrit (blood only) 27.5 % (37-47); Hemoglobin 8.6 g/dL (12.0-16.0); Mean Corpuscular Hemoglobin 28.5 pg (25-34); Mean Corpuscular Hgb Conc 31.3 g/dL (32-36); Mean Corpuscular Volume 91.1 fL (80-100); Mean Platelet Volume 8.8 fL (7.4-10.4); Platelet Count 85 K/uL (130-400); RDW Coefficient of Variation 15.5 % (11.5-14.5); RDW Standard Deviation 50.6 fL (36.4-46.3); Red Blood Count 3.02 M/uL (4.2-5.4); White Blood Count 7.24 K/uL (4.8-10.8)
[2019-01-30 07:11] LABS: Basophils # (auto) 0.01 K/uL (0-0.2); Basophils % (auto) 0.1 %; Immature Granulocytes # (auto) 0.03 K/uL (0.00-0.02); Immature Granulocytes % (auto) 0.4 %; Lymphocytes # (auto) 0.63 K/uL (1.2-3.4); Lymphocytes % (auto) 8.7 %; Monocytes # (auto) 0.52 K/uL (0.11-0.59); Monocytes % (auto) 7.2 %; Neutrophils # (auto) 6.05 K/uL (1.4-6.5); Neutrophils % (auto) 83.6 %; Platelet Estimate Decreased (Normal); RBC Morphology Unremarkable
[2019-01-30] MEDS: ALBUT/IPRATROP 3MG/0.5MG NEB 3 ML VIAL NEB SCH ×4 (07:25→20:04)
[2019-01-30] MEDS: CHOLECALCIFEROL 1,000 UNITS TAB PO SCH (07:39)
[2019-01-30] MEDS: AMLODIPINE BESYLATE 5 MG TAB PO SCH (07:39)
[2019-01-30] MEDS: NICOTINE 21 MG/24 HR TDSY TD SCH (07:40)
[2019-01-30] MEDS: DOXYCYCLINE HYCLATE 100 MG CAP PO SCH ×2 (07:40→20:24)
[2019-01-30] MEDS: BUDESONIDE/FORMOTEROL FUMARATE 160/4.5 60 PUFFS/INHALER INH SCH ×2 (07:40→20:23)
[2019-01-30] MEDS: ARIPiprazole 15 MG TAB PO SCH (07:40)
[2019-01-30] MEDS: CITALOPRAM 40 MG TAB PO SCH (07:40)
[2019-01-30] MEDS: cefUROXime axetil 250 MG TABLET PO SCH (07:40)
[2019-01-30] MEDS: ASPIRIN 81 MG ECTAB PO SCH (07:40)
[2019-01-30] MEDS: BuPROPion SR 100 MG TABCR PO SCH (07:40)
[2019-01-30] MEDS: ASCORBIC ACID 500 MG TAB PO SCH (07:40)
[2019-01-30] MEDS: METOPROLOL TARTRATE 50 MG TAB PO SCH ×2 (07:40→20:22)
[2019-01-30] MEDS: predniSONE 20 MG TAB PO SCH (07:40)
[2019-01-30] MEDS: OXYCODONE HCL IR 5 MG TAB (IMMEDIATE RELEASE) PO PRN (07:57)
[2019-01-30] MEDS: INSULIN GLARGINE SOLOSTAR 100 UNITS/ML 3 ML PEN SQ SCH ×2 (07:58→21:05)
[2019-01-30] MEDS: INSULIN ASPART 100 UNITS/ML 3 ML PEN SC SCH ×4 (07:58→21:05)
[2019-01-30] MEDS: HEPARIN SOD 5,000 UNIT/0.5 ML VIAL SQ SCH ×2 (07:59→20:22)
--- NOTE | 2019-01-30 11:59 | Hospitalist Progress Note ---
Date of Service January 30, 2019 Assessment & Plan (1) Acute UTI: She has history of UTI in the last month UA examination shows possible infection Urine is sent for culture and she was started with intravenous ceftriaxone Urine culture is growing gram-negative bacilli-sensitive to most of the a ntibiotics except quinolones Clinically stable and will continue current intravenous antibiotic Continue with IV ceftriaxone for now Antibiotic has changed to oral Ceftin No more urinary symptoms Diabetes Blood sugar has been running high secondary to use of steroid We will cover with sliding scale insulin while in the hospital We will change IV Solu-Medrol to oral prednisone from tomorrow Blood sugar has been noted to be high likely secondary to use of steroid We will taper the steroid dose (2) Pneumonia: Noted to have acute hypoxemia with 68% of saturation before coming to the hospital Chest x-ray did show possible bibasilar infiltration/fluid overload Will cover with intravenous doxycycline Received a small amount of IV fluid in the ER secondary to acute on chronic kidney impairment We will continue with intravenous ceftriaxone and doxycycline for now Blood culture have been negative We will change doxycycline to oral Clinically a lot better Continue doxycycline for total of 10 days (3) COPD exacerbation: COPD exacerbation secondary to pneumonia Continue her usual inhalers and nebulized bronchodilator Will not start any intravenous Solu-Medrol Has been on oxygen at home continuously We will titrate oxygen level to keep the saturation above 90% Likely to need Solu-Medrol and nebulized bronchodilator Symbicort added We will give short course of oral prednisone Clinically much better (4) Anemia: Has chronic anemia likely secondary to chronic kidney disease Hemoglobin is around 7 Will give 1 unit of blood transfusion Hemoglobin remains stable (5) CKD stage 4 due to type 2 diabetes mellitus: Has CKD stage IV Creatinine today is 2.28-this is at her baseline We will advised to continue oral fluid intake No additional IV fluid We will hold Lasix for now Function has improved-advised to drink more orally Creatinine has been improving We will resume her usual dose of Lasix (6) Seizure: History of seizure disorder No recent seizure Will observe Low vitamin D level with high parathormone level Continue oral vitamin D supplement PT and OT evaluation Possible discharge on Thursday Subjective 01/27 The patient was seen and examined in medical telemetry unit She has been feeling a lot better since admission Still has some shortness of breath, denies any chest pain and/or palpitation No fever and/or chills 01/28 The patient was seen and examined in medical telemetry unit She feels a lot better today Her blood sugar noted to be high likely secondary to use of Solu-Medrol We will get PT and OT evaluation 01/29 The patient was seen and examined in medical telemetry unit She has been feeling a lot better Waiting for physical therapy evaluation Denies any significant symptoms 01/30 Patient seen and examined in medical telemetry unit She breathing has improved a lot She has been ambulating well Denies any cough and/or shortness of breath at rest Review of Systems Review of Systems: All systems reviewed and are unremarkable except as noted below Constitutional: + fatigue and + weakness; no fever and no chills Neurologic: + generalized weakness Physical Exam Physical Exam: Minimal distress at rest Constitutional: no acute distress Eyes: PERRL, conjunctivae normal, anicteric sclerae ENMT: external ear and nose normal, oropharynx normal Neck: trachea midline, no thyromegaly Respiratory: + respiratory distress (Minimal respiratory distress at rest) Auscultation: + diminished lung sounds and + crackles (At the bases and almost gone) Cardiovascular: Rate/Rhythm: regular rate and regular rhythm Heart Sounds: no murmur Gastrointestinal (Abdomen): Inspection/Auscultation: abdomen normal to inspection and normal bowel sounds Percussion/Palpation: abdomen soft; abdomen nontender Neurologic: moves all extremities; no focal motor deficits Psychiatric: A+Ox3, euthymic affect Lymphatic: no cervical or axillary lymphadenopathy Results & Data Vital Signs (Past 12 Hours) Vital Signs Temp Pulse Resp BP Pulse Ox 01/30/19 11:33 71 16 93 01/30/19 07:28 36.6 C 86 20 148/62 H 90 01/30/19 07:26 83 16 93 Laboratory Results Short CBC 01/30/19 Range/Units 05:55 WBC 7.24 (4.8-10.8) K/uL Hgb 8.6 L (12.0-16.0) g/dL Hct 27.5 L (37-47) % Plt Count 85 L D (130-400) K/uL BMP 01/30/19 05:55 Sodium 136 Potassium 4.1 Chloride 107 Carbon Dioxide 21 BUN 84 H Creatinine 2.62 H Glucose 207 H Calcium 8.3 L Medications Administered Current Inpatient Medications Acetaminophen (Tylenol) 650 mg PO Q6H PRN PRN Reason: MILD PAIN 1-3 Stop: 02/25/19 18:58 Acetaminophen (Tylenol) 650 mg PO Q6H PRN PRN Reason: TEMP>101 Stop: 02/25/19 18:58 Last Admin: 01/28/19 19:33 Dose: 650 mg Documented by: Albuterol (Combivent Respimat) 1 puffs INH QID [facility] Stop: 02/25/19 20:59 Last Admin: 01/26/19 20:09 Dose: 1 puffs Documented by: Albuterol (Ventolin Hfa) 2 puffs INH Q4 PRN PRN Reason: Shortness Of Breath Or Wheezing Stop: 02/25/19 18:58 Albuterol (Duoneb) 3 ml INH Q6H PRN PRN Reason: wheezing Stop: 02/25/19 18:58 Last Admin: 01/26/19 19:28 Dose: 3 ml Documented by: Albuterol (Duoneb) 3 ml NEB QIDR [facility] Stop: 02/26/19 07:59 Last Admin: 01/30/19 11:29 Dose: 3 ml Documented by: Amlodipine Besylate (Norvasc) 10 mg PO DAILY [facility] Stop: 02/25/19 18:58 Last Admin: 01/30/19 07:39 Dose: 10 mg Documented by: Aripiprazole (Abilify) 15 mg PO DAILY [facility] Stop: 02/25/19 18:58 Last Admin: 01/30/19 07:40 Dose: 15 mg Documented by: Ascorbic Acid (Vitamin C) 500 mg PO DAILY [facility] Stop: 02/26/19 08:59 Last Admin: 01/30/19 07:40 Dose: 500 mg Documented by: Aspirin (Ecotrin Ectab) 81 mg PO DAILY [facility] Stop: 02/26/19 08:59 Last Admin: 01/30/19 07:40 Dose: 81 mg Documented by: Atorvastatin Calcium (Lipitor) 40 mg PO HS [facility] Stop: 02/25/19 20:59 Last Admin: 01/29/19 19:57 Dose: 40 mg Documented by: Budesonide/Formoterol Fumarate (Symbicort 160mcg/4.5mcg) 2 puffs INH BID [facility] Stop: 02/26/19 12:14 Last Admin: 01/30/19 07:40 Dose: 2 puffs Documented by: Bupropion HCl (Wellbutrin-Sr) 100 mg PO DAILY [facility] Stop: 02/26/19 08:59 Last Admin: 01/30/19 07:40 Dose: 100 mg Documented by: Cefuroxime Axetil (Ceftin) 250 mg PO QAM [facility]; Protocol Stop: 02/03/19 08:59 Last Admin: 01/30/19 07:40 Dose: 250 mg Documented by: Citalopram Hydrobromide (Celexa) 40 mg PO DAILY [facility] Stop: 02/26/19 08:59 Last Admin: 01/30/19 07:40 Dose: 40 mg Documented by: Dextrose (Dextrose 50%) 25 - 50 ml IV UD PRN; Protocol PRN Reason: Hypoglycemia Protocol Stop: 02/25/19 19:29 Diphenhydramine HCl (Benadryl Capsule) 25 mg PO Q6H PRN PRN Reason: SEASONAL ALLERGIES Stop: 02/25/19 18:58 Last Admin: 01/27/19 04:48 Dose: 25 mg Documented by: Doxycycline Hyclate (Vibramycin) 100 mg PO BID [facility] Stop: 02/05/19 08:59 Last Admin: 01/30/19 07:40 Dose: 100 mg Documented by: Glucagon (Glucagen) 1 mg IM UD PRN; Protocol PRN Reason: Hypoglycemia Protocol Stop: 02/25/19 19:29 Glucose (Glucose 40%) 15 - 30 gm PO UD PRN; Protocol PRN Reason: Hypoglycemia Protocol Stop: 02/25/19 19:29 Glucose (Dex4 Glucose) 4 - 8 tabs PO UD PRN; Protocol PRN Reason: Hypoglycemia Protocol Stop: 02/25/19 19:29 Heparin Sodium (Porcine) (Heparin Sodium (Porcine)) 5,000 units SQ Q12 [facility] Stop: 02/25/19 20:59 Last Admin: 01/30/19 07:59 Dose: 5,000 units Documented by: Hydralazine HCl (Apresoline) 25 mg PO BID [facility] Stop: 02/25/19 20:59 Last Admin: 01/30/19 08:42 Dose: 25 mg Documented by: Sodium Chloride (Nss) 250 mls @ 15 mls/hr IV .[id number] PRN PRN Reason: For Transfusion Stop: 02/25/19 17:35 Insulin Aspart (Novolog Flexpen) 0 units SC ACHS [facility] Stop: 02/25/19 20:59 Last Admin: 01/30/19 07:58 Dose: 11 units Documented by: Insulin Glargine (Lantus Solostar Pen) 20 units SQ BID [facility] Stop: 02/28/19 20:59 Last Admin: 01/30/19 07:58 Dose: 20 units Documented by: Metoprolol Tartrate (Lopressor) 50 mg PO BID [facility] Stop: 02/25/19 20:59 Last Admin: 01/30/19 07:40 Dose: 50 mg Documented by: Miscellaneous (Order Awaiting Action) 1 ea N/A QS [facility] Stop: 02/26/19 00:00 Last Admin: 01/30/19 07:07 Dose: Not Given Documented by: Miscellaneous (Order Awaiting Action) 1 ea N/A QS [facility] Stop: 02/26/19 00:00 Last Admin: 01/30/19 07:07 Dose: Not Given Documented by: Miscellaneous (Remove Nicoderm Patch) 1 ea N/A HS [facility] Stop: 02/26/19 20:59 Last Admin: 01/29/19 20:00 Dose: Not Given Documented by: Miscellaneous (Carbohydrates For Hypoglycemia) 15 - 30 gm PO UD PRN PRN Reason: Hypoglycemia Treatment Stop: 02/25/19 19:29 Nicotine (Nicoderm Cq) 21 mg TD DAILY [facility] Stop: 02/25/19 18:58 Last Admin: 01/30/19 07:40 Dose: 21 mg Documented by: Oxycodone HCl (Roxicodone Immediate Rel) 5 mg PO Q8 PRN PRN Reason: PAIN LEVEL 4-10 Stop: 02/25/19 18:58 Last Admin: 01/30/19 07:57 Dose: 5 mg Documented by: Prednisone (Prednisone) 40 mg PO DAILY [facility] Stop: 03/01/19 08:59 Last Admin: 01/30/19 07:40 Dose: 40 mg Documented by: Ranitidine HCl (Zantac) 75 mg PO DAILY [facility] Stop: 02/25/19 18:58 Last Admin: 01/30/19 07:39 Dose: 75 mg Documented by: Vitamin D (Vitamin D3) 1,000 units PO QAM [facility] Stop: 02/25/19 17:44 Last Admin: 01/30/19 07:39 Dose: 1,000 units Documented by:
[2019-01-30] MEDS: FUROSEMIDE 20 MG TAB PO SCH (17:20)
[2019-01-30] MEDS: ATORVASTATIN 40 MG TAB PO SCH (20:21)
[2019-01-31] MEDS: ALBUT/IPRATROP 3MG/0.5MG NEB 3 ML VIAL NEB SCH ×2 (07:13→11:09)
[2019-01-31] MEDS: INSULIN ASPART 100 UNITS/ML 3 ML PEN SC SCH ×2 (08:08→12:13)
[2019-01-31] MEDS: VICTOZA - ORDER AWAITING ACTION SCH (08:09)
[2019-01-31] MEDS: DOXYCYCLINE HYCLATE 100 MG CAP PO SCH (08:10)
[2019-01-31] MEDS: HEPARIN SOD 5,000 UNIT/0.5 ML VIAL SQ SCH (08:10)
[2019-01-31] MEDS: FUROSEMIDE 20 MG TAB PO SCH (08:10)
[2019-01-31] MEDS: ASPIRIN 81 MG ECTAB PO SCH (08:11)
[2019-01-31] MEDS: ARIPiprazole 15 MG TAB PO SCH (08:11)
[2019-01-31] MEDS: ASCORBIC ACID 500 MG TAB PO SCH (08:11)
[2019-01-31] MEDS: predniSONE 20 MG TAB PO SCH (08:12)
[2019-01-31] MEDS: AMLODIPINE BESYLATE 5 MG TAB PO SCH (08:12)
[2019-01-31] MEDS: cefUROXime axetil 250 MG TABLET PO SCH (08:13)
[2019-01-31] MEDS: METOPROLOL TARTRATE 50 MG TAB PO SCH (08:13)
[2019-01-31] MEDS: BuPROPion SR 100 MG TABCR PO SCH (08:14)
[2019-01-31] MEDS: CITALOPRAM 40 MG TAB PO SCH (08:14)
[2019-01-31] MEDS: CHOLECALCIFEROL 1,000 UNITS TAB PO SCH (08:15)
[2019-01-31] MEDS: INSULIN GLARGINE SOLOSTAR 100 UNITS/ML 3 ML PEN SQ SCH (08:15)
[2019-01-31] MEDS: NICOTINE 21 MG/24 HR TDSY TD SCH (08:16)
[2019-01-31] MEDS: BUDESONIDE/FORMOTEROL FUMARATE 160/4.5 60 PUFFS/INHALER INH SCH (08:16)
[2019-01-31] MEDS: OXYCODONE HCL IR 5 MG TAB (IMMEDIATE RELEASE) PO PRN (09:15)
--- NOTE | 2019-01-31 10:56 | Hospitalist Progress Note ---
Date of Service January 31, 2019 Assessment & Plan (1) Acute UTI: She has history of UTI in the last month UA examination shows possible infection Urine is sent for culture and she was started with intravenous ceftriaxone Urine culture is growing gram-negative bacilli-sensitive to most of the a ntibiotics except quinolones Clinically stable and will continue current intravenous antibiotic Continue with IV ceftriaxone for now Antibiotic has changed to oral Ceftin No more urinary symptoms Will finish the course of antibiotic Diabetes Blood sugar has been running high secondary to use of steroid We will cover with sliding scale insulin while in the hospital We will change IV Solu-Medrol to oral prednisone from tomorrow Blood sugar has been noted to be high likely secondary to use of steroid We will taper the steroid dose (2) Pneumonia: Noted to have acute hypoxemia with 68% of saturation before coming to the hospital Chest x-ray did show possible bibasilar infiltration/fluid overload Will cover with intravenous doxycycline Received a small amount of IV fluid in the ER secondary to acute on chronic kidney impairment We will continue with intravenous ceftriaxone and doxycycline for now Blood culture have been negative We will change doxycycline to oral Clinically a lot better Continue doxycycline for total of 10 days (3) COPD exacerbation: COPD exacerbation secondary to pneumonia Continue her usual inhalers and nebulized bronchodilator Will not start any intravenous Solu-Medrol Has been on oxygen at home continuously We will titrate oxygen level to keep the saturation above 90% Likely to need Solu-Medrol and nebulized bronchodilator Symbicort added We will give short course of oral prednisone Clinically much better Rapid taper of steroid (4) Anemia: Has chronic anemia likely secondary to chronic kidney disease Hemoglobin is around 7 Will give 1 unit of blood transfusion Hemoglobin remains stable (5) CKD stage 4 due to type 2 diabetes mellitus: Has CKD stage IV Creatinine today is 2.28-this is at her baseline We will advised to continue oral fluid intake No additional IV fluid We will hold Lasix for now Function has improved-advised to drink more orally Creatinine has been improving We will resume her usual dose of Lasix (6) Seizure: History of seizure disorder No recent seizure Will observe Low vitamin D level with high parathormone level Continue oral vitamin D supplement PT and OT evaluation Will discharge to [facility] today Subjective 01/27 The patient was seen and examined in medical telemetry unit She has been feeling a lot better since admission Still has some shortness of breath, denies any chest pain and/or palpitation No fever and/or chills 01/28 The patient was seen and examined in medical telemetry unit She feels a lot better today Her blood sugar noted to be high likely secondary to use of Solu-Medrol We will get PT and OT evaluation 01/29 The patient was seen and examined in medical telemetry unit She has been feeling a lot better Waiting for physical therapy evaluation Denies any significant symptoms 01/30 Patient seen and examined in medical telemetry unit She breathing has improved a lot She has been ambulating well Denies any cough and/or shortness of breath at rest 01/31 Patient was seen and examined in medical telemetry unit She has been back to her baseline Denies any symptoms at rest Has been ambulating without any significant symptoms Will be transferred to [facility] today Review of Systems Review of Systems: All systems reviewed and are unremarkable except as noted below Constitutional: + weakness; no fever and no chills Respiratory: + cough Neurologic: + generalized weakness Physical Exam Physical Exam: No apparent distress at rest Constitutional: no acute distress Eyes: PERRL, conjunctivae normal, anicteric sclerae ENMT: external ear and nose normal, oropharynx normal Neck: trachea midline, no thyromegaly Respiratory: normal respiratory effort; no respiratory distress Auscultation: + diminished lung sounds and + wheezes (Minimal ) Cardiovascular: Rate/Rhythm: regular rate and regular rhythm Heart Sounds: no murmur Gastrointestinal (Abdomen): Inspection/Auscultation: abdomen normal to inspection and normal bowel sounds Percussion/Palpation: abdomen soft; abdomen nontender Neurologic: moves all extremities; no focal motor deficits Psychiatric: A+Ox3, euthymic affect Lymphatic: no cervical or axillary lymphadenopathy Results & Data Vital Signs (Past 12 Hours) Vital Signs Temp Pulse Resp BP Pulse Ox 01/31/19 07:14 36.6 C 80 20 156/61 H 98 01/30/19 23:50 36.5 C 81 147/67 H 98 Medications Administered Current Inpatient Medications Acetaminophen (Tylenol) 650 mg PO Q6H PRN PRN Reason: MILD PAIN 1-3 Stop: 02/25/19 18:58 Acetaminophen (Tylenol) 650 mg PO Q6H PRN PRN Reason: TEMP>101 Stop: 02/25/19 18:58 Last Admin: 01/28/19 19:33 Dose: 650 mg Documented by: Albuterol (Combivent Respimat) 1 puffs INH QID LUIS MIGUEL Stop: 02/25/19 20:59 Last Admin: 01/26/19 20:09 Dose: 1 puffs Documented by: Albuterol (Ventolin Hfa) 2 puffs INH Q4 PRN PRN Reason: Shortness Of Breath Or Wheezing Stop: 02/25/19 18:58 Albuterol (Duoneb) 3 ml INH Q6H PRN PRN Reason: wheezing Stop: 02/25/19 18:58 Last Admin: 01/26/19 19:28 Dose: 3 ml Documented by: Albuterol (Duoneb) 3 ml NEB QIDR [facility] Stop: 02/26/19 07:59 Last Admin: 01/31/19 07:13 Dose: 3 ml Documented by: Amlodipine Besylate (Norvasc) 10 mg PO DAILY [facility] Stop: 02/25/19 18:58 Last Admin: 01/31/19 08:12 Dose: 10 mg Documented by: Aripiprazole (Abilify) 15 mg PO DAILY [facility] Stop: 02/25/19 18:58 Last Admin: 01/31/19 08:11 Dose: 15 mg Documented by: Ascorbic Acid (Vitamin C) 500 mg PO DAILY [facility] Stop: 02/26/19 08:59 Last Admin: 01/31/19 08:11 Dose: 500 mg Documented by: Aspirin (Ecotrin Ectab) 81 mg PO DAILY [facility] Stop: 02/26/19 08:59 Last Admin: 01/31/19 08:11 Dose: 81 mg Documented by: Atorvastatin Calcium (Lipitor) 40 mg PO HS [facility] Stop: 02/25/19 20:59 Last Admin: 01/30/19 20:21 Dose: 40 mg Documented by: Budesonide/Formoterol Fumarate (Symbicort 160mcg/4.5mcg) 2 puffs INH BID [facility] Stop: 02/26/19 12:14 Last Admin: 01/31/19 08:16 Dose: 2 puffs Documented by: Bupropion HCl (Wellbutrin-Sr) 100 mg PO DAILY [facility] Stop: 02/26/19 08:59 Last Admin: 01/31/19 08:14 Dose: 100 mg Documented by: Cefuroxime Axetil (Ceftin) [facility]; Protocol Stop: 02/03/19 08:59 Last Admin: 01/31/19 08:13 Dose: 250 mg Documented by: Citalopram Hydrobromide (Celexa) 40 mg PO DAILY LUIS MIGUEL Stop: 02/26/19 08:59 Last Admin: 01/31/19 08:14 Dose: 40 mg Documented by: Dextrose (Dextrose 50%) 25 - 50 ml IV UD PRN; Protocol PRN Reason: Hypoglycemia Protocol Stop: 02/25/19 19:29 Diphenhydramine HCl (Benadryl Capsule) 25 mg PO Q6H PRN PRN Reason: SEASONAL ALLERGIES Stop: 02/25/19 18:58 Last Admin: 01/27/19 04:48 Dose: 25 mg Documented by: Doxycycline Hyclate (Vibramycin) 100 mg PO BID LUIS MIGUEL Stop: 02/05/19 08:59 Last Admin: 01/31/19 08:10 Dose: 100 mg Documented by: Furosemide (Lasix) 20 mg PO BID17 LUIS MIGUEL Stop: 03/01/19 16:59 Last Admin: 01/31/19 08:10 Dose: 20 mg Documented by: Glucagon (Glucagen) 1 mg IM UD PRN; Protocol PRN Reason: Hypoglycemia Protocol Stop: 02/25/19 19:29 Glucose (Glucose 40%) 15 - 30 gm PO UD PRN; Protocol PRN Reason: Hypoglycemia Protocol Stop: 02/25/19 19:29 Glucose (Dex4 Glucose) 4 - 8 tabs PO UD PRN; Protocol PRN Reason: Hypoglycemia Protocol Stop: 02/25/19 19:29 Heparin Sodium (Porcine) (Heparin Sodium (Porcine)) 5,000 units SQ Q12 LUIS MIGUEL Stop: 02/25/19 20:59 Last Admin: 01/31/19 08:10 Dose: 5,000 units Documented by: Hydralazine HCl (Apresoline) 25 mg PO BID LUIS MIGUEL Stop: 02/25/19 20:59 Last Admin: 01/31/19 08:11 Dose: 25 mg Documented by: Sodium Chloride (Nss) 250 mls @ 15 mls/hr IV .[id number] PRN PRN Reason: For Transfusion Stop: 02/25/19 17:35 Insulin Aspart (Novolog Flexpen) 0 units SC ACHS LUIS MIGUEL Stop: 02/25/19 20:59 Last Admin: 01/31/19 08:08 Dose: 7 units Documented by: Insulin Glargine (Lantus Solostar Pen) 20 units SQ BID [facility] Stop: 02/28/19 20:59 Last Admin: 01/31/19 08:15 Dose: 20 units Documented by: Metoprolol Tartrate (Lopressor) 50 mg PO BID [facility] Stop: 02/25/19 20:59 Last Admin: 01/31/19 08:13 Dose: 50 mg Documented by: Miscellaneous (Order Awaiting Action) 1 ea N/A QS [facility] Stop: 02/26/19 00:00 Last Admin: 01/31/19 08:09 Dose: Not Given Documented by: Miscellaneous (Order Awaiting Action) 1 ea N/A QS [facility] Stop: 02/26/19 00:00 Last Admin: 01/31/19 08:09 Dose: Not Given Documented by: Miscellaneous (Remove Nicoderm Patch) 1 ea N/A HS [facility] Stop: 02/26/19 20:59 Last Admin: 01/30/19 20:23 Dose: Not Given Documented by: Miscellaneous (Carbohydrates For Hypoglycemia) 15 - 30 gm PO UD PRN PRN Reason: Hypoglycemia Treatment Stop: 02/25/19 19:29 Nicotine (Nicoderm Cq) 21 mg TD DAILY [facility] Stop: 02/25/19 18:58 Last Admin: 01/31/19 08:16 Dose: Not Given Documented by: Oxycodone HCl (Roxicodone Immediate Rel) 5 mg PO Q8 PRN PRN Reason: PAIN LEVEL 4-10 Stop: 02/25/19 18:58 Last Admin: 01/31/19 09:15 Dose: 5 mg Documented by: Prednisone (Prednisone) 40 mg PO DAILY [facility] Stop: 03/01/19 08:59 Last Admin: 01/31/19 08:12 Dose: 40 mg Documented by: Ranitidine HCl (Zantac) 75 mg PO DAILY [facility] Stop: 02/25/19 18:58 Last Admin: 01/31/19 08:14 Dose: 75 mg Documented by: Vitamin D (Vitamin D3) 1,000 units PO QAM [facility] Stop: 02/25/19 17:44 Last Admin: 01/31/19 08:15 Dose: 1,000 units Documented by:
--- NOTE | 2019-02-01 08:08 | Discharge Summary ---
Date of Service February 01, 2019 Admission HPI Per Admitting Provider She is a 63-year-old female with significant past medical history including diabetic neuropathy, chronic hypercarbic respiratory failure, chronic hyponatremia, COPD, obesity hypoventilation syndrome, ABHINAV, chronic diastolic heart failure, hypertension, chronic kidney disease stage IV, history of seizure disorder apparently was noted to have very hypoxic at [facility] today. She has been complaining of more weakness and shortness of breath for the last 1 week or so, she feels chills but denies to have any documented temperature. She does have cough with phlegm, she also complained to have profound weakness last night while she was going to use the bathroom. She denies any chest pain and/or palpitation, no abdominal pain, nausea and/or vomiting. Denies any problem with her urine and her bowel habit. She does not have any acute weakness involving any particular side of the body. No history of recent seizure but has history of fall with minor injury. She was noted to have very hypoxic initially with 60% saturation in the ER she was saturating more than 90% on 4 L nasal cannula showed possible UTI and she was started with intravenous ceftriaxone. Her chest x-ray did show possible bibasilar infiltration/fluid overload. She was started with intravenous doxycycline and ceftriaxone and was admitted to medical floor for continuation of care. Admission Exam Per Admitting Provider Physical Exam: Moderate shortness of breath at rest Constitutional: + acute distress (Weakness and shortness of breath) and + ill appearing Eyes: PERRL, conjunctivae normal, anicteric sclerae ENMT: external ear and nose normal, oropharynx normal Neck: trachea midline, no thyromegaly Respiratory: + respiratory distress, + labored breathing and + uses accessory muscles Auscultation: + diminished lung sounds and + crackles (At the bases) Cardiovascular: Rate/Rhythm: regular rate and regular rhythm Heart Sounds: no murmur Gastrointestinal (Abdomen): Inspection/Auscultation: abdomen normal to inspection and normal bowel sounds Percussion/Palpation: abdomen soft; abdomen nontender Musculoskeletal: No acute arthritis Skin: Has generalized bruising and minor injuries involving the face the left side and upper extremity Neurologic: moves all extremities; no focal motor deficits Psychiatric: A+Ox3, euthymic affect Lymphatic: no cervical or axillary lymphadenopathy Principal Diagnosis COPD exacerbation with hypoxemia, pneumonia, UTI Discharge Exam Constitutional no acute distress Eyes PERRL, conjunctivae normal, anicteric sclerae ENMT external ear and nose normal, oropharynx normal Neck trachea midline, no thyromegaly Respiratory normal respiratory effort; no respiratory distress Auscultation: + diminished lung sounds and + wheezes (Minimal ) Cardiovascular Rate/Rhythm: regular rate and regular rhythm Heart Sounds: no murmur Gastrointestinal (Abdomen) Inspection/Auscultation: abdomen normal to inspection and normal bowel sounds Percussion/Palpation: abdomen soft; abdomen nontender Neurologic moves all extremities; no focal motor deficits Psychiatric A+Ox3, euthymic affect Lymphatic no cervical or axillary lymphadenopathy Discharge Data Allergies Allergy/AdvReac Type Severity Reaction Status Date / Time metformin Allergy Unknown Verified 01/26/19 15:09 Consultations 01/26/19 16:22 ED Decision to Admit Stat Hospital Course (1) Acute UTI: She has history of UTI in the last month UA examination shows possible infection Urine is sent for culture and she was started with intravenous ceftriaxone Urine culture is growing gram-negative bacilli-sensitive to most of the antibiotics except quinolones Clinically stable and will continue current intravenous antibiotic Continue with IV ceftriaxone for now Antibiotic has changed to oral Ceftin No more urinary symptoms Will finish the course of antibiotic Diabetes Blood sugar has been running high secondary to use of steroid We will cover with sliding scale insulin while in the hospital We will change IV Solu-Medrol to oral prednisone from tomorrow Blood sugar has been noted to be high likely secondary to use of steroid We will taper the steroid dose (2) Pneumonia: Noted to have acute hypoxemia with 68% of saturation before coming to the hospital Chest x-ray did show possible bibasilar infiltration/fluid overload Will cover with intravenous doxycycline Received a small amount of IV fluid in the ER secondary to acute on chronic kidney impairment We will continue with intravenous ceftriaxone and doxycycline for now Blood culture have been negative We will change doxycycline to oral Clinically a lot better Continue doxycycline for total of 10 days (3) COPD exacerbation: COPD exacerbation secondary to pneumonia Continue her usual inhalers and nebulized bronchodilator Will not start any intravenous Solu-Medrol Has been on oxygen at home continuously We will titrate oxygen level to keep the saturation above 90% Likely to need Solu-Medrol and nebulized bronchodilator Symbicort added We will give short course of oral prednisone Clinically much better Rapid taper of steroid (4) Anemia: Has chronic anemia likely secondary to chronic kidney disease Hemoglobin is around 7 Will give 1 unit of blood transfusion Hemoglobin remains stable (5) CKD stage 4 due to type 2 diabetes mellitus: Has CKD stage IV Creatinine today is 2.28-this is at her baseline We will advised to continue oral fluid intake No additional IV fluid We will hold Lasix for now Function has improved-advised to drink more orally Creatinine has been improving We will resume her usual dose of Lasix (6) Seizure: History of seizure disorder No recent seizure Will observe Low vitamin D level with high parathormone level Continue oral vitamin D supplement PT and OT evaluation Will discharge to [facility] today Total Time Total Time Spent Total Time Spent (In Minutes): 35 minutes Total Time Includes: Examination of the Patient, Discharge Planning, Medication Reconciliation and Communication With Other Providers Discharge Plan Discharge Items Patient Disposition: Transfer [facility] Reason For Visit: HYPOXIA, PNEUMONIA, UTI Discharge Diagnosis: COPD exacerbation with hypoxemia, pneumonia, UTI Condition: Fair Discharge Goals: Decrease discomfort, Increase independence and Improve nutritional status Activity: Resume your previous activity Non-emergency contact: Primary Care Provider Call non-emergency contact if: you have any medication questions and your symptoms worsen Follow-up/Referrals: Jaki Owen [Primary Care Provider] - (Please make an appointment with your primary provider within 7 days) Diet: Carb Consistent or DM2 and Low Sodium (2gm) Fluids: 1500ml (6 cups) Addtl Provider Instructions: Please take precaution to avoid falls. Continue oxygen as directed Prescriptions: New doxycycline hyclate 100 mg Capsule 100 mg PO BID 5 Days Qty: 10 RF: 0 cefuroxime axetil 250 mg Tablet 250 mg PO QAM 5 Days Qty: 5 RF: 0 cholecalciferol (vitamin D3) [Vitamin D3] 1,000 unit Tablet 1,000 unit PO QAM 30 Days Qty: 30 RF: 0 Symbicort 160-4.5 mcg/actuation Hfa Aerosol Inhaler 2 puff inhalation BID 30 Days Qty: 1 RF: 0 prednisone 10 mg tablet 10 mg PO UD Qty: 18 RF: 0 Lactinex 1 million cell tablet,chewable 1 tab PO BID Qty: 20 RF: 0 oxycodone 5 mg capsule 5 mg PO Q8H PRN (Reason: pain) Qty: 10 RF: 0 Continued atorvastatin [Lipitor] 40 mg Tablet 40 mg PO HS RF: 0 citalopram [Celexa] 40 mg Tablet 40 mg PO DAILY RF: 0 melatonin 3 mg Tablet 3 mg PO HS RF: 0 bupropion HCl 100 mg Tablet Sustained-Release 12 Hr 100 mg PO DAILY RF: 0 ranitidine HCl 75 mg Tablet 75 mg PO DAILY RF: 0 nicotine [Nicoderm CQ] 21 mg/24 hr Patch 24 Hour 1 patch TRANSDERMAL DAILY RF: 0 ascorbic acid (vitamin C) [Vitamin C] 500 mg Tablet 500 mg PO DAILY RF: 0 Victoza 2-Gary 0.6 mg/0.1 mL (18 mg/3 mL) pen injector 1.2 mg subcut DAILY RF: 0 acetaminophen 325 mg Tablet 650 mg PO Q6H MDD 3GM/24HR PRN (Reason: MILD PAIN 1-3) RF: 0 acetaminophen 325 mg Tablet 650 mg PO Q6H MDD 3GM/24HR PRN (Reason: TEMP>101) RF: 0 Lantus U-100 Insulin 100 unit/mL Solution 10 unit SUBCUT BID RF: 0 hydralazine 25 mg Tablet 25 mg PO BID RF: 0 diphenhydramine HCl 25 mg Tablet 25 mg PO Q6H PRN (Reason: SEASONAL ALLERGIES) RF: 0 metoprolol tartrate 50 mg Tablet 50 mg PO BID RF: 0 insulin lispro [Humalog U-100 Insulin] 100 unit/mL Solution 3 unit SUBCUT AC RF: 0 Combivent Respimat 20-100 mcg/actuation mist 1 puff inhalation QID RF: 0 oxycodone 5 mg Capsule 5 mg PO Q8 PRN (Reason: PAIN LEVEL 4-10) RF: 0 insulin lispro [Humalog U-100 Insulin] 100 unit/mL Solution 1 sliding scale dose SUBCUT USEASDIRECTD RF: 0 albuterol sulfate 90 mcg/actuation Hfa Aerosol Inhaler 2 puff INHALATION Q4 PRN (Reason: Shortness Of Breath Or Wheezing) RF: 0 aspirin 81 mg Tablet,Delayed Release (Dr/Ec) 81 mg PO DAILY RF: 0 amlodipine 10 mg Tablet 10 mg PO DAILY RF: 0 aripiprazole [Abilify] 15 mg Tablet 15 mg PO DAILY RF: 0 Breo Ellipta 100-25 mcg/dose Blister With Device 1 inh INHALATION DAILY RF: 0 ipratropium-albuterol 0.5 mg-3 mg(2.5 mg base)/3 mL solution for nebulization 3 ml INH Q6H PRN (Reason: wheezing) Qty: 90 RF: 0 furosemide 40 mg Tablet 20 mg PO BID Qty: 0 RF: 0 Discontinued prednisone 10 mg tablet 10 mg PO UD Qty: 18 RF: 0 Stand-Alone Forms: [facility] Discharge Orders: Discharge Order (Routine); Ordered 01/31/19 Ordered By: Celeste Esparza Skilled Items Patient informed of condition?: Yes DNR: No Discharge Level of Care: Skilled Communicable Disease: No Discharge Prognosis: Stable Admission Data Admit Date/Time: 01/26/19 17:14 Attending Provider: Celeste Esparza Admit Provider: Celeste Esparza Primary Care Provider: Jaki Owen Other Providers: Byron Rush Service: Medical Other Interventions: Discharge Summary Assessment (RN) Last Done: 01/31/19 13:17 Infection Control - Act 87 Hepatitis C Last Done: 01/27/19 10:23 DC Date/Time DO NOT enter until pt leaves facility: 01/31/19 13:31
== END 2019-01-31 13:31 | DRG 190 ==
LOC: ED 14:27 → 2N 17:14